=== PATIENT | female | born 1970 | race Caucasian/White ===

== ENCOUNTER 2018-01-14 10:38 | Outpatient (CLI) | payer MEDICAID, SELFPAY ==
[2018-01-14 11:15] LABS: Abs Immature Grans 0.25 k/cumm (0.0-0.09); HGB 12.7 g/dL (12.0-15.5); Mean Corp. HGB Concentration 32.6 g/dL (32.0-36.0); Mean Corpuscular Hemoglobin 28.9 pg (27.0-33.0); Mean Corpuscular Volume 88.6 fL (80-95); Mean Platelet Volume 10.3 fL (8.0-11.0); RBC Distribution Width 17.9 % (11.7-14.6); White Blood Cell Count 11.75 k/cumm (4.4-10.8)
[2018-01-14 11:50] LABS: Absolute Neutrophil Count 5.99 k/cumm (1.2-6.7); Platelet Count 308 x1000/uL (130-400)
[2018-01-14 11:51] LABS: Absolute Lymphocyte Count 4.82 k/cumm (1.2-3.4); Absolute Monocyte Count 0.71 k/cumm (0.11-0.7); Atypical Lymphocytes % 2
[2018-01-14 11:52] LABS: Anisocytosis 2+; Diff Comment Manual Differential
[2018-01-14 11:53] LABS: Polychromasia Present
[2018-01-14 11:57] LABS: ALT 12 U/L (12-78); AST 12 U/L (15-37); Albumin 3.4 g/dL (3.4-5.0); Alkaline Phosphatase 104 U/L (46-116); Anion Gap 8.6 mmol/L (3-11); BUN 13 mg/dL (7-18); Bilirubin, Total 0.2 mg/dL (0.2-1.0); CO2 29.4 mmol/L (21.0-32.0); Calcium 9.4 mg/dL (8.5-10.1); Chloride 103 mmol/L (98-107); Glucose 90 mg/dL (70-100); Sodium 141 mmol/L (136-145); Total Protein 7.1 g/dL (6.4-8.2)
== END 2018-01-14 10:39 ==
PROVIDERS: PCP Family Medicine; Visit Provider Nurse Practitioner Psychiatric/Mental Health
DX: E11.9 Type 2 diabetes mellitus without complications (principal); R20.9 Unspecified disturbances of skin sensation; Z79.899 Other long term (current) drug therapy; Z00.00 Encounter for general adult medical examination without abnormal findings
CPT/HCPCS: 36415; 80053; 85025

== ENCOUNTER 2018-02-24 11:04 | Outpatient (CLI) | payer MEDICAID, SELFPAY ==
[2018-02-24 11:35] LABS: Abs Immature Grans 0.31 k/cumm (0.0-0.09); HCT 41.9 % (36.0-46.0); HGB 13.6 g/dL (12.0-15.5); Mean Corp. HGB Concentration 32.5 g/dL (32.0-36.0); Mean Corpuscular Hemoglobin 29.2 pg (27.0-33.0); Mean Corpuscular Volume 90.1 fL (80-95); Mean Platelet Volume 10.6 fL (8.0-11.0); Platelet Count 319 x1000/uL (130-400); RBC 4.65 m/cumm (4.00-5.20); RBC Distribution Width 17.8 % (11.7-14.6); White Blood Cell Count 14.14 k/cumm (4.4-10.8)
[2018-02-24 11:51] LABS: Absolute Lymphocyte Count 3.39 k/cumm (1.2-3.4); Absolute Neutrophil Count 9.19 k/cumm (1.2-6.7)
[2018-02-24 11:52] LABS: Absolute Monocyte Count 1.27 k/cumm (0.11-0.7); Atypical Lymphocytes % 0; Diff Comment Manual Differential; RBC Morphology Normal
== END 2018-02-24 11:24 ==
PROVIDERS: PCP Family Medicine; Visit Provider Nurse Practitioner Psychiatric/Mental Health
DX: F20.9 Schizophrenia, unspecified (principal); Z79.899 Other long term (current) drug therapy
CPT/HCPCS: 36415; 85025

== ENCOUNTER 2018-03-17 13:48 | Outpatient (REF) | payer MEDICAID, SELFPAY | END 2018-03-17 14:08 | LOC: NCHCN 13:48 | PROVIDERS: PCP Family Medicine; Visit Provider Family Medicine | DX: R35.0 Frequency of micturition (principal) | CPT/HCPCS: 87086 ==

== ENCOUNTER 2018-04-16 15:33 | Outpatient (CLI) | payer MEDICAID, SELFPAY ==
[2018-04-16 16:37] LABS: Abs Immature Grans 0.22 k/cumm (0.0-0.09); HGB 12.8 g/dL (12.0-15.5); Mean Corp. HGB Concentration 32.8 g/dL (32.0-36.0); Mean Corpuscular Hemoglobin 30.3 pg (27.0-33.0); Mean Corpuscular Volume 92.2 fL (80-95); Mean Platelet Volume 9.9 fL (8.0-11.0); Platelet Count 343 x1000/uL (130-400); RBC 4.23 m/cumm (4.00-5.20); RBC Distribution Width 16.1 % (11.7-14.6); White Blood Cell Count 10.75 k/cumm (4.4-10.8)
[2018-04-16 18:09] LABS: Absolute Lymphocyte Count 5.27 k/cumm (1.2-3.4); Absolute Monocyte Count 0.65 k/cumm (0.11-0.7); Absolute Neutrophil Count 4.52 k/cumm (1.2-6.7); Atypical Lymphocytes % 3; Diff Comment Manual Differential; RBC Morphology Normal
== END 2018-04-16 15:53 ==
PROVIDERS: PCP Family Medicine; Visit Provider Nurse Practitioner Psychiatric/Mental Health
DX: F20.9 Schizophrenia, unspecified (principal); Z79.899 Other long term (current) drug therapy
CPT/HCPCS: 36415; 85025

== ENCOUNTER 2018-05-19 11:18 | Outpatient (CLI) | payer MEDICAID, SELFPAY ==
[2018-05-19 12:08] LABS: Abs Immature Grans 0.59 k/cumm (0.0-0.09); Absolute Basophil Count 0.07 k/cumm (0.0-0.2); Absolute Eosinophil Count 0.05 k/cumm (0.0-0.7); Absolute Monocyte Count 1.26 k/cumm (0.11-0.7); Absolute Neutrophil Count 10.97 k/cumm (1.2-6.7); Basophils % 0.4; Eosinophils % 0.3; HCT 38.8 % (36.0-46.0); HGB 12.8 g/dL (12.0-15.5); Immature Grans % 3.4; Lymphocytes % 25.2; Mean Corpuscular Hemoglobin 30.1 pg (27.0-33.0); Mean Corpuscular Volume 91.3 fL (80-95); Mean Platelet Volume 10.1 fL (8.0-11.0); Monocytes % 7.3; Neutrophils % 63.4; Platelet Count 483 x1000/uL (130-400); RBC 4.25 m/cumm (4.00-5.20); RBC Distribution Width 14.8 % (11.7-14.6); White Blood Cell Count 17.31 k/cumm (4.4-10.8)
[2018-05-19 12:09] LABS: Absolute Lymphocyte Count 4.36 k/cumm (1.2-3.4)
== END 2018-05-19 11:38 ==
PROVIDERS: PCP Family Medicine; Visit Provider Nurse Practitioner Psychiatric/Mental Health
DX: F20.9 Schizophrenia, unspecified (principal); Z79.899 Other long term (current) drug therapy
CPT/HCPCS: 36415; 85025

== ENCOUNTER 2018-06-19 10:30 | Outpatient (CLI) | payer MEDICAID, SELFPAY ==
[2018-06-19 12:08] LABS: Abs Immature Grans 0.45 k/cumm (0.0-0.09); HCT 42.3 % (36.0-46.0); HGB 13.7 g/dL (12.0-15.5); Mean Corp. HGB Concentration 32.4 g/dL (32.0-36.0); Mean Corpuscular Hemoglobin 29.7 pg (27.0-33.0); Mean Corpuscular Volume 91.6 fL (80-95); Mean Platelet Volume 10.7 fL (8.0-11.0); Platelet Count 390 x1000/uL (130-400); RBC 4.62 m/cumm (4.00-5.20); RBC Distribution Width 15.6 % (11.7-14.6)
[2018-06-19 12:34] LABS: Absolute Neutrophil Count 5.97 k/cumm (1.2-6.7)
[2018-06-19 12:35] LABS: Absolute Lymphocyte Count 5.59 k/cumm (1.2-3.4); Absolute Monocyte Count 1.02 k/cumm (0.11-0.7); Atypical Lymphocytes % 1; Diff Comment Manual Differential; RBC Morphology Normal
== END 2018-06-19 10:50 ==
PROVIDERS: PCP Family Medicine; Visit Provider Nurse Practitioner Psychiatric/Mental Health
DX: F20.9 Schizophrenia, unspecified (principal); Z79.899 Other long term (current) drug therapy
CPT/HCPCS: 36415; 85025

== ENCOUNTER 2018-07-13 12:58 | Outpatient (CLI) | payer MEDICAID, SELFPAY ==
[2018-07-13 14:15] LABS: Abs Immature Grans 1.21 k/cumm (0.0-0.09); HCT 40.9 % (36.0-46.0); HGB 13.4 g/dL (12.0-15.5); Mean Corp. HGB Concentration 32.8 g/dL (32.0-36.0); Mean Corpuscular Hemoglobin 29.6 pg (27.0-33.0); Mean Corpuscular Volume 90.5 fL (80-95); Mean Platelet Volume 10.5 fL (8.0-11.0); Platelet Count 354 x1000/uL (130-400); RBC 4.52 m/cumm (4.00-5.20); RBC Distribution Width 15.8 % (11.7-14.6); White Blood Cell Count 18.93 k/cumm (4.4-10.8)
[2018-07-13 14:51] LABS: Absolute Neutrophil Count 12.87 k/cumm (1.2-6.7)
[2018-07-13 14:52] LABS: Absolute Lymphocyte Count 4.35 k/cumm (1.2-3.4)
[2018-07-13 14:53] LABS: Absolute Monocyte Count 0.57 k/cumm (0.11-0.7)
[2018-07-13 14:56] LABS: Anisocytosis 1+
[2018-07-13 14:57] LABS: Diff Comment Manual Differential
== END 2018-07-13 13:18 ==
PROVIDERS: PCP Family Medicine; Visit Provider Nurse Practitioner Psychiatric/Mental Health
DX: F20.9 Schizophrenia, unspecified (principal); Z79.899 Other long term (current) drug therapy
CPT/HCPCS: 36415; 85025

== ENCOUNTER 2018-07-20 12:07 | Outpatient (CLI) | payer MEDICAID, SELFPAY ==
[2018-07-20 12:51] LABS: HCT 40.1 % (36.0-46.0); HGB 13.3 g/dL (12.0-15.5); Mean Corp. HGB Concentration 33.2 g/dL (32.0-36.0); Mean Corpuscular Hemoglobin 30.2 pg (27.0-33.0); Mean Corpuscular Volume 91.1 fL (80-95); Mean Platelet Volume 10.4 fL (8.0-11.0); Platelet Count 303 x1000/uL (130-400); RBC Distribution Width 16.3 % (11.7-14.6); White Blood Cell Count 13.64 k/cumm (4.4-10.8)
[2018-07-20 13:41] LABS: ESR 6 MM/HR (0-20)
[2018-07-20 13:47] LABS: C-Reactive Protein 0.28 mg/dL (0.0-0.3)
[2018-07-20 13:49] LABS: Absolute Eosinophil Count 0.14 k/cumm (0.0-0.7); Absolute Lymphocyte Count 5.59 k/cumm (1.2-3.4); Absolute Monocyte Count 0.82 k/cumm (0.11-0.7); Absolute Neutrophil Count 6.68 k/cumm (1.2-6.7); Atypical Lymphocytes % 3; Diff Comment Manual Differential; RBC Morphology Normal
== END 2018-07-20 12:27 ==
LOC: PRC 12:10 → LBO 07-21 16:48
PROVIDERS: Specialist/Technologist Athletic Trainer; PCP Family Medicine; Visit Provider Nurse Practitioner Psychiatric/Mental Health
DX: R21 Rash and other nonspecific skin eruption (principal); F20.9 Schizophrenia, unspecified; Z79.899 Other long term (current) drug therapy
CPT/HCPCS: 36415; 85652; 85025; 86140

== ENCOUNTER 2018-08-14 15:06 | Outpatient (CLI) | payer MEDICAID, SELFPAY ==
[2018-08-14 15:27] LABS: Abs Immature Grans 0.53 k/cumm (0.0-0.09); HCT 40.2 % (36.0-46.0); HGB 13.2 g/dL (12.0-15.5); Mean Corp. HGB Concentration 32.8 g/dL (32.0-36.0); Mean Corpuscular Hemoglobin 29.7 pg (27.0-33.0); Mean Corpuscular Volume 90.5 fL (80-95); Mean Platelet Volume 10.3 fL (8.0-11.0); Platelet Count 338 x1000/uL (130-400); RBC 4.44 m/cumm (4.00-5.20); RBC Distribution Width 16.3 % (11.7-14.6); White Blood Cell Count 12.61 k/cumm (4.4-10.8)
[2018-08-14 16:15] LABS: Absolute Eosinophil Count 0.25 k/cumm (0.0-0.7); Absolute Lymphocyte Count 5.17 k/cumm (1.2-3.4); Absolute Neutrophil Count 6.43 k/cumm (1.2-6.7); Atypical Lymphocytes % 1
[2018-08-14 16:16] LABS: Diff Comment Manual Differential; RBC Morphology Normal
== END 2018-08-14 15:26 ==
PROVIDERS: PCP Family Medicine; Visit Provider Nurse Practitioner Psychiatric/Mental Health
DX: F20.9 Schizophrenia, unspecified (principal); Z79.899 Other long term (current) drug therapy
CPT/HCPCS: 36415; 85025

== ENCOUNTER 2018-09-14 09:57 | Outpatient (CLI) | payer MEDICAID, SELFPAY ==
[2018-09-14 10:34] LABS: Abs Immature Grans 0.28 k/cumm (0.0-0.09); HCT 41.1 % (36.0-46.0); HGB 13.5 g/dL (12.0-15.5); Mean Corp. HGB Concentration 32.8 g/dL (32.0-36.0); Mean Corpuscular Hemoglobin 29.5 pg (27.0-33.0); Mean Corpuscular Volume 89.7 fL (80-95); Mean Platelet Volume 10.6 fL (8.0-11.0); Platelet Count 296 x1000/uL (130-400); RBC 4.58 m/cumm (4.00-5.20); RBC Distribution Width 15.7 % (11.7-14.6); White Blood Cell Count 10.93 k/cumm (4.4-10.8)
[2018-09-14 10:45] LABS: VALPROIC ACID 90.5 ug/mL (50-100)
[2018-09-14 10:47] LABS: Hemoglobin A1C 8.6 % (4.5-6.2)
[2018-09-14 11:11] LABS: Absolute Eosinophil Count 0.11 k/cumm (0.0-0.7); Absolute Lymphocyte Count 3.39 k/cumm (1.2-3.4); Absolute Monocyte Count 0.66 k/cumm (0.11-0.7); Absolute Neutrophil Count 6.45 k/cumm (1.2-6.7); Diff Comment Manual Differential; RBC Morphology Normal
[2018-09-14 11:26] LABS: ALT 13 U/L (12-78); AST 9 U/L (15-37); Albumin 3.8 g/dL (3.4-5.0); Alkaline Phosphatase 130 U/L (46-116); Anion Gap 11.3 mmol/L (3-11); BUN 20 mg/dL (7-18); Bilirubin, Total 0.2 mg/dL (0.2-1.0); CO2 29.7 mmol/L (21.0-32.0); CREATININE 0.86 mg/dL (0.55-1.02); Calcium 10.1 mg/dL (8.5-10.1); Chloride 98 mmol/L (98-107); Cholesterol 191 mg/dL (50-200); Glucose 287 mg/dL (70-100); HDL Cholesterol 55 mg/dL (40-60); LDL CHOLESTEROL 99 mg/dL (<100); Potassium 3.9 mmol/L (3.5-5.1); Sodium 139 mmol/L (136-145); TSH (W/Ref FT4) 3.89 uIU/mL (0.358-3.74); Total Protein 7.8 g/dL (6.4-8.2); Triglyceride 145 mg/dL (30-150)
[2018-09-14 12:54] LABS: FREE T4 1.06 ng/dL (0.76-1.46)
[2018-09-17 08:39] LABS: Clozapine 1400 ng/mL (>350); Clozapine+Norclozapine Total 1765 ng/mL (>450); Norclozapine 365 ng/mL
== END 2018-09-14 10:17 ==
PROVIDERS: PCP Family Medicine; Visit Provider Nurse Practitioner Psychiatric/Mental Health
DX: F25.0 Schizoaffective disorder, bipolar type (principal); Z51.81 Encounter for therapeutic drug level monitoring; Z79.899 Other long term (current) drug therapy
CPT/HCPCS: 36415; 80053; 80061; 83721; 80159; 80164; 83036; 84439; 84443; 85025

== ENCOUNTER 2018-09-26 13:13 | Emergency (ER) | payer MEDICAID, SELFPAY ==
[2018-09-26 13:15] VITALS: BP 111/48; PULSE 108; RESP 18; TEMP 36.8; O2SAT 100
--- NOTE | 2018-09-26 13:27 | ED.GENADUL_ITS ---
Discharge Plan Disposition Patient Disposition: HOME Condition: Stable Discharge Details Chief Complaint: Orthopedic Clinical Impression: Ankle sprain Primary Care Provider: Sol Ashley V ED Provider: Vinh Perez Home Meds and New Rx's Prescriptions: No Action sennosides [Senokot] 1 TAB tablet 1 tab PO BID RF: 0 clozapine [Clozaril] 100 MG tablet 100 mg PO QAM RF: 0 clozapine [Clozaril] 100 MG tablet 700 mg PO .QHS RF: 0 lithium carbonate [Lithobid] 300 MG tablet extended release 900 mg PO HS RF: 0 levothyroxine 25 MCG tablet 112 mcg PO DAILY@0730 RF: 0 divalproex [Depakote ER] 500 MG tablet extended release 24 hr 1,500 mg PO HS RF: 0 polyethylene glycol 3350 17 GM powder in packet 17 gm PO DAILY RF: 0 aspirin [Aspir-81] 81 MG tablet,delayed release (DR/EC) 81 mg PO QAM RF: 0 ibuprofen [Ibuprofen IB] 200 MG tablet 400 mg PO Q8H PRNRF: 0 oxybutynin chloride 5 MG tablet 5 mg PO HS RF: 0 acetaminophen [Acetaminophen Extra Strength] 500 MG tablet 500 mg PO PRN PRNRF: 0 divalproex [Depakote ER] 500 MG tablet extended release 24 hr 1,000 mg PO QAM RF: 0 metformin 850 MG tablet 1,000 mg PO BID RF: 0 levofloxacin 750 MG tablet 750 mg PO DAILY Qty: 5 RF: 0 mirabegron [Myrbetriq] 25 MG tablet extended release 24 hr 25 mg PO DAILY RF: 0 Discharge Instructions Additional Instructions: 1. Drink plenty of fluids. 2. Continue all medications as prescribed. 3. Acetaminophen 1000mg every 4 hours (up to 5 time a day) and/or ibuprofen 600mg every 6 hours as needed for fever or pain. 4. Activity as tolerated. Ice sore areas frequently. Return to the Emergency Department (ED) if your condition worsens, does not improve as expected, or for ANY other concerns. Specifically, return if you have new or uncontrolled pain, worsening fever, difficulty breathing, vomiting, or are unable to drink fluids. Activity as tolerated. Ice sore areas frequently. Medical Decision Making Presents for evaluation of persistent right ankle pain associated with an inversion injury yesterday. Patient has been walking since the event and had no difficulty ambulating here while in the emergency department. Exam significant for anterior lateral malleoli tenderness and soft tissue swelling in the distribution of the ATFL. Otherwise nonfocal exam. Bedside ultrasound suggestive of a distal avulsion fracture amenable to conservative management. Discharged home with plan for weightbearing as tolerated, OTC analgesia, ice, and follow-up as needed. Pt evaluated immediately prior to discharge with improved symptoms, normal vital signs, and tolerating PO. The patient feels appropriate for discharge home. Discussed clinical/diagnostic findings. Discharged with a clear plan for outpatient follow up. Given usual and customary return instructions prior to discharge. Medical Records Medical records reviewed: Yes I reviewed the patient's medical records. Imaging Data Radiologic Study: Imaging: Ultrasound (Bedside MSK) My impression: Limited MSK Bedside Ultrasound. Findings include No tibial fracture medially. Possible distal evulsion fracture at the origin of the ATFL. Otherwise otherwise no clinically significant bony injury.. Images obtained, reviewed, and interpreted independently by myself. Images saved on ultrasound system for review. HPI 48-year-old with a past medical history which includes bipolar disease, GERD, diabetes, hypothyroidism, and tobacco use presents for evaluation of right ankle pain.. Ms. Levine inverted her ankle yesterday while walking outside having a cigarette. She had associated pain and swelling and presents for evaluation today. She denies other significant injury. She has no loss of motion or loss of sensation distally. She is able to bear weight with mild discomfort. She denies a history of previous ankle fracture. General Date/Time Provider Initiated Documentation: 09/26/18 13:16 . Related Data Home Medications Medication Instructions Recorded Confirmed clozapine [Clozaril] 100 mg PO QAM 10/18/13 10/08/16 clozapine [Clozaril] 700 mg PO .QHS 10/18/13 10/08/16 divalproex [Depakote ER] 1,500 mg PO HS 10/18/13 10/08/16 levothyroxine 112 mcg PO DAILY@0730 10/18/13 10/08/16 lithium carbonate [Lithobid] 900 mg PO HS 10/18/13 10/08/16 sennosides [Senokot] 1 tab PO BID 10/18/13 10/08/16 aspirin [Aspir-81] 81 mg PO QAM 08/05/14 10/08/16 ibuprofen [Ibuprofen IB] 400 mg PO Q8H PRN 08/05/14 10/08/16 oxybutynin chloride 5 mg PO HS 08/05/14 10/04/16 polyethylene glycol 3350 17 gm PO DAILY 08/05/14 10/08/16 acetaminophen [Acetaminophen Extra 500 mg PO PRN PRN 10/04/16 10/08/16 Strength] divalproex [Depakote ER] 1,000 mg PO QAM 10/04/16 10/04/16 levofloxacin 750 mg PO DAILY #5 tablet 10/04/16 10/08/16 metformin 1,000 mg PO BID 10/04/16 10/08/16 mirabegron [Myrbetriq] 25 mg PO DAILY 10/08/16 10/08/16 Previous Rx's Medication Instructions Recorded levofloxacin 750 mg PO DAILY #5 tablet 10/04/16 Allergies Allergy/AdvReac Type Severity Reaction Status Date / Time Penicillins Allergy Severe Unverified 09/26/18 13:18 peanut Allergy Unknown Unverified 09/26/18 13:18 trifluoperazine HCl Allergy Unknown Unverified 09/26/18 13:18 [From Stelazine] lorazepam [From Ativan] AdvReac Severe Psychosis Unverified 09/26/18 13:18 General Stated Complaint: Orthopedic QUINTEN: 4 Review of Systems Review of Systems All systems reviewed & are unremarkable except as noted in HPI and below PFSH Social History Smoking/Tobacco Use Status: Current every day Drug use: Never Do you feel safe in your relationship?: Yes Exam Narrative Exam Narrative: Nursing note and vital signs have been reviewed and noted. GENERAL: alert, active, no acute distress, well -hydrated, well-nourished HEENT: atraumatic/normocephalic, PERRLA, EOMI, conjunctiva clear, external ears/canals normal, nasal mucosa normal NECK: supple, full range of motion CARDIOVASCULAR: nl pulses, no edema PULMONARY: nl effort, no audible wheezing or stridor ABDOMEN: non-distended EXTREMITY: normal muscle tone, right ankle with no proximal fibular tenderness, no medial malleolar tenderness, no Achilles tendon tenderness, no fifth metatarsal tenderness and no posterior lateral malleoli tenderness. Anterior lateral malleoli tenderness with associated soft tissue swelling and ecchymosis the distribution of the ATFL. NUERO: normal mentation, moving all extremities, normal stance and gait, PSYCH: alert and oriented SKIN: no new rashes or lesions Course Vital Signs Temperature 98.2 F 09/26/18 13:15 Pulse 108 H 09/26/18 13:15 Respiratory Rate 18 09/26/18 13:15 Blood Pressure 111/48 L 09/26/18 13:15 Pulse Oximetry 100 09/26/18 13:15 Temperature 98.2 F 09/26/18 13:15 Temperature Source Skin 09/26/18 13:15 Pulse 108 H 09/26/18 13:15 Respiratory Rate 18 09/26/18 13:15 Respiratory Effort Non-Labored 09/26/18 13:19 Blood Pressure 111/48 L 09/26/18 13:15 Blood Pressure Position Sitting 09/26/18 13:15 Pulse Oximetry 100 09/26/18 13:15 Oxygen Delivery Method Room Air 09/26/18 13:15 Oxygen Flow Rate 0 09/26/18 13:15 Pain Level 10 09/26/18 13:15
== END 2018-09-26 15:25 | disposition home or self-care (01) ==
PROVIDERS: Emergency Provider Emergency Medicine; PCP Family Medicine
DX: S93.491A Sprain of other ligament of right ankle, initial encounter (principal); X50.9XXA Other and unspecified overexertion or strenuous movements or postures, initial encounter; E11.9 Type 2 diabetes mellitus without complications; Z79.84 Long term (current) use of oral hypoglycemic drugs
CPT/HCPCS: 99283; 99282

== ENCOUNTER 2018-10-14 14:05 | Outpatient (CLI) | payer MEDICAID, SELFPAY ==
[2018-10-14 14:43] LABS: Abs Immature Grans 0.27 k/cumm (0.0-0.09); HCT 40.7 % (36.0-46.0); HGB 13.2 g/dL (12.0-15.5); Mean Corp. HGB Concentration 32.4 g/dL (32.0-36.0); Mean Corpuscular Hemoglobin 29.5 pg (27.0-33.0); Mean Corpuscular Volume 90.8 fL (80-95); Mean Platelet Volume 10.7 fL (8.0-11.0); Platelet Count 324 x1000/uL (130-400); RBC 4.48 m/cumm (4.00-5.20); RBC Distribution Width 15.3 % (11.7-14.6); White Blood Cell Count 11.78 k/cumm (4.4-10.8)
[2018-10-14 15:02] LABS: Absolute Neutrophil Count 6.48 k/cumm (1.2-6.7)
[2018-10-14 15:03] LABS: Absolute Eosinophil Count 0.12 k/cumm (0.0-0.7); Absolute Lymphocyte Count 4.12 k/cumm (1.2-3.4); Absolute Monocyte Count 0.71 k/cumm (0.11-0.7); Anisocytosis 1+; Atypical Lymphocytes % 3; Diff Comment Manual Differential
== END 2018-10-14 14:25 ==
PROVIDERS: PCP Family Medicine; Visit Provider Nurse Practitioner Psychiatric/Mental Health
DX: F20.9 Schizophrenia, unspecified (principal); Z79.899 Other long term (current) drug therapy
CPT/HCPCS: 36415; 85025

== ENCOUNTER 2018-11-30 15:30 | Outpatient (CLI) | payer MEDICAID, SELFPAY ==
[2018-11-30 15:55] LABS: Abs Immature Grans 0.57 k/cumm (0.0-0.09); HCT 38.5 % (36.0-46.0); HGB 12.6 g/dL (12.0-15.5); Mean Corp. HGB Concentration 32.7 g/dL (32.0-36.0); Mean Corpuscular Hemoglobin 29.9 pg (27.0-33.0); Mean Corpuscular Volume 91.2 fL (80-95); Mean Platelet Volume 10.3 fL (8.0-11.0); Platelet Count 359 x1000/uL (130-400); RBC 4.22 m/cumm (4.00-5.20); RBC Distribution Width 15.3 % (11.7-14.6); White Blood Cell Count 13.28 k/cumm (4.4-10.8)
[2018-11-30 17:28] LABS: Absolute Lymphocyte Count 5.31 k/cumm (1.2-3.4); Absolute Neutrophil Count 7.44 k/cumm (1.2-6.7); Atypical Lymphocytes % 5
[2018-11-30 17:29] LABS: Diff Comment Manual Differential; RBC Morphology Normal
== END 2018-11-30 15:50 ==
PROVIDERS: PCP Family Medicine; Visit Provider Nurse Practitioner Family
DX: F20.9 Schizophrenia, unspecified (principal); Z79.899 Other long term (current) drug therapy
CPT/HCPCS: 36415; 85025

== ENCOUNTER 2019-01-07 09:51 | Outpatient (CLI) | payer MEDICAID, SELFPAY ==
[2019-01-07 10:42] LABS: HCT 41.7 % (36.0-46.0); HGB 13.8 g/dL (12.0-15.5); Mean Corp. HGB Concentration 33.1 g/dL (32.0-36.0); Mean Corpuscular Hemoglobin 29.9 pg (27.0-33.0); Mean Corpuscular Volume 90.5 fL (80-95); Mean Platelet Volume 10.9 fL (8.0-11.0); Platelet Count 303 x1000/uL (130-400); RBC 4.61 m/cumm (4.00-5.20); RBC Distribution Width 16.1 % (11.7-14.6); White Blood Cell Count 11.67 k/cumm (4.4-10.8)
[2019-01-07 11:15] LABS: Absolute Neutrophil Count 6.65 k/cumm (1.2-6.7)
[2019-01-07 11:16] LABS: Absolute Eosinophil Count 0.12 k/cumm (0.0-0.7); Absolute Lymphocyte Count 3.97 k/cumm (1.2-3.4); Atypical Lymphocytes % 2; Diff Comment Manual Differential; RBC Morphology Normal
== END 2019-01-07 10:11 ==
PROVIDERS: PCP Family Medicine; Visit Provider Nurse Practitioner Family
DX: F20.9 Schizophrenia, unspecified (principal); Z79.899 Other long term (current) drug therapy
CPT/HCPCS: 36415; 85025

== ENCOUNTER 2019-01-25 15:37 | Outpatient (CLI) | payer MEDICAID, SELFPAY ==
[2019-01-25 16:10] LABS: Abs Immature Grans 0.58 k/cumm (0.0-0.09); HCT 39.5 % (36.0-46.0); HGB 13.2 g/dL (12.0-15.5); Mean Corp. HGB Concentration 33.4 g/dL (32.0-36.0); Mean Corpuscular Hemoglobin 30.2 pg (27.0-33.0); Mean Corpuscular Volume 90.4 fL (80-95); Mean Platelet Volume 10.6 fL (8.0-11.0); Platelet Count 358 x1000/uL (130-400); RBC 4.37 m/cumm (4.00-5.20); RBC Distribution Width 15.8 % (11.7-14.6); White Blood Cell Count 14.47 k/cumm (4.4-10.8)
[2019-01-25 16:18] LABS: VALPROIC ACID 106.2 ug/mL (50-100)
[2019-01-25 17:17] LABS: ALT 17 U/L (12-78); AST 10 U/L (15-37); Albumin 3.4 g/dL (3.4-5.0); Alkaline Phosphatase 107 U/L (46-116); Anion Gap 10.5 mmol/L (3-11); BUN 25 mg/dL (7-18); Bilirubin, Total 0.1 mg/dL (0.2-1.0); CO2 27.5 mmol/L (21.0-32.0); Calcium 9.3 mg/dL (8.5-10.1); Calculated LDL 126 mg/dL; Chloride 102 mmol/L (98-107); Cholesterol 205 mg/dL (50-200); Glucose 165 mg/dL (70-100); HDL Cholesterol 43 mg/dL (40-60); Potassium 4.3 mmol/L (3.5-5.1); Sodium 140 mmol/L (136-145); Triglyceride 180 mg/dL (30-150)
[2019-01-25 19:35] LABS: Absolute Neutrophil Count 9.41 k/cumm (1.2-6.7)
[2019-01-25 19:36] LABS: Absolute Eosinophil Count 0.29 k/cumm (0.0-0.7); Absolute Lymphocyte Count 3.47 k/cumm (1.2-3.4); Absolute Monocyte Count 0.58 k/cumm (0.11-0.7); Atypical Lymphocytes % 4; Diff Comment Manual Differential; RBC Morphology Normal
[2019-01-27 04:35] LABS: Clozapine 920 ng/mL (>350); Clozapine+Norclozapine Total 1315 ng/mL (>450); Norclozapine 395 ng/mL
== END 2019-01-25 15:57 ==
PROVIDERS: PCP Family Medicine; Visit Provider Nurse Practitioner Family
DX: F25.0 Schizoaffective disorder, bipolar type (principal); Z79.899 Other long term (current) drug therapy; Z51.81 Encounter for therapeutic drug level monitoring
CPT/HCPCS: 36415; 80053; 80061; 83721; 80159; 80164; 85025

== ENCOUNTER 2019-03-04 13:53 | Outpatient (CLI) | payer MEDICAID, SELFPAY ==
[2019-03-04 15:16] LABS: Absolute Monocyte Count 1.05 k/cumm (0.11-0.7); Mean Corp. HGB Concentration 32.5 g/dL (32.0-36.0); Mean Corpuscular Hemoglobin 29.5 pg (27.0-33.0); Mean Corpuscular Volume 90.7 fL (80-95); Mean Platelet Volume 10.2 fL (8.0-11.0); Platelet Count 366 x1000/uL (130-400); RBC 4.41 m/cumm (4.00-5.20); RBC Distribution Width 15.7 % (11.7-14.6); White Blood Cell Count 13.15 k/cumm (4.4-10.8)
[2019-03-04 15:17] LABS: Absolute Neutrophil Count 6.97 k/cumm (1.2-6.7)
[2019-03-04 15:18] LABS: Absolute Eosinophil Count 0.26 k/cumm (0.0-0.7); Absolute Lymphocyte Count 4.08 k/cumm (1.2-3.4); Diff Comment Manual Differential
[2019-03-04 15:19] LABS: Anisocytosis 1+; Polychromasia Present
== END 2019-03-04 14:13 ==
PROVIDERS: PCP Family Medicine; Visit Provider Nurse Practitioner Family
DX: F20.9 Schizophrenia, unspecified (principal); Z79.899 Other long term (current) drug therapy
CPT/HCPCS: 36415; 85025

== ENCOUNTER 2019-04-08 12:06 | Outpatient (CLI) | payer MEDICAID, SELFPAY ==
[2019-04-08 13:04] LABS: VALPROIC ACID 110.7 ug/mL (50-100)
[2019-04-08 13:42] LABS: ALT 15 U/L (14-59); AST 10 U/L (15-37); Albumin 3.5 g/dL (3.4-5.0); Alkaline Phosphatase 98 U/L (46-116); Anion Gap 12.5 mmol/L (3-11); BUN 17 mg/dL (7-18); Bilirubin, Total 0.2 mg/dL (0.2-1.0); CO2 26.5 mmol/L (21.0-32.0); CREATININE 0.82 mg/dL (0.55-1.02); Calcium 8.5 mg/dL (8.5-10.1); Chloride 100 mmol/L (98-107); Glucose 185 mg/dL (70-100); Potassium 4.5 mmol/L (3.5-5.1); Sodium 139 mmol/L (136-145); TSH (W/Ref FT4) 3.83 uIU/mL (0.36-3.74); Total Protein 7.2 g/dL (6.4-8.2)
[2019-04-08 14:12] LABS: FREE T4 1.18 ng/dL (0.76-1.46)
[2019-04-10 11:28] LABS: Clozapine 1210 ng/mL (>350); Clozapine+Norclozapine Total 1598 ng/mL (>450); Norclozapine 388 ng/mL
== END 2019-04-08 12:26 ==
PROVIDERS: PCP Family Medicine; Visit Provider Nurse Practitioner Family
DX: F25.0 Schizoaffective disorder, bipolar type (principal); Z51.81 Encounter for therapeutic drug level monitoring; Z79.899 Other long term (current) drug therapy; R41.0 Disorientation, unspecified; K11.7 Disturbances of salivary secretion
CPT/HCPCS: 36415; 80053; 80159; 80164; 81003; 84439; 84443

== ENCOUNTER 2019-04-14 13:50 | Outpatient (CLI) | payer MEDICAID, SELFPAY ==
[2019-04-14 14:17] LABS: Abs Immature Grans 0.92 k/cumm (0.0-0.09); HCT 39.2 % (36.0-46.0); Mean Corp. HGB Concentration 33.2 g/dL (32.0-36.0); Mean Corpuscular Hemoglobin 30.2 pg (27.0-33.0); Mean Corpuscular Volume 91.2 fL (80-95); Mean Platelet Volume 10.3 fL (8.0-11.0); Platelet Count 380 x1000/uL (130-400); White Blood Cell Count 15.21 k/cumm (4.4-10.8)
[2019-04-14 14:45] LABS: Absolute Lymphocyte Count 5.48 k/cumm (1.2-3.4); Absolute Monocyte Count 1.37 k/cumm (0.11-0.7); Atypical Lymphocytes % 2
[2019-04-14 14:46] LABS: Absolute Eosinophil Count 0.15 k/cumm (0.0-0.7); Anisocytosis 1+; Diff Comment Manual Differential; Polychromasia Present
== END 2019-04-14 14:10 ==
PROVIDERS: PCP Family Medicine; Visit Provider Family Medicine
DX: F20.9 Schizophrenia, unspecified (principal); Z79.899 Other long term (current) drug therapy
CPT/HCPCS: 36415; 85025

== ENCOUNTER 2019-05-25 09:43 | Outpatient (CLI) | payer MEDICAID, SELFPAY ==
[2019-05-25 10:29] LABS: Abs Immature Grans 0.73 k/cumm (0.0-0.09); HCT 39.6 % (36.0-46.0); Mean Corp. HGB Concentration 32.8 g/dL (32.0-36.0); Mean Corpuscular Hemoglobin 29.7 pg (27.0-33.0); Mean Corpuscular Volume 90.4 fL (80-95); Mean Platelet Volume 10.7 fL (8.0-11.0); Platelet Count 412 x1000/uL (130-400); RBC 4.38 m/cumm (4.00-5.20); RBC Distribution Width 15.4 % (11.7-14.6); White Blood Cell Count 11.61 k/cumm (4.4-10.8)
[2019-05-25 10:55] LABS: Absolute Eosinophil Count 0.12 k/cumm (0.0-0.7); Absolute Lymphocyte Count 4.06 k/cumm (1.2-3.4); Absolute Monocyte Count 1.04 k/cumm (0.11-0.7); Absolute Neutrophil Count 5.81 k/cumm (1.2-6.7); Anisocytosis 1+; Diff Comment Manual Differential; Polychromasia Present
== END 2019-05-25 10:03 ==
PROVIDERS: PCP Family Medicine; Visit Provider Nurse Practitioner Family
DX: F20.9 Schizophrenia, unspecified (principal); Z79.899 Other long term (current) drug therapy
CPT/HCPCS: 36415; 85025

== ENCOUNTER 2019-06-01 08:07 | Outpatient (CLI) | payer MEDICAID, SELFPAY ==
[2019-06-01 09:01] LABS: Abs Immature Grans 0.28 k/cumm (0.0-0.09); Absolute Basophil Count 0.03 k/cumm (0.0-0.2); Absolute Lymphocyte Count 3.59 k/cumm (1.2-3.4); Basophils % 0.2; Eosinophils % 0.5; HCT 39.8 % (36.0-46.0); HGB 12.9 g/dL (12.0-15.5); Immature Grans % 2.2; Lymphocytes % 28.1; Mean Corp. HGB Concentration 32.4 g/dL (32.0-36.0); Mean Corpuscular Hemoglobin 29.5 pg (27.0-33.0); Mean Corpuscular Volume 90.9 fL (80-95); Mean Platelet Volume 10.3 fL (8.0-11.0); Monocytes % 8.5; Neutrophils % 60.5; Platelet Count 329 x1000/uL (130-400); RBC 4.38 m/cumm (4.00-5.20); RBC Distribution Width 15.8 % (11.7-14.6); White Blood Cell Count 12.77 k/cumm (4.4-10.8)
[2019-06-01 09:03] LABS: Absolute Eosinophil Count 0.06 k/cumm (0.0-0.7); Absolute Monocyte Count 1.09 k/cumm (0.11-0.7); Absolute Neutrophil Count 7.73 k/cumm (1.2-6.7)
[2019-06-01 09:13] LABS: VALPROIC ACID 138.2 ug/mL (50-100)
== END 2019-06-01 08:27 ==
LOC: NCHCO 08:24 → LBO 08:29
PROVIDERS: PCP Family Medicine; Visit Provider Nurse Practitioner Family
DX: F20.9 Schizophrenia, unspecified (principal); Z79.899 Other long term (current) drug therapy; F25.0 Schizoaffective disorder, bipolar type; Z51.81 Encounter for therapeutic drug level monitoring
CPT/HCPCS: 36415; 80164; 85025

== ENCOUNTER 2019-07-08 09:28 | Outpatient (CLI) | payer MEDICAID, SELFPAY ==
[2019-07-08 10:10] LABS: Abs Immature Grans 0.79 k/cumm (0.0-0.09); HCT 41.2 % (36.0-46.0); HGB 13.4 g/dL (12.0-15.5); Mean Corp. HGB Concentration 32.5 g/dL (32.0-36.0); Mean Corpuscular Hemoglobin 29.2 pg (27.0-33.0); Mean Corpuscular Volume 89.8 fL (80-95); Mean Platelet Volume 10.5 fL (8.0-11.0); Platelet Count 465 x1000/uL (130-400); RBC 4.59 m/cumm (4.00-5.20); RBC Distribution Width 15.7 % (11.7-14.6)
[2019-07-08 10:42] LABS: Diff Comment Manual Differential
[2019-07-08 10:43] LABS: Absolute Lymphocyte Count 4.47 k/cumm (1.2-3.4); Absolute Monocyte Count 0.89 k/cumm (0.11-0.7); Absolute Neutrophil Count 9.24 k/cumm (1.2-6.7); Atypical Lymphocytes % 2; Hypochromasia 1+
== END 2019-07-08 09:48 ==
PROVIDERS: PCP Family Medicine; Visit Provider Nurse Practitioner Family
DX: F20.9 Schizophrenia, unspecified (principal); Z79.899 Other long term (current) drug therapy
CPT/HCPCS: 36415; 85025

== ENCOUNTER 2019-08-02 01:42 | Outpatient (CLI) | payer MEDICAID, SELFPAY ==
--- NOTE | 2019-08-02 | DI.MAMMO_ITS ---
EXAM: MG MAMMO SCREENING CLINICAL HISTORY: SCREENING Z12.39. TECHNIQUE: Bilateral full field digital CC and MLO mammographic images were obtained with 3D tomosyn thesis and utilizing computer aided detection (CAD). COMPARISON: Available for comparison. FINDINGS: Masses/Architectural Distortion: None seen. Microcalcifications: No suspicious pleomorphic-type are seen. Skin Thickening/Nipple Retraction: None. IMPRESSION: 1. No significant interval change with no specific features of malignancy noted. 2. Unless there is more urgent need, screening mammography is recommended, as per [employer] guidelines. ACR BI-RAD Category- 1 Negative Breast Density - Category C - Heterogeneously dense The mammogram demonstrates the patient's breast tissue is dense. Dense breast tissue is very common a nd is not abnormal but dense breast tissue can make it harder to find cancer on a mammogram. Also, de nse breast tissue may increase their breast cancer risk. This information about the result of the [facility] mogram report was provided to the patient to raise their awareness. Use this report when you speak wi th the patient about their risks for breast cancer, which includes their family history. At that time , you may recommend for more screening tests (Ultrasound or MRI) as they might be useful based on the ir risk. A negative radiographic report should not delay biopsy if a dominant or clinically suspicious mass is present. Up to ten percent of cancers are not identified on mammography. A negative report may reinforce clinical impression. Adenosis and dense breasts may obscure an underlying neoplasm. False positive reports average 6 to 10%. Patient will receive a letter notifying them of these results.
== END 2019-08-02 02:02 ==
PROVIDERS: PCP Family Medicine; Visit Provider Family Medicine
DX: Z12.31 Encounter for screening mammogram for malignant neoplasm of breast (principal)
CPT/HCPCS: 77063; 77067

== ENCOUNTER 2019-08-02 11:29 | Outpatient (REF) | payer MEDICAID, SELFPAY ==
[2019-08-02 12:57] LABS: Bilirubin Negative (Negative); Blood Negative (Negative); Clarity Clear (Clear); Glucose 500 mg/dL (Negative); Ketones Trace mg/dL (Negative); Leukocyte Esterase Negative (Negative); Nitrite Negative (Negative); Urobilinogen 0.2 EU/dL (Up TO 0.2)
== END 2019-08-02 11:49 ==
LOC: LBN 11:29
PROVIDERS: PCP Family Medicine; Visit Provider Nurse Practitioner Family
DX: R41.0 Disorientation, unspecified
CPT/HCPCS: 81003

== ENCOUNTER 2019-08-09 10:19 | Outpatient (CLI) | payer MEDICAID, SELFPAY ==
[2019-08-09 10:51] LABS: Abs Immature Grans 1.02 k/cumm (0.0-0.09); HCT 41.8 % (36.0-46.0); HGB 13.7 g/dL (12.0-15.5); Mean Corp. HGB Concentration 32.8 g/dL (32.0-36.0); Mean Corpuscular Hemoglobin 29.6 pg (27.0-33.0); Mean Corpuscular Volume 90.3 fL (80-95); Mean Platelet Volume 10.4 fL (8.0-11.0); Platelet Count 377 x1000/uL (130-400); RBC 4.63 m/cumm (4.00-5.20); RBC Distribution Width 16.2 % (11.7-14.6); White Blood Cell Count 12.31 k/cumm (4.4-10.8)
[2019-08-09 11:10] LABS: VALPROIC ACID 108.9 ug/mL (50-100)
[2019-08-09 11:35] LABS: Absolute Eosinophil Count 0.37 k/cumm (0.0-0.7); Absolute Lymphocyte Count 4.55 k/cumm (1.2-3.4); Absolute Monocyte Count 0.62 k/cumm (0.11-0.7); Absolute Neutrophil Count 5.66 k/cumm (1.2-6.7)
[2019-08-09 11:36] LABS: Diff Comment Manual Differential
[2019-08-09 11:57] LABS: ALT 15 U/L (14-59); AST 11 U/L (15-37); Albumin 3.6 g/dL (3.4-5.0); Alkaline Phosphatase 106 U/L (46-116); Anion Gap 9.7 mmol/L (3-11); BUN 18 mg/dL (7-18); Bilirubin, Total 0.2 mg/dL (0.2-1.0); CO2 30.3 mmol/L (21.0-32.0); CREATININE 0.69 mg/dL (0.55-1.02); Calcium 9.8 mg/dL (8.5-10.1); Calculated LDL 102 mg/dL (<100); Chloride 101 mmol/L (98-107); Cholesterol 185 mg/dL (<200); Glucose 175 mg/dL (74-106); HDL Cholesterol 58 mg/dL (40-60); Potassium 4.4 mmol/L (3.5-5.1); Sodium 141 mmol/L (136-145); Total Protein 7.1 g/dL (6.4-8.2); Triglyceride 129 mg/dL (<150)
[2019-08-09 12:48] LABS: TSH (W/Ref FT4) 4.64 uIU/mL (0.36-3.74)
[2019-08-09 13:05] LABS: FREE T4 1.42 ng/dL (0.76-1.46)
[2019-08-09 15:31] LABS: Anisocytosis 1+
== END 2019-08-09 10:39 ==
PROVIDERS: PCP Family Medicine; Visit Provider Nurse Practitioner Family
DX: Z79.899 Other long term (current) drug therapy (principal); Z51.81 Encounter for therapeutic drug level monitoring; F20.9 Schizophrenia, unspecified
CPT/HCPCS: 36415; 80053; 80061; 80164; 84439; 84443; 85025

== ENCOUNTER 2019-09-09 10:07 | Outpatient (CLI) | payer MEDICAID, SELFPAY ==
[2019-09-09 11:24] LABS: HCT 38.4 % (36.0-46.0); HGB 12.8 g/dL (12.0-15.5); Mean Corp. HGB Concentration 33.3 g/dL (32.0-36.0); Mean Corpuscular Hemoglobin 29.7 pg (27.0-33.0); Mean Corpuscular Volume 89.1 fL (80-95); Mean Platelet Volume 10.6 fL (8.0-11.0); Platelet Count 337 x1000/uL (130-400); RBC 4.31 m/cumm (4.00-5.20); RBC Distribution Width 16.7 % (11.7-14.6); White Blood Cell Count 13.09 k/cumm (4.4-10.8)
[2019-09-09 12:03] LABS: Absolute Eosinophil Count 0.26 k/cumm (0.0-0.7); Absolute Lymphocyte Count 3.93 k/cumm (1.2-3.4); Absolute Monocyte Count 1.05 k/cumm (0.11-0.7); Absolute Neutrophil Count 7.33 k/cumm (1.2-6.7); Atypical Lymphocytes % 2
[2019-09-09 12:04] LABS: Diff Comment Manual Differential; RBC Morphology Normal
== END 2019-09-09 10:27 ==
PROVIDERS: PCP Family Medicine; Visit Provider Nurse Practitioner Family
DX: F20.9 Schizophrenia, unspecified (principal); Z79.899 Other long term (current) drug therapy
CPT/HCPCS: 36415; 85025

== ENCOUNTER 2019-11-29 02:12 | Outpatient (CLI) | payer MEDICAID, SELFPAY ==
[2019-11-29 15:41] LABS: HCT 39.6 % (36.0-46.0); HGB 13.1 g/dL (12.0-15.5); Mean Corp. HGB Concentration 33.1 g/dL (32.0-36.0); Mean Corpuscular Hemoglobin 30.3 pg (27.0-33.0); Mean Corpuscular Volume 91.7 fL (80-95); Mean Platelet Volume 10.7 fL (8.0-11.0); Platelet Count 378 x1000/uL (130-400); RBC 4.32 m/cumm (4.00-5.20); White Blood Cell Count 11.87 k/cumm (4.4-10.8)
[2019-11-29 16:20] LABS: Absolute Lymphocyte Count 4.75 k/cumm (1.2-3.4); Absolute Monocyte Count 0.71 k/cumm (0.11-0.7); Absolute Neutrophil Count 5.82 k/cumm (1.2-6.7)
[2019-11-29 16:22] LABS: Diff Comment Manual Differential; Promyelocytes % 1 %
[2019-11-29 16:23] LABS: Anisocytosis 1+
== END 2019-11-29 02:32 ==
PROVIDERS: PCP Family Medicine; Visit Provider Nurse Practitioner Family
DX: F20.9 Schizophrenia, unspecified (principal); Z79.899 Other long term (current) drug therapy
CPT/HCPCS: 36415; 85025

== ENCOUNTER 2019-12-28 04:08 | Outpatient (CLI) | payer MEDICAID, SELFPAY ==
[2019-12-28 13:43] LABS: HCT 36.8 % (36.0-46.0); HGB 11.9 g/dL (12.0-15.5); Mean Corp. HGB Concentration 32.3 g/dL (32.0-36.0); Mean Corpuscular Hemoglobin 29.8 pg (27.0-33.0); Mean Corpuscular Volume 92.2 fL (80-95); Mean Platelet Volume 10.4 fL (8.0-11.0); Platelet Count 382 x1000/uL (130-400); RBC 3.99 m/cumm (4.00-5.20); RBC Distribution Width 15.8 % (11.7-14.6); White Blood Cell Count 11.43 k/cumm (4.4-10.8)
[2019-12-28 14:21] LABS: Absolute Monocyte Count 0.69 k/cumm (0.11-0.7); Absolute Neutrophil Count 5.94 k/cumm (1.2-6.7)
[2019-12-28 14:22] LABS: Diff Comment Manual Differential; RBC Morphology Normal
== END 2019-12-28 04:28 ==
PROVIDERS: PCP Family Medicine; Visit Provider Nurse Practitioner Family
DX: F20.9 Schizophrenia, unspecified (principal); Z79.899 Other long term (current) drug therapy
CPT/HCPCS: 36415; 85025

== ENCOUNTER 2020-01-18 01:38 | Outpatient (CLI) | payer MEDICAID, SELFPAY ==
[2020-01-18 12:04] LABS: Abs Immature Grans 0.77 10^3/uL (0.0-0.06); HCT 37.9 % (36.0-46.0); HGB 12.3 g/dL (11.2-15.7); MCH 29.9 pg (27.0-33.0); MCHC 32.5 % (32.0-36.0); MPV 10.6 fL (8.0-11.0); Nucleated RBC 0 %; Platelet Count 285 10^3/uL (130-400); RBC 4.12 10^6/uL (3.93-5.22); RDW 15.9 % (11.7-14.6); RDW-SD 54.3 fL; WBC 15.04 10^3/uL (4.4-10.8)
[2020-01-18 12:22] LABS: Absolute Eosinophil Count 0.15 10^3/uL (0.0-0.7); Absolute Lymphocyte Count 3.16 10^3/uL (1.2-3.4); Absolute Neutrophil Count 10.08 10^3/uL (1.2-6.7); Bands % 4
[2020-01-18 12:23] LABS: Diff Comment Manual Differential; Myelocytes % 3; RBC Morphology Normal
== END 2020-01-18 01:58 ==
PROVIDERS: PCP Family Medicine; Visit Provider Nurse Practitioner Family
DX: F20.9 Schizophrenia, unspecified (principal); Z79.899 Other long term (current) drug therapy
CPT/HCPCS: 36415; 85025

== ENCOUNTER 2020-01-25 15:08 | Inpatient (IN) | payer MEDICAID, SELFPAY ==
[2020-01-25] VITALS (73 sets, daily range): BP systolic 81–121; BP diastolic 44–71; PULSE 83–115; RESP 13–33; TEMP 36.3–37.1; O2SAT 92–100
--- NOTE | 2020-01-25 15:00 | RT.EKG_ITS ---
APPROVED REPORT Exam: Resting ECG Patient Location: E HR:102 bpm ECG Measurements Heart Rate 102 AXIS MI 125 P 67 QRSd 78 QRS -12 QT 356 T 85 QTc 463 Conclusion Sinus. Less than 1mm ST depression in I, II, V3-6. No acute ST elevation.
--- NOTE | 2020-01-25 15:15 | DI.RAD_ITS ---
EXAM: XR CHEST 2V PA LATERAL CLINICAL HISTORY: weakness, r/o acute disease TECHNIQUE: 2D digital imaging was performed. COMPARISON: No exams were available for comparison FINDINGS: MEDIASTINUM: Normal. HEART: Normal. PULMONARY VASCULATURE: Normal. LUNGS: Clear. PLEURAL SPACE: No pleural effusion or pneumothorax. BONE:Within normal limits for the patient's age. OTHER FINDINGS:Normal. IMPRESSION: No acute pulmonary findings. DATA REPOSITORY: RADIATION DOSE DELIVERED:
--- NOTE | 2020-01-25 15:15 | DI.CT_ITS ---
EXAM: CT HEAD CERVICAL SPINE WO CLINICAL HISTORY: fall backward, weakness, r/o acute cva/mass. TECHNIQUE: Imaging Protocol: Axial computed tomography images with coronal and sagittal reformatted images were created and reviewed COMPARISON: CT HEAD WITHOUT CONTRAST from 10/12/2016 FINDINGS: CT Head: Ventricles and Extra axial spaces: Normal in size and morphology for the patient's age. Hemorrhage: None. Cerebral parenchyma: There is again seen an area of encephalomalacia involving the left posterior par ietal lobe. It shows no mass effect on the adjacent sulci or ventricle. No acute territorial infarc t is identified. Midline shift: None. Brainstem/Cerebellum: Normal. Calvarium: Normal. Visualized Paranasal sinuses/Mastoids: Clear. Soft Tissues: Unremarkable. CT Cervical Spine: Bones: No acute fracture or subluxation. There is straightening of the normal cervical lordosis this may be due to patient positioning or muscle spasm. Mild degenerative changes are seen in the spine. Soft Tissues: Unremarkable. Lung Apices: Clear. IMPRESSION: 1. There is again seen an area of encephalomalacia involving the left posterior parietal lobe. This may represent an old area of infarct. If further imaging is warranted an MRI may be considered. 2. No acute fracture or subluxation in the cervical spine. RADIATION DOSE DELIVERED: 1,346.58mGy.cm Total DLP DATA REPOSITORY: All CT scans at this facility are submitted to the National Radiology Data Registry (NRDR) Dose Index Registry (DIR) with the [employer] (A[employer]). RADIATION OPTIMIZATION: All CT scans at this facility use at least one of these dose optimization te chniques: automated exposure control; mA and/or kV adjustment per patient size (includes targeted exa ms where dose is matched to clinical indication); or iterative reconstruction.
--- NOTE | 2020-01-25 15:31 | ED.GENADUL_ITS ---
Discharge Plan Disposition Patient Disposition: [facility] Condition: Stable Discharge Details Chief Complaint: Dizzy/Sync Clinical Impression: Weakness, Abnormal CT of the head, Hypotension, Dehydration Admit Date/Time: 01/25/20 23:43 Admit Provider: Phill Talavera Attending Provider: Phill Talavera Primary Care Provider: Sol Ashley V ED Provider: Landy Rendon Discharge Data Discharge Date/Time-TO BE ENTERED AT DEPARTURE: 01/25/20 23:45 Medical Decision Making 1530 --49-year-old female with a history of schizoaffective disorder, bipolar disorder, diabetes, GERD, hypothyroidism who presents from a care home for increased weakness, decreased appetite, lethargy and lightheadedness with an episode of near syncope. EKG on arrival notes a rate of 102, sinus with less than [address] depression in V3-6, 1 and [address] elevation. BP hypotensive at 81/58. She has diffuse positive review of systems. She cannot specify a specific complaint. Consider dehydration, acute infectious source, CVA, ACS. History and presentation not consistent with meningitis. Will place an IV, bolus IV fluids, screening labs, urinalysis, chest x-ray, CT head. Labs reviewed. White blood cell count 13. Lactate 3.3. Magnesium 1.7. Troponin negative. Urinalysis negative. Depakote 112.5. Chest x-ray negative. 1730 --CT head notes a focal edema left parietal lobe which could be focal infarct or metastatic disease. Case discussed with [facility] to consult neurology. 1899 --discussed with [facility] neurology who reviewed images and stated it could possibly be an infarct. Can consider CTA brain and neck or wait for the MRI brain in the a.m. No indication for emergent transfer at this time. We will also obtain a stat CT chest and abdomen to rule out any other acute infectious cause. Patient was also noted to have a right buttock pressure ulcer which she states is from sitting on the toilet too long. There is very minimal pink granulation tissue and erythema but do not feel that this is a significant source of cellulitis. BP improved, 93/54. Pt able to eat and drink and is doing crossword puzzle in room. 1929 --discussed with hospitalist who accepts patient for admission. Informed that patient sent for stat CTA brain and neck in addition to CT chest abdomen and pelvis and he will f/u on results. Will repeat lactate. Would like to hold on antibiotics at this time. Medical Records Medical records reviewed: Yes I reviewed the patient's medical records. Imaging Data Radiologic Study: Radiologist's impression: XR CHEST 2V PA LATERAL CLINICAL HISTORY: cyanotic nail beds, cough, r/o acute disease TECHNIQUE: 2D digital imaging was performed. COMPARISON: No exams were available for comparison FINDINGS: MEDIASTINUM: Normal. HEART: Normal. PULMONARY VASCULATURE: Normal. LUNGS: No focal consolidating infiltrates. The lungs are hyperinflated consistent with COPD. PLEURAL SPACE: No pleural effusion or pneumothorax. BONE:Multiple old thoracic and upper lumbar compression fracture deformities. Degenerative changes in the spine. OTHER FINDINGS:Normal. IMPRESSION: No acute pulmonary findings. CT Head Without Contrast Exam date and time: 01/25/2020 3:31 PM Age: 49 years old Clinical indication: Weakness, extremity; Bilateral TECHNIQUE: Imaging protocol: Computed tomography of the head without contrast. COMPARISON: CT HEAD WITHOUT CONTRAST 10/12/2016 2:04 PM FINDINGS: Brain: Focal edema in the left parietal lobe of unclear etiology. This could be related to a focal infarct or underlying metastatic focus. Consider contrast-enhanced MRI for further evaluation. Ventricles: Normal. No ventriculomegaly. Bones/joints: Unremarkable. No acute fracture. Sinuses: Visualized sinuses are unremarkable. No fluid levels. Mastoid air cells: Visualized mastoid air cells are well aerated. Soft tissues: See Brain finding. IMPRESSION: Focal edema in the left parietal lobe of unclear etiology. This could be related to a focal infarct or underlying metastatic focus. Consider contrast-enhanced MRI for further evaluation. CT Cervical Spine Without Contrast Exam date and time: 01/25/2020 3:31 PM Age: 49 years old Clinical indication: Weakness, extremity; Bilateral TECHNIQUE: Imaging protocol: Computed tomography images of the cervical spine without contrast. COMPARISON: CT HEAD WITHOUT CONTRAST 10/12/2016 2:04 PM FINDINGS: Vertebrae: No acute fracture. Normal alignment. Discs/Spinal canal/Neural foramina: No significant disc protrusion. No severe spinal canal stenosis. No significant neural foraminal narrowing. Soft tissues: Straightening of the spine which could be related to positional artifact or muscle spasms. Lungs: Lung apices are normal. IMPRESSION: Straightening of the spine which could be related to positional artifact or muscle spasms. Lab Data Lab results reviewed: Yes I reviewed the patient's lab results. Labs: 01/25/20 18:50 Blood Blood Culture - Pending 01/25/20 17:47 Blood Blood Culture - Pending Laboratory Tests Range/Units 01/25/20 01/25/20 01/25/20 15:28 15:28 15:28 WBC (4.4-10.8) 10^3/uL RBC (3.93-5.22) 10^6/uL Hgb (11.2-15.7) g/dL Hct (36.0-46.0) % MCV (80-95) fL MCH (27.0-33.0) pg MCHC (32.0-36.0) % RDW (11.7-14.6) % Plt Count (130-400) 10^3/uL MPV (8.0-11.0) fL Immature Gran % Neutrophils % Band Neutrophils % Lymphocytes % Monocytes % Eosinophils % Basophils % Metamyelocytes % Myelocytes % Absolute Neutrophils (1.2-6.7) 10^3/uL Absolute Lymphocytes (1.2-3.4) 10^3/uL Absolute Monocytes (0.1-0.8) 10^3/uL Absolute Eosinophils (0.0-0.7) 10^3/uL Absolute Basophils (0.0-0.2) 10^3/uL RBC Morphology PT (9.3-11.0) sec 10.2 INR (0.9-1.1) 1.0 APTT (21.0-31.4) sec 26.1 Sodium (136-145) mmol/L 134 L Potassium (3.5-5.1) mmol/L 3.8 Chloride (98-107) mmol/L 97 L Carbon Dioxide (21.0-32.0) mmol/L 28.5 Anion Gap (3-11) mmol/L 8.5 BUN (7-18) mg/dL 24 H Creatinine (0.55-1.02) mg/dL 1.32 H Estimated GFR/1.73 m2 (mL/min/1.73m2) 42.60 Glucose (74-106) mg/dL 117 H Lactate (0.6-1.4) mmol/L 3.3 H* Calcium (8.5-10.1) mg/dL 9.1 Magnesium (1.8-2.4) mg/dL 1.7 L Total Bilirubin (0.2-1.0) mg/dL 0.2 AST (15-37) U/L 15 ALT (14-59) U/L 13 L Alkaline Phosphatase (46-116) U/L 75 Troponin I (<0.06) ng/mL < 0.05 Total Protein (6.4-8.2) g/dL 7.1 Albumin (3.4-5.0) g/dL 3.1 L Urine Color (Yellow) Urine Clarity (Clear) Urine pH (5-8) Ur Specific [place] (1.005-1.025) Urine Protein (Negative) mg/dL Urine Ketones (Negative) mg/dL Urine Blood (Negative) Urine Nitrite (Negative) Urine Bilirubin (Negative) Urine Urobilinogen (Up TO 0.2) EU/dL Ur Leukocyte Esterase (Negative) Urine Glucose (Negative) mg/dL Total Valproic Acid (50-100) ug/mL Range/Units 01/25/20 01/25/20 01/25/20 15:28 15:28 16:45 WBC (4.4-10.8) 10^3/uL 13.93 H RBC (3.93-5.22) 10^6/uL 3.96 Hgb (11.2-15.7) g/dL 11.7 Hct (36.0-46.0) % 36.4 MCV (80-95) fL 91.9 MCH (27.0-33.0) pg 29.5 MCHC (32.0-36.0) % 32.1 RDW (11.7-14.6) % 15.9 H Plt Count (130-400) 10^3/uL 354 MPV (8.0-11.0) fL 10.3 Immature Gran % See Differential Neutrophils % 52.0 Band Neutrophils % 1 Lymphocytes % 33.0 Monocytes % 8.0 Eosinophils % 1.0 Basophils % 0.0 Metamyelocytes % 1 Myelocytes % 4 Absolute Neutrophils (1.2-6.7) 10^3/uL 7.38 H Absolute Lymphocytes (1.2-3.4) 10^3/uL 4.60 H Absolute Monocytes (0.1-0.8) 10^3/uL 1.11 H Absolute Eosinophils (0.0-0.7) 10^3/uL 0.14 Absolute Basophils (0.0-0.2) 10^3/uL 0.00 RBC Morphology Normal PT (9.3-11.0) sec INR (0.9-1.1) APTT (21.0-31.4) sec Sodium (136-145) mmol/L Potassium (3.5-5.1) mmol/L Chloride (98-107) mmol/L Carbon Dioxide (21.0-32.0) mmol/L Anion Gap (3-11) mmol/L BUN (7-18) mg/dL Creatinine (0.55-1.02) mg/dL Estimated GFR/1.73 m2 (mL/min/1.73m2) Glucose (74-106) mg/dL Lactate (0.6-1.4) mmol/L Calcium (8.5-10.1) mg/dL Magnesium (1.8-2.4) mg/dL Total Bilirubin (0.2-1.0) mg/dL AST (15-37) U/L ALT (14-59) U/L Alkaline Phosphatase (46-116) U/L Troponin I (<0.06) ng/mL Total Protein (6.4-8.2) g/dL Albumin (3.4-5.0) g/dL Urine Color (Yellow) Yellow Urine Clarity (Clear) Clear Urine pH (5-8) 7.0 Ur Specific [place] (1.005-1.025) 1.010 Urine Protein (Negative) mg/dL Negative Urine Ketones (Negative) mg/dL Negative Urine Blood (Negative) Negative Urine Nitrite (Negative) Negative Urine Bilirubin (Negative) Negative Urine Urobilinogen (Up TO 0.2) EU/dL 0.2 Ur Leukocyte Esterase (Negative) Negative Urine Glucose (Negative) mg/dL Negative Total Valproic Acid (50-100) ug/mL 112.5 H ECG Data Attestation: I personally reviewed and interpreted this ECG (s) as follows: Interpretation: Rate of 102. Similar ST depression in 1, 2, V3 through V6. No acute ST elevation. [place] 125. QRS 78. QTc 463. HPI General Mode of arrival: ambulatory . Date/Time Provider Initiated Documentation: 01/25/20 15:09 . Limitations to Documentation: no limitations . Information obtained by: patient . HPI Narrative: Patient is a 49-year-old female with a history of bipolar disorder, diabetes, schizoaffective disorder who presents for increased weakness, decreased appetite and lightheadedness with an episode of near syncope at the care home today. Patient has diffuse positive review of systems. It was reported that patient has frequent falls noted per the staff that are fake but today it appeared that she fell backwards and this was real. There was no report of trauma. Related Data Home Medications Medication Instructions Recorded Confirmed clozapine [Clozaril] 300 mg PO HS 10/18/13 01/25/20 clozapine [Clozaril] 500 mg PO .QA 10/18/13 01/25/20 divalproex [Depakote ER] 2,000 mg PO 10/18/13 01/25/20 levothyroxine 112 mcg PO DAILY@0730 10/18/13 01/25/20 aspirin [Aspir-81] 81 mg PO QA 08/05/14 01/25/20 ibuprofen [Ibuprofen IB] 400 mg PO Q8H PRN 08/05/14 01/25/20 polyethylene glycol 3350 17 gm PO DAILY 08/05/14 01/25/20 acetaminophen [Acetaminophen Extra 1,000 mg PO TID 10/04/16 01/25/20 Strength] divalproex [Depakote ER] 1,000 mg PO QAM 10/04/16 01/25/20 metformin 1,000 mg PO BID 10/04/16 01/25/20 mirabegron [Myrbetriq] 25 mg PO DAILY 10/08/16 09/26/18 clindamycin phos-skin clnsr 19 1 % TOPICAL PRN PRN 09/26/18 01/25/20 clotrimazole [Lotrimin AF] 1 applic TOPICAL BID PRN 09/26/18 01/25/20 folic acid 1 mg PO DAILY 09/26/18 01/25/20 glipizide 20 mg PO DAILY 09/26/18 01/25/20 guaifenesin [Mucinex] 600 mg PO Q12H PRN 09/26/18 01/25/20 hydrochlorothiazide 25 mg PO DAILY 09/26/18 01/25/20 lisinopril 5 mg PO DAILY 09/26/18 01/25/20 olanzapine [Zyprexa] 20 mg PO HS 09/26/18 01/25/20 omeprazole 20 mg PO DAILY 09/26/18 01/25/20 liraglutide [Victoza 2-Samir] 1.2 mg SUBCUT DAILY 01/25/20 01/25/20 Allergies Allergy/AdvReac Type Severity Reaction Status Date / Time Penicillins Allergy Severe Unverified 01/25/20 15:56 peanut Allergy Unknown Unverified 01/25/20 15:56 trifluoperazine HCl Allergy Unknown Unverified 01/25/20 15:56 [From Stelazine] lorazepam [From Ativan] AdvReac Severe Psychosis Unverified 01/25/20 15:56 General Stated Complaint: Dizzy/Sync QUINTEN: 3 Review of Systems All systems reviewed & are unremarkable except as noted in HPI and below Constitutional Constitutional: Reports as per HPI, Denies chills and Denies fever(s) Eyes Eyes: Denies blurry vision ENT Ears, Nose, Mouth, and Throat: Denies dizziness, Denies sore throat and Denies throat swelling Cardiovascular Cardiovascular: Denies chest pain and Denies dyspnea Respiratory Respiratory: Denies cough and Denies dyspnea Gastrointestinal Gastrointestinal: Denies abdominal pain, Denies diarrhea and Denies vomiting Genitourinary Genitourinary: Denies hematuria and Denies dysuria Musculoskeletal Musculoskeletal: Denies back pain and Denies numbness Integumentary/Breasts Skin/Breast: Denies lesions and Denies rash Neurologic Neurologic: Denies dizziness, Denies localized weakness and Denies numbness Allergic/Immunologic Allergic/Immunologic: Denies throat swelling [facility] Medical History (Updated 01/25/20 @ 23:42 by Phill Talavera) Bipolar disorder (Acute) Diabetes mellitus (Inactive) a. on oral medications b. Hgb A1C 7.5 c. uncontrolled GERD (gastroesophageal reflux disease) (Inactive) Hypothyroidism (Inactive) Schizoaffective disorder (Acute) Social History Smoking/Tobacco Use Status: Current every day Drug use: Never Do you feel safe in your relationship?: Yes Additional Social history: lives at [facility]. Exam Const General: cooperative and healthy appearing Orientation: alert and awake HENMT Head: normal to inspection Ears: hearing grossly normal bilaterally and external ears normal General nose exam: external nose normal Face and sinus: normal facial exam Mouth: oral mucosae normal Teeth and gingiva: dentition normal Throat: posterior oropharynx normal Eyes General: appearance normal, both eyes and all related structures Eyelids: eyelids normal Pupils: PERRL EOM: EOM intact bilaterally Neck Neck: normal visual inspection Lymphatic: no lymphadenopathy noted Chest Chest: normal inspection of the chest Resp Effort & Inspection: normal respiratory effort and able to speak in complete sentences Auscultation: clear to auscultation bilaterally Cardio Rate: regular rate Rhythm: regular rhythm GI Inspection: normal to inspection Palpation: soft, not firm, no guarding, no hepatosplenomegaly, no masses and nontender Auscultation: normal bowel sounds Skin Full body images: 1. Scattered groupings of irregularly shaped ulcerations, some linear which appear likely consistent with a pressure ulcer. There is a thin area of surrounding pink granulation tissue and erythema around edges. There is some minimal surrounding tenderness but no fluctuance, induration or drainage. Neuro General: patient alert, patient awake and CN's II-XI intact bilaterally Cognition: normal cognition Speech: speech normal Gait: normal gait Motor: muscle tone normal throughout and strength 5/5 throughout Sensory Exam: no sensory deficits noted Extrem General: normal to inspection, full ROM and capillary refill normal Psych Appearance: grossly normal Mental Status: mental status grossly normal Speech and Movement: speech and movement normal Affect: normal affect Thought Process: normal Course Vital Signs Vital signs: Vital Signs Temperature 98.1 F 01/25/20 15:14 Pulse 107 H 01/25/20 15:14 Respiratory Rate 16 01/25/20 15:14 Blood Pressure 81/58 L 01/25/20 15:14 Pulse Oximetry 94 L 01/25/20 15:14 Temperature 98.1 F 01/25/20 15:14 Temperature Source Skin 01/25/20 15:14 Pulse 107 H 01/25/20 15:14 Respiratory Rate 16 01/25/20 15:14 Blood Pressure 81/58 L 01/25/20 15:14 Blood Pressure Position Sitting 01/25/20 15:14 Pulse Oximetry 94 L 01/25/20 15:14 Oxygen Delivery Method Room Air 01/25/20 15:14 Oxygen Flow Rate 0 01/25/20 15:14
[2020-01-25] MEDS: Normal Saline 1,000 ML 1000 ML IV ×2 (15:37→17:29)
[2020-01-25 15:44] LABS: Lactate 3.3 mmol/L (0.6-1.4)
[2020-01-25 15:47] LABS: Abs Immature Grans 0.86 10^3/uL (0.0-0.06); HCT 36.4 % (36.0-46.0); HGB 11.7 g/dL (11.2-15.7); MCH 29.5 pg (27.0-33.0); MCHC 32.1 % (32.0-36.0); MCV 91.9 fL (80-95); MPV 10.3 fL (8.0-11.0); Nucleated RBC 0 %; Platelet Count 354 10^3/uL (130-400); RBC 3.96 10^6/uL (3.93-5.22); RDW 15.9 % (11.7-14.6); RDW-SD 53.8 fL; WBC 13.93 10^3/uL (4.4-10.8)
[2020-01-25 15:55] LABS: PTT Activated 26.1 sec (21.0-31.4); Prothrombin Time 10.2 sec (9.3-11.0)
[2020-01-25 16:04] LABS: ALT 13 U/L (14-59); AST 15 U/L (15-37); Albumin 3.1 g/dL (3.4-5.0); Alkaline Phosphatase 75 U/L (46-116); Anion Gap 8.5 mmol/L (3-11); BUN 24 mg/dL (7-18); Bilirubin, Total 0.2 mg/dL (0.2-1.0); CO2 28.5 mmol/L (21.0-32.0); CREATININE 1.32 mg/dL (0.55-1.02); Calcium 9.1 mg/dL (8.5-10.1); Chloride 97 mmol/L (98-107); Glucose 117 mg/dL (74-106); Magnesium 1.7 mg/dL (1.8-2.4); Potassium 3.8 mmol/L (3.5-5.1); Sodium 134 mmol/L (136-145); Total Protein 7.1 g/dL (6.4-8.2)
[2020-01-25 16:09] LABS: Troponin I < 0.05 ng/mL (<0.06)
[2020-01-25 16:15] LABS: VALPROIC ACID 112.5 ug/mL (50-100)
[2020-01-25 16:24] LABS: Absolute Eosinophil Count 0.14 10^3/uL (0.0-0.7); Absolute Monocyte Count 1.11 10^3/uL (0.1-0.8); Absolute Neutrophil Count 7.38 10^3/uL (1.2-6.7); Bands % 1; Metamyelocytes % 1; Myelocytes % 4
[2020-01-25 16:25] LABS: Diff Comment Manual Differential; RBC Morphology Normal
--- NOTE | 2020-01-25 16:43 | DI.VRAD_ITS ---
PROCEDURE INFORMATION: Exam: CT Head Without Contrast Exam date and time: 01/25/2020 3:31 PM Age: 49 years old Clinical indication: Weakness, extremity; Bilateral TECHNIQUE: Imaging protocol: Computed tomography of the head without contrast. COMPARISON: CT HEAD WITHOUT CONTRAST 10/12/2016 2:04 PM FINDINGS: Brain: Focal edema in the left parietal lobe of unclear etiology. This could be related to a focal infarct or underlying metastatic focus. Consider contrast-enhanced MRI for further evaluation. Ventricles: Normal. No ventriculomegaly. Bones/joints: Unremarkable. No acute fracture. Sinuses: Visualized sinuses are unremarkable. No fluid levels. Mastoid air cells: Visualized mastoid air cells are well aerated. Soft tissues: See Brain finding. IMPRESSION: Focal edema in the left parietal lobe of unclear etiology. This could be related to a focal infarct or underlying metastatic focus. Consider contrast-enhanced MRI for further evaluation. PROCEDURE INFORMATION: Exam: CT Cervical Spine Without Contrast Exam date and time: 01/25/2020 3:31 PM Age: 49 years old Clinical indication: Weakness, extremity; Bilateral TECHNIQUE: Imaging protocol: Computed tomography images of the cervical spine without contrast. COMPARISON: CT HEAD WITHOUT CONTRAST 10/12/2016 2:04 PM FINDINGS: Vertebrae: No acute fracture. Normal alignment. Discs/Spinal canal/Neural foramina: No significant disc protrusion. No severe spinal canal stenosis. No significant neural foraminal narrowing. Soft tissues: Straightening of the spine which could be related to positional artifact or muscle spasms. Lungs: Lung apices are normal. IMPRESSION: Straightening of the spine which could be related to positional artifact or muscle spasms. Dictated and Authenticated by: Katerin Calix MD. Ordering:RONY Bill MD
--- NOTE | 2020-01-25 17:05 | DI.VRAD_ITS ---
PROCEDURE INFORMATION: Exam: XR Chest, 2 Views Exam date and time: 01/25/2020 3:56 PM Age: 49 years old Clinical indication: Other: Weakness, R/O acute disease TECHNIQUE: Imaging protocol: XR of the chest Views: 2 views. COMPARISON: No relevant prior studies available. FINDINGS: Lungs: Unremarkable. No consolidation. Pleural space: Unremarkable. No pleural effusion. No pneumothorax. Heart/Mediastinum: Unremarkable. No cardiomegaly. Bones/joints: Unremarkable. IMPRESSION: No acute findings. Dictated and Authenticated by: Katerin Calix MD. Ordering:RONY Bill MD
[2020-01-25 17:07] LABS: Bilirubin Negative (Negative); Blood Negative (Negative); Clarity Clear (Clear); Glucose Negative (Negative); Ketones Negative (Negative); Leukocyte Esterase Negative (Negative); Nitrite Negative (Negative); Urobilinogen 0.2 EU/dL (Up TO 0.2)
--- NOTE | 2020-01-25 19:00 | DI.CT_ITS ---
EXAM: CT CHEST/ABD/PEL W CLINICAL HISTORY: hypotension, weakness, r/o acute disease TECHNIQUE: Imaging Protocol: Axial computed tomography images with coronal and sagittal reformatted images were created and reviewed CONTRAST MATERIAL: Intravenous: Omnipaque 350 Contrast volume:65 mL Oral: No COMPARISON: CT CHEST WITH CONTRAST from 10/10/[address] BRAIN NECK CTA from 01/25/2020 FINDINGS: CHEST: Tracheobronchial tree: Patent where visualized. Mediastinum and Bailey: Stable mediastinal lymph nodes. Pulmonary parenchyma: Dependent atelectasis. No focal consolidating infiltrates. No architectural d istortion. Pleura: No effusion or pneumothorax. Heart: The heart is not dilated. Minimal coronary artery calcifications. No pericardial effusion. Aorta: Thoracic aorta non-dilated. Mild atherosclerosis. Lymph nodes: Stable mediastinal lymph nodes. Bones:Degenerative changes. Soft tissues: Unremarkable. ABDOMEN: Liver: Normal density. No measurable mass. Portal, Superior Mesenteric, and Splenic Veins: Unremarkable. Gallbladder and Biliary Tract: Contracted but grossly unremarkable. No biliary ductal dilatation. Pancreas: Normal density, no abnormal calcifications or inflammatory process. Spleen: Normal. Adrenals: Bilateral adrenal nodules are seen likely reflecting adenomas. Kidneys: Normal size, contour and axis. No radiodense stones or obstructive uropathy. Left renal cyst with layering calcifications. Abdominal Aorta: Abdominal portion non-dilated. Atherosclerosis. Bowel: No obstruction or bowel wall thickening. Appendix is unremarkable. Peritoneal Cavity: No ascites, collection or mesenteric inflammatory response. Lymph Nodes: Within normal limits. Bones: Degenerative changes. Soft Tissues: Unremarkable. PELVIS: Bladder: Numerous bladder diverticuli. Reproductive Organs: Unremarkable as visualized. Lymph Nodes: Within normal limits. Bones: Degenerative changes. IMPRESSION: 1. No acute abdominal or pelvic process. 2. Bilateral adrenal adenomas, left renal cyst with layering calcifications, numerous urinary bladder diverticuli. 3. Atherosclerosis. 4. Mild bilateral basilar atelectasis. RADIATION DOSE DELIVERED: 1,141.66mGy.cm Total DLP DATA REPOSITORY: All CT scans at this facility are submitted to the National Radiology Data Registry (NRDR) Dose Index Registry (DIR) with the [employer] (A[employer]). RADIATION OPTIMIZATION: All CT scans at this facility use at least one of these dose optimization te chniques: automated exposure control; mA and/or kV adjustment per patient size (includes targeted exa ms where dose is matched to clinical indication); or iterative reconstruction.
--- NOTE | 2020-01-25 19:00 | NUR.NOTE ---
lying in bed in NAD. Pt reports pain all over body. Alert and conversive, rambling speech.
--- NOTE | 2020-01-25 19:15 | DI.CT_ITS ---
EXAM: CT BRAIN NECK CTA CLINICAL HISTORY: question L parietal lobe infarct vs mets. TECHNIQUE: Imaging Protocol: Axial CT angiography was performed with multi-slice acquisition and mu lti-planar and/or 3D reconstructions. CONTRAST MATERIAL: Intravenous: Omnipaque 350 Contrast volume:85 mL COMPARISON: CT HEAD WITHOUT CONTRAST from 10/08/2016 CT HEAD WITHOUT CONTRAST from 10/12/2016 FINDINGS: CTA Brain W: Internal Carotid Arteries: Petrous: Normal. Cavernous: Normal. Cerebral: Normal. Middle Cerebral Arteries: Right: No aneurysm, occlusion or significant stenosis. Left: No aneurysm, occlusion or significant stenosis. Anterior Cerebral Arteries: Right: No aneurysm, occlusion or significant stenosis. Left: No aneurysm, occlusion or significant stenosis. Posterior cerebral Arteries: Right: No aneurysm, occlusion or significant stenosis. Left: No aneurysm, occlusion or significant stenosis. Vertebral Arteries: Right: No aneurysm, occlusion or significant stenosis. Left: No aneurysm, occlusion or significant stenosis. Basilar Artery: No aneurysm, occlusion or significant stenosis. CTA Neck W: Common Carotid: Right: No aneurysm, occlusion or significant stenosis. Mild atherosclerosis in the carotid bulb. Left: No aneurysm, occlusion or significant stenosis. External Carotid: Right: No aneurysm, occlusion or significant stenosis. Left: No aneurysm, occlusion or significant stenosis. Internal Carotid: Right: No aneurysm, occlusion or significant stenosis. Left: No aneurysm, occlusion or significant stenosis. Vertebral Artery: Right: No aneurysm, occlusion or significant stenosis. Left: No aneurysm, occlusion or significant stenosis. Lung Apices: Normal. Bones: Degenerative changes. Soft Tissues: Normal. IMPRESSION: 1. No aneurysm or significant stenosis of the [id number]. 2. No dissection or significant stenosis in the neck. RADIATION DOSE DELIVERED: 380.33mGy.cm Total DLP 380.33mGy.cm Total DLP DATA REPOSITORY: All CT scans at this facility are submitted to the National Radiology Data Registry (NRDR) Dose Index Registry (DIR) with the [employer] (ACR). RADIATION OPTIMIZATION: All CT scans at this facility use at least one of these dose optimization te chniques: automated exposure control; mA and/or kV adjustment per patient size (includes targeted exa ms where dose is matched to clinical indication); or iterative reconstruction.
[2020-01-25] MEDS: Omnipaque 350 MG/ML 100 ML BTL IJ (19:34)
[2020-01-25] MEDS: Omnipaque 350 MG/ML 50 ML BTL IJ (19:34)
[2020-01-25] MEDS: Normal Saline - Diluent 50 ML VIAL IV ×2 (19:35→19:36)
--- NOTE | 2020-01-25 20:12 | DI.VRAD_ITS ---
PROCEDURE INFORMATION: Exam: CT Chest With Contrast Exam date and time: 01/25/2020 7:47 PM Age: 49 years old Clinical indication: Patient HX: Hypotension, weakness, R/O acute disease TECHNIQUE: Imaging protocol: Computed tomography of the chest with intravenous contrast. Radiation optimization: All CT scans at this facility use at least one of these dose optimization techniques: automated exposure control; mA and/or kV adjustment per patient size (includes targeted exams where dose is matched to clinical indication); or iterative reconstruction. Contrast material: OMNIPAQUE 350; Contrast volume: 65 ml; Contrast route: INTRAVENOUS (IV); COMPARISON: No relevant prior studies available. FINDINGS: Lungs: Subsegmental atelectatic changes in the lower lobes. Pleural space: Unremarkable. No pneumothorax. No pleural effusion. Heart: Unremarkable. No cardiomegaly. No pericardial effusion. Aorta: Unremarkable. No aortic aneurysm. Lymph nodes: Unremarkable. No enlarged lymph nodes. Bones/joints: Unremarkable. No acute fracture. Soft tissues: Unremarkable. IMPRESSION: Subsegmental atelectatic changes in the lower lobes. PROCEDURE INFORMATION: Exam: CT Abdomen And Pelvis With Contrast Exam date and time: 01/25/2020 7:47 PM Age: 49 years old Clinical indication: Patient HX: Hypotension, weakness, R/O acute disease TECHNIQUE: Imaging protocol: Computed tomography of the abdomen and pelvis with intravenous contrast. Radiation optimization: All CT scans at this facility use at least one of these dose optimization techniques: automated exposure control; mA and/or kV adjustment per patient size (includes targeted exams where dose is matched to clinical indication); or iterative reconstruction. Contrast material: OMNIPAQUE 350; Contrast volume: 65 ml; Contrast route: INTRAVENOUS (IV); COMPARISON: No relevant prior studies available. FINDINGS: Liver: Normal. No mass. Gallbladder and bile ducts: Normal. No calcified stones. No ductal dilation. Pancreas: Normal. No ductal dilation. Spleen: Normal. No splenomegaly. Adrenals: Bilateral adrenal adenomas. Kidneys and ureters: 1.4 cm left renal cyst with layering calcifications. Stomach and bowel: Unremarkable. No obstruction. No mucosal thickening. Appendix: No evidence of appendicitis. Intraperitoneal space: Unremarkable. No free air. No significant fluid collection. Vasculature: Mild atherosclerosis. Lymph nodes: Unremarkable. No enlarged lymph nodes. Bladder: Numerous bladder diverticuli. Reproductive: Unremarkable as visualized. Bones/joints: Unremarkable. No acute fracture. Soft tissues: Unremarkable. IMPRESSION: 1. Bilateral adrenal adenomas. 2. 1.4 cm left renal cyst with layering calcifications. 3. Numerous bladder diverticuli. 4. Mild atherosclerosis. Dictated and Authenticated by: Katerin Calix MD. Ordering:RONY Bill MD
--- NOTE | 2020-01-25 20:48 | DI.VRAD_ITS ---
PROCEDURE INFORMATION: Exam: CT Angiography Head With Contrast Exam date and time: 01/25/2020 7:35 PM Age: 49 years old Clinical indication: Hypertension, question L parietal lobe infarct vs mets TECHNIQUE: Imaging protocol: Computed tomography angiography of the head with intravenous contrast. 3D rendering: MIP and/or 3D reconstructed images were created by the technologist. Radiation optimization: All CT scans at this facility use at least one of these dose optimization techniques: automated exposure control; mA and/or kV adjustment per patient size (includes targeted exams where dose is matched to clinical indication); or iterative reconstruction. Contrast material: OMNIPAQUE 350; Contrast volume: 85 ml; Contrast route: INTRAVENOUS (IV); COMPARISON: CT HEAD CERVICAL SPINE WO 01/25/2020 4:16 PM FINDINGS: ANTERIOR CIRCULATION: Right internal carotid artery: Unremarkable. Intracranial segment is patent with no significant stenosis. No aneurysm. Right middle cerebral artery: Unremarkable. No occlusion or significant stenosis. No aneurysm. Right anterior cerebral artery: Unremarkable. No occlusion or significant stenosis. No aneurysm. Left internal carotid artery: Unremarkable. Intracranial segment is patent with no significant stenosis. No aneurysm. Left middle cerebral artery: Unremarkable. No occlusion or significant stenosis. No aneurysm. Left anterior cerebral artery: Unremarkable. No occlusion or significant stenosis. No aneurysm. POSTERIOR CIRCULATION: Right vertebral artery: Unremarkable. No occlusion or significant stenosis. No aneurysm. Left vertebral artery: Unremarkable. No occlusion or significant stenosis. No aneurysm. Basilar artery: Unremarkable. No occlusion or significant stenosis. No aneurysm. Right posterior cerebral artery: Unremarkable. No occlusion or significant stenosis. No aneurysm. Left posterior cerebral artery: Unremarkable. No occlusion or significant stenosis. No aneurysm. IMPRESSION: No significant stenosis or aneurysm. PROCEDURE INFORMATION: Exam: CT Angiography Neck With Contrast Exam date and time: 01/25/2020 7:35 PM Age: 49 years old Clinical indication: Hypertension, question L parietal lobe infarct vs mets TECHNIQUE: Imaging protocol: Computed tomography angiography of the neck with intravenous contrast. 3D rendering: MIP and/or 3D reconstructed images were created by the technologist. Radiation optimization: All CT scans at this facility use at least one of these dose optimization techniques: automated exposure control; mA and/or kV adjustment per patient size (includes targeted exams where dose is matched to clinical indication); or iterative reconstruction. Contrast material: OMNIPAQUE 350; Contrast volume: 85 ml; Contrast route: INTRAVENOUS (IV); COMPARISON: CT HEAD CERVICAL SPINE WO 01/25/2020 4:16 PM FINDINGS: Right common carotid artery: No stenosis. No dissection or occlusion. Right internal carotid artery: No stenosis of the extracranial segment. No dissection or occlusion. Right external carotid artery: No occlusion or stenosis of the origin. Right vertebral artery: No stenosis. No dissection or occlusion. Left common carotid artery: No stenosis. No dissection or occlusion. Left internal carotid artery: No stenosis of the extracranial segment. No dissection or occlusion. Left external carotid artery: No occlusion or stenosis of the origin. Left vertebral artery: No stenosis. No dissection or occlusion. Bones/joints: No acute fracture. Soft tissues: Normal. No significant soft tissue swelling. IMPRESSION: No significant stenosis. No evidence of acute dissection. REFERENCES: NASCET CRITERIA. The degree of internal carotid artery stenosis is based on NASCET criteria. Normal is no stenosis. Mild is less than 50% stenosis. Moderate is 50-69% stenosis. Severe is 70% to 99% stenosis. Total occlusion is no detectable patent lumen. Dictated and Authenticated by: Dedrick Alan MD. Ordering:RONY Bill MD
[2020-01-25] MEDS: Normal Saline 1,000 ML 125 ML IV (20:55)
--- NOTE | 2020-01-25 22:16 | HPE_ITS ---
Date of service: 01/25/20 Time of Service: 22:16 Assessment and Plan Assessment and plan (1) Abnormal CT of the head: Status: Acute Assessment and plan: Noncontrast CT scan of the head reportedly demons trates focalized edema of the left parietal lobe. Differential diagnosis includes CVA versus mass. Patient has had no fever and has no nuchal rigidity nevertheless she had an elevated blood lactate and an elevated white cell count on admission. Historically it appears that she has had a chronically elevated leukocyte count between 13,000 and 15,000 and this may be a side effect of her Clozaril. We will get an MRI scan of the brain in the morning. Will consult with neurology in the morning to help sort out her CT findings. At present the patient very well may be at her baseline cognitively from her bipolar disorder. Her Depakote level was above the upper limits of therapeutic and therefore of held her Depakote for tonight. I will recheck her Depakote level in the morning. Blood cultures and COVID-19 testing are pending at this time. We will get an EEG in the morning (2) Hypotension: Status: Acute Assessment and plan: Hypotension is probably a combination of dehydration along with her medications. Patient is chronically on hydrochlorothiazide along with lisinopril which could be contributing to her hypotension. She very well may have an infectious cause for hypotension however she is responded quite well to the IV fluid boluses and her blood pressure at this time is stabilized. I will continue to hydrate her overnight and recheck her labs in the morning inclu ding a CBC and blood lactate and BMP. I will ask lab to add on a procalcitonin level to her ER labs. Qualifiers: Hypotension type: unspecified hypotension type Qualified Code(s): I95.9 - Hypotension, unspecified (3) Dehydration: Status: Acute Assessment and plan: IV fluid hydration as listed above. (4) Near syncope: Status: Acute Assessment and plan: I did not get a definitive syncopal event from the history that I received from the emergency room but it sounds like she has had frequent falls along with lightheadedness which would suggest a presyncopal event. I think this is a combination of her medications along with being dehydrated. (5) Bipolar disorder: Status: Acute Assessment and plan: We will continue her Clozaril and repeat her Depakote level in the morning. Once her Depakote levels down to the therapeutic levels we can restart her dose and reduce dosing. Qualifiers: Active/Remission status: currently active Current bipolar episode type: manic Current episode severity: severe Psychotic features: with psychotic features Qualified Code(s): F31.2 - Bipolar disorder, current episode manic severe with psychotic features History of Present Illness History of Present Illness Chief Complaint: Near syncope Narrative: 49-year- old female with a history of schizoaffective disorder, bipolar disorder, diabetes mellitus type 2, GERD, hypothyroidism who presented to the emergency department from her long term with complaints of increased weakness poor appetite lethargy and lightheadedness with an episode of near syncope. Patient has a history of frequent falls at the long term and has had sustained bruises on her legs. She underwent an evaluation in the emergency room included multiple labs EKG as well as CT scan of the head neck. Noncontrast CT scan of the head showed an area of focalized edema in the left parietal lobe of unclear etiology. Radiologist indicated this could be related to a focal infarct or an underlying metastatic focus for which a contrast-enhanced MRI was recommended. CTA of the chest and abdomen was performed and showed subsegmental atelectatic changes in both lower lobes and CTA of the abdomen and pelvis demonstrated bilateral adrenal adenomas and 1.4 cm left renal cyst with layering calcifications and bladder diverticuli. CT angiography of the head and neck showed no focal stenosis and no aneurysm. Laboratory studies were remarkable for leukocytosis of 13,000 and a CMP that showed evidence of prerenal azotemia with a BUN of 24 creatinine 1.32 along with an elevated blood lactate of 3.3 that came down to 2.0 after 2 L of IV fluids. Magnesium was slightly low at 1.7. LFTs and troponin were normal. Upon presentation to the emergency room, the patient was hypotensive and tachycardic with blood pressures in the 80-90 range systolic and diastolic pressures in the 50s to 60s. And heart rates in the low 100s to 110s. Blood cultures were obtained but no antibiotics have been started at this point. Urinalysis was obtained and was unremarkable. COVID-19 PCR is pending at this point. Toxicology screen showed an elevated valproic acid level of 112. Patient is admitted for IV fluid hydration to treat her dehydration and prerenal azotemia. Serial CBCs and BMP and lactate levels will be monitored. An MRI of the brain will be performed in the morning to evaluate the focal left parietal lobe edema. Review of Systems Unobtainable due to mental condition [facility] Medical History (Updated 01/25/20 @ 23:42 by Phill Talavera) Bipolar disorder (Acute) Diabetes mellitus (Inactive) a. on oral medications b. Hgb A1C 7.5 c. uncontrolled GERD (gastroesophageal reflux disease) (Inactive) Hypothyroidism (Inactive) Schizoaffective disorder (Acute) Social History Smoking/Tobacco Use Status: Current every day Drug use: Never Do you feel safe in your relationship?: Yes Additional Social history: lives at [facility]. Meds Home Medications and Allergies Home Medications Medication Instructions Recorded Confirmed Type clozapine [Clozaril] 300 mg PO HS 10/18/13 01/25/20 History clozapine [Clozaril] 500 mg PO .QAM 10/18/13 01/25/20 History divalproex [Depakote ER] 2,000 mg PO 10/18/13 01/25/20 History levothyroxine 112 mcg PO DAILY@0730 10/18/13 01/25/20 History aspirin [Aspir-81] 81 mg PO QAM 08/05/14 01/25/20 History ibuprofen [Ibuprofen IB] 400 mg PO Q8H PRN 08/05/14 01/25/20 History polyethylene glycol 3350 17 gm PO DAILY 08/05/14 01/25/20 History acetaminophen [Acetaminophen Extra 1,000 mg PO TID 10/04/16 01/25/20 History Strength] divalproex [Depakote ER] 1,000 mg PO QAM 10/04/16 01/25/20 History metformin 1,000 mg PO BID 10/04/16 01/25/20 History mirabegron [Myrbetriq] 25 mg PO DAILY 10/08/16 09/26/18 History clindamycin phos-skin clnsr 19 1 % TOPICAL PRN PRN 09/26/18 01/25/20 History clotrimazole [Lotrimin AF] 1 applic TOPICAL BID PRN 09/26/18 01/25/20 History folic acid 1 mg PO DAILY 09/26/18 01/25/20 History glipizide 20 mg PO DAILY 09/26/18 01/25/20 History guaifenesin [Mucinex] 600 mg PO Q12H PRN 09/26/18 01/25/20 History hydrochlorothiazide 25 mg PO DAILY 09/26/18 01/25/20 History lisinopril 5 mg PO DAILY 09/26/18 01/25/20 History olanzapine [Zyprexa] 20 mg PO HS 09/26/18 01/25/20 History omeprazole 20 mg PO DAILY 09/26/18 01/25/20 History liraglutide [Victoza 2-Samir] 1.2 mg SUBCUT DAILY 01/25/20 01/25/20 History Allergies Allergy/AdvReac Type Severity Reaction Status Date / Time Penicillins Allergy Severe Unverified 01/25/20 15:56 peanut Allergy Unknown Unverified 01/25/20 15:56 trifluoperazine HCl Allergy Unknown Unverified 01/25/20 15:56 [From Stelazine] lorazepam [From Ativan] AdvReac Severe Psychosis Unverified 01/25/20 15:56 Exam Narrative Exam Narrative: Middle-age female who is sitting up in bed very talkative but not making any sense. She had me confused with some elderly doctor that she wants new and talk to me about how she and her parents had made a canoe for me before they moved appear to [place]. She offered me her davion roxann. If first she was very pleasant and cooperative and talking to me but not able to really answer any of my questions. Her answers were very tangential and not related to my questions. In the middle of my exam she became very angry and was cursing at to women that she named but who were not in the room. Her verbal abuse was not directed at me but seemed to be directed at a couple of women who were not in the room. HEENT is unremarkable. Specifically no oral pharyngeal exudate nor any erythema of her oropharynx. TMs are intact without erythema without bulging or bullae. Nares is moist. Oral mucosal membranes were somewhat dry. Lungs are clear to auscultation. She did have a dry cough. However no wheezes or rales or rhonchi were heard. Heart is regular rate and rhythm without murmur rub or gallop. Abdomen soft and nontender Lower extremities she has an abrasion over the right corrigan that is very superficial. She has a couple of bruises over her left corrigan. Tibia straight nondisplaced nontender to palpation. No calf tenderness. Neck is supple nontender without meningismus. Spine is nontender to palpation. Results Labs Result diagrams: 01/26/20 06:56 01/26/20 06:56 Labs: Laboratory Results - last 24 hr 01/25/20 01/25/20 01/25/20 15:28 15:28 15:28 WBC RBC Hgb Hct MCV MCH MCHC RDW Plt Count MPV Immature Gran % Neutrophils % Band Neutrophils % Lymphocytes % Monocytes % Eosinophils % Basophils % Metamyelocytes % Myelocytes % Absolute Neutrophils Absolute Lymphocytes Absolute Monocytes Absolute Eosinophils Absolute Basophils RBC Morphology PT 10.2 INR 1.0 APTT 26.1 Sodium 134 L Potassium 3.8 Chloride 97 L Carbon Dioxide 28.5 Anion Gap 8.5 BUN 24 H Creatinine 1.32 H Estimated GFR/1.73 m2 42.60 Glucose 117 H Lactate 3.3 H* Calcium 9.1 Magnesium 1.7 L Total Bilirubin 0.2 AST 15 ALT 13 L Alkaline Phosphatase 75 Troponin I < 0.05 Total Protein 7.1 Albumin 3.1 L Urine Color Urine Clarity Urine pH Ur Specific [place] Urine Protein Urine Ketones Urine Blood Urine Nitrite Urine Bilirubin Urine Urobilinogen Ur Leukocyte Esterase Urine Glucose Total Valproic Acid 01/25/20 01/25/20 01/25/20 15:28 15:28 16:45 WBC 13.93 H RBC 3.96 Hgb 11.7 Hct 36.4 MCV 91.9 MCH 29.5 MCHC 32.1 RDW 15.9 H Plt Count 354 MPV 10.3 Immature Gran % See Differential Neutrophils % 52.0 Band Neutrophils % 1 Lymphocytes % 33.0 Monocytes % 8.0 Eosinophils % 1.0 Basophils % 0.0 Metamyelocytes % 1 Myelocytes % 4 Absolute Neutrophils 7.38 H Absolute Lymphocytes 4.60 H Absolute Monocytes 1.11 H Absolute Eosinophils 0.14 Absolute Basophils 0.00 RBC Morphology Normal PT INR APTT Sodium Potassium Chloride Carbon Dioxide Anion Gap BUN Creatinine Estimated GFR/1.73 m2 Glucose Lactate Calcium Magnesium Total Bilirubin AST ALT Alkaline Phosphatase Troponin I Total Protein Albumin Urine Color Yellow Urine Clarity Clear Urine pH 7.0 Ur Specific [place] 1.010 Urine Protein Negative Urine Ketones Negative Urine Blood Negative Urine Nitrite Negative Urine Bilirubin Negative Urine Urobilinogen 0.2 Ur Leukocyte Esterase Negative Urine Glucose Negative Total Valproic Acid 112.5 H 01/25/20 20:20 WBC RBC Hgb Hct MCV MCH MCHC RDW Plt Count MPV Immature Gran % Neutrophils % Band Neutrophils % Lymphocytes % Monocytes % Eosinophils % Basophils % Metamyelocytes % Myelocytes % Absolute Neutrophils Absolute Lymphocytes Absolute Monocytes Absolute Eosinophils Absolute Basophils RBC Morphology PT INR APTT Sodium Potassium Chloride Carbon Dioxide Anion Gap BUN Creatinine Estimated GFR/1.73 m2 Glucose Lactate 2.0 H Calcium Magnesium Total Bilirubin AST ALT Alkaline Phosphatase Troponin I Total Protein Albumin Urine Color Urine Clarity Urine pH Ur Specific [place] Urine Protein Urine Ketones Urine Blood Urine Nitrite Urine Bilirubin Urine Urobilinogen Ur Leukocyte Esterase Urine Glucose Total Valproic Acid Last Vital Signs Temp 36.5 C 01/25/20 21:05 Pulse 110 H 01/25/20 21:05 Resp 18 01/25/20 21:05 BP 113/67 01/25/20 21:05 Pulse Ox 99 01/25/20 21:05 COVID-19 Screening Have you,or household,traveled outside [place] in last 14 days?: No Had IN PERSON contact w/suspected or confirmed C-19 person: No
[2020-01-25] MEDS: Enoxaparin 40 MG/0.4 ML SYR SC (22:25)
[2020-01-25] MEDS: OLANZapine 10 MG TAB 20 MG PO (22:25)
[2020-01-25] MEDS: MAGNESIUM SULFATE 2 GM/50 ML BAG IVPB (23:19)
[2020-01-26] VITALS (35 sets, daily range): BP systolic 90–131; BP diastolic 59–82; PULSE 95–122; RESP 14–37; TEMP 37–37.3; O2SAT 92–98
[2020-01-26 00:40] LABS: Procalcitonin < 0.1 ng/mL
[2020-01-26] MEDS: Normal Saline 1,000 ML 125 ML IV ×2 (06:05→18:03)
--- NOTE | 2020-01-26 07:00 | DI.MRI_ITS ---
EXAM: MR BRAIN WO/W CLINICAL HISTORY: Left parietal lobe edema TECHNIQUE: Multiplanar multisequence MRI of the brain was performed. CONTRAST MATERIAL: IV Contrast: 14 ML of Dotarem contrast administered. COMPARISON: CT CT BRAIN NECK CTA from 01/25/[address] HEAD CERVICAL SPINE WO from 01/25/2020 FINDINGS: VENTRICLES AND EXTRA AXIAL SPACES: There is global cerebral atrophy. HEMORRHAGE: None. CEREBRAL PARENCHYMA: No focus of restricted diffusion to suggest acute infarct. No space-occupying le roby identified. There is an area of encephalomalacia involving the left parietal lobe. MIDLINE SHIFT: None. BRAINSTEM/CEREBELLUM: Normal. CALVARIUM: Normal. ENHANCEMENT: No suspicious enhancement identified. VISUALIZED PARANASAL SINUSES/MASTOIDS: Clear. [place]: Normal flow void. [place]: Unremarkable. OTHER FINDINGS: IMPRESSION: 1. Encephalomalacia in the left parietal lobe. 2. No evidence of an acute infarct or intracranial mass. 3. Cerebral atrophy. DATA REPOSITORY:
[2020-01-26 07:09] LABS: Abs Immature Grans 0.69 10^3/uL (0.0-0.06); HCT 32.1 % (36.0-46.0); HGB 10.7 g/dL (11.2-15.7); MCH 30.1 pg (27.0-33.0); MCHC 33.3 % (32.0-36.0); MCV 90.4 fL (80-95); MPV 10.3 fL (8.0-11.0); Nucleated RBC 0 %; Platelet Count 315 10^3/uL (130-400); RBC 3.55 10^6/uL (3.93-5.22); RDW 15.9 % (11.7-14.6); RDW-SD 53.5 fL; WBC 12.45 10^3/uL (4.4-10.8)
[2020-01-26 07:18] LABS: Lactate 0.7 mmol/L (0.6-1.4)
[2020-01-26 07:25] LABS: VALPROIC ACID 41.3 ug/mL (50-100)
[2020-01-26 07:34] LABS: Anion Gap 6.3 mmol/L (3-11); BUN 12 mg/dL (7-18); CO2 28.7 mmol/L (21.0-32.0); CREATININE 0.66 mg/dL (0.55-1.02); Calcium 8.9 mg/dL (8.5-10.1); Chloride 106 mmol/L (98-107); Glucose 52 mg/dL (74-106); Magnesium 2.1 mg/dL (1.8-2.4); Potassium 3.3 mmol/L (3.5-5.1); Sodium 141 mmol/L (136-145); TSH (W/Ref FT4) 1.21 uIU/mL (0.36-3.74)
[2020-01-26 07:51] LABS: Absolute Neutrophil Count 6.47 10^3/uL (1.2-6.7)
[2020-01-26 07:52] LABS: Absolute Lymphocyte Count 4.11 10^3/uL (1.2-3.4); Absolute Monocyte Count 1.25 10^3/uL (0.1-0.8); Atypical Lymphocytes % 1; Diff Comment Manual Differential; Metamyelocytes % 3; Myelocytes % 2
[2020-01-26 07:53] LABS: RBC Morphology Normal
[2020-01-26 07:54] LABS: Troponin I < 0.05 ng/mL (<0.06)
--- NOTE | 2020-01-26 08:23 | PGE_ITS ---
Date of Service Date of service: 01/26/20 Time of Service: 16:55 Assessment and Plan Assessment and plan (1) Encephalomalacia on imaging study: Status: Chronic Assessment and plan: This is not a new finding. It does not seem to be epileptogenic by EEG today. She will need outpatient neurology follow up, but no further workup is necessary at this time. (2) Hypotension: Status: Resolved Assessment and plan: Due to dehydration. This has resolved. Qualifiers: Hypotension type: unspecified hypotension type Qualified Code(s): I95.9 - Hypotension, unspecified (3) Dehydration: Status: Acute Assessment and plan: Continue IV fluids overnight. (4) Near syncope: Status: Acute Assessment and plan: The patient does not describe syncopal/near-syncopal symptoms to me, but evidently was less responsive for a time at the home yesterday. I see that there was an episode of hypoglycemia caught on her morning labs - it is possible that the patient was hypoglycemic at that time. Continue IVF. Check orthostatics. (5) Bipolar disorder: Status: Acute Assessment and plan: Resume depakote. Continue clozaril. Consult mental health per patient's request. Qualifiers: Active/Remission status: currently active Current bipolar episode type: manic Current episode severity: severe Psychotic features: with psychotic features Qualified Code(s): F31.2 - Bipolar disorder, current episode manic severe with psychotic features (6) Constipation: Status: Acute Assessment and plan: Start aggressive bowel regimen. This sounds like it is a current issue and may be related to why the patient also has urinary incontinence (?retention). (7) Urinary incontinence: Status: Acute Assessment and plan: UA negative. There is certainly a good change that this is behavioral, but considering constipation, urinary retention should be ruled out. Monitor bladder scans overnight. (8) Ambulatory dysfunction: Status: Acute Assessment and plan: Chronic. Will need home health PT on discharge. (9) DVT prophylaxis: Status: Acute Assessment and plan: lovenox (10) Discharge planning issues: Status: Acute Assessment and plan: DNR (contradicts the patient's advanced directives on paper). Will discuss with care management re filling out new paperwork. Subjective Subjective Interval history since last seen: Complains of a small headache. Denies dizziness, chest pain,shortness of breath, nausea. Reports always being constipa franco and having only one bowel movement every 2 weeks. She had a large one this morning. Reports urinating on herself in bed - states she is urinating right now. States that she cannot go back to [place] because they'll kill me there! They'll just put me out on the street. STates she really needs this hospital stay. States that she thinks her brain is not right. Requests a mental health consult. Was confused, A&Ox1 overnight, nut this am and today she is A&Ox3. Tangential in speech, nonsensical sometimes, answers appropriately. She was seen swearing when talking about a male while working with PT (would benefit from home health PT on d/c). Confused about who nursing were. Said that I look like Nat Roberto, her favorite doctor. Points to a picture of Anna Cook in a magazine and tells me that that's her mom. No maria fernanda hallucinations. Able to move all extremities. Able to get up to commode with a walker. HR in low 100s, SBPs low 100s. Not requiring O2. Incontinent of urine. Bruise on R back/flank. Old. Exam Narrative Exam Narrative: General: pleasant, cooperative middle-aged female who appears to be paranoid HEENT: EOMI, dry MM Heart: RRR, no m/r/g Lungs: CTAB Abdomen: soft, full, minimally diffusely tender Extremities: no e/c/c BLE's Objective Objective Clinical Data: Abnormal lab results 01/25/20 01/25/20 01/25/20 Range/Units 15:28 15:28 15:28 WBC 13.93 H (4.4-10.8) 10^3/uL RBC (3.93-5.22) 10^6/uL Hgb (11.2-15.7) g/dL Hct (36.0-46.0) % RDW 15.9 H (11.7-14.6) % Absolute Neutrophils 7.38 H (1.2-6.7) 10^3/uL Absolute Lymphocytes 4.60 H (1.2-3.4) 10^3/uL Absolute Monocytes 1.11 H (0.1-0.8) 10^3/uL Sodium 134 L (136-145) mmol/L Potassium (3.5-5.1) mmol/L Chloride 97 L (98-107) mmol/L BUN 24 H (7-18) mg/dL Creatinine 1.32 H (0.55-1.02) mg/dL Glucose 117 H (74-106) mg/dL Lactate 3.3 H* (0.6-1.4) mmol/L Magnesium 1.7 L (1.8-2.4) mg/dL ALT 13 L (14-59) U/L Albumin 3.1 L (3.4-5.0) g/dL Total Valproic Acid (50-100) ug/mL 01/25/20 01/25/20 01/26/20 Range/Units 15:28 20:20 06:56 WBC (4.4-10.8) 10^3/uL RBC (3.93-5.22) 10^6/uL Hgb (11.2-15.7) g/dL Hct (36.0-46.0) % RDW (11.7-14.6) % Absolute Neutrophils (1.2-6.7) 10^3/uL Absolute Lymphocytes (1.2-3.4) 10^3/uL Absolute Monocytes (0.1-0.8) 10^3/uL Sodium (136-145) mmol/L Potassium 3.3 L (3.5-5.1) mmol/L Chloride (98-107) mmol/L BUN (7-18) mg/dL Creatinine (0.55-1.02) mg/dL Glucose 52 L D (74-106) mg/dL Lactate 2.0 H (0.6-1.4) mmol/L Magnesium (1.8-2.4) mg/dL ALT (14-59) U/L Albumin (3.4-5.0) g/dL Total Valproic Acid 112.5 H (50-100) ug/mL 01/26/20 01/26/20 Range/Units 06:56 06:56 WBC 12.45 H (4.4-10.8) 10^3/uL RBC 3.55 L (3.93-5.22) 10^6/uL Hgb 10.7 L (11.2-15.7) g/dL Hct 32.1 L (36.0-46.0) % RDW 15.9 H (11.7-14.6) % Absolute Neutrophils (1.2-6.7) 10^3/uL Absolute Lymphocytes 4.11 H (1.2-3.4) 10^3/uL Absolute Monocytes 1.25 H (0.1-0.8) 10^3/uL Sodium (136-145) mmol/L Potassium (3.5-5.1) mmol/L Chloride (98-107) mmol/L BUN (7-18) mg/dL Creatinine (0.55-1.02) mg/dL Glucose (74-106) mg/dL Lactate (0.6-1.4) mmol/L Magnesium (1.8-2.4) mg/dL ALT (14-59) U/L Albumin (3.4-5.0) g/dL Total Valproic Acid 41.3 L (50-100) ug/mL Vital Signs Temperature 37.2 C 01/26/20 04:30 Temperature Source Temporal Artery Scan 01/26/20 04:30 Pulse 97 H 01/26/20 06:01 Pulse Rhythm Regular 01/25/20 23:35 Pulse 98 H 01/26/20 06:01 Respiratory Rate 16 01/26/20 02:01 Respiratory Effort Non-Labored 01/25/20 23:35 Respiratory Depth Normal 01/25/20 23:35 Respiratory Pattern Normal 01/25/20 23:35 Blood Pressure 100/59 L 01/26/20 06:01 Blood Pressure Mean 68 01/26/20 06:01 Blood Pressure Position Supine 01/25/20 21:20 Pulse Oximetry 92 L 01/26/20 06:01 Oxygen Delivery Method Room Air 01/25/20 21:20 Oxygen Flow Rate 0 01/25/20 21:20 Pain Level 0 01/25/20 21:20 Intake & Output 01/25/20 01/25/20 01/26/20 11:59 23:59 11:59 Intake Total 3900.0 / 3900.0 400 / 400 Balance 3900.0 / 3900.0 400 / 400 Weight 71.9 kg 72 kg Intake: IV 3000.0 / 3000.0 Oral 900 / 900 400 / 400 Other: Urine Color Yellow Urine Appearance Clear Cloudy Urine Odor Strong Comment incontinent of urine noted. Patient also able to state when needing to urinate at other times. Stool Occult Blood Negative Stool Size Copious Stool Characteristics Soft Formed Voiding Methods Bedpan Diaper Diaper Incontinent Incontinent Laboratory Results WBC 12.45 10^3/uL (4.4-10.8) H 01/26/20 06:56 RBC 3.55 10^6/uL (3.93-5.22) L 01/26/20 06:56 Hgb 10.7 g/dL (11.2-15.7) L 01/26/20 06:56 Hct 32.1 % (36.0-46.0) L 01/26/20 06:56 MCV 90.4 fL (80-95) 01/26/20 06:56 MCH 30.1 pg (27.0-33.0) 01/26/20 06:56 MCHC 33.3 % (32.0-36.0) 01/26/20 06:56 RDW 15.9 % (11.7-14.6) H 01/26/20 06:56 Plt Count 315 10^3/uL (130-400) 01/26/20 06:56 MPV 10.3 fL (8.0-11.0) 01/26/20 06:56 Immature Gran % See Differential 01/26/20 06:56 Neutrophils % 52.0 01/26/20 06:56 Band Neutrophils % 1 01/25/20 15:28 Lymphocytes % 32.0 01/26/20 06:56 Atypical Lymphs % 1 01/26/20 06:56 Monocytes % 10.0 01/26/20 06:56 Eosinophils % 0.0 01/26/20 06:56 Basophils % 0.0 01/26/20 06:56 Metamyelocytes % 3 01/26/20 06:56 Myelocytes % 2 01/26/20 06:56 Absolute Neutrophils 6.47 10^3/uL (1.2-6.7) 01/26/20 06:56 Absolute Lymphocytes 4.11 10^3/uL (1.2-3.4) H 01/26/20 06:56 Absolute Monocytes 1.25 10^3/uL (0.1-0.8) H 01/26/20 06:56 Absolute Eosinophils 0.00 10^3/uL (0.0-0.7) 01/26/20 06:56 Absolute Basophils 0.00 10^3/uL (0.0-0.2) 01/26/20 06:56 RBC Morphology Normal 01/26/20 06:56 PT 10.2 sec (9.3-11.0) 01/25/20 15:28 INR 1.0 (0.9-1.1) 01/25/20 15:28 APTT 26.1 sec (21.0-31.4) 01/25/20 15:28 Sodium 141 mmol/L (136-145) 01/26/20 06:56 Potassium 3.3 mmol/L (3.5-5.1) L 01/26/20 06:56 Chloride 106 mmol/L (98-107) 01/26/20 06:56 Carbon Dioxide 28.7 mmol/L (21.0-32.0) 01/26/20 06:56 Anion Gap 6.3 mmol/L (3-11) 01/26/20 06:56 BUN 12 mg/dL (7-18) D 01/26/20 06:56 Creatinine 0.66 mg/dL (0.55-1.02) 01/26/20 06:56 Estimated GFR/1.73 m2 >= 60.00 (mL/min/1.73m2) 01/26/20 06:56 Glucose 52 mg/dL (74-106) L D 01/26/20 06:56 Lactate 0.7 mmol/L (0.6-1.4) 01/26/20 06:56 Calcium 8.9 mg/dL (8.5-10.1) 01/26/20 06:56 Magnesium 2.1 mg/dL (1.8-2.4) 01/26/20 06:56 Total Bilirubin 0.2 mg/dL (0.2-1.0) 01/25/20 15:28 AST 15 U/L (15-37) 01/25/20 15:28 ALT 13 U/L (14-59) L 01/25/20 15:28 Alkaline Phosphatase 75 U/L (46-116) 01/25/20 15:28 Troponin I < 0.05 ng/mL (<0.06) 01/26/20 06:56 Total Protein 7.1 g/dL (6.4-8.2) 01/25/20 15:28 Albumin 3.1 g/dL (3.4-5.0) L 01/25/20 15:28 Procalcitonin < 0.1 ng/mL 01/25/20 20:20 TSH 1.21 uIU/mL (0.36-3.74) 01/26/20 06:56 Urine Color Yellow (Yellow) 01/25/20 16:45 Urine Clarity Clear (Clear) 01/25/20 16:45 Urine pH 7.0 (5-8) 01/25/20 16:45 Ur Specific [place] 1.010 (1.005-1.025) 01/25/20 16:45 Urine Protein Negative mg/dL (Negative) 01/25/20 16:45 Urine Ketones Negative mg/dL (Negative) 01/25/20 16:45 Urine Blood Negative (Negative) 01/25/20 16:45 Urine Nitrite Negative (Negative) 01/25/20 16:45 Urine Bilirubin Negative (Negative) 01/25/20 16:45 Urine Urobilinogen 0.2 EU/dL (Up TO 0.2) 01/25/20 16:45 Ur Leukocyte Esterase Negative (Negative) 01/25/20 16:45 Urine Glucose Negative mg/dL (Negative) 01/25/20 16:45 Total Valproic Acid 41.3 ug/mL (50-100) L 01/26/20 06:56 Blood HSV I (PCR) Cancelled 01/25/20 15:28 Blood HSV II (PCR) Cancelled 01/25/20 15:28 MRI brain: 1. Encephalomalacia in the left parietal lobe (old). 2. No evidence of an acute infarct or intracranial mass. 3. Cerebral atrophy.
--- NOTE | 2020-01-26 08:30 | NUR.NOTE ---
Nursing Note: Diazepam ordered for patient prior to MRI. Patient allergic to lorazepam, patient unsure if allergic to diazepam. Pt states, I can hold still. Consulted MD, diazepam held.
[2020-01-26] MEDS: Omeprazole 20 MG CAPCR PO (08:47)
[2020-01-26] MEDS: Levothyroxine 112 MCG TAB PO (08:48)
[2020-01-26] MEDS: Folic Acid 1 MG TAB PO (08:48)
--- NOTE | 2020-01-26 08:49 | PDOC.CMIN ---
- If Service Date Differs Date of service: 01/26/20 Time of Service: 08:49 Care Management Initial Assess REASON FOR HOSPITALIZATION:: Syncope PAST MEDICAL HISTORY/PAST SURGICAL HISTORY:: Bipolar disorder, Diabetes mellitus. GERD. Hypothyroidism. Schizoaffective disorder PREVIOUS FUNCTIONAL STATUS/SOCIAL/FAMILY SUPPORTS:: Kandace Bhatia) lives at [facility] she receives services through [facility] and is a behavioral client. She is able complete her own ADL's with constant cueing. She does have episodes that are difficult to manage including falling to the floor and not being able to control her reactions on occasion per [facility]. CURRENT FUNCTIONAL STATUS:: Kandace is unable to engage with CM at this time she is being brought to [facility]. CM did contact Mercedes at [facility] and reviewed events prior to admission and concerns. Mercedes reports that Lucia was unable to complete normal task for her such as writting down recepie's. When asked what was wrong she told the home provider she did not know and seemed lost. Mercedes reports that when Lucia is becoming ill or has a tooth infection she presents with sudden onset of symptoms. ADVANCE DIRECTIVES:: None on file Has patient been provided with info about the portal/API?: No Did the patient sign up for the portal?: No CODE STATUS:: DNR INSURANCE COVERAGE / FINANCIAL ISSUES:: Medicaid CURRENT HOME/COMMUNITY SERVICES/EQUIPMENT:: Lives at assisted living [facility] PRIMARY CARE PHYSICIAN:: POTENTIAL DISCHARGE NEEDS:: Pending disposition PATIENT/FAMILY EDUCATION NEEDS:: Discharge plan, limitations and follow up plan of care. ANTICIPATED BARRIERS TO DISCHARGE:: None identified at this time TRANSPORTATION:: Pending disposition PLAN:: Lucia is having an MRI, pending results she will be transfered or return to her home at [facility]. CM reivewed the plan with Mercedes at [facility], she is reaching out to Lucia's vocational case manager at [facility] and will keep in touch with Lucia's parents to update. CM will continue to monitor for any additional needs or supports r/t discharge planning.
[2020-01-26] MEDS: Potassium Chloride 20 MEQ TABCR 40 MEQ PO (08:50)
[2020-01-26] MEDS: Gadoterate meglumine 20 ML VIAL 13 ML IVP (12:35)
--- NOTE | 2020-01-26 12:40 | PHACLINREV_ITS ---
Pharmacy Admission Review - Admission Clinical Review (Last Updated 01/25/20 @ 23:32 by Phill Talavera) Bipolar disorder (Acute) Near syncope (Acute) Weakness (Acute) Abnormal CT of the head (Acute) Hypotension (Acute) Dehydration (Acute) Penicillins Allergy (Severe, Unverified 01/25/20 15:56) peanut Allergy (Unknown, Unverified 01/25/20 15:56) trifluoperazine HCl [From Stelazine] Allergy (Unknown, Unverified 01/25/20 15:56) lorazepam [From Ativan] Adverse Reaction (Severe, Unverified 01/25/20 15:56) Psychosis Height 4 ft 11 in Weight 72 kg - Renal Dosing Renal Dosing: BUN 12 mg/dL (7-18) D 01/26/20 06:56 Creatinine 0.66 mg/dL (0.55-1.02) 01/26/20 06:56 Medications needing adjustments: Reviewed - Anticoagulation Anticoagulation: Hgb 10.7 g/dL (11.2-15.7) L 01/26/20 06:56 Hct 32.1 % (36.0-46.0) L 01/26/20 06:56 Plt Count 315 10^3/uL (130-400) 01/26/20 06:56 INR 1.0 (0.9-1.1) 01/25/20 15:28 Creatinine 0.66 mg/dL (0.55-1.02) 01/26/20 06:56 DVT Prohphylaxis: N/A Therapeutic Anticoagulation: N/A - Opiate Usage Evaluate Pain Scale/Pains Meds: N/A - Relevant Labs Sodium 141 mmol/L (136-145) 01/26/20 06:56 Potassium 3.3 mmol/L (3.5-5.1) L 01/26/20 06:56 Chloride 106 mmol/L (98-107) 01/26/20 06:56 Magnesium 2.1 mg/dL (1.8-2.4) 01/26/20 06:56 Electrolytes, C-Reactive P, ESR: Reviewed (40 meq PO given) - DM Control DM Control: Glucose 52 mg/dL (74-106) L D 01/26/20 06:56 Finger Stick Blood Glucose 159 Finger Stick Blood Glucose 91 Insulin Dosing: Reviewed (aspart per SS, carb count) - Heart Failure/PA Heart Failure/PA: Troponin I < 0.05 ng/mL (<0.06) 01/26/20 06:56 EF%, DAVID's, B-Blockers, Diuretics: Reviewed - BP Control BP Control: Blood Pressure 100/59 Blood Pressure 103/61 Blood Pressure 110/67 Blood Pressure 107/63 Blood Pressure 90/66 Blood Pressure 107/59 If elevated: Reviewed - Qtc Review If Elevated: Reviewed (QTc 463) - IV to PO Switch IV Medications: Reviewed - Home Meds Home Med List reviewed: Intervened (Cleaned up home med list (corrected dosage forms); confirmed eligibility to receive clozapine with [employer]; dc'd myrbetriq and added tolterodine per recent med list) - Current meds Current Medication Order Review: Intervened (updated some orders to reflect our manager medicare marketing policy) - Comments Comments/Follow Ups: Depakote level this morning was 41.3 (down from 112.5) -- watch for restart at a lower dose
[2020-01-26 14:23] LABS: COVID-19 RT-PCR UVMMC Result Negative (Negative)
--- NOTE | 2020-01-26 14:51 | PDOC.EEG ---
Neurology EEG EEG: [facility] Department of Neurology INPATIENT EEG REPORT Date of Recordin01/26/20 Interpreting Physician: Dr. Catherine Pierre Reason for study: Ms. Levine is a 49 year-old woman with schizoaffective and Bipolar disorder who [facility] with reported generalized weakness, poor appetite, lethargy, lightheadedness, and an episode of near syncope, concerning for seizure. Of note, she is on Depakote for mood with an admission level of 112.5. Initial eval revealed hypotension with labs supporting dehydration (Cr 1.32 with baseline 0.7, Na 134). Current Medications: Home Medications Medication Instructions Recorded Confirmed Type clozapine [Clozaril] 300 mg PO HS 10/18/13 01/25/20 History clozapine [Clozaril] 500 mg PO .QAM 10/18/13 01/25/20 History divalproex [Depakote ER] 2,000 mg PO HS 10/18/13 01/25/20 History levothyroxine 112 mcg PO DAILY@0730 10/18/13 01/25/20 History aspirin [Aspir-81] 81 mg PO QAM 08/05/14 01/25/20 History ibuprofen [Ibuprofen IB] 400 mg PO Q8H PRN 08/05/14 01/25/20 History polyethylene glycol 3350 17 gm PO DAILY 08/05/14 01/25/20 History acetaminophen [Acetaminophen Extra 1,000 mg PO TID 10/04/16 01/25/20 History Strength] divalproex [Depakote ER] 1,000 mg PO QAM 10/04/16 01/25/20 History clindamycin phos-skin clnsr 19 1 % TOPICAL PRN PRN 09/26/18 01/25/20 History clotrimazole [Lotrimin AF] 1 applic TOPICAL BID PRN 09/26/18 01/25/20 History folic acid 1 mg PO DAILY 09/26/18 01/25/20 History guaifenesin [Mucinex] 600 mg PO Q12H PRN 09/26/18 01/25/20 History hydrochlorothiazide 25 mg PO DAILY 09/26/18 01/25/20 History lisinopril 5 mg PO DAILY 09/26/18 01/25/20 History olanzapine [Zyprexa] 20 mg PO HS 09/26/18 01/25/20 History omeprazole 20 mg PO DAILY 09/26/18 01/25/20 History liraglutide [Victoza 2-Samir] 1.2 mg SUBCUT DAILY 01/25/20 01/25/20 History glipizide 20 mg PO QAM 01/26/20 01/26/20 History metformin 1,000 mg PO BID 01/26/20 01/26/20 History tolterodine 2 mg PO QPM 01/26/20 01/26/20 History Current Medications Acetaminophen (Tylenol) 325 - 650 mg PO Q4H PRN PRN Al Hydrox/Mg Hydrox/Simethicone (Mylanta Liquid) 30 ml PO Q2H PRN PRN Clozapine (Clozaril) 300 mg PO HS [facility] Clozapine (Clozaril) 500 mg PO QAM [facility] Last Admin: 01/26/20 08:53 Dose: 500 mg Documented by: Dextrose (Insta-Glucose) 0 gm PO DIRECTED PRN Dextrose/Water () 0 gm IVP DIRECTED PRN Dimethicone/Zinc Oxide (Frieda Protect Cream) 0 gm TP PRN PRN Folic Acid (Folate) 1 mg PO DAILY [facility] Last Admin: 01/26/20 08:48 Dose: 1 mg Documented by: Sodium Chloride (Saline 1000ml Bag) 1,000 mls @ 125 mls/hr IV INFUSION [facility] Insulin Aspart (Novolog Flexpen) 0 units SC 0800,1200,1700 [facility] Last Admin: 01/26/20 14:03 Dose: Not Given Documented by: Insulin Aspart (Novolog Flexpen) 0 units SC 0800,1200,1700 [facility]; Protocol Last Admin: 01/26/20 14:06 Dose: Not Given Documented by: Levothyroxine Sodium (Levothroid) 112 mcg PO DAILY@0600 [facility] Magnesium Hydroxide (Milk Of Magnesia) 30 ml PO DAILY PRN PRN Nicotine (Nicotrol 30 Cartridges/Pack) 1 cartridge IH Q2H PRN PRN Olanzapine (Zyprexa) 20 mg PO [facility] Last Admin: 01/25/20 22:25 Dose: 20 mg Documented by: Omeprazole (Prilosec) 20 mg PO DAILY@0730 [facility] Polyethylene Glycol (Miralax) 17 gm PO DAILY PRN PRN PRN Reason: Constipation Polyethylene Glycol (Miralax) 17 gm PO DAILY [facility] Last Admin: 01/26/20 14:08 Dose: Not Given Documented by: METHODS: A 21 channel digitized electroencephalogram was performed in the [facility] Med/Surg Floor or ICU. The 10/20 international system of electrode placement was used and bipolar and referential electrode montages were recorded. In addition to EEG the patient was monitored for EKG and lateral/vertical eye movements. Activation procedures of photic stimulation and hyperventilation were performed if applicable. Video was used during activation procedures and during events where applicable. The duration of the recording was 30 minutes. DESCRIPTION OF EEG: The patient was noted to be awake only during the recording. During maximal wakefulness a 7-Hz posterior background rhythm was present which was well-modulated, symmetrical, reactive to eye opening, and of moderate voltage. With eye opening the background activity changed to a low voltage mixture of alpha, beta, and occasional theta range frequencies. Faster frequencies were present in the bilateral anterior head regions. There was a normal anterior-posterior voltage gradient. No drowsiness or stage II sleep was recorded. There was occasional waves of generalized, polymorphic, delta slowing throughout the recording. Activating Procedures: Photic stimulation was performed which produced no posterior driving response. Hyperventilation was not performed. EKG: EKG revealed normal sinus rhythm. INTERPRETATION: This EEG is abnormal due to occasional generalized, polymorphic, delta slowing and slowing of the PDR. PRIOR EEG: none CLINICAL CORRELATION: The slowing is suggestive of a mild diffuse cerebral encephalopathy of broad differential including toxic-metabolic etiology. No focal regions of cerebral dysfunction or epileptiform activity was present. Clinical correlation is advised. Catherine Pierre MD
--- NOTE | 2020-01-26 15:23 | PT.INIE ---
Date of service: 01/26/20 Time of Service: 15:23 PT Notes Visit Reasons: Syncope Physical Therapy Inpatient Initial Evaluation Date: 01/26/2020 Referring Doctor: Gricel Frey MD PT Orders: PT CONSULT: Fall safety assessment Precautions: Fall. Standard. Activity as tolerated. Patient Profile/Admitting Diagnosis: Kandace is a 49-year-old female who presented to the ED on 01/25/2020 with diagnosis of encephalomalacia, abnormal CT of head showing chronic localized edema of the left parietal lobe, hypotension, near syncope, and dehydration. PMHX: Medical History (Updated 01/25/20 @ 23:42 by Phill Talavera) Bipolar disorder (Acute) Diabetes mellitus (Inactive) a. on oral medications b. Hgb A1C 7.5 c. uncontrolled GERD (gastroesophageal reflux disease) (Inactive) Hypothyroidism (Inactive) Schizoaffective disorder (Acute) Social History/Home Situation: LTC resident at [facility]. Equipment Owned/DME: None Subjective: Agreeable to a PT consult. Did not want to walk out of her room this afternoon. Stated that she was not ready to go home yet. Objective: General Observation: Telemetry monitoring in place. Bilateral TEDS on. Nurse Luz present throughout session. Mental Status: Alert. Grossly disorganized behavior and thought. Random episodes of mild agitation and use of expletives heard throughout session about a male figure she hates so much. Required moderate redirection throughout for mobility assessment. Pain: Unquantified report of pain in B legs Vital Signs: HR of 123 after standing up and walking 8 feet or so. ROM: Grossly within functional limits for upper extremities. Hip flexion and supine allows about 30 degrees bilaterally. Knee flexion up to 90 degrees bilaterally. Ankles grossly WFL. Strength: Upper extremities grossly 3/5. Lower extremities grossly 3-5. Bed Mobility/Transfers: Supine to sit hand-held assist Sit to supine hand-held assist Sit to stand hand-held assist Stand to sit hand-held assist Bed to chair hand-held assist Chair to bed hand-held assist Gait: Kandace tolerated short distance ambulation of about 8 feet from bedside to bedside commode and another 8 feet to go back with a tendency to walk hurriedly on her toes when highly anxious about falling. She was adamant about not walking farther this afternoon stating that her legs hurt. She did say that she will be willing to do it tomorrow morning instead. Balance: Static Sitting: Normal Dynamic Sitting: Normal Static Standing: Fair Dynamic Standing: Fair Special Tests: Mobility Limitations Standardized Measure [facility] AM-PAC 6 clicks Basic Mobility Inpatient Short Form: Raw Score: 18 CMS Score: 47% deficit Informed Consent/Education: Patient instructed in purpose of PT consult and plan of care. Assessment: Kandace demonstrates impaired gait pattern largely impacted by fear of falling and anxiety over losing balance, generalized weakness of bilateral lower extremities, and difficulty with walking. Unsure as to whether this is her baseline level of mobility at [facility]. She will benefit from home health physical therapy in a familiar environment with familiar people whom she trusts to work on progressing her balance skills and mobility level. Patient presents with clinical signs and symptoms consistent with current/admitting diagnoses that have resulted to mobility limitations, gait instability, generalized weakness, and impairment of motor control as demonstrated by the following impairment level findings: 1. Decreased strength to B LE major muscle groups 2. Impaired standing balance 3. Impaired activity tolerance 4. Limitation of joint range of motion in B hips and knees Impairments are contributing to the following functional limitations: 1. Dependent bed mobility skills 2. Increased dependence with transfers 3. Inability to safely ambulate without assistive device and physical assistance 4. Increase completion time for mobility ADL performance 5. Increased fall risk 6. Inability to negotiate steps alone safely Patient is assessed as a 44133 high complexity based on the following: History: 49-year-old female with impairment level findings, functional limitations, and past medical history as indicated above Examination: Demonstrable impairment in strength, balance, and mobility level with underlying impairments and functional limitations as documented above Presentation:Evolving Decision Makin high complexity Goals: Goals X 1 week 1. Supine-Sit independent 2. Sit-Supine independent 3. Sit-Stand supervision 4. Stand-Sit supervision 5. Bed-Chair supervision 6. Chair-Bed supervision 7. Supervision gait on level surface with use of least restrictive device for at least 300 feet without report of pain nor dyspnea 8. Good static and dynamic standing balance/tolerance Plan of Care/Treatment Plan: We will plan on seeing patient for another attempt at ambulation prior to discharge tomorrow. Plan of care has been reviewed with the DIRECTOR OF INFORMATICS providing the service under Physical Therapy direction. Initiate Physical Therapy intervention for strengthening, bed mobility, transfers, gait, stairs, balance training, use of assistive device. DISCHARGE RECOMMENDATIONS: Patient will benefit from home health PT services in order to progress mobility level using least restrictive assistive ambulatory device, assess home safety, identify additional equipment needs, and establish a functional maintenance program that will increase ability of patient to remain at home. TREATMENT CODE/TIME: 84952 x 27 minutes beginning at 15:23 PM. Thank you for the opportunity to participate in the care of this patient. Kayleen Mar PT, DPT, CLT [facility] [place], [place]
[2020-01-26] MEDS: Insulin Aspart 300 UNITS/3 ML PEN SC ×2 (17:27→17:28)
--- NOTE | 2020-01-26 17:38 | NUR.NOTE ---
Gloria Barajas from care management spoke with Mercedes at the housing facility where the patient stays ([place]). Mercedes reports that the patient's mother has not see the patient or been involved in her care for 10 years except for updates. The mother however gave false allergies as the mother is allergic to everything and puts that on the patient per Mercedes. The patient was listed as having a peanut allergy and ativan allergy per the mother but Mercedes states that the patient eats peanut butter every day and she also has no allergy to ativan. Peanut and ativan allergy were removed. Gloria did not confirm the Penicillin or trifluperazine allergy with Mercedes. Nursing Note:
[2020-01-26] MEDS: Docusate Sodium 100 MG CAP PO (20:35)
[2020-01-26] MEDS: Enoxaparin 40 MG/0.4 ML SYR SC (20:35)
[2020-01-26] MEDS: Senna TAB 1 TAB PO (20:35)
[2020-01-26] MEDS: Acetaminophen 500 MG TAB 1000 MG PO (20:35)
[2020-01-26] MEDS: OLANZapine 10 MG TAB 20 MG PO (22:23)
[2020-01-26] MEDS: Divalproex Sodium 500 MG TAB.ER.24H 2000 MG PO (22:24)
[2020-01-27] VITALS (21 sets, daily range): BP systolic 98–122; BP diastolic 50–75; PULSE 78–101; RESP 14–28; TEMP 36.5–36.7; O2SAT 93–100
[2020-01-27] MEDS: Levothyroxine 112 MCG TAB PO (06:30)
--- NOTE | 2020-01-27 08:40 | PDOC.CMDIS ---
- If Service Date Differs Date of service: 01/27/20 Time of Service: 08:40 LACE Index Scoring Tool - Questions: Length of Stay (in days): 2 Acuity (Admit via E.D.?): Yes Care Management Discharge Reason for Hospitalization: Syncope Discharge Plan: Kandace will be discharged home to [facility] today, PT is recomending home PT services, CM will send a referral and review with [facility] (Mercedes) - MH Services (Omit if N/A) Current MH Services: [facility] Referred to Internal [facility] (ED embedded) case reviewer?: No
[2020-01-27] MEDS: Divalproex Sodium 500 MG TAB.ER.24H 1000 MG PO (09:10)
[2020-01-27] MEDS: Docusate Sodium 100 MG CAP PO ×2 (09:10→19:30)
[2020-01-27] MEDS: Senna TAB 1 TAB PO ×2 (09:10→19:29)
[2020-01-27] MEDS: Acetaminophen 500 MG TAB 1000 MG PO ×3 (09:11→19:29)
[2020-01-27] MEDS: Omeprazole 20 MG CAPCR PO (09:11)
[2020-01-27] MEDS: Folic Acid 1 MG TAB PO (09:11)
[2020-01-27] MEDS: Polyethylene Glycol 3350 17 GM PACKET PO (09:12)
[2020-01-27] MEDS: Insulin Aspart 300 UNITS/3 ML PEN SC ×3 (10:07→17:24)
--- NOTE | 2020-01-27 10:40 | DM INPTCON_ITS ---
Date of service: 01/27/20 Time of Service: 10:40 Diabetes Inpatient Consult DESCRIPTION/ASSESSMENT: 49 [facility]. PMH: NIDDM. Home meds: metformin. No recent AIC. Met with Kandace today, and attempted to provide education on diabetes and diet. Kandace is not appropriate for education, very confused today and diabetes is managed by staff [facility]. INTERVENTION: attempted to provide diabetes education- not completed due to Kandace's ability to engage continue current meal plan and diabetes regime. PLAN: Check A1C every 3 months to monitor BS control will follow as needed Time Spent in Nutritional Counseling and Treatment: 10 min spent face to face
--- NOTE | 2020-01-27 10:51 | DSE_ITS ---
Date of service: 01/27/20 Time of Service: 10:52 DS: Diagnosis Discharge Diagnosis (1) Near syncope: Status: Resolved Asessment and Plan: No cardiac cause for near-syncope identified. (2) Encephalomalacia on imaging study: Status: Chronic (3) Hypotension: Status: Resolved (4) Hypoglycemia: Status: Resolved (5) Dehydration: Status: Resolved (6) Bipolar disorder: Status: Chronic Asessment and Plan: at baseline (7) Constipation: Status: Chronic (8) Urinary incontinence: Status: Chronic (9) Ambulatory dysfunction: Status: Chronic Asessment and Plan: Being discharged back to [facility] with an order for home health PT and a walker. (10) Diabetes mellitus: Status: Chronic (11) COVID-19 ruled out by laboratory testing: Status: Ruled-out Discharge Plan Disposition Patient Disposition: HOME W/HOME HEALTH SERVICE Condition: Stable Discharge Details Chief Complaint: Dizzy/Sync Clinical Impression: Weakness, Abnormal CT of the head, Hypotension, Dehydration Reason For Visit: SYNCOPE Admit Date/Time: 01/25/20 23:43 Admit Provider: Phill Talavera Attending Provider: Phill Talavera Primary Care Provider: Sol Ashley V ED Provider: Landy Rendon Hospital Course Hospital Course: Ms Levine is a 49 year old female with PMHx of Home Meds and New Rx's Prescriptions: No Action clozapine [Clozaril] 100 MG tablet 300 mg PO HS RF: 0 clozapine [Clozaril] 100 MG tablet 500 mg PO .QAM RF: 0 levothyroxine 25 MCG tablet 112 mcg PO DAILY@0730 RF: 0 divalproex [Depakote ER] 500 MG tablet extended release 24 hr 2,000 mg PO HS RF: 0 polyethylene glycol 3350 17 GM powder in packet 17 gm PO DAILY RF: 0 aspirin [Aspir-81] 81 MG tablet,delayed release (DR/EC) 81 mg PO QAM RF: 0 ibuprofen [Ibuprofen IB] 200 MG tablet 400 mg PO Q8H PRNRF: 0 acetaminophen [Acetaminophen Extra Strength] 500 MG tablet 1,000 mg PO TID RF: 0 divalproex [Depakote ER] 500 MG tablet extended release 24 hr 1,000 mg PO QAM RF: 0 omeprazole 20 mg Capsule,Delayed Release(Dr/Ec) 20 mg PO DAILY RF: 0 folic acid 1 mg Tablet 1 mg PO DAILY RF: 0 lisinopril 5 mg Tablet 5 mg PO DAILY RF: 0 hydrochlorothiazide 25 mg Tablet 25 mg PO DAILY RF: 0 clotrimazole [Lotrimin AF (clotrimazole)] 1 % Cream 1 applic TOPICAL BID PRNRF: 0 olanzapine [Zyprexa] 20 mg Tablet 20 mg PO HS RF: 0 clindamycin phos-skin clnsr 19 1 % Kit 1 % TOPICAL PRN PRNRF: 0 guaifenesin [Mucinex] 600 mg Tablet Extended Release 12hr 600 mg PO Q12H PRNRF: 0 Victoza 2-Samir 0.6 mg/0.1 mL (18 mg/3 mL) pen injector 1.2 mg SUBCUT DAILY RF: 0 metformin 1,000 mg tablet 1,000 mg PO BID RF: 0 glipizide 10 mg tablet extended release 24hr 20 mg PO QAM RF: 0 tolterodine 2 mg tablet 2 mg PO QPM RF: 0 DS: Data Vitals/I&O Vitals and I&O: Vital Signs Temperature 36.5 C 01/27/20 08:38 Temperature Source Temporal Artery Scan 01/27/20 08:38 Pulse 91 H 01/27/20 06:00 Pulse Rhythm Regular 01/27/20 08:38 Pulse 93 H 01/27/20 06:00 Respiratory Rate 23 01/27/20 06:00 Respiratory Effort Non-Labored 01/27/20 08:38 Respiratory Depth Normal 01/27/20 08:38 Respiratory Pattern Normal 01/27/20 08:38 Blood Pressure 114/66 01/27/20 06:00 Blood Pressure Mean 78 01/27/20 06:00 Blood Pressure Position Supine 01/25/20 21:20 Pulse Oximetry 96 01/27/20 08:38 Oxygen Delivery Method Room Air 01/27/20 08:38 Oxygen Flow Rate 0 01/27/20 08:38 Pain Level 0 01/27/20 09:11 Intake & Output 01/26/20 01/26/20 01/27/20 11:59 23:59 11:59 Intake Total 750 / 2102.083 1352.083 / 2102.083 1000 / 1000 Output Total 800 / 1300 500 / 1300 500 / 500 Balance -50 / 802.083 852.083 / 802.083 500 / 500 Weight 72 kg Intake: IV 752.083 / 752.083 Oral 750 / 1350 600 / 1350 1000 / 1000 Output: Urine 800 / 1300 500 / 1300 500 / 500 Other: Urine Odor Strong Normal Strong Comment amount approximated Pt has voided large amounts in bed several times today. She has been refusing to get up to the commode because it is easier to just pee in my brief I have had multiple discussions with her about the im portance of moving and getting OOB and doing self-activities and she agrees but it does not change her behavior. Difficult to assess if there is underlying incontinence. The patient verbalizes when she is urinating and can hold it until on the commode when standing. Incontinent amount approximated. Pt choosing to void in brief in bed. Stool Occult Blood Negative Stool Size Copious Large Stool Characteristics Soft Soft Formed Formed Brown Emesis Description Undigested Food Voiding Methods Diaper Incontinent Incontinent Data Completed and Pending Labs on day of discharge: Labs from last 24 hours 01/25/20 20:07 COVID-19 PCR Negative Sadia COVID-19 PCR Not Applicable Ref Test Perform Site [facility] lab Preliminary micro results at discharge 01/25/20 18:50 Blood Culture - Preliminary Blood NO GROWTH 24 HOURS 01/25/20 17:47 Blood Culture - Preliminary Blood NO GROWTH 24 HOURS [facility] Medical History Bipolar disorder (Chronic) Diabetes mellitus (Chronic) a. on oral medications b. Hgb A1C 7.5 c. uncontrolled GERD (gastroesophageal reflux disease) (Inactive) Hypothyroidism (Inactive) Schizoaffective disorder (Acute) Social History Smoking/Tobacco Use Status: Current every day Drug use: Never Do you feel safe in your relationship?: Yes Additional Social history: lives at [facility].
--- NOTE | 2020-01-27 11:00 | PT.INDS ---
Date of service: 01/27/20 Time of Service: 10:40 PT Notes Visit Reasons: Syncope Inpatient Physical Therapy Discharge Summary Dates: 01/27/2020 Dates of Service: 01/26/2020 and 01/27/2020 Referring Doctor: Gricel Frey MD PT Orders: PT CONSULT: Fall safety assessment Precautions: Fall. Standard. Activity as tolerated. Patient Profile/Admitting Diagnosis: Kandace is a 49-year-old female who presented to the ED on 01/25/2020 with diagnosis of encephalomalacia, abnormal CT of head showing chronic localized edema of the left parietal lobe, hypotension, near syncope, and dehydration. PMHX: Medical History (Updated 01/25/20 @ 23:42 by Phill Talavera) Bipolar disorder (Acute) Diabetes mellitus (Inactive) a. on oral medications b. Hgb A1C 7.5 c. uncontrolled GERD (gastroesophageal reflux disease) (Inactive) Hypothyroidism (Inactive) Schizoaffective disorder (Acute) Social History/Home Situation: LTC resident at [facility]. Equipment Owned/DME: None Subjective: Dr. Frey came in and attempted to wake patient up and advised her about the need to walk with PT today. Patient adamantly refused today's attempt at doing ambulation assessment despite explanation on the rationale of why said activity is necessary before she leaves today. Objective: General Observation: Telemetry monitoring in place. Bilateral TEDS on. Patient sleeping when PT arrived. Mental Status: Alert. Grossly disorganized behavior and thought. Random episodes of mild agitation and use of expletives heard throughout session about a male figure she hates so much. Required moderate redirection throughout for mobility assessment. Pain: None reported ROM: Grossly within functional limits for upper extremities. Hip flexion and supine allows about 30 degrees bilaterally. Knee flexion up to 90 degrees bilaterally. Ankles grossly WFL. Strength: Upper extremities grossly 3/5. Lower extremities grossly 3-5. Bed Mobility/Transfers: Refused. Gait: Refused. Balance: Static Sitting: Normal Dynamic Sitting: Normal Static Standing: Fair Dynamic Standing: Fair Assessment: Kandace adamantly refused today's PT session emphasizing that she has a right to refuse any treatment. She continues to demonstrate impaired gait pattern largely impacted by fear of falling and anxiety over losing balance, generalized weakness of bilateral lower extremities, and difficulty with walking. Unsure as to whether this is her baseline level of mobility at [facility]. She will benefit from home health physical therapy in a familiar environment with familiar people whom she trusts to work on progressing her balance skills and mobility level. Patient continues to present with clinical signs and symptoms consistent with current/admitting diagnoses that have resulted to mobility limitations, gait instability, generalized weakness, and impairment of motor control as demonstrated by the following impairment level findings: 1. Decreased strength to B LE major muscle groups 2. Impaired standing balance 3. Impaired activity tolerance 4. Limitation of joint range of motion in B hips and knees Impairments are continuing to contribute to the following functional limitations: 1. Dependent bed mobility skills 2. Increased dependence with transfers 3. Inability to safely ambulate without assistive device and physical assistance 4. Increase completion time for mobility ADL performance 5. Increased fall risk 6. Inability to negotiate steps alone safely Goals: Goals X 1 week 1. Supine-Sit independent NOT MET 2. Sit-Supine independent NOT MET 3. Sit-Stand supervision NOT MET 4. Stand-Sit supervision NOT MET 5. Bed-Chair supervision NOT MET 6. Chair-Bed supervision NOT MET 7. Supervision gait on level surface with use of least restrictive device for at least 300 feet without report of pain nor dyspnea NOT MET 8. Good static and dynamic standing balance/tolerance NOT MET DISCHARGE RECOMMENDATIONS: Kandace may benefit from the use of a front-wheeled walker to reduce fall risk at home. Patient will benefit from home health PT services in order to progress mobility level using least restrictive assistive ambulatory device, assess home safety, identify additional equipment needs, and establish a functional maintenance program that will increase ability of patient to remain at home. TREATMENT CODE/TIME: NC. Patient refused this morning's session. Thank you for the opportunity to participate in the care of this patient. Kayleen Mar PT, DPT, CLT [facility] [place], [place]
--- NOTE | 2020-01-27 11:59 | PDOC.CMPRO ---
- If Service Date Differs Date of service: 01/27/20 Time of Service: 11:59 Care Management Progress Note S/O: CM into meet with patient she is drowsy at this time and not engaged. CM contacted her caregiver and spoke with Lou at [facility] updated on canceled discharge. Due to change in mental status she will be seen by neurology and plan to be determined. The caregiver reports that Lucia has been sleeping more lately and most of the time, she appears to not have any energy and falls down frequent. Caregiver reports she drops her head onto the table during meals and falls asleep this is not her baseline per report. A: Lucia is a 49 year old female admitted with syncope P: Lucia will be discharged to [facility] when she is medically ready. She will have a neuro consult and possible medication adjustment. [facility] may e able to transport at time of discharge if not then RCT coordination. CM will need to contact [facility] at time of discharge.
--- NOTE | 2020-01-27 13:18 | PGE_ITS ---
Date of Service Date of service: 01/27/20 Time of Service: 13:18 Assessment and Plan Assessment and plan (1) Altered mental status: Status: Acute Assessment and plan: Apparently, something also seen at the [facility]. It is not clear if this is a side effect of her medications (i.e. encephalopathy) vs psychiatric. Valproic acid level is 77.0. Repeat EEG ordered - if not slower than yesterday's, then psychiatric process is a possibility. Dosing issues with clozaril are also a possibility as the patient stopped smoking - obtain clozapine level. We are reaching out to the patient's outpatient psychiatric provider. (2) Near syncope: Status: Resolved Assessment and plan: I now start to question if this episode of somnolence is what was perceived as near-syncope. THe patient was not hypoglycemic at the home at the time of the event, and she is not orthostatic. The patient does not describe syncopal/near-syncopal symptoms. Telemetry unremarkable. (3) Encephalomalacia on imaging study: Status: Chronic Assessment and plan: This is not a new finding. It does not seem to be epileptogenic by EEG. She will need outpatient neurology follow up, but no further workup is necessary at this time. (4) Hypotension: Status: Resolved Assessment and plan: Due to dehydration. This has resolved. Qualifiers: Hypotension type: unspecified hypotension type Qualified Code(s): I95.9 - Hypotension, unspecified (5) Hypoglycemia: Status: Resolved (6) Dehydration: Status: Resolved Assessment and plan: Continue IV fluids (7) Bipolar disorder: Status: Chronic Assessment and plan: Continue depakote. Measuring clozaril level with plans to adjust the dose as the patient stopped smoking (with the consent of patient's psychiatric provider, whose call back we are awaiting). Qualifiers: Active/Remission status: currently active Current bipolar episode type: manic Current episode severity: severe Psychotic features: with psychotic features Qualified Code(s): F31.2 - Bipolar disorder, current episode manic severe with psychotic features (8) Constipation: Status: Chronic Assessment and plan: Had another BM yesterday. Continue aggressive bowel regimen. This sounds like it is a current issue and may be related to why the patient also has urinary incontinence, though she is not retaining urine here. (9) Urinary incontinence: Status: Chronic Assessment and plan: UA negative. Urinary retention ruled out. Likely behavioral. (10) Ambulatory dysfunction: Status: Chronic Assessment and plan: Chronic. Will need home health PT on discharge - PT also recommends a walker. (11) Diabetes mellitus: Status: Chronic Assessment and plan: Continue current corrective scale and carb coverage. Hold glipizide inhouse. (12) COVID-19 ruled out by laboratory testing: Status: Ruled-out (13) DVT prophylaxis: Status: Acute Assessment and plan: lovenox (14) Discharge planning issues: Status: Acute Assessment and plan: DNR, per conversation with Dr Talavera on admission, but not in her advanced directives paperwork. I do not think that I can confirm her code status given her current mental status. Subjective Subjective Interval history since last seen: Ms Levine is a lot more somnolent/lethargic today than she was yesterday. She is falling asleep mid-sentence. Evidently, for lunch she did wake up. According to [facility], this was happening there too, with the patient sometimes falling asleep in her plate. The patient is on clozaril and stopped smoking 2 months ago. When I attempted to interview her, she denies dizziness, chest pain, shortness of breath, but I could not get a clear answer on abdominal pain or nausea. She did not participate with PT today due to her mental status. Exam Narrative Exam Narrative: General: lethargic middle-aged female, drooling, wakes up to verbal stimuli, but promptly falls back asleep HEENT: EOMI, MMM, no tenderness to palpation/percussion of teeth, no loose teeth Heart: RRR, no m/r/g Lungs: CTAB Abdomen: soft, full, nontender Extremities: trace edema BLEs Objective Objective Clinical Data: Vital Signs Temperature 36.5 C 01/27/20 08:38 Temperature Source Temporal Artery Scan 01/27/20 08:38 Pulse 97 H 01/27/20 12:00 Pulse Rhythm Regular 01/27/20 12:11 Pulse 96 H 01/27/20 12:01 Respiratory Rate 21 01/27/20 12:01 Respiratory Effort Non-Labored 01/27/20 12:11 Respiratory Depth Normal 01/27/20 12:11 Respiratory Pattern Normal 01/27/20 12:11 Blood Pressure 114/72 01/27/20 12:00 Blood Pressure Mean 81 01/27/20 12:00 Blood Pressure Position Supine 01/25/20 21:20 Pulse Oximetry 96 01/27/20 12:01 Oxygen Delivery Method Room Air 01/27/20 08:38 Oxygen Flow Rate 0 01/27/20 08:38 Pain Level 0 01/27/20 09:11 Comment 01/27/20 12:08 Intake & Output 01/26/20 01/27/20 01/27/20 23:59 11:59 23:59 Intake Total 1352.083 / 2102.083 1000 / 1000 Output Total 500 / 1300 500 / 500 Balance 852.083 / 802.083 500 / 500 Intake: IV 752.083 / 752.083 Oral 600 / 1350 1000 / 1000 Output: Urine 500 / 1300 500 / 500 Other: Urine Odor Normal Strong Comment Pt has voided large amounts in bed several times today. She has been refusing to get up to the commode because it is easier to just pee in my brief I have had multiple discussions with her about the importance of moving and getting OOB and doing self-activities and she agrees but it does not change her behavior. Difficult to assess if there is underlying incontinence. The patient verbalizes when she is urinating and can hold it until on the commode when standing. Incontinent amount approximated. Pt choosing to void in brief in bed. Stool Size Large Stool Characteristics Soft Formed Brown Voiding Methods Incontinent Incontinent Laboratory Results WBC 12.45 10^3/uL (4.4-10.8) H 01/26/20 06:56 RBC 3.55 10^6/uL (3.93-5.22) L 01/26/20 06:56 Hgb 10.7 g/dL (11.2-15.7) L 01/26/20 06:56 Hct 32.1 % (36.0-46.0) L 01/26/20 06:56 MCV 90.4 fL (80-95) 01/26/20 06:56 MCH 30.1 pg (27.0-33.0) 01/26/20 06:56 MCHC 33.3 % (32.0-36.0) 01/26/20 06:56 RDW 15.9 % (11.7-14.6) H 01/26/20 06:56 Plt Count 315 10^3/uL (130-400) 01/26/20 06:56 MPV 10.3 fL (8.0-11.0) 01/26/20 06:56 Immature Gran % See Differential 01/26/20 06:56 Neutrophils % 52.0 01/26/20 06:56 Band Neutrophils % 1 01/25/20 15:28 Lymphocytes % 32.0 01/26/20 06:56 Atypical Lymphs % 1 01/26/20 06:56 Monocytes % 10.0 01/26/20 06:56 Eosinophils % 0.0 01/26/20 06:56 Basophils % 0.0 01/26/20 06:56 Metamyelocytes % 3 01/26/20 06:56 Myelocytes % 2 01/26/20 06:56 Absolute Neutrophils 6.47 10^3/uL (1.2-6.7) 01/26/20 06:56 Absolute Lymphocytes 4.11 10^3/uL (1.2-3.4) H 01/26/20 06:56 Absolute Monocytes 1.25 10^3/uL (0.1-0.8) H 01/26/20 06:56 Absolute Eosinophils 0.00 10^3/uL (0.0-0.7) 01/26/20 06:56 Absolute Basophils 0.00 10^3/uL (0.0-0.2) 01/26/20 06:56 RBC Morphology Normal 01/26/20 06:56 PT 10.2 sec (9.3-11.0) 01/25/20 15:28 INR 1.0 (0.9-1.1) 01/25/20 15:28 APTT 26.1 sec (21.0-31.4) 01/25/20 15:28 Sodium 141 mmol/L (136-145) 01/26/20 06:56 Potassium 3.3 mmol/L (3.5-5.1) L 01/26/20 06:56 Chloride 106 mmol/L (98-107) 01/26/20 06:56 Carbon Dioxide 28.7 mmol/L (21.0-32.0) 01/26/20 06:56 Anion Gap 6.3 mmol/L (3-11) 01/26/20 06:56 BUN 12 mg/dL (7-18) D 01/26/20 06:56 Creatinine 0.66 mg/dL (0.55-1.02) 01/26/20 06:56 Estimated GFR/1.73 m2 >= 60.00 (mL/min/1.73m2) 01/26/20 06:56 Glucose 52 mg/dL (74-106) L D 01/26/20 06:56 Lactate 0.7 mmol/L (0.6-1.4) 01/26/20 06:56 Calcium 8.9 mg/dL (8.5-10.1) 01/26/20 06:56 Magnesium 2.1 mg/dL (1.8-2.4) 01/26/20 06:56 Total Bilirubin 0.2 mg/dL (0.2-1.0) 01/25/20 15:28 AST 15 U/L (15-37) 01/25/20 15:28 ALT 13 U/L (14-59) L 01/25/20 15:28 Alkaline Phosphatase 75 U/L (46-116) 01/25/20 15:28 Troponin I < 0.05 ng/mL (<0.06) 01/26/20 06:56 Total Protein 7.1 g/dL (6.4-8.2) 01/25/20 15:28 Albumin 3.1 g/dL (3.4-5.0) L 01/25/20 15:28 Procalcitonin < 0.1 ng/mL 01/25/20 20:20 TSH 1.21 uIU/mL (0.36-3.74) 01/26/20 06:56 Urine Color Yellow (Yellow) 01/25/20 16:45 Urine Clarity Clear (Clear) 01/25/20 16:45 Urine pH 7.0 (5-8) 01/25/20 16:45 Ur Specific [place] 1.010 (1.005-1.025) 01/25/20 16:45 Urine Protein Negative mg/dL (Negative) 01/25/20 16:45 Urine Ketones Negative mg/dL (Negative) 01/25/20 16:45 Urine Blood Negative (Negative) 01/25/20 16:45 Urine Nitrite Negative (Negative) 01/25/20 16:45 Urine Bilirubin Negative (Negative) 01/25/20 16:45 Urine Urobilinogen 0.2 EU/dL (Up TO 0.2) 01/25/20 16:45 Ur Leukocyte Esterase Negative (Negative) 01/25/20 16:45 Urine Glucose Negative mg/dL (Negative) 01/25/20 16:45 Total Valproic Acid 77.0 ug/mL (50-100) 01/27/20 11:45 COVID-19 PCR Negative (Negative) 01/25/20 20:07 Nasopharyn COVID-19 PCR Not Applicable 01/25/20 20:07 Blood HSV I (PCR) Cancelled 01/25/20 15:28 Blood HSV II (PCR) Cancelled 01/25/20 15:28 Ref Test Perform Site [place] [facility] 01/25/20 20:07
[2020-01-27 14:22] LABS: Bilirubin Negative (Negative); Blood Negative (Negative); Clarity Clear (Clear); Glucose 250 mg/dL (Negative); Ketones Trace mg/dL (Negative); Leukocyte Esterase Negative (Negative); Nitrite Negative (Negative); Specific Gravity 1.025 (1.005-1.025); Urobilinogen 0.2 EU/dL (Up TO 0.2)
--- NOTE | 2020-01-27 17:06 | NCONE_ITS ---
Date of service: 01/27/20 Time of Service: 17:06 Assessment and Plan Assessment and plan (1) Altered mental status: Status: Acute (2) Encephalomalacia on imaging study: Status: Chronic Assessment and plan: Ms. 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 She appears to have had a stroke at some point in the remote past. I will see if we can get more information on this from her caregivers. Otherwise, she was less responsive for most of today, though better this evening. I agree with getting in touch with current psychiatric provider as it is unclear what her baseline is. If she continues to have fluctuating alertness, can consider repeat EEG to see if it is different than baseline performed yesterday. She should follow-up in the neurology clinic in 4-6 weeks. Please call with any questions or concerns. History of Present Illness History of Present Illness Chief Complaint: AMS Narrative: Handedness: right. HPI: Ms. Levine is a 49 year-old woman with a past medical history of schizoa ffective disorder, bipolar disorder, diabetes, GERD, and hypothyroidism who presented to the ED from her longterm ([facility]) for increased weakness, decreased appetite, lethargy and lightheadedness of unknown duration with a questionable episode of near syncope. Initial work-up was significant for hypotension 81/58, elevated Cr 1.32 (baseline 0.8), sodium 134, WBC 13, lactate 3.3, Depakote 112.5. The patient denied any of the presenting symptoms. Her labs and BP all corrected with IV fluids (Depakote was held as concern for toxicity though this level seems to be consistent with prior levels). Initial testing also included a CTH which was concerning for left parietal edema vs mass. However, review of prior CTH imaging shows similar findings in 2017. An MRI of the brain was performed and showed no acute findings with noted left parietal cortex encephalomalacia. I reviewed all of these images personally. She reports no history of prior stroke or head injury, though it's unclear how reliable her history is. Yesterday, she underwent an EEG which was consistent with mild e ncephalopathy. There were no epileptic features. Today, the patient was not as active as she was yesterday. Unclear if this was lethargy or behavioral. She seems to be at reported baseline for me at my evaluation. Consults Requesting physician: Gricel Frey Review of Systems All systems reviewed & are unremarkable except as noted in HPI and below PFSH Medical History Bipolar disorder (Chronic) Diabetes mellitus (Chronic) a. on oral medications b. Hgb A1C 7.5 c. uncontrolled GERD (gastroesophageal reflux disease) (Inactive) Hypothyroidism (Inactive) Schizoaffective disorder (Acute) Social History Smoking/Tobacco Use Status: Current every day Drug use: Never Do you feel safe in your relationship?: Yes Additional Social history: lives at [facility]. Visit Medication and Allergies Active Medications Generic Name Dose Route Start Last Admin Trade Name Freq PRN Reason Stop Dose Admin Acetaminophen 325 - 650 mg 01/25/20 19:33 Tylenol PO Q4H PRN PRN Acetaminophen 1,000 mg 01/26/20 20:00 01/27/20 15:15 Tylenol PO 1,000 mg TID DWAYNE Administration Al Hydrox/Mg Hydrox/Simethicone 30 ml 01/25/20 19:33 Mylanta Liquid PO Q2H PRN PRN Bisacodyl 5 mg 01/26/20 16:58 Dulcolax PO DAILY PRN PRN Clozapine 300 mg 01/26/20 22:00 01/26/20 22:23 Clozaril PO 300 mg HS DWAYNE Administration Clozapine 500 mg 01/26/20 08:30 01/27/20 09:12 Clozaril PO 500 mg QAM DWAYNE Administration Dextrose 0 gm 01/25/20 22:23 Insta-Glucose PO DIRECTED PRN Dextrose/Water 0 gm 01/25/20 22:23 IVP DIRECTED PRN Dimethicone/Zinc Oxide 0 gm 01/25/20 19:33 Frieda Protect Cream TP PRN PRN Divalproex Sodium 2,000 mg 01/26/20 22:00 01/26/20 22:24 Depakote Er PO 2,000 mg HS DWAYNE Administration Divalproex Sodium 1,000 mg 01/27/20 08:30 01/27/20 09:10 Depakote Er PO 1,000 mg QAM DWAYNE Administration Docusate Sodium 100 mg 01/26/20 20:00 01/27/20 09:10 Colace PO 100 mg BID [facility] Administration Enoxaparin Sodium 40 mg 01/26/20 20:00 01/26/20 20:40 Lovenox SC Not Given QPM [facility] Folic Acid 1 mg 01/26/20 08:30 01/27/20 09:11 Folate PO 1 mg DAILY [facility] Administration Sodium Chloride 1,000 mls @ 125 mls/hr 01/26/20 09:45 01/26/20 21:40 Saline 1000ml Bag IV Infused INFUSION [facility] Infusion Insulin Aspart 0 units 01/26/20 08:00 01/27/20 15:01 Novolog Flexpen SC Not Given 0800,1200,1700 [facility] Insulin Aspart 0 units 01/26/20 08:00 01/27/20 16:43 Novolog Flexpen SC Not Given 0800,1200,1700 [facility] Protocol Levothyroxine Sodium 112 mcg 01/27/20 06:00 01/27/20 06:30 Levothroid PO 112 mcg DAILY@0600 [facility] Administration Magnesium Hydroxide 30 ml 01/25/20 19:33 Milk Of Magnesia PO DAILY PRN PRN Nicotine 1 cartridge 01/25/20 23:18 Nicotrol 30 Cartridges/Pack IH Q2H PRN PRN Olanzapine 20 mg 01/25/20 22:00 01/26/20 22:23 Zyprexa PO 20 mg HS [facility] Administration Omeprazole 20 mg 01/27/20 07:30 01/27/20 09:11 Prilosec PO 20 mg DAILY@0730 [facility] Administration Polyethylene Glycol 17 gm 01/25/20 19:33 Miralax PO DAILY PRN PRN Constipation Polyethylene Glycol 17 gm 01/26/20 08:30 01/27/20 09:12 Miralax PO 17 gm DAILY [facility] Administration Sennosides 1 tab 01/26/20 20:00 01/27/20 09:10 Senokot PO 1 tab BID [facility] Administration Tolterodine Tartrate 2 mg 01/26/20 20:00 01/26/20 20:40 Detrol PO Not Given QPM [facility] Allergies Penicillins Allergy (Severe, Unverified 01/25/20 15:56) trifluoperazine HCl [From Stelazine] Allergy (Unknown, Unverified 01/25/20 15:56) Exam Narrative Exam Narrative: Physical Exam: Gen: Patient of apparent stated age, NAD Head and face: no facial or cranial abnormalities Neck: Supple, no meningismus, no occipital tenderness CV: + S1, S2, RRR, no murmur Resp: CTA B/L Abd: soft, nontender, nondistended Ext: No edema. No clubbing or cyanosis. No bony deformity. Neuro Exam: Language: fluency, naming, and repetition intact; follows command consistently; Mental Status: AAOxself only, current events and fund of knowledge impaired; stated she was 26 but knew her birthday; Speech: no dysarthria Cranial nerves: Funduscopy: not performed CN II: visual morelos intact CN III, IV, : extraocular movements intact, no nystagmus, pupils symmetric and reactive to light CN V: face sensation intact to LT and PP CN VII: no facial asymmetry noted CN VIII: hearing intact bilaterally CN IX, X: palate rises symmetrically CN XI: trapezius/SCM 5/5 bilaterally CN XII: protrudes tongue symmetrically Sensory: intact to LT and PP in all extremities Motor: bulk and tone intact. Fine motor movements intact bilaterally. No pronator drift. Moves all extremities equally. Does not cooperate with exam. Give way weakness throughout. Reflexes: hyporeflexic throughout; toes down going bilaterally; Coordination: FTN and HTS intact bilaterally Gait: deferred Results Last Vital Signs Temp 36.5 C 01/27/20 08:38 Pulse 93 H 01/27/20 16:02 Resp 17 01/27/20 16:02 BP 122/57 L 01/27/20 16:02 Pulse Ox 100 01/27/20 16:02 Labs Result diagrams: 01/26/20 06:56 01/26/20 06:56 Labs: Laboratory Results - last 24 hr 01/27/20 01/27/20 11:45 13:55 Urine Color Yellow Urine Clarity Clear Urine pH 7.0 Ur Specific [place] 1.025 Urine Protein Negative Urine Ketones Trace H Urine Blood Negative Urine Nitrite Negative Urine Bilirubin Negative Urine Urobilinogen 0.2 Ur Leukocyte Esterase Negative Urine Glucose 250 H Total Valproic Acid 77.0
[2020-01-27] MEDS: Enoxaparin 40 MG/0.4 ML SYR SC (19:29)
[2020-01-27] MEDS: OLANZapine 10 MG TAB 20 MG PO (20:07)
[2020-01-27] MEDS: Divalproex Sodium 500 MG TAB.ER.24H 2000 MG PO (20:07)
[2020-01-28 06:34] VITALS: BP 118/78; PULSE 97
[2020-01-28] MEDS: Levothyroxine 112 MCG TAB PO (06:43)
[2020-01-28 06:54] LABS: Abs Immature Grans 1.23 10^3/uL (0.0-0.06); HGB 11.2 g/dL (11.2-15.7); MCH 29.9 pg (27.0-33.0); MCV 93.3 fL (80-95); MPV 10.4 fL (8.0-11.0); Nucleated RBC 0 %; Platelet Count 344 10^3/uL (130-400); RBC 3.75 10^6/uL (3.93-5.22); RDW 16.1 % (11.7-14.6); RDW-SD 55.3 fL; WBC 14.53 10^3/uL (4.4-10.8)
[2020-01-28 07:07] LABS: Anion Gap 4.1 mmol/L (3-11); BUN 18 mg/dL (7-18); CO2 28.9 mmol/L (21.0-32.0); CREATININE 0.81 mg/dL (0.55-1.02); Calcium 9.1 mg/dL (8.5-10.1); Chloride 106 mmol/L (98-107); Glucose 137 mg/dL (74-106); Magnesium 1.7 mg/dL (1.8-2.4); Potassium 4.4 mmol/L (3.5-5.1); Sodium 139 mmol/L (136-145)
[2020-01-28 07:27] LABS: Absolute Eosinophil Count 0.15 10^3/uL (0.0-0.7); Absolute Lymphocyte Count 5.81 10^3/uL (1.2-3.4); Absolute Monocyte Count 0.87 10^3/uL (0.1-0.8); Absolute Neutrophil Count 6.54 10^3/uL (1.2-6.7); Bands % 7; Metamyelocytes % 1
[2020-01-28 07:28] LABS: Anisocytosis 1+; Diff Comment Manual Differential; Myelocytes % 7; Polychromasia Present
[2020-01-28 07:49] VITALS: BP 112/70; PULSE 91; O2SAT 95
[2020-01-28] MEDS: Acetaminophen 500 MG TAB 1000 MG PO (07:58)
[2020-01-28] MEDS: Divalproex Sodium 500 MG TAB.ER.24H 1000 MG PO (07:58)
[2020-01-28] MEDS: Senna TAB 1 TAB PO (07:59)
[2020-01-28] MEDS: Docusate Sodium 100 MG CAP PO (07:59)
[2020-01-28] MEDS: Omeprazole 20 MG CAPCR PO (07:59)
[2020-01-28] MEDS: Folic Acid 1 MG TAB PO (07:59)
[2020-01-28] MEDS: Polyethylene Glycol 3350 17 GM PACKET PO (07:59)
[2020-01-28 08:00] VITALS: BP 111/72; PULSE 92
[2020-01-28] MEDS: Insulin Aspart 300 UNITS/3 ML PEN SC ×4 (08:44→12:25)
--- NOTE | 2020-01-28 09:17 | NUR.NOTE ---
0915: Refused to get OOB to sit up in a chair. Pt reporting she is too fearfull of falling, also stating it's too early I just got here. Discussed with pt how it is very important to get up OOB to help strengthing her and get her back to her baseline. Offerred to have 3 nurses present to support her while she transferred OOB, pt continued to refuse, bacame agitated, yelling get the fuck out of here. Reassured pt that we would never force her to do get OOB against her will, but I would continue to encourage this. Bed sensor alarms on, pt's call reed in her reach. Exited the room and pt rang within 2 minutes of the previous visit asking for art supplies to work on. Gave patient more crayons colors in addition to what she had already with her and gave pt more paper copies from an [employer] coloring book, pt responding pleasantly to this saying thanks jesús, and expressing happiness and content with the supplies given to her.
--- NOTE | 2020-01-28 09:37 | NUR.NOTE ---
0937: Brenda from mental health called for an update on Kandace. Update given. Informed Brenda that Kandace is asking to call Mercedes. Brenda reports that she will call Mercedes (environmental compliance engineer of [employer]) and ask her to call Kandace here today. Brenda transferred to this patient via telephone. Patient having a cheerfull animated conversation with patient on the telephone.
--- NOTE | 2020-01-28 09:57 | W.PM.PROGNOT ---
Date of Service Date of service: 01/28/20 Time of Service: 09:57 Assessment and Plan Assessment and plan (1) Altered mental status: Status: Acute Assessment and plan: Blood cultures were no growth after 48 hours. No evidence for systemic infection. Patient is alert and acting appropriately most of the time and seems to be oriented at least to person and place. Work-up for CVA showed encephalomalacia of the left parietal lobe but no acute cerebral infarct and no cerebral mass. EEG was abnormal due to occasional generalized polymorphic delta slowing and slowing of the PDR. This is suggestive of a diffuse cerebral encephalopathy but no focal regions of the cerebral dysfunction or epileptiform activity were seen. And suspected that either this is either psychogenic in origin or possibly overmedication. For now we will resume her Clozaril at a reduced dose. (2) Near syncope: Status: Resolved Assessment and plan: No cardiac arrhythmias on telemetry. Telemetry has since been discontinued. I think her near syncope was secondary to dehydration and hypovolemia associated with some hypotension. This also may have been complicated from her medications (3) Encephalomalacia on imaging study: Status: Chronic Assessment and plan: Dr. Pierre feels the patient had a stroke at some point in time but there is no evidence of acute CVA. Patient will remain on aspirin 81 mg daily however she should also be on a statin given her evidence of prior stroke and history of diabetes mellitus. I will start her on lovastatin upon discharge. (4) Hypotension: Status: Resolved Assessment and plan: Due to dehydration. This has resolved. Qualifiers: Hypotension type: unspecified hypotension type Qualified Code(s): I95.9 - Hypotension, unspecified (5) Hypoglycemia: Status: Resolved Assessment and plan: Resolved with adjustment of her insulin (6) Dehydration: Status: Resolved Assessment and plan: Resolved (7) Bipolar disorder: Status: Chronic Assessment and plan: Continue depakote. Resume Clozaril at a reduced dose of 300 mg twice a day pending results of her Clozaril level. Qualifiers: Active/Remission status: currently active Current bipolar episode type: manic Current episode severity: severe Psychotic features: with psychotic features Qualified Code(s): F31.2 - Bipolar disorder, current episode manic severe with psychotic features (8) Constipation: Status: Chronic Assessment and plan: Continues to have bowel movements on the current bowel regimen which includes MiraLAX 17 g daily along with docusate 100 mg twice a day and Senokot twice a day. (9) Urinary incontinence: Status: Chronic Assessment and plan: UA negative. Urinary retention ruled out. Likely behavioral. (10) Ambulatory dysfunction: Status: Chronic Assessment and plan: Chronic. Will need home health PT on discharge - PT also recommends a walker. (11) Diabetes mellitus: Status: Chronic Assessment and plan: Continue current corrective scale and carb coverage. Hold glipizide inhouse. (12) COVID-19 ruled out by laboratory testing: Status: Ruled-out (13) DVT prophylaxis: Status: Acute Assessment and plan: lovenox (14) Discharge planning issues: Status: Acute Assessment and plan: Discharge back to [place] today. Subjective Subjective Interval history since last seen: Patient is more alert and talkative this morning. She has no acute complaints. Her nurse reports that her that the patient demonstrates emotional lability. Alternating between periods of cooperativeness and friendliness with periods of cursing. I think this is the patient's baseline behavior. Care management is reaching out to her psychiatric nurse practitioner to call us to discuss the patient's baseline level. Patient's Clozaril was put on hold as of last night pending a drug level. Patient is only complaints is fear of falling and does not want to get out of bed. Physical therapy has discharged her due to refusal to participate with therapy. Work-up of her abnormal CT of her head included an MRI scan that shows encephalomalacia involving the left parietal lobe. Dr. Pierre feels that this is consistent with a prior CVA. Dr. Pierre is not sure as to the patient's alternating levels of mental alertness. It suspected that this is probably psychiatric in nature. The patient does not seem to want to leave the hospital or get out of bed because of her fear of falling. Nursing staff offered to get her up with the assistance of 2 people but the patient declined. Care management went into talk with her and did manage to get the patient to agree to get out of bed. As far as the patient's orthostatic hypotension this is resolved after treatment with IV fluids for dehydration. There is still some question as to whether or not some of her fluctuating lethargy may be secondary to medication effects and were waiting to hear from her psychiatric nurse practitioner regarding adjustment of her Clozaril dose. Patient is back on her usual dose of Zyprexa and Depakote. At this time the patient does not meet criteria for acute inpatient hospitalization and can follow-up with Dr. Pierre as an outpatient in 4 to 6 weeks. Patient can follow-up with her nurse practitioner for her psychiatric care as an outpatient. Apparently the Clozaril drug levels will not be back till next week therefore I am going to resume her Clozaril at a reduced dose. She was taken clozapine 500 mg in the morning and 300 mg at night. I reduce her to 300 mg twice a day. Exam Narrative Exam Narrative: Alert and talkative and friendly. She is oriented to person and location and that she knows she is in the hospital. Lungs are clear to auscultation Heart is regular rate and rhythm. Abdomen soft and nontender nondistended. Neuro exam: Patient has no dysarthric speech no focal tremors or focalized weakness. Objective Objective Clinical Data: Abnormal lab results 01/27/20 01/28/20 01/28/20 Range/Units 13:55 06:15 06:41 WBC 14.53 H (4.4-10.8) 10^3/uL RBC 3.75 L (3.93-5.22) 10^6/uL Hct 35.0 L (36.0-46.0) % RDW 16.1 H (11.7-14.6) % Absolute Lymphocytes 5.81 H (1.2-3.4) 10^3/uL Absolute Monocytes 0.87 H (0.1-0.8) 10^3/uL Glucose 137 H D (74-106) mg/dL Magnesium 1.7 L (1.8-2.4) mg/dL Urine Ketones Trace H (Negative) mg/dL Urine Glucose 250 H (Negative) mg/dL Vital Signs Temperature 36.7 C 01/27/20 19:45 Temperature Source Temporal Artery Scan 01/27/20 19:45 Pulse 92 H 01/28/20 08:00 Pulse Rhythm Regular 01/28/20 08:15 Pulse 92 H 01/27/20 22:00 Respiratory Rate 19 01/27/20 22:00 Respiratory Effort Non-Labored 01/28/20 08:15 Respiratory Depth Normal 01/28/20 08:15 Respiratory Pattern Normal 01/28/20 08:15 Blood Pressure 111/72 01/28/20 08:00 Blood Pressure Mean 81 01/28/20 08:00 Blood Pressure Position Supine 01/25/20 21:20 Pulse Oximetry 95 01/28/20 07:49 Oxygen Delivery Method Room Air 01/27/20 19:45 Oxygen Flow Rate 0 01/27/20 19:45 Pain Level 0 01/27/20 20:07 Comment 01/27/20 19:45 Intake & Output 01/27/20 01/27/20 01/28/20 11:59 23:59 11:59 Intake Total 1454 / 1944 490 / 1944 220 / 220 Output Total 500 / 900 400 / 900 Balance 954 / 1044 90 / 1044 220 / 220 Intake: Oral 1454 / 1944 490 / 1944 220 / 220 Output: Urine 500 / 900 400 / 900 Other: Urine Color Yellow Urine Odor Strong Strong Strong Comment Incontinent amount approximated. Pt choosing to void in brief in bed. Incontinent of large amount urine. Pt requested to have brief changed. Pt up to commode so bed linens could be changed, but not further urination while on commode. incontinent large void. Stool Size Moderate Stool Characteristics Soft Formed Voiding Methods Incontinent Incontinent Diaper Laboratory Results WBC 14.53 10^3/uL (4.4-10.8) H 01/28/20 06:41 RBC 3.75 10^6/uL (3.93-5.22) L 01/28/20 06:41 Hgb 11.2 g/dL (11.2-15.7) 01/28/20 06:41 Hct 35.0 % (36.0-46.0) L 01/28/20 06:41 MCV 93.3 fL (80-95) 01/28/20 06:41 MCH 29.9 pg (27.0-33.0) 01/28/20 06:41 MCHC 32.0 % (32.0-36.0) 01/28/20 06:41 RDW 16.1 % (11.7-14.6) H 01/28/20 06:41 Plt Count 344 10^3/uL (130-400) 01/28/20 06:41 MPV 10.4 fL (8.0-11.0) 01/28/20 06:41 Immature Gran % See Differential 01/28/20 06:41 Neutrophils % 38.0 01/28/20 06:41 Band Neutrophils % 7 01/28/20 06:41 Lymphocytes % 40.0 01/28/20 06:41 Atypical Lymphs % 1 01/26/20 06:56 Monocytes % 6.0 01/28/20 06:41 Eosinophils % 1.0 01/28/20 06:41 Basophils % 0.0 01/28/20 06:41 Metamyelocytes % 1 01/28/20 06:41 Myelocytes % 7 01/28/20 06:41 Absolute Neutrophils 6.54 10^3/uL (1.2-6.7) 01/28/20 06:41 Absolute Lymphocytes 5.81 10^3/uL (1.2-3.4) H 01/28/20 06:41 Absolute Monocytes 0.87 10^3/uL (0.1-0.8) H 01/28/20 06:41 Absolute Eosinophils 0.15 10^3/uL (0.0-0.7) 01/28/20 06:41 Absolute Basophils 0.00 10^3/uL (0.0-0.2) 01/28/20 06:41 RBC Morphology See below 01/28/20 06:41 Polychromasia Present 01/28/20 06:41 Anisocytosis 1+ 01/28/20 06:41 PT 10.2 sec (9.3-11.0) 01/25/20 15:28 INR 1.0 (0.9-1.1) 01/25/20 15:28 APTT 26.1 sec (21.0-31.4) 01/25/20 15:28 Sodium 139 mmol/L (136-145) 01/28/20 06:15 Potassium 4.4 mmol/L (3.5-5.1) D 01/28/20 06:15 Chloride 106 mmol/L (98-107) 01/28/20 06:15 Carbon Dioxide 28.9 mmol/L (21.0-32.0) 01/28/20 06:15 Anion Gap 4.1 mmol/L (3-11) 01/28/20 06:15 BUN 18 mg/dL (7-18) D 01/28/20 06:15 Creatinine 0.81 mg/dL (0.55-1.02) 01/28/20 06:15 Estimated GFR/1.73 m2 >= 60.00 (mL/min/1.73m2) 01/28/20 06:15 Glucose 137 mg/dL (74-106) H D 01/28/20 06:15 Lactate 0.7 mmol/L (0.6-1.4) 01/26/20 06:56 Calcium 9.1 mg/dL (8.5-10.1) 01/28/20 06:15 Magnesium 1.7 mg/dL (1.8-2.4) L 01/28/20 06:15 Total Bilirubin 0.2 mg/dL (0.2-1.0) 01/25/20 15:28 AST 15 U/L (15-37) 01/25/20 15:28 ALT 13 U/L (14-59) L 01/25/20 15:28 Alkaline Phosphatase 75 U/L (46-116) 01/25/20 15:28 Troponin I < 0.05 ng/mL (<0.06) 01/26/20 06:56 Total Protein 7.1 g/dL (6.4-8.2) 01/25/20 15:28 Albumin 3.1 g/dL (3.4-5.0) L 01/25/20 15:28 Procalcitonin < 0.1 ng/mL 01/25/20 20:20 TSH 1.21 uIU/mL (0.36-3.74) 01/26/20 06:56 Urine Color Yellow (Yellow) 01/27/20 13:55 Urine Clarity Clear (Clear) 01/27/20 13:55 Urine pH 7.0 (5-8) 01/27/20 13:55 Ur Specific [place] 1.025 (1.005-1.025) 01/27/20 13:55 Urine Protein Negative mg/dL (Negative) 01/27/20 13:55 Urine Ketones Trace mg/dL (Negative) H 01/27/20 13:55 Urine Blood Negative (Negative) 01/27/20 13:55 Urine Nitrite Negative (Negative) 01/27/20 13:55 Urine Bilirubin Negative (Negative) 01/27/20 13:55 Urine Urobilinogen 0.2 EU/dL (Up TO 0.2) 01/27/20 13:55 Ur Leukocyte Esterase Negative (Negative) 01/27/20 13:55 Urine Glucose 250 mg/dL (Negative) H 01/27/20 13:55 Total Valproic Acid 77.0 ug/mL (50-100) 01/27/20 11:45 COVID-19 PCR Negative (Negative) 01/25/20 20:07 Nasopharyn COVID-19 PCR Not Applicable 01/25/20 20:07 Blood HSV I (PCR) Cancelled 01/25/20 15:28 Blood HSV II (PCR) Cancelled 01/25/20 15:28 Ref Test Perform Site [facility] 01/25/20 20:07
--- NOTE | 2020-01-28 11:17 | NUR.NOTE ---
1115: Mercedes Manrique from [facility] called in to speak with Kandace. Phone call transferred. Dara, smiling and having a pleasant sounding conversation with Mercedes at this time.
--- NOTE | 2020-01-28 11:41 | CMDISCH_ITS ---
- If Service Date Differs Date of service: 01/28/20 Time of Service: 11:42 LACE Index Scoring Tool - Questions: Length of Stay (in days): 3 Acuity (Admit via E.D.?): Yes E.D. Visits: 1 - Answers: Total Score: 7 Risk of Readmission: Low Risk Care Management Discharge Reason for Hospitalization: Syncope Discharge Plan: Kandace will be discharged to [facility] [place] today she will have home health PT through [facility]. CM provided referral to [facility] and updated the plan with [facility]. CM has attempted several times to contact her medication provider through [facility] to discuss the changes in her Clozaril dose. Plan will be for provider to decrease the dose and then have close follow up as outpatient and medciation adjustment. CM will attempt contact with [facility] again to scheduled the follow up with [employer] COORDINATOR and close monitoring. Lucia will be transported home via private car and her homecare provider at time of discharge. Home provider will contact Neurology and schedule an outpatient follow up for 4-6 weeks. Patient/Family Education Needs: Discharge education, limitations and follow up plan of care. We discussed her symptoms of not being able to write well she states this has been declining for her and she is frustrated. CM reviewed the plan for follow up with neurology to continue outpatient follow up for the changes in her abilities. Lucia states she wants to be here at the hospital for a few more says. CM encouraged Lucia to move around the room which she was able to ambulate to the chair with minimal assistance. BOB has provided education to the patient and home care provider and coordianted services through [facility], and [facility]. Services Needed at Discharge: Home Health Care Services, Physical Therapy - MH Services (Omit if N/A) Current MH Services: [facility]
[2020-01-28 12:51] VITALS: BP 118/85; PULSE 98; O2SAT 98
[2020-01-28 13:08] VITALS: TEMP 36.7
--- NOTE | 2020-01-28 14:19 | PDOC.HHF2F_ITS ---
Home Health Certification Home Health Certification: 1. Encounter Date and Reason I certify that TAZ WILDE was seen by Phill Talavera on 01/28/20 and that I had a [id number] encounter with this patient that meets the physician face to face encounter requirements. 2. Clinical Findings Supporting Skilled Need and Homebound Status I certify that home health services are medically necessary, include either intermittent halfway and/or physical/speech therapy, and that this viviana ent is homebound in that absences from the home require considerable and taxing effort and are infrequent or of short duration, or are attributable to the need to receive medical care. [X] (a) Attached documentation from encounter provides clinical findings supporting skilled need and homebound status (including what assistance patient requires to leave the home). The encounter with the patient was in whole, or in part, for the following medical condition, which is the primary reason for home health care: [facility] Home: assisted to follow-up with the patient regarding medication compliance as well as any follow-up labs that have been ordered including a BMP for next week. Visiting nurse is to coordinate with the patient's psychiatric nurse practitioner,Sheila Paredes regarding any changes in the patient's psychiatric medications. Physical Therapy:Physical therapy will be consulted to work with the patient r egarding improving her transfers in and out of bed as well as improve her gait and balance and strength. Occupational Therapy is to be consulted to help improve the patient's independent performance of her ADLs. Speech Therapy: Homebound: Patient is homebound secondary to her acute medical and psychiatric conditions including the recent admission for hypotension and dehydration and azotemia and acute ambulatory dysfunction as well as her underlying bipolar disorder. 3. Certification and Authentication I certify that I composed the above information based on my clinical judgement relating to this patient's medical condition and, if applicable, clinical findings communicated to me by the NPP or inpatient physician who performed the Home Health Referral. All further orders will be obtained through ____Dr. Sol Ashley and Sheila Paredes, [facility] (Community Based Physician - PCP)
--- NOTE | 2020-01-28 14:24 | W.PM.DS.N ---
DS: Diagnosis Discharge Diagnosis (1) Dehydration: Status: Resolved Asessment and Plan: Patient presented emergency department hypotensive and tachycardic with prerenal azotemia including a BUN of 24 creatinine 1.32 and elevated blood lactate 3.3. All of this resolved after IV fluid hydration. Blood cultures were obtained on admission have shown no growth up to this date of discharge. Hypotension tachycardia resolved with IV fluid hydration. (2) Hypotension: Status: Resolved (3) Altered mental status: Status: Resolved Asessment and Plan: Her altered mental status was felt to be secondary to a combination of dehydration as well as her medications. Even after resuscitation with IV fluids she had some periods of somnolence for which it was unclear as to whether this was psychogenic in origin or medication related but it seemed to improve with the reduction in her clozaril. (4) Encephalomalacia on imaging study: Status: Chronic Asessment and Plan: CT scanning of the brain on admission demonstrated a left parietal lobe hypodensity area for which the initial differential diagnosis includes stroke versus mass. MRI clarify this and showed this is an area of encephalomalacia consistent with a prior stroke. (5) Near syncope: Status: Resolved (6) Hypoglycemia: Status: Resolved Asessment and Plan: Patient was not hypoglycemic on admission but became hypoglycemic the next morning which resolved with IV glucose and a reduction in her insulin dose. Patient will be resumed on her home medications of metformin and Victoza and glipizide. Close monitoring of her glucose is required with fingerstick blood sugars before meals and at bedtime. If there is further drops in her glucose it is recommended that her diabetic medications be consolidated and simplified. (7) Bipolar disorder: Status: Chronic Asessment and Plan: Patient has been resumed on her Depakote at her previous dose of 1000 mg in the morning and 2000 mg at night. Her clozaril dose will be resumed at a reduced dose of 300 mg twice a day with further adjustment made by her psychiatric nurse practitioner pending the results of her clozaril level. (8) Constipation: Status: Chronic Asessment and Plan: Her constipation issues were improved with an adjustment in her bowel regimen including regular use of Senokot and docusate in addition to her usual dose of MiraLAX. (9) Urinary incontinence: Status: Chronic Asessment and Plan: Patient did not experience any urinary incontinence while hospitalized. Dr. Frey speculated that her urinary incontinence may have been related to her constipation which has now improved. (10) Ambulatory dysfunction: Status: Chronic Asessment and Plan: Physical therapy was consulted to work with the patient but the patient refused to participate. It is recommended that an attempt at physical therapy be made at the residential to try to improve her strength and balance and reduce her falls. Her orthostatic blood pressure should be monitored as well to make sure this is not medication induced orthostatic hypotension. (11) Diabetes mellitus: Status: Chronic Asessment and Plan: Patient will be resumed on all of her home diabetic medications however it is recommended that an endocrine consultation be obtained to discuss consolidation of her diabetic medications in order to prevent complications of hypoglycemia. (12) COVID-19 ruled out by laboratory testing: Status: Ruled-out Asessment and Plan: Patient had a COVID-19 PCR test done on January 25, 2020 which was negative. (13) DVT prophylaxis: Status: Resolved Asessment and Plan: Patient was placed on DVT prophylaxis while hospitalized including enoxaparin (14) Discharge planning issues: Status: Resolved Asessment and Plan: Patient is being discharged back to her residential at [place] with follow up with Andreea Paredes, the patient's psychiatric nurse practitioner. The patient will need follow up with neurology, Dr. Pierre in 4 to 6 weeks regarding the patient's prior CVA and encephalomalacia. She also needs follow up with her PCP, Dr. Ashley regarding the patient's hypertension and diabetes mellitus. Discharge Plan Disposition Patient Disposition: HOME W/HOME HEALTH SERVICE Condition: Improving Discharge Details Chief Complaint: Dizzy/Sync Clinical Impression: Weakness, Abnormal CT of the head, Hypotension, Dehydration Reason For Visit: SYNCOPE Admit Date/Time: 01/25/20 23:43 Admit Provider: Phill Talavera Attending Provider: Phill Talavera Primary Care Provider: Sol Ashley V ED Provider: Landy Rendon Hospital Course Hospital Course: Ms Levine is a 49 year old female with PMHx of Schizoaffective disorder, bipolar disorder, diabetes mellitus type 2, GERD, hypothyroidism who presented emergency department from her residential with complaints of increased weakness and poor appetite lethargy and lightheadedness with an episode of near syncope. She underwent evaluation emergency department included multiple labs EKG and CT scan of her head. Noncontrast CT scan of her head showed an area of focalized edema in the left parietal lobe of unclear etiology. Laboratory work-up demonstrated a leukocytosis of 13,000 she appears to be chronic and her CMP showed prerenal azotemia with a BUN of 24 creatinine 1.32 along with elevated blood lactate of 3.3 and a low magnesium of 1.7 with normal LFTs and normal troponin level. Upon presentation she was found to be hypotensive and tachycardic and was resuscitated with IV fluids. Blood cultures were obtained and have since come back no growth after 48 hours. Her white count continues to remain mildly elevated. Tachycardia has resolved blood pressure is normalized. Her valproic level was elevated on admission at 112. Initially her Depakote was withheld but then it was restarted by Dr. Frey at her same home dose of 2000 mg at night and thousand milligrams in the morning. Her clozaril was withheld pending a drug level. Drug levels for closet pain and nor clozapine were obtained on January 27, 2020 and are pending at this time. Her initially high levels of valproic acid level were 112 on admission but came down to 41 the next morning and is now at 77. Her hypotension and prerenal azotemia resolved with IV fluid hydration. CT scan of her head which initially showed left posterior parietal lobe encephalomalacia was confirmed with an MRI scan of the brain. She also had a CTA of her head and neck on admission that showed no acute focal stenosis and no area of aneurysm. Patient's mental status improved to the point that she was much more alert and responsive and cooperative after the clozaril had been withheld and she has been rehydrated. Dr. Frey try to reach out to the patient's psychiatric nurse practitioner but had not received a response at the time the patient was transferred to my care. Messages have been left with her nurse practitioner to call us back to discuss management of her clozaril dose. At this time again to resume her clozaril at a reduced dose of 300 mg twice a day from her current dose of 500 mg in the morning and 300 mg at night. She will continue with her Zyprexa 20 mg nightly. Rest of her medications will remain the same. She was seen by Dr. Catherine Pierre from neurology and had an EEG done. EEG showed slowing suggestive of a mild diffuse cerebral encephalopathy of an undifferentiated toxic-metabolic etiology but no focal regions of cerebral dysfunction or epileptiform activity was seen. Dr. Pierre's impression was that she had had a stroke at some point in the remote past and recommended discussing her care with her current psychiatric provider to clarify the patient's baseline function and indicated if there is continued fluctuating alertness a repeat EEG could be performed. She did recommend follow-up in neurology clinic in 4 to 6 weeks. At this point the patient seems to be back to her baseline and is ready for discharge with the above medications modifications in her medications. Home Meds and New Rx's Prescriptions: New sennosides [Senokot] 8.6 mg Tablet 1 tab PO HS Qty: 30 RF: 0 docusate sodium [Colace] 100 mg Capsule 100 mg PO BID Qty: 60 RF: 0 Continued levothyroxine 25 MCG tablet 112 mcg PO DAILY@0730 RF: 0 divalproex [Depakote ER] 500 MG tablet extended release 24 hr 2,000 mg PO HS RF: 0 polyethylene glycol 3350 17 GM powder in packet 17 gm PO DAILY RF: 0 divalproex [Depakote ER] 500 MG tablet extended release 24 hr 1,000 mg PO QAM RF: 0 omeprazole 20 mg Capsule,Delayed Release(Dr/Ec) 20 mg PO DAILY RF: 0 folic acid 1 mg Tablet 1 mg PO DAILY RF: 0 olanzapine [Zyprexa] 20 mg Tablet 20 mg PO HS RF: 0 tolterodine 2 mg tablet 2 mg PO QPM RF: 0 Changed clozapine [Clozaril] 100 MG tablet 300 mg PO BID Qty: 0 RF: 0 Discontinued clozapine [Clozaril] 100 MG tablet 500 mg PO .QAM RF: 0 No Action aspirin [Aspir-81] 81 MG tablet,delayed release (DR/EC) 81 mg PO QAM RF: 0 ibuprofen [Ibuprofen IB] 200 MG tablet 400 mg PO Q8H PRNRF: 0 acetaminophen [Acetaminophen Extra Strength] 500 MG tablet 1,000 mg PO TID RF: 0 lisinopril 5 mg Tablet 5 mg PO DAILY RF: 0 hydrochlorothiazide 25 mg Tablet 25 mg PO DAILY RF: 0 clotrimazole [Lotrimin AF (clotrimazole)] 1 % Cream 1 applic TOPICAL BID PRNRF: 0 clindamycin phos-skin clnsr 19 1 % Kit 1 % TOPICAL PRN PRNRF: 0 guaifenesin [Mucinex] 600 mg Tablet Extended Release 12hr 600 mg PO Q12H PRNRF: 0 Victoza 2-Samir 0.6 mg/0.1 mL (18 mg/3 mL) pen injector 1.2 mg SUBCUT DAILY RF: 0 metformin 1,000 mg tablet 1,000 mg PO BID RF: 0 glipizide 10 mg tablet extended release 24hr 20 mg PO QAM RF: 0 Discharge Instructions Instructions: Dehydration (DC) Additional Instructions: Patient will need physical therapy referral for outpatient treatment to improve her gait stability and strength and balance. She also should have an occupational therapist to evaluate her ADL performance and try to work with the patient on improving her independent functioning. Visiting nurse will also be requested to follow-up on her medication compliance and any adjustment that is needed in her psychiatric medications. Visiting nurse will coordinate with the patient's psychiatric nurse practitioner, Sheila Paredes. Referrals: Sol Ashley MD [Primary Care Provider] - Catherine Pierre MD [ [facility] STAFF PHYSICIAN] - Activity:: Activity as Tolerated Equipment/Supplies:: Walker Diet:: Carb Counting Discharge Orders Discharge Orders: Discharge Order (Routine); Ordered 01/28/20 Ordered By: Phill Talavera Other Ambulatory Orders: Basic Metabolic Panel (Routine) Timeframe: 1 Week Facility: [facility] - Location: DIAGNOSTIC IMAGING Ordered By: Phill Talavera DS: Summary Status at Discharge Functional status at discharge: uses cane/walker Overall status at discharge: patient is progressing back to baseline Mental Status: other Speech and Movement: speech and movement normal Mood: other Affect: labile affect Time Spent with Patient providing and/or coordinating discharge services: Greater than 30 minutes Specific discharge activities: writing out medication changes, discussing her care with nursing and care management Exam Narrative Exam Narrative: Alert and talkative and friendly. She is oriented to person and location and that she knows she is in the hospital. Lungs are clear to auscultation Heart is regular rate and rhythm. Abdomen soft and nontender nondistended. Neuro exam: Patient has no dysarthric speech no focal tremors or focalized weakness. Psych Mental Status: other Speech and Movement: speech and movement normal Mood: other Affect: labile affect DS: Data Vitals/I&O Vitals and I&O: Vital Signs Temperature 36.7 C 01/28/20 13:08 Temperature Source Temporal Artery Scan 01/28/20 13:08 Pulse 98 H 01/28/20 12:51 Pulse Rhythm Regular 01/28/20 08:15 Pulse 92 H 01/27/20 22:00 Respiratory Rate 19 01/27/20 22:00 Respiratory Effort Non-Labored 01/28/20 08:15 Respiratory Depth Normal 01/28/20 08:15 Respiratory Pattern Normal 01/28/20 08:15 Blood Pressure 118/85 01/28/20 12:51 Blood Pressure Mean 92 01/28/20 12:51 Blood Pressure Position Supine 01/25/20 21:20 Pulse Oximetry 98 01/28/20 12:51 Oxygen Delivery Method Room Air 01/27/20 19:45 Oxygen Flow Rate 0 01/27/20 19:45 Pain Level 0 01/27/20 20:07 Comment 01/27/20 19:45 Intake & Output 01/27/20 01/28/20 01/28/20 23:59 11:59 23:59 Intake Total 490 / 1944 220 / 620 400 / 620 Output Total 400 / 900 50 / 50 Balance 90 / 1044 220 / 570 350 / 570 Intake: Oral 490 / 1944 220 / 620 400 / 620 Output: Urine 400 / 900 50 / 50 Other: Urine Color Yellow Yellow [place] Urine Odor Strong Strong Strong Comment Incontinent of large amount urine. Pt requested to have brief changed. Pt up to commode so bed linens could be changed, but not further urination while on commode. incontinent large void. Stool Size Moderate Stool Characteristics Soft Formed Voiding Methods Incontinent Diaper Bedside Commode Data Completed and Pending Labs on day of discharge: Labs from last 24 hours 01/28/20 01/28/20 01/27/20 06:41 06:15 13:55 WBC 14.53 H RBC 3.75 L Hgb 11.2 Hct 35.0 L MCV 93.3 MCH 29.9 MCHC 32.0 RDW 16.1 H Plt Count 344 MPV 10.4 Immature Gran % See Differential Neutrophils % 38.0 Band Neutrophils % 7 Lymphocytes % 40.0 Monocytes % 6.0 Eosinophils % 1.0 Basophils % 0.0 Metamyelocytes % 1 Myelocytes % 7 Absolute Neutrophils 6.54 Absolute Lymphocytes 5.81 H Absolute Monocytes 0.87 H Absolute Eosinophils 0.15 Absolute Basophils 0.00 RBC Morphology See below Polychromasia Present Anisocytosis 1+ Sodium 139 Potassium 4.4 D Chloride 106 Carbon Dioxide 28.9 Anion Gap 4.1 BUN 18 D Creatinine 0.81 Estimated GFR/1.73 m2 >= 60.00 Glucose 137 H D Calcium 9.1 Magnesium 1.7 L Urine Color Yellow Urine Clarity Clear Urine pH 7.0 Ur Specific [place] 1.025 Urine Protein Negative Urine Ketones Trace H Urine Blood Negative Urine Nitrite Negative Urine Bilirubin Negative Urine Urobilinogen 0.2 Ur Leukocyte Esterase Negative Urine Glucose 250 H Preliminary micro results at discharge 01/25/20 18:50 Blood Culture - Preliminary Blood NO GROWTH 48 HOURS 01/25/20 17:47 Blood Culture - Preliminary Blood NO GROWTH 48 HOURS [facility] Medical History Bipolar disorder (Chronic) Diabetes mellitus (Chronic) a. on oral medications b. Hgb A1C 7.5 c. uncontrolled GERD (gastroesophageal reflux disease) (Inactive) Hypothyroidism (Inactive) Schizoaffective disorder (Acute) Social History Smoking/Tobacco Use Status: Current every day Drug use: Never Do you feel safe in your relationship?: Yes Additional Social history: lives at [facility].
[2020-02-04 08:49] LABS: Clozapine 2280 ng/mL (350-600); Clozapine+Norclozapine Total 2987 ng/mL (>450); Norclozapine 707 ng/mL
== END 2020-01-28 15:05 | disposition home health service (06) | DRG 641 ==
LOC: ER 20:02 → ICU 21:15
PROVIDERS: Internal Medicine; Admitting Provider Internal Medicine; Emergency Provider Physician Assistant; PCP Family Medicine; Visit Provider Internal Medicine
DX: E86.0 Dehydration (principal); F31.2 Bipolar disorder, current episode manic severe with psychotic features; R55 Syncope and collapse; I95.9 Hypotension, unspecified; R53.1 Weakness; K21.9 Gastro-esophageal reflux disease without esophagitis; Z79.84 Long term (current) use of oral hypoglycemic drugs; R32 Unspecified urinary incontinence; K59.00 Constipation, unspecified; R26.2 Difficulty in walking, not elsewhere classified; G93.89 Other specified disorders of brain; Z11.59 Encounter for screening for other viral diseases; Z66 Do not resuscitate; E11.649 Type 2 diabetes mellitus with hypoglycemia without coma; R41.82 Altered mental status, unspecified; T42.4X5A Adverse effect of benzodiazepines, initial encounter
CPT/HCPCS: 36415; 70496; 70498; 70553; 74177; 80048; 80053; 81025; 84145; 87040; 87529; 93005; 96360; 96361; 97163; 99223; 99232; 99233; 99239; 99285; J1650; U0003; 70450; 71046; 71260; 72125; 80159; 80164; 81003; 83605; 83735; 84443; 84484; 85025; 85610; 85730; 93010; 95816; J3490; Q9967

== ENCOUNTER 2020-02-16 05:08 | Outpatient (CLI) | payer MEDICAID, SELFPAY ==
[2020-02-16 12:04] LABS: Abs Immature Grans 0.55 10^3/uL (0.0-0.06); HGB 11.8 g/dL (11.2-15.7); MCH 30.4 pg (27.0-33.0); MCHC 32.8 % (32.0-36.0); MCV 92.8 fL (80-95); MPV 10.3 fL (8.0-11.0); Nucleated RBC 0 %; Platelet Count 341 10^3/uL (130-400); RBC 3.88 10^6/uL (3.93-5.22); RDW 15.9 % (11.7-14.6); RDW-SD 54.7 fL; WBC 10.82 10^3/uL (4.4-10.8)
[2020-02-16 12:54] LABS: Absolute Eosinophil Count 0.11 10^3/uL (0.0-0.7); Absolute Lymphocyte Count 3.46 10^3/uL (1.2-3.4); Absolute Monocyte Count 0.65 10^3/uL (0.1-0.8); Absolute Neutrophil Count 6.06 10^3/uL (1.2-6.7); Atypical Lymphocytes % 1; Bands % 3
[2020-02-16 12:55] LABS: Diff Comment Manual Differential; Metamyelocytes % 2; Myelocytes % 3; RBC Morphology Normal
[2020-02-17 23:06] LABS: Clozapine 1390 ng/mL (350-600); Clozapine+Norclozapine Total 1778 ng/mL (>450); Norclozapine 388 ng/mL
[2020-03-17 14:44] LABS: VALPROIC ACID 176.4 ug/mL (50-100)
== END 2020-02-16 05:28 ==
PROVIDERS: PCP Family Medicine; Visit Provider Nurse Practitioner Family
DX: F20.9 Schizophrenia, unspecified (principal); Z79.899 Other long term (current) drug therapy; Z51.81 Encounter for therapeutic drug level monitoring
CPT/HCPCS: 36415; 80159; 80164; 85025

== ENCOUNTER 2020-02-17 04:04 | Outpatient (CLI) | payer MEDICAID, SELFPAY ==
[2020-02-17 09:08] LABS: HGB 12.2 g/dL (11.2-15.7); MCH 30.2 pg (27.0-33.0); MCHC 32.1 % (32.0-36.0); MCV 94.1 fL (80-95); MPV 11.5 fL (8.0-11.0); Nucleated RBC 0 %; Platelet Count 275 10^3/uL (130-400); RBC 4.04 10^6/uL (3.93-5.22); RDW 15.7 % (11.7-14.6); RDW-SD 54.4 fL; WBC 10.48 10^3/uL (4.4-10.8)
[2020-02-17 09:45] LABS: Absolute Neutrophil Count 5.66 10^3/uL (1.2-6.7); Bands % 4
[2020-02-17 09:46] LABS: Absolute Lymphocyte Count 3.25 10^3/uL (1.2-3.4); Absolute Monocyte Count 0.94 10^3/uL (0.1-0.8); Atypical Lymphocytes % 1; Diff Comment Manual Differential; Myelocytes % 5; RBC Morphology Normal
[2020-02-17 09:51] LABS: Lithium < 0.20 mmol/L (0.60-1.20)
[2020-02-17 09:54] LABS: ALT 12 U/L (14-59); AST 11 U/L (15-37); Albumin 3.5 g/dL (3.4-5.0); Alkaline Phosphatase 84 U/L (46-116); BUN 17 mg/dL (7-18); Bilirubin, Total 0.3 mg/dL (0.2-1.0); CREATININE 0.81 mg/dL (0.55-1.02); Calcium 9.7 mg/dL (8.5-10.1); Chloride 102 mmol/L (98-107); Glucose 73 mg/dL (74-106); Potassium 4.2 mmol/L (3.5-5.1); Sodium 140 mmol/L (136-145); Total Protein 7.2 g/dL (6.4-8.2)
[2020-02-17 10:04] LABS: TSH 0.82 uIU/mL (0.36-3.74)
== END 2020-02-17 04:24 ==
PROVIDERS: PCP Family Medicine; Visit Provider Nurse Practitioner Family
DX: F20.0 Paranoid schizophrenia (principal); Z79.899 Other long term (current) drug therapy; F31.4 Bipolar disorder, current episode depressed, severe, without psychotic features; Z51.81 Encounter for therapeutic drug level monitoring
CPT/HCPCS: 36415; 80048; 80053; 80164; 80178; 84443; 85025

== ENCOUNTER 2020-03-16 04:55 | Outpatient (CLI) | payer MEDICAID, SELFPAY ==
[2020-03-16 13:09] LABS: Abs Immature Grans 0.49 10^3/uL (0.0-0.06); Absolute Basophil Count 0.06 10^3/uL (0.0-0.2); Absolute Eosinophil Count 0.06 10^3/uL (0.0-0.7); Absolute Lymphocyte Count 3.36 10^3/uL (1.2-3.4); Absolute Monocyte Count 0.87 10^3/uL (0.1-0.8); Basophils % 0.5; Eosinophils % 0.5; HCT 34.9 % (36.0-46.0); HGB 11.1 g/dL (11.2-15.7); Immature Grans % 4.2; MCH 30.4 pg (27.0-33.0); MCHC 31.8 % (32.0-36.0); MCV 95.6 fL (80-95); MPV 10.4 fL (8.0-11.0); Monocytes % 7.5; Neutrophils % 58.3; Nucleated RBC 0 %; Platelet Count 361 10^3/uL (130-400); RBC 3.65 10^6/uL (3.93-5.22); RDW 15.2 % (11.7-14.6); WBC 11.58 10^3/uL (4.4-10.8)
[2020-03-16 13:11] LABS: Absolute Neutrophil Count 6.75 10^3/uL (1.2-6.7)
== END 2020-03-16 05:15 ==
PROVIDERS: PCP Family Medicine; Visit Provider Nurse Practitioner Family
DX: F20.9 Schizophrenia, unspecified (principal); Z79.899 Other long term (current) drug therapy
CPT/HCPCS: 36415; 85025

== ENCOUNTER 2020-04-18 03:27 | Outpatient (CLI) | payer MEDICAID, SELFPAY ==
[2020-04-18 11:06] LABS: Absolute Basophil Count 0.05 10^3/uL (0.0-0.2); Absolute Eosinophil Count 0.05 10^3/uL (0.0-0.7); Absolute Lymphocyte Count 3.29 10^3/uL (1.2-3.4); Absolute Monocyte Count 0.77 10^3/uL (0.1-0.8); Absolute Neutrophil Count 6.23 10^3/uL (1.2-6.7); Basophils % 0.5; Eosinophils % 0.5; HCT 38.2 % (36.0-46.0); HGB 12.3 g/dL (11.2-15.7); Immature Grans % 2.8; Lymphocytes % 30.8; MCH 30.1 pg (27.0-33.0); MCHC 32.2 % (32.0-36.0); MCV 93.6 fL (80-95); MPV 10.4 fL (8.0-11.0); Monocytes % 7.2; Neutrophils % 58.2; Nucleated RBC 0 %; Platelet Count 324 10^3/uL (130-400); RBC 4.08 10^6/uL (3.93-5.22); RDW 14.7 % (11.7-14.6); WBC 10.69 10^3/uL (4.4-10.8)
== END 2020-04-18 03:47 ==
PROVIDERS: PCP Family Medicine; Visit Provider Nurse Practitioner Family
DX: F20.9 Schizophrenia, unspecified (principal); Z79.899 Other long term (current) drug therapy
CPT/HCPCS: 36415; 85025

== ENCOUNTER 2020-04-19 10:09 | Inpatient (IN) | payer MEDICAID, SELFPAY ==
[2020-04-19 10:14] VITALS: BP 111/77; PULSE 115; RESP 16; TEMP 36.2; O2SAT 99
--- NOTE | 2020-04-19 10:14 | W.ED.GENAD ---
Discharge Plan Disposition Patient Disposition: [facility] INPATIENT Condition: Stable Discharge Details Clinical Impression: Bipolar I disorder with marlene, Behavior disturbance Primary Care Provider: Sol Ashley V ED Provider: Landy Rendon Home Meds and New Rx's Prescriptions: No Action levothyroxine 25 MCG tablet 112 mcg PO DAILY@0730 RF: 0 aspirin [Aspir-81] 81 MG tablet,delayed release (DR/EC) 81 mg PO QAM RF: 0 ibuprofen [Ibuprofen IB] 200 MG tablet 400 mg PO Q8H PRNRF: 0 clozapine [Clozaril] 100 MG tablet 400 mg PO BID RF: 0 polyethylene glycol 3350 17 gram/dose powder 17 g PO DAILY RF: 0 acetaminophen [Acetaminophen Extra Strength] 500 MG tablet 1,000 mg PO TID RF: 0 divalproex [Depakote ER] 500 MG tablet extended release 24 hr 1,000 - 2,000 mg PO BID RF: 0 omeprazole 20 mg Capsule,Delayed Release(Dr/Ec) 20 mg PO DAILY RF: 0 folic acid 1 mg Tablet 1 mg PO DAILY RF: 0 lisinopril 5 mg Tablet 5 mg PO DAILY RF: 0 hydrochlorothiazide 25 mg Tablet 25 mg PO DAILY RF: 0 clotrimazole [Lotrimin AF (clotrimazole)] 1 % Cream 1 applic TOPICAL BID PRNRF: 0 olanzapine [Zyprexa] 20 mg Tablet 20 mg PO HS RF: 0 clindamycin phos-skin clnsr 19 1 % Kit 1 % TOPICAL PRN PRNRF: 0 guaifenesin [Mucinex] 600 mg Tablet Extended Release 12hr 600 mg PO Q12H PRNRF: 0 metformin 1,000 mg tablet 1,000 mg PO BID RF: 0 glipizide 10 mg tablet extended release 24hr 20 mg PO QAM RF: 0 tolterodine 2 mg tablet 2 mg PO QPM RF: 0 Medical Decision Making 1030 -- 50-year-old female with a history of schizophrenia, autism, PTSD, diabetes, GERD and hypothyroidism who presents from [facility] for increasing manic behavior and continued difficulty with managing her behavior. She was sent here per Sheila Lazcano for medical clearance for plan for inpatient psychiatric hospitalization. She is not suicidal or homicidal. Heart rate tachycardic, but she appears nontoxic and anxious. She has developmental delay and autism that baseline and is unable to state her understanding of why she is here which appears to be her baseline per her social work case manager at bedside. CT head negative. Screening labs obtained. Glucose 251 with normal electrolytes. Normal white blood cell count. Discussed with mental health who evaluated patient through ZOOM at bedside. Mental health feels that patient is appropriate for inpatient psychiatric hospitalization. Also d/w care management who is familiar with patient and will look into all available options for patient. 1200 --nursing hydro station supervisor discussed with Prem who is requesting we keep patient here pending Covid testing and transfer there. Discussed with hospitalist who accepts patient for admission. Urine sample not yet obtained. Medical Records Medical records reviewed: Yes I reviewed the patient's medical records. Imaging Data Radiologic Study: Radiologist's impression: CT HEAD WO CLINICAL HISTORY: psychosis, increase in marlene, r/o acute process. TECHNIQUE: Imaging Protocol: Axial computed tomography images with coronal and sagittal reformatted images were created and reviewed COMPARISON: CT CT BRAIN NECK CTA from 01/25/2020 FINDINGS: Ventricles and Extra axial spaces: Normal in size and morphology for the patient's age. Hemorrhage: None. Cerebral parenchyma: There is no change in the area of encephalomalacia involving the left parietal lobe. No acute territorial infarct is seen. Midline shift: None. Brainstem/Cerebellum: Normal. Calvarium: Normal. Visualized Paranasal sinuses/Mastoids: Clear. Soft Tissues: Unremarkable. IMPRESSION: No acute intracranial process. HPI General Mode of arrival: ambulatory. Date/Time Provider Initiated Documentation: 04/19/20 10:10. Limitations to Documentation: altered mental status. Information obtained by: patient. HPI Narrative: Patient is a 50-year-old female with a history of schizophrenia, autism, PTSD, diabetes, GERD, hypothyroidism who presents from [facility] for increasingly manic behavior and difficulty to manage. Sheila Lazcano called to notify that she was sending patient here for medical clearance for inpatient psychiatric hospitalization for her increasingly manic behavior. It was reported that she has been urinating and defecating on the floor and outside, running outside naked, eating other people's foods, and has a history of breaking into homes and stealing other people's things. Sheila states that [facility] staff is overwhelmed with her behavior at this time and feels that she will not be able to be managed there for the time being and needs inpatient hospitalization to manage her medications. They tried increasing her olanzapine recently to help with his behavior but this did not help. She denies any acute symptoms at this time. Related Data Home Medications Medication Instructions Recorded Confirmed levothyroxine 112 mcg PO DAILY@0730 10/18/13 04/19/20 aspirin [Aspir-81] 81 mg PO QAM 08/05/14 04/19/20 ibuprofen [Ibuprofen IB] 400 mg PO Q8H PRN 08/05/14 04/19/20 acetaminophen [Acetaminophen Extra 1,000 mg PO TID 10/04/16 04/19/20 Strength] divalproex [Depakote ER] 1,000 - 2,000 mg PO BID 10/04/16 04/19/20 clindamycin phos-skin clnsr 19 1 % TOPICAL PRN PRN 09/26/18 04/19/20 clotrimazole [Lotrimin AF] 1 applic TOPICAL BID PRN 09/26/18 04/19/20 folic acid 1 mg PO DAILY 09/26/18 04/19/20 guaifenesin [Mucinex] 600 mg PO Q12H PRN 09/26/18 04/19/20 hydrochlorothiazide 25 mg PO DAILY 09/26/18 04/19/20 lisinopril 5 mg PO DAILY 09/26/18 04/19/20 olanzapine [Zyprexa] 20 mg PO HS 09/26/18 04/19/20 omeprazole 20 mg PO DAILY 09/26/18 04/19/20 glipizide 20 mg PO QAM 01/26/20 04/19/20 metformin 1,000 mg PO BID 01/26/20 04/19/20 tolterodine 2 mg PO QPM 01/26/20 04/19/20 clozapine [Clozaril] 400 mg PO BID 04/19/20 04/19/20 polyethylene glycol 3350 17 g PO DAILY 04/19/20 04/19/20 Allergies Allergy/AdvReac Type Severity Reaction Status Date / Time Penicillins Allergy Severe Unverified 04/19/20 10:19 trifluoperazine HCl Allergy Unknown Unverified 04/19/20 10:19 [From Stelazine] General QUINTEN: 3 Review of Systems All systems reviewed & are unremarkable except as noted in HPI and below Constitutional Constitutional: Reports as per HPI, Denies chills and Denies fever(s) Eyes Eyes: Denies blurry vision ENT Ears, Nose, Mouth, and Throat: Denies dizziness, Denies sore throat and Denies throat swelling Cardiovascular Cardiovascular: Denies chest pain and Denies dyspnea Respiratory Respiratory: Denies cough and Denies dyspnea Gastrointestinal Gastrointestinal: Denies abdominal pain, Denies diarrhea and Denies vomiting Genitourinary Genitourinary: Denies hematuria and Denies dysuria Musculoskeletal Musculoskeletal: Denies back pain and Denies numbness Integumentary/Breasts Skin/Breast: Denies lesions and Denies rash Neurologic Neurologic: Denies dizziness, Denies localized weakness and Denies numbness Allergic/Immunologic Allergic/Immunologic: Denies throat swelling [facility] Medical History (Updated 04/19/20 @ 12:25 by Kirsten Riggs NP) Autism spectrum disorder with accompanying intellectual disability without language impairment, requiring substantial support Diabetes mellitus a. on oral medications b. Hgb A1C 7.5 c. 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 Since ?2009+ Exam Const General: healthy appearing and anxious Orientation: alert and awake [facility] Head: normal to inspection Ears: hearing grossly normal bilaterally and external ears normal General nose exam: external nose normal Face and sinus: normal facial exam Mouth: oral mucosae normal Teeth and gingiva: dentition normal Throat: posterior oropharynx normal Eyes General: appearance normal, both eyes and all related structures Eyelids: eyelids normal Pupils: PERRL EOM: EOM intact bilaterally Neck Neck: normal visual inspection Lymphatic: no lymphadenopathy noted Chest Chest: normal inspection of the chest Resp Effort & Inspection: normal respiratory effort and able to speak in complete sentences Auscultation: clear to auscultation bilaterally Cardio Rate: regular rate Rhythm: regular rhythm GI Inspection: normal to inspection Palpation: soft, not firm, no guarding, no hepatosplenomegaly, no masses and nontender Auscultation: normal bowel sounds Back/Spine/Pelvis Back: no CVA tenderness Skin General skin exam: no rashes or lesions noted Neuro General: patient alert, patient awake and moves all extremities Speech: speech normal Gait: normal gait Motor: muscle tone normal throughout Sensory Exam: no sensory deficits noted Extrem General: normal to inspection, full ROM and capillary refill normal Psych Appearance: grossly normal Speech and Movement: speech and movement normal Affect: animated and anxious affect Thought Process: illogical Thought Content: delusions and hallucinations visual
--- NOTE | 2020-04-19 10:30 | DI.CT_ITS ---
EXAM: CT HEAD WO CLINICAL HISTORY: psychosis, increase in marlene, r/o acute process. TECHNIQUE: Imaging Protocol: Axial computed tomography images with coronal and sagittal reformatted images were created and reviewed COMPARISON: CT CT BRAIN NECK CTA from 01/25/2020 FINDINGS: Ventricles and Extra axial spaces: Normal in size and morphology for the patient's age. Hemorrhage: None. Cerebral parenchyma: There is no change in the area of encephalomalacia involving the left parietal l obe. No acute territorial infarct is seen. Midline shift: None. Brainstem/Cerebellum: Normal. Calvarium: Normal. Visualized Paranasal sinuses/Mastoids: Clear. Soft Tissues: Unremarkable. IMPRESSION: No acute intracranial process. Findings were discussed with the emergency department on the date of the examination. RADIATION DOSE DELIVERED: 605.27mGy.cm Total DLP DATA REPOSITORY: All CT scans at this facility are submitted to the National Radiology Data Registry (NRDR) Dose Index Registry (DIR) with the [employer] (ACR). RADIATION OPTIMIZATION: All CT scans at this facility use at least one of these dose optimization te chniques: automated exposure control; mA and/or kV adjustment per patient size (includes targeted exa ms where dose is matched to clinical indication); or iterative reconstruction.
--- NOTE | 2020-04-19 11:07 | PDOC.MHCN ---
Date of service: 04/19/20 Time of Service: 11:08 Mental Health Crisis Note Presenting Issue How did you arrive at the ED and why did you come: Patient was brought to the ED for medical clearance to get the patient into psychiatric treatment. Precipitating Factors The patient was uncooperative, with this clinician. She agreed to voluntary placement saying her brain needs help. She would not answer questions about safety or AH, VH. Evidence of Paranoia and distrust were prominant. Disposition BEHAVIOR: The patient was minimally cooperative, she allowed some contact then stated she did not want to talk to this clinician and became angry at continued contact. EYE CONTACT: Eye contact was fixed and glaring. MOOD: The patients mood was agitated. AFFECT: Patient was angry and easily agitated. APPETITE: Unknown, residential staff reported increased levels of eating, at night and during the day. SLEEP(trouble falling/staying asleep: Patient has difficulty sleeping. Plan Patient needs inpatient psychiatric treatment and the plan would be to get placed at a psychiatric hospital.
[2020-04-19 11:36] LABS: Abs Immature Grans 0.23 10^3/uL (0.0-0.06); Absolute Basophil Count 0.05 10^3/uL (0.0-0.2); Absolute Eosinophil Count 0.04 10^3/uL (0.0-0.7); Absolute Lymphocyte Count 2.57 10^3/uL (1.2-3.4); Absolute Monocyte Count 0.69 10^3/uL (0.1-0.8); Absolute Neutrophil Count 5.56 10^3/uL (1.2-6.7); Basophils % 0.5; Eosinophils % 0.4; HCT 40.3 % (36.0-46.0); HGB 12.7 g/dL (11.2-15.7); Immature Grans % 2.5; Lymphocytes % 28.1; MCH 29.5 pg (27.0-33.0); MCHC 31.5 % (32.0-36.0); MCV 93.7 fL (80-95); MPV 10.4 fL (8.0-11.0); Monocytes % 7.5; Nucleated RBC 0 %; Platelet Count 323 10^3/uL (130-400); RDW 14.6 % (11.7-14.6); RDW-SD 50.4 fL; WBC 9.14 10^3/uL (4.4-10.8)
[2020-04-19 12:01] LABS: ALT 9 U/L (14-59); AST 12 U/L (15-37); Albumin 3.3 g/dL (3.4-5.0); Alkaline Phosphatase 101 U/L (46-116); BUN 22 mg/dL (7-18); Bilirubin, Total 0.2 mg/dL (0.2-1.0); CO2 31.6 mmol/L (21.0-32.0); CREATININE 0.88 mg/dL (0.55-1.02); Calcium 9.6 mg/dL (8.5-10.1); ETHANOL BLOOD 4.4 mg/dL (<3); Glucose 251 mg/dL (74-106); Total Protein 7.4 g/dL (6.4-8.2)
--- NOTE | 2020-04-19 12:18 | CMSP_ITS ---
- If Service Date Differs Date of service: 04/19/20 Time of Service: 12:18 Care Management Safety Plan Kandace is a 50 year old patient admitted with Schizoaffective disorder, Bipolar, change in behavior. She is a NET TRAINER client and patient of Andreea Paredes and lives at [facility]. 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 She is now voluntary at this time she reports to [facility] NET TRAINER that she needs help for her brain. CM has reviewed the safety plan with NET TRAINER case filler and [facility] Nura Hodges, RN machinist supervisor outside and admitting MANAGER MEDICARE. CM has also reviewed the plan with CCRN and Primary RN. Referrals have been faxed to [facility] and [facility]. [facility] has declined at this time. CM met with Kandace she is smiling and interactive with CM. Kandace does lift up her shirt and shows CM her abdomen she states Look I am nine and half months. CM encouraged Kandace to pull her shirt down and requested a test ordered by provider. CM also reviewed Kandace's labs with the provider. COVID is pending and will need to be finalized before transfer. VOLUNTARY FOR INPATIENT PSYCHIATRIC STABILIZATION. Patient is appropriate in all interactions since arriving at [facility]; Pt has demonstrated appropriate coping and communication skills, has articulated his or her needs and concerns and is fully engaged during staff interactions. Safety plan has been established with patient, and care team, to adhere to patient goals, identify restrictions based on behavioral status, address nutrition, and determine allowed personal belongings, tools for hygiene and personal care. Determine level of activity including ambulation, level of supervision, visitors, and determine privileges based on behaviors and level of engagement by pt. SAFETY PLAN: 1. Will remain on suicide precautions. In Paper Clothes 2. Will remain in room under direct supervision of one-on-one staff at all times provided by [employer]; MALIA, VOLLEYBALL PLAYER batch roller operator. Kandace does have a history of running away from her residence and may be an elopement risk. 3. May have paper cups, plates, finger foods as well as a cardboard spoon with which to eat meals. 4. Follow [facility] Management of the Admitted Behavioral Health Patient policy. 5. Comfort wipes vs shower with appropriate supervision 6. No personal belongings 7. Visitors-No visitors at this time 8. Activities: coloring, crayons, playing cards, magazines, books, television with the remote. 9. Bathroom privileges 10. Phone: No phone at this time. 11. Due to VOLUNTARY status, if patient wishes to leave [facility], the [facility] recycling worker must be contacted to re-evaluate patient prior to patient exiting the building. Patient is currently voluntarily at [facility] and seeking inpatient admission when a bed becomes available. [facility] Frontline Sign Shop Supervisor will continue seeking placement. Please contact the Water Fabricator Operator Cafeteria Attendant ([phone]) and [facility] C risis Worker ([phone]) for any needed changes in the Safety Plan. Safety plan has been provided to interdepartmental care team.
[2020-04-19 12:22] LABS: Anion Gap 7.4 mmol/L (3-11); Chloride 101 mmol/L (98-107); Potassium 3.8 mmol/L (3.5-5.1); Sodium 140 mmol/L (136-145)
--- NOTE | 2020-04-19 12:23 | W.PM.HP.N ---
Date of service: 04/19/20 Time of Service: 12:23 Assessment and Plan Assessment and plan (1) Change in behavior: Status: Acute Assessment and plan: no medical condition to explain symptoms and is medically cleared. will admit to med/surg unit pending inpatient psychiatric bed placement for medication adjustment. mental health following behavioral safety plan continue home medications covid test results pending. is not a PUI (2) Schizoaffective disorder: Status: Acute Assessment and plan: decompensated, continue home medications for now. awaiting psychiatric admission (3) Diabetes mellitus: Status: Chronic Assessment and plan: add A1C to labs, carb controlled diet continue home medication. blood sugar checks with sliding scale as needed. (4) Hypothyroidism: Status: Acute Assessment and plan: TSH added, was 0.82 in feb 2020 continue synthroid (5) Discharge planning issues: Status: Acute Assessment and plan: case management following discharge to inpatient psyche bed when available and covid testing resulted discussed with Dr Frey who is in agreement History of Present Illness History of Present Illness Chief Complaint: behavioral disturbances Narrative: patient with history of schizoaffective disorder who presents to the ED for evaluation of behavioral disturbances. medically cleared and pending inpatient psychiatric management. covid testing obtained and will be admitted to med/surg until a bed available. Review of Systems Unobtainable due to mental condition [facility] Medical History (Updated 04/19/20 @ 12:25 by Kirsten Riggs NP) Autism spectrum disorder with accompanying intellectual disability without language impairment, requiring substantial support Diabetes mellitus a. on oral medications b. Hgb A1C 7.5 c. 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 Since ?2009+ Meds Home Medications and Allergies Home Medications Medication Instructions Recorded Confirmed Type levothyroxine 112 mcg PO DAILY@0730 10/18/13 04/19/20 History aspirin [Aspir-81] 81 mg PO QAM 08/05/14 04/19/20 History ibuprofen [Ibuprofen IB] 400 mg PO Q8H PRN 08/05/14 04/19/20 History acetaminophen [Acetaminophen Extra 1,000 mg PO TID 10/04/16 04/19/20 History Strength] divalproex [Depakote ER] 1,000 - 2,000 mg PO BID 10/04/16 04/19/20 History clindamycin phos-skin clnsr 19 1 % TOPICAL PRN PRN 09/26/18 04/19/20 History clotrimazole [Lotrimin AF] 1 applic TOPICAL BID PRN 09/26/18 04/19/20 History folic acid 1 mg PO DAILY 09/26/18 04/19/20 History guaifenesin [Mucinex] 600 mg PO Q12H PRN 09/26/18 04/19/20 History hydrochlorothiazide 25 mg PO DAILY 09/26/18 04/19/20 History lisinopril 5 mg PO DAILY 09/26/18 04/19/20 History olanzapine [Zyprexa] 20 mg PO HS 09/26/18 04/19/20 History omeprazole 20 mg PO DAILY 09/26/18 04/19/20 History glipizide 20 mg PO QAM 01/26/20 04/19/20 History metformin 1,000 mg PO BID 01/26/20 04/19/20 History tolterodine 2 mg PO QPM 01/26/20 04/19/20 History clozapine [Clozaril] 400 mg PO BID 04/19/20 04/19/20 History polyethylene glycol 3350 17 g PO DAILY 04/19/20 04/19/20 History Allergies Allergy/AdvReac Type Severity Reaction Status Date / Time Penicillins Allergy Severe Unverified 04/19/20 10:19 trifluoperazine HCl Allergy Unknown Unverified 04/19/20 10:19 [From Stelazine] Exam Const General: comfortable and in distress mild (anxious) Nutritional Appearance: overweight Orientation: alert, awake and oriented to person Limitations: behavioral limitations HENMT Head: normal to inspection, normocephalic and atraumatic Mouth: oral mucosae normal Resp Effort & Inspection: normal respiratory effort Cardio Rate: regular rate Rhythm: regular rhythm Other: pink warm dry and well perfused GI Inspection: normal to inspection Palpation: soft, not firm and not rigid Auscultation: normal bowel sounds Neuro General: patient alert, patient awake, moves all extremities and no focal motor deficits Psych Mental Status: other Speech and Movement: agitated and restless Mood: labile mood and irritable mood Affect: anxious affect Attitude: other Thought Process: confabulating and tangential Insight: poor Judgment: poor Results Labs Result diagrams: 04/19/20 11:27 04/19/20 11:27 Labs: Laboratory Results - last 24 hr 04/19/20 04/19/20 11:27 11:27 WBC 9.14 RBC 4.30 Hgb 12.7 Hct 40.3 MCV 93.7 MCH 29.5 MCHC 31.5 L RDW 14.6 Plt Count 323 MPV 10.4 Immature Gran % 2.5 Neutrophils % 61.0 Lymphocytes % 28.1 Monocytes % 7.5 Eosinophils % 0.4 Basophils % 0.5 Nucleated RBC % 0 Absolute Neutrophils 5.56 Absolute Lymphocytes 2.57 Absolute Monocytes 0.69 Absolute Eosinophils 0.04 Absolute Basophils 0.05 Sodium 140 Potassium 3.8 Chloride 101 Carbon Dioxide 31.6 Anion Gap 7.4 BUN 22 H Creatinine 0.88 Estimated GFR/1.73 m2 >= 60.00 Glucose 251 H Calcium 9.6 Total Bilirubin 0.2 AST 12 L ALT 9 L Alkaline Phosphatase 101 Total Protein 7.4 Albumin 3.3 L Ethyl Alcohol 4.4 Last Vital Signs Temp 36.2 C L 04/19/20 10:14 Pulse 115 H 04/19/20 10:14 Resp 16 04/19/20 10:14 BP 111/77 04/19/20 10:14 Pulse Ox 99 04/19/20 10:14 COVID-19 Screening Have you,or household,traveled outside [place] in last 14 days?: No Had IN PERSON contact w/suspected or confirmed C-19 person: No
[2020-04-19 13:15] LABS: TSH 7.02 uIU/mL (0.36-3.74)
[2020-04-19 13:18] LABS: Hemoglobin A1C 6.8 % (<5.7)
[2020-04-19 13:30] VITALS: BP 111/77; PULSE 115; RESP 16; TEMP 36.2; O2SAT 99
[2020-04-19] MEDS: Acetaminophen 500 MG TAB 1000 MG PO ×2 (14:19→19:56)
[2020-04-19 16:15] LABS: Bilirubin Negative (Negative); Blood Negative (Negative); Clarity Clear (Clear); Glucose 100 mg/dL (Negative); Ketones Trace mg/dL (Negative); Leukocyte Esterase Negative (Negative); Nitrite Negative (Negative); Urobilinogen 0.2 EU/dL (Up TO 0.2)
[2020-04-19 16:42] LABS: *AMPHETAMINES SCREEN URINE Negative (Negative); *BARBITURATES SCREEN URINE Negative (Negative); *BENZODIAZEPINES SCREEN URINE Negative (Negative); Cannabinoids THC Negative (Negative); Cocaine Screen,Urine Negative (Negative); METHADONE URINE SCREEN Negative (Negative); OPIATES URINE SCREEN Negative (Negative)
[2020-04-19 16:46] LABS: Tricyclic Antidepressants Negative (Negative)
[2020-04-19 19:32] LABS: HCG Qual (Serum) Negative
[2020-04-19] MEDS: metFORMIN 500 MG TAB 1000 MG PO (19:53)
[2020-04-19] MEDS: Divalproex Sodium 500 MG TAB.ER.24H 2000 MG PO (19:55)
[2020-04-19] MEDS: OLANZapine 10 MG TAB 20 MG PO (22:01)
[2020-04-20] MEDS: Lisinopril 5 MG TAB PO (07:54)
[2020-04-20] MEDS: Aspirin E.C. 81 MG TABEC PO (07:54)
[2020-04-20] MEDS: Folic Acid 1 MG TAB PO (07:54)
[2020-04-20] MEDS: Omeprazole 20 MG CAPCR PO (07:54)
[2020-04-20] MEDS: hydroCHLOROthiazide 25 MG TAB PO (07:54)
[2020-04-20] MEDS: Divalproex Sodium 500 MG TAB.ER.24H 1000 MG PO (07:55)
[2020-04-20] MEDS: Levothyroxine 112 MCG TAB PO (07:55)
[2020-04-20] MEDS: Acetaminophen 500 MG TAB 1000 MG PO ×3 (07:55→19:46)
[2020-04-20] MEDS: metFORMIN 500 MG TAB 1000 MG PO ×2 (07:55→19:47)
[2020-04-20] MEDS: Polyethylene Glycol 3350 17 GM PACKET PO (08:31)
[2020-04-20 09:59] VITALS: BP 122/78; PULSE 107; RESP 16; TEMP 37.1; O2SAT 99
--- NOTE | 2020-04-20 10:57 | CMSP_ITS ---
- If Service Date Differs Date of service: 04/20/20 Time of Service: 10:57 Care Management Safety Plan Kandace remains acute today, no placement at this time. CM faxed additional referrals to [facility], [facility], and [facility]. [facility] is still reviewing, [facility] declined at this time. Kandace has interacted with staff no other concerns at this time. VOLUNTARY FOR INPATIENT PSYCHIATRIC STABILIZATION. Patient is appropriate in all interactions since arriving at [facility]; Pt has demonstrated appropriate coping and communication skills, has articulated his or her needs and concerns and is fully engaged during staff interactions. Safety plan has been established with patient, and care team, to adhere to patient goals, identify restrictions based on behavioral status, address nutrition, and determine allowed personal belongings, tools for hygiene and personal care. Determine level of activity including ambulation, level of supervision, visitors, and determine privileges based on behaviors and level of engagement by pt. Huddle: RN waterproofing supervisor, RNCC, Primary nurse and mental health over the phone. SAFETY PLAN: 1. Will remain on suicide precautions. In Paper Clothes 2. Will remain in room under direct supervision of one-on-one staff at all times provided by [employer]; MALIA, CEMENT FINISHING SUPERVISOR knurling machine operator. Kandace does have a history of running away from her residence and may be an elopement risk. 3. May have paper cups, plates, finger foods as well as a metal spoon with which to eat meals accounted for after her meal. 4. Follow [facility] Management of the Admitted Behavioral Health Patient policy. 5. Comfort wipes vs shower with appropriate supervision 6. Kandace may have her own coloring materials, she may also have a bedside table and chair in the room for meals. 7. Visitors-No visitors at this time 8. Activities: coloring, crayons, playing cards, magazines, books, television with the remote. 9. Bathroom privileges 10. Phone: Kandace may have contact with her ed case manager at [facility] Gosia Reid 11. Due to VOLUNTARY status, if patient wishes to leave [facility], the [facility] dye house worker must be contacted to re-evaluate patient prior to patient exiting the building. Patient is currently voluntarily at [facility] and seeking inpatient admission when a bed becomes available. [facility] Frontline Family Service Caseworker will continue seeking placement. Please contact the Stiff Neck Loader Explosives Mixer Operator ([phone]) and [facility] Family Service Caseworker ([phone]) for any needed changes in the Safety Plan. Safety plan has been provided to interdepartmental care team.
--- NOTE | 2020-04-20 13:41 | W.PM.PROGNOT ---
Date of Service Date of service: 04/20/20 Time of Service: 13:42 Assessment and Plan Assessment and plan (1) Change in behavior: Status: Acute Assessment and plan: no medical condition to explain symptoms and is medically cleared. will admit to med/surg unit pending inpatient psychiatric bed placement for medication adjustment. mental health following behavioral safety plan continue home medications covid test results pending. is not a PUI (2) Schizoaffective disorder: Status: Acute Assessment and plan: decompensated, continue home medications for now. awaiting psychiatric admission (3) Diabetes mellitus: Status: Chronic Assessment and plan: add A1C to labs, carb controlled diet continue home medication. blood sugar checks with sliding scale as needed. (4) Hypothyroidism: Status: Acute Assessment and plan: TSH added, was 0.82 in feb 2020 continue synthroid (5) Discharge planning issues: Status: Acute Assessment and plan: case management following discharge to inpatient psyche bed when available and covid testing resulted discussed with Dr Frey who is in agreement Subjective Subjective Patient reports: no new complaints, tolerating liquids well, tolerating a regular diet, voiding w/o difficulty and afebrile Exam Const General: comfortable and in distress mild (anxious) Nutritional Appearance: overweight Orientation: alert, awake and oriented to person Limitations: behavioral limitations HENMT Head: normal to inspection, normocephalic and atraumatic Mouth: oral mucosae normal Resp Effort & Inspection: normal respiratory effort Cardio Rate: regular rate Rhythm: regular rhythm GI Inspection: normal to inspection Palpation: soft, not firm and not rigid Auscultation: normal bowel sounds Neuro General: patient alert, patient awake, moves all extremities and no focal motor deficits Psych Mental Status: other Speech and Movement: agitated and restless Mood: labile mood, irritable mood and other Affect: anxious affect Attitude: other Thought Process: confabulating and tangential Insight: poor Judgment: poor Objective Last Vital Signs Temp 37.1 C 04/20/20 09:59 Pulse 107 H 04/20/20 09:59 Resp 16 04/20/20 09:59 BP 122/78 04/20/20 09:59 Pulse Ox 99 04/20/20 09:59 Laboratory Results - last 24 hr 04/19/20 04/19/20 04/19/20 15:57 16:02 16:02 Serum HCG, Qual Negative Urine Color Yellow Urine Clarity Clear Urine pH 7.0 Ur Specific Dresser 1.020 Urine Protein Negative Urine Ketones Trace H Urine Blood Negative Urine Nitrite Negative Urine Bilirubin Negative Urine Urobilinogen 0.2 Ur Leukocyte Esterase Negative Urine Glucose 100 Urine Opiates Screen Negative Urine Methadone Screen Negative Ur Barbiturates Screen Negative Ur Tricyclics Screen Negative Ur Amphetamines Screen Negative U Benzodiazepines Scrn Negative Urine Cocaine Screen Negative Ur THC Screen Negative
[2020-04-20 14:49] LABS: SARS-CoV-2 RNA Not Detected (NotDetected); SARS-CoV-2 RNA Source Nasal/Nares
[2020-04-20] MEDS: Divalproex Sodium 500 MG TAB.ER.24H 2000 MG PO (19:46)
[2020-04-20] MEDS: OLANZapine 10 MG TAB 20 MG PO (21:46)
[2020-04-20] MEDS: Senna TAB 2 TAB PO (21:46)
[2020-04-21] MEDS: Levothyroxine 112 MCG TAB PO (05:30)
[2020-04-21] MEDS: Divalproex Sodium 500 MG TAB.ER.24H 1000 MG PO (07:45)
[2020-04-21] MEDS: metFORMIN 500 MG TAB 1000 MG PO (07:47)
[2020-04-21] MEDS: Aspirin E.C. 81 MG TABEC PO (07:48)
[2020-04-21] MEDS: Folic Acid 1 MG TAB PO (07:48)
[2020-04-21] MEDS: Acetaminophen 500 MG TAB 1000 MG PO (07:48)
[2020-04-21] MEDS: hydroCHLOROthiazide 25 MG TAB PO (07:49)
[2020-04-21] MEDS: Omeprazole 20 MG CAPCR PO (07:49)
[2020-04-21] MEDS: Lisinopril 5 MG TAB PO (07:49)
[2020-04-21] MEDS: Polyethylene Glycol 3350 17 GM PACKET PO (07:50)
--- NOTE | 2020-04-21 08:56 | PDOC.CMSAFE ---
- If Service Date Differs Date of service: 04/21/20 Time of Service: 17:19 Care Management Safety Plan CM faxed additional referrals to [facility] at is still reviewing. Kandace is interacting well with staff no other concerns at this time. CM spoke with Nura [facility] YASH ROJAS who reported if placement could not be secured, Kandace would return home to [place] by this afternoon. VOLUNTARY FOR INPATIENT PSYCHIATRIC STABILIZATION. Patient is appropriate in all interactions since arriving at [facility]; Pt has demonstrated appropriate coping and communication skills, has articulated his or her needs and concerns and is fully engaged during staff interactions. Safety plan has been established with patient, and care team, to adhere to patient goals, identify restrictions based on behavioral status, address nutrition, and determine allowed personal belongings, tools for hygiene and personal care. Determine level of activity including ambulation, level of supervision, visitors, and determine privileges based on behaviors and level of engagement by pt. No changes to safety plan; patient discharging. SAFETY PLAN: 1. Will remain on suicide precautions. In Paper Clothes 2. Will remain in room under direct supervision of one-on-one staff at all times provided by [employer]; MALIA, LAPPING MACHINE OPERATOR records specialist. Kandace does have a history of running away from her residence and may be an elopement risk. 3. May have paper cups, plates, finger foods as well as a metal spoon with which to eat meals accounted for after her meal. 4. Follow [facility] Management of the Admitted Behavioral Health Patient policy. 5. Comfort wipes vs shower with appropriate supervision 6. Kandace may have her own coloring materials, she may also have a bedside table and chair in the room for meals. 7. Visitors-No visitors at this time 8. Activities: coloring, crayons, playing cards, magazines, books, television with the remote. 9. Bathroom privileges 10. Phone: Kandace may have contact with her pillowcase turner at [facility] Gosia Reid 11. Due to VOLUNTARY status, if patient wishes to leave [facility], the [facility] house worker must be contacted to re-evaluate patient prior to patient exiting the building. Patient is currently voluntarily at [facility] and seeking inpatient admission when a bed becomes available. [facility] Frontline Applied Computer Science Professor will continue seeking placement. Please contact the Styrene Dehydration Reactor Operator Mission Manager ([phone]) and [facility] Applied Computer Science Professor ([phone]) for any needed changes in the Safety Plan. Safety plan has been provided to interdepartmental care team.
--- NOTE | 2020-04-21 10:10 | PDOC.MHCN ---
Date of service: 04/21/20 Time of Service: 10:10 Mental Health Crisis Note Presenting Issue How did you arrive at the ED and why did you come: Patient was brought to the ED by [facility] staff because of an increase of behaviors. Precipitating Factors Patient refused to speak with this clinician, staff report medication compliance, sleeping and eating well. Staff report also that the client is not causing any disruptions Disposition BEHAVIOR: Cooperating with staff. EYE CONTACT: Avoident. MOOD: Unable to be determined. AFFECT: Patient was just waking up and sleepy. APPETITE: Goosd. SLEEP(trouble falling/staying asleep: No sleep problems. Plan The plan is to still obtain psychiatric placement, continue to refer he to hospitals.
--- NOTE | 2020-04-21 10:21 | W.NUTRFU ---
Date of service: 04/21/20 Time of Service: 10:21 Nutritional Follow up NOTE: 50 year old female admitted with psychiatrist concerns with elevated BMI and NIDDM. Following diabetic diet with adequate intake to meet nutrient and fluid needs. Elevated blood sugars treated with sliding scale insulin. A1C of 6.8% indicates adequately controlled diabetes with home regime. Not at nutritional risk at this time. Will continue to follow. Time Spent in Nutritional Counseling and Treatment: 0
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
--- NOTE | 2020-04-21 12:26 | DSE_ITS ---
Date of service: 04/21/20 Time of Service: 12:26 DS: Diagnosis Discharge Diagnosis (1) Change in behavior: Start date: 04/21/20 Start time: 12:26 Status: Acute Asessment and Plan: medically cleared Voluntary for psych placement, however she has not had any change in behavior since admission therefore she is being discharged back to [facility] covid test was negative Outpatient medication adjustment as needed (2) Schizoaffective disorder: Start date: 04/21/20 Start time: 12:29 Status: Acute Asessment and Plan: Continue home medications, no behavioral differences while in the hospital. as above (3) Diabetes mellitus: Start date: 04/21/20 Start time: 12:30 Status: Chronic Asessment and Plan: A1C 6.8 continue carb counting meals and medications (4) Hypothyroidism: Start date: 04/21/20 Start time: 12:31 Status: Acute Asessment and Plan: Continue levothyroxine above case discussed with Dr. Frey who is in agreement Discharge Plan Disposition Patient Disposition: [facility] Condition: Stable Discharge Details Reason For Visit: DECOMPSENSATED SCHIZOAFFECTIVE DISORDER Admit Date/Time: 04/19/20 12:03 Admit Provider: Gricel Frey Attending Provider: Gricel Frey Primary Care Provider: Sol Ashley V Hospital Course Hospital Course: Middle aged female with pmh schizo disorder, developmental delay was admitted from [facility] ED after presenting for behavioral disturbances. She was medically cleared in the ED. Since admission she has not had any behavioral issues. A1C 6.8. She is being discharged back to [facility] with follow as an outpatient and medications adjustments needed as an outpatient. Home Meds and New Rx's Prescriptions: Continued levothyroxine 25 MCG tablet 112 mcg PO DAILY@0730 RF: 0 aspirin [Aspir-81] 81 MG tablet,delayed release (DR/EC) 81 mg PO QAM RF: 0 ibuprofen [Ibuprofen IB] 200 MG tablet 400 mg PO Q8H PRNRF: 0 clozapine [Clozaril] 100 MG tablet 400 mg PO BID RF: 0 polyethylene glycol 3350 17 gram/dose powder 17 g PO DAILY RF: 0 acetaminophen [Acetaminophen Extra Strength] 500 MG tablet 1,000 mg PO TID RF: 0 divalproex [Depakote ER] 500 MG tablet extended release 24 hr 1,000 - 2,000 mg PO BID RF: 0 omeprazole 20 mg Capsule,Delayed Release(Dr/Ec) 20 mg PO DAILY RF: 0 folic acid 1 mg Tablet 1 mg PO DAILY RF: 0 lisinopril 5 mg Tablet 5 mg PO DAILY RF: 0 hydrochlorothiazide 25 mg Tablet 25 mg PO DAILY RF: 0 clotrimazole [Lotrimin AF (clotrimazole)] 1 % Cream 1 applic TOPICAL BID PRNRF: 0 olanzapine [Zyprexa] 20 mg Tablet 20 mg PO HS RF: 0 clindamycin phos-skin clnsr 19 1 % Kit 1 % TOPICAL PRN PRNRF: 0 guaifenesin [Mucinex] 600 mg Tablet Extended Release 12hr 600 mg PO Q12H PRNRF: 0 metformin 1,000 mg tablet 1,000 mg PO BID RF: 0 glipizide 10 mg tablet extended release 24hr 20 mg PO QAM RF: 0 tolterodine 2 mg tablet 2 mg PO QPM RF: 0 Discharge Instructions Instructions: Schizoaffective Disorder (DC) Additional Instructions: Follow up as needed for medication adjustments as an outpatient. Continue carb counting meals Activity:: Activity as Tolerated Equipment/Supplies:: No Equipment Needed Diet:: Carb Counting Discharge Orders Discharge Orders: Discharge Order (Routine); Ordered 04/21/20 Ordered By: Orly Nagy DS: Summary Status at Discharge Functional status at discharge: independent ambulation Overall status at discharge: patient is back to baseline Mental Status: other Speech and Movement: agitated and restless Mood: labile mood, irritable mood and other Affect: anxious affect Exam Const General: comfortable and in distress mild (anxious) Nutritional Appearance: overweight Orientation: alert, awake and oriented to person Limitations: behavioral limitations HENMT Head: normal to inspection, normocephalic and atraumatic Mouth: oral mucosae normal Resp Effort & Inspection: normal respiratory effort Cardio Rate: regular rate Rhythm: regular rhythm GI Inspection: normal to inspection Palpation: soft, not firm and not rigid Auscultation: normal bowel sounds Neuro General: patient alert, patient awake, moves all extremities and no focal motor deficits Psych Mental Status: other Speech and Movement: agitated and restless Mood: labile mood, irritable mood and other Affect: anxious affect Attitude: other Thought Process: confabulating and tangential Insight: poor Judgment: poor DS: Data Vitals/I&O Vitals and I&O: Vital Signs Temperature 37.1 C 04/20/20 09:59 Temperature Source Tympanic 04/20/20 09:59 Pulse 107 H 04/20/20 09:59 Pulse Rhythm Regular 04/20/20 04:15 Respiratory Rate 16 04/20/20 09:59 Respiratory Effort Non-Labored 04/21/20 08:00 Respiratory Depth Normal 04/21/20 08:00 Respiratory Pattern Normal 04/21/20 08:00 Blood Pressure 122/78 04/20/20 09:59 Pulse Oximetry 99 04/20/20 09:59 Oxygen Delivery Method Room Air 04/20/20 09:59 Oxygen Flow Rate 0 04/20/20 09:59 Pain Level 3 04/20/20 15:45 Intake & Output 04/20/20 04/21/20 04/21/20 23:59 11:59 23:59 Intake Total 280 / 480 500 / 500 Output Total 400 / 400 Balance 280 / 480 100 / 100 Intake: Oral 280 / 480 500 / 500 Output: Urine 400 / 400 Other: Urine Color Yellow Yellow Urine Appearance Clear Clear Urine Odor Strong Normal Comment incontinent void Amount approximated. Pt voided in commode and brief. Changed brief Stool Occult Blood Negative Stool Size Large Smear Stool Characteristics Formed Brown Voiding Methods Toilet Toilet Diaper Diaper Incontinent Data Completed and Pending Completed studies during hospitalization [Text1]: EXAM: CT HEAD WO CLINICAL HISTORY: psychosis, increase in marlene, r/o acute process. TECHNIQUE: Imaging Protocol: Axial computed tomography images with coronal and sagittal reformatted images were created and reviewed COMPARISON: CT CT BRAIN NECK CTA from 01/25/2020 FINDINGS: Ventricles and Extra axial spaces: Normal in size and morphology for the patient's age. Hemorrhage: None. Cerebral parenchyma: There is no change in the area of encephalomalacia involving the left parietal lobe. No acute territorial infarct is seen. Midline shift: None. Brainstem/Cerebellum: Normal. Calvarium: Normal. Visualized Paranasal sinuses/Mastoids: Clear. Soft Tissues: Unremarkable. IMPRESSION: No acute intracranial process. Labs on day of discharge: Labs from last 24 hours 04/19/20 10:38 SARS-CoV-2 Source Nasal/nares SARS-CoV-2 (PCR) Not detected PENDING SALE TO [facility] Medical History Autism spectrum disorder with accompanying intellectual disability without language impairment, requiring substantial support Diabetes mellitus a. on oral medications b. Hgb A1C 7.5 c. 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 Since ?
--- NOTE | 2020-04-21 17:20 | PDOC.CMDIS ---
LACE Index Scoring Tool - Questions: Length of Stay (in days): 2 Acuity (Admit via E.D.?): Yes Comorbidities: Diabetes w/o Complication E.D. Visits: 2 - Answers: Total Score: 8 Risk of Readmission: Low Risk Care Management Discharge Reason for Hospitalization: Decompensated Schizoaffective Disorder Discharge Plan: Kandace will return to her home at [place] and follow up with her community based supports, including [facility] at [facility]. She will transport via private vehicle with her [employer]. - MH Services (Omit if N/A) Current MH Services: [facility]
== END 2020-04-21 13:52 | disposition designated cancer center or children's hospital (05) | DRG 885 ==
LOC: ER 13:11 → MS 13:34
PROVIDERS: Nurse Practitioner Acute Care; Admitting Provider Internal Medicine; Emergency Provider Physician Assistant; PCP Family Medicine; Visit Provider Internal Medicine
DX: F25.9 Schizoaffective disorder, unspecified (principal); E11.9 Type 2 diabetes mellitus without complications; E03.9 Hypothyroidism, unspecified
CPT/HCPCS: 36415; 80053; 80307; 99223; 99233; 99239; 99285; U0003; 70450; 80320; 81003; 83036; 84443; 84703; 85025; J3490

== ENCOUNTER 2020-05-08 05:50 | Outpatient (REF) | payer MEDICAID, SELFPAY | END 2020-05-08 06:10 | LOC: NCHCN 05:50 | PROVIDERS: PCP Family Medicine; Visit Provider Nurse Practitioner Family | DX: R32 Unspecified urinary incontinence (principal) | CPT/HCPCS: 87086 ==

== ENCOUNTER 2020-05-17 15:13 | Outpatient (REF) | payer MEDICAID, SELFPAY | END 2020-05-17 15:33 | LOC: NCHCN 15:13 | PROVIDERS: PCP Family Medicine; Visit Provider Physician Assistant Medical | DX: R32 Unspecified urinary incontinence (principal); R41.82 Altered mental status, unspecified | CPT/HCPCS: 87086 ==

== ENCOUNTER 2020-05-25 05:11 | Outpatient (CLI) | payer MEDICAID, SELFPAY ==
[2020-05-25 12:04] LABS: Abs Immature Grans 0.28 10^3/uL (0.0-0.06); Absolute Basophil Count 0.04 10^3/uL (0.0-0.2); Absolute Eosinophil Count 0.04 10^3/uL (0.0-0.7); Absolute Monocyte Count 1.09 10^3/uL (0.1-0.8); Basophils % 0.3; Eosinophils % 0.3; HCT 40.6 % (36.0-46.0); HGB 13.3 g/dL (11.2-15.7); Immature Grans % 2.3; MCH 29.8 pg (27.0-33.0); MCHC 32.8 % (32.0-36.0); MCV 90.8 fL (80-95); MPV 10.2 fL (8.0-11.0); Monocytes % 8.9; Neutrophils % 61.2; Nucleated RBC 0 %; Platelet Count 377 10^3/uL (130-400); RBC 4.47 10^6/uL (3.93-5.22); RDW 14.9 % (11.7-14.6); RDW-SD 49.5 fL; WBC 12.24 10^3/uL (4.4-10.8)
[2020-05-25 12:05] LABS: Absolute Neutrophil Count 7.49 10^3/uL (1.2-6.7)
[2020-05-25 12:59] LABS: Anion Gap 4.6 mmol/L (3-11); BUN 22 mg/dL (7-18); CO2 31.4 mmol/L (21.0-32.0); CREATININE 0.83 mg/dL (0.55-1.02); Calcium 9.9 mg/dL (8.5-10.1); Chloride 104 mmol/L (98-107); Glucose 151 mg/dL (74-106); Potassium 4.4 mmol/L (3.5-5.1); Sodium 140 mmol/L (136-145)
== END 2020-05-25 05:31 ==
PROVIDERS: Internal Medicine; PCP Family Medicine; Visit Provider Nurse Practitioner Family
DX: F20.9 Schizophrenia, unspecified (principal); Z79.899 Other long term (current) drug therapy; E86.0 Dehydration
CPT/HCPCS: 36415; 80048; 85025

== ENCOUNTER 2020-06-22 02:40 | Outpatient (CLI) | payer MEDICAID, SELFPAY ==
[2020-06-22 13:25] LABS: Abs Immature Grans 0.41 10^3/uL (0.0-0.06); Absolute Eosinophil Count 0.05 10^3/uL (0.0-0.7); Absolute Monocyte Count 0.86 10^3/uL (0.1-0.8); Basophils % 0.2; Eosinophils % 0.4; HCT 37.2 % (36.0-46.0); Immature Grans % 3.3; Lymphocytes % 32.4; MCH 29.3 pg (27.0-33.0); MCHC 32.3 % (32.0-36.0); MCV 90.7 fL (80-95); MPV 10.3 fL (8.0-11.0); Neutrophils % 56.7; Nucleated RBC 0 %; Platelet Count 344 10^3/uL (130-400); RDW 15.8 % (11.7-14.6); RDW-SD 52.6 fL; WBC 12.27 10^3/uL (4.4-10.8)
[2020-06-22 13:26] LABS: Absolute Basophil Count 0.02 10^3/uL (0.0-0.2); Absolute Lymphocyte Count 3.98 10^3/uL (1.2-3.4); Absolute Neutrophil Count 6.96 10^3/uL (1.2-6.7)
[2020-06-22 13:40] LABS: Ammonia < 10 umol/L (11-32); Hemoglobin A1C 7.6 % (<5.7)
[2020-06-22 14:44] LABS: Vitamin D 25 Total 11.3 ng/ml (30-100)
[2020-06-22 14:50] LABS: ALT 12 U/L (14-59); AST 8 U/L (15-37); Albumin 3.3 g/dL (3.4-5.0); Alkaline Phosphatase 93 U/L (46-116); Anion Gap 6.6 mmol/L (3-11); BUN 22 mg/dL (7-18); Bilirubin, Total 0.2 mg/dL (0.2-1.0); CO2 30.4 mmol/L (21.0-32.0); CREATININE 0.89 mg/dL (0.55-1.02); Calcium 9.4 mg/dL (8.5-10.1); Calculated LDL 91 mg/dL (<100); Chloride 103 mmol/L (98-107); Cholesterol 179 mg/dL (<200); Glucose 131 mg/dL (74-106); HDL Cholesterol 55 mg/dL (40-60); Potassium 4.1 mmol/L (3.5-5.1); Sodium 140 mmol/L (136-145); TSH 3.55 uIU/mL (0.36-3.74); Total Protein 6.8 g/dL (6.4-8.2); Triglyceride 168 mg/dL (<150); Vitamin B12 319 pg/mL (193-986)
[2020-06-22 15:20] LABS: C-Reactive Protein 0.18 mg/dL (0.0-0.3); FREE T4 1.19 ng/dL (0.76-1.46)
[2020-06-22 20:57] LABS: T3,Free 2.5 pg/mL (2.8-5.3)
== END 2020-06-22 03:00 ==
PROVIDERS: PCP Family Medicine; Visit Provider Psychiatry & Neurology Psychiatry
DX: F20.9 Schizophrenia, unspecified (principal); Z79.899 Other long term (current) drug therapy; E11.9 Type 2 diabetes mellitus without complications; E03.9 Hypothyroidism, unspecified
CPT/HCPCS: 36415; 80053; 80061; 82306; 82140; 82607; 83036; 83735; 84439; 84443; 84481; 85025; 86140

== ENCOUNTER 2020-07-18 03:13 | Outpatient (CLI) | payer MEDICAID, SELFPAY ==
[2020-07-18 09:21] LABS: HCT 40.3 % (36.0-46.0); HGB 13.1 g/dL (11.2-15.7); MCH 29.4 pg (27.0-33.0); MCHC 32.5 % (32.0-36.0); MCV 90.6 fL (80-95); Nucleated RBC 0 %; Platelet Count 364 10^3/uL (130-400); RBC 4.45 10^6/uL (3.93-5.22); RDW-SD 53.1 fL; WBC 13.52 10^3/uL (4.4-10.8)
[2020-07-18 09:49] LABS: Absolute Lymphocyte Count 4.73 10^3/uL (1.2-3.4); Absolute Monocyte Count 1.22 10^3/uL (0.1-0.8); Atypical Lymphocytes % 0; Bands % 4
[2020-07-18 09:50] LABS: Absolute Eosinophil Count 0.14 10^3/uL (0.0-0.7); Diff Comment Manual Differential; Metamyelocytes % 2; Myelocytes % 2; RBC Morphology Normal
== END 2020-07-18 03:14 | disposition home or self-care (01) ==
LOC: LBO 03:13
PROVIDERS: PCP Family Medicine; Visit Provider Psychiatry & Neurology Psychiatry
DX: F20.9 Schizophrenia, unspecified (principal); Z79.899 Other long term (current) drug therapy
CPT/HCPCS: 36415; 85025

== ENCOUNTER 2020-08-01 03:22 | Outpatient (CLI) | payer MEDICAID, SELFPAY ==
[2020-08-01 14:42] LABS: Abs Immature Grans 0.47 10^3/uL (0.0-0.06); Absolute Basophil Count 0.08 10^3/uL (0.0-0.2); Absolute Eosinophil Count 0.11 10^3/uL (0.0-0.7); Absolute Lymphocyte Count 3.66 10^3/uL (1.2-3.4); Absolute Monocyte Count 0.67 10^3/uL (0.1-0.8); Absolute Neutrophil Count 5.56 10^3/uL (1.2-6.7); Basophils % 0.8; HCT 38.4 % (36.0-46.0); HGB 12.4 g/dL (11.2-15.7); Immature Grans % 4.5; Lymphocytes % 34.7; MCH 29.2 pg (27.0-33.0); MCHC 32.3 % (32.0-36.0); MCV 90.6 fL (80-95); MPV 9.9 fL (8.0-11.0); Monocytes % 6.4; Neutrophils % 52.6; Nucleated RBC 0 %; Platelet Count 324 10^3/uL (130-400); RBC 4.24 10^6/uL (3.93-5.22); RDW 16.6 % (11.7-14.6); RDW-SD 55.7 fL; WBC 10.55 10^3/uL (4.4-10.8)
[2020-08-01 14:50] LABS: Hemoglobin A1C 8.3 % (<5.7)
[2020-08-01 14:52] LABS: Ammonia 15 umol/L (11-32)
[2020-08-01 14:56] LABS: VALPROIC ACID 114.1 ug/mL (50-100)
[2020-08-01 16:13] LABS: ALT 16 U/L (14-59); AST 15 U/L (15-37); Albumin 3.4 g/dL (3.4-5.0); Alkaline Phosphatase 99 U/L (46-116); Anion Gap 4.4 mmol/L (3-11); BUN 20 mg/dL (7-18); Bilirubin, Total 0.2 mg/dL (0.2-1.0); CO2 31.6 mmol/L (21.0-32.0); CREATININE 0.8 mg/dL (0.55-1.02); Calcium 9.7 mg/dL (8.5-10.1); Calculated LDL 90 mg/dL (<100); Chloride 99 mmol/L (98-107); Cholesterol 173 mg/dL (<200); Glucose 118 mg/dL (74-106); HDL Cholesterol 58 mg/dL (40-60); Magnesium 1.9 mg/dL (1.8-2.4); Potassium 4.1 mmol/L (3.5-5.1); Sodium 135 mmol/L (136-145); TSH 12.98 uIU/mL (0.36-3.74); Total Protein 7.2 g/dL (6.4-8.2); Triglyceride 125 mg/dL (<150); Vitamin B12 247 pg/mL (193-986)
[2020-08-01 16:52] LABS: C-Reactive Protein 0.36 mg/dL (0.0-0.3); FREE T4 1.23 ng/dL (0.76-1.46)
[2020-08-02 16:16] LABS: T3,Free 2.4 pg/mL (2.8-5.3)
[2020-08-03 04:57] LABS: Vitamin D 25 Total 26.2 ng/ml (30-100)
[2020-08-04 21:48] LABS: Clozapine 1060 ng/mL (350-600); Clozapine+Norclozapine Total 1470 ng/mL (>450); Norclozapine 410 ng/mL
== END 2020-08-01 03:23 | disposition home or self-care (01) ==
LOC: LBO 03:22
PROVIDERS: PCP Family Medicine; Visit Provider Psychiatry & Neurology Psychiatry
DX: F25.0 Schizoaffective disorder, bipolar type (principal); Z51.81 Encounter for therapeutic drug level monitoring; Z79.899 Other long term (current) drug therapy
CPT/HCPCS: 36415; 80053; 80061; 82306; 80159; 80164; 82140; 82607; 83036; 83735; 84439; 84443; 84481; 85025; 86140

== ENCOUNTER 2020-09-04 03:41 | Outpatient (CLI) | payer MEDICAID, SELFPAY ==
[2020-09-04 10:04] LABS: Abs Immature Grans 0.48 10^3/uL (0.0-0.06); HCT 41.5 % (36.0-46.0); HGB 13.2 g/dL (11.2-15.7); MCH 29.5 pg (27.0-33.0); MCHC 31.8 % (32.0-36.0); MCV 92.8 fL (80-95); MPV 10.4 fL (8.0-11.0); Nucleated RBC 0 %; Platelet Count 342 10^3/uL (130-400); RBC 4.47 10^6/uL (3.93-5.22); RDW 15.9 % (11.7-14.6); RDW-SD 53.8 fL; WBC 8.14 10^3/uL (4.4-10.8)
[2020-09-04 10:20] LABS: Absolute Eosinophil Count 0.16 10^3/uL (0.0-0.7); Absolute Lymphocyte Count 3.66 10^3/uL (1.2-3.4); Absolute Monocyte Count 0.41 10^3/uL (0.1-0.8); Absolute Neutrophil Count 3.34 10^3/uL (1.2-6.7); Bands % 3; Diff Comment Manual Differential; Metamyelocytes % 2; Myelocytes % 5
[2020-09-04 10:22] LABS: RBC Morphology Normal
[2020-09-04 10:32] LABS: Hemoglobin A1C 7.8 % (<5.7)
[2020-09-04 10:37] LABS: Ammonia < 10 umol/L (11-32)
[2020-09-04 11:07] LABS: Vitamin D 25 Total 34.1 ng/ml (30-100)
[2020-09-04 11:15] LABS: ALT 15 U/L (14-59); AST 12 U/L (15-37); Albumin 3.3 g/dL (3.4-5.0); Alkaline Phosphatase 110 U/L (46-116); Anion Gap 4.7 mmol/L (3-11); BUN 27 mg/dL (7-18); Bilirubin, Total 0.2 mg/dL (0.2-1.0); CO2 33.3 mmol/L (21.0-32.0); CREATININE 0.7 mg/dL (0.55-1.02); Calcium 9.9 mg/dL (8.5-10.1); Calculated LDL 105 mg/dL (<100); Chloride 104 mmol/L (98-107); Cholesterol 175 mg/dL (<200); Glucose 138 mg/dL (74-106); HDL Cholesterol 53 mg/dL (40-60); Magnesium 2.1 mg/dL (1.8-2.4); Potassium 4.4 mmol/L (3.5-5.1); Sodium 142 mmol/L (136-145); Total Protein 7.2 g/dL (6.4-8.2); Triglyceride 87 mg/dL (<150); Vitamin B12 316 pg/mL (193-986)
[2020-09-04 11:34] LABS: C-Reactive Protein 0.34 mg/dL (0.0-0.3); FREE T4 1.27 ng/dL (0.76-1.46)
[2020-09-04 16:53] LABS: T3,Free 2.8 pg/mL (2.8-5.3)
== END 2020-09-04 03:42 | disposition home or self-care (01) ==
LOC: LBO 03:41
PROVIDERS: PCP Family Medicine; Visit Provider Psychiatry & Neurology Psychiatry
DX: F25.0 Schizoaffective disorder, bipolar type (principal); Z79.899 Other long term (current) drug therapy
CPT/HCPCS: 36415; 80053; 80061; 82306; 82140; 82607; 83036; 83735; 84439; 84443; 84481; 85025; 86140

== ENCOUNTER 2020-10-02 03:30 | Outpatient (CLI) | payer MEDICAID, SELFPAY ==
[2020-10-02 09:40] LABS: Abs Immature Grans 0.57 10^3/uL (0.0-0.06); Absolute Basophil Count 0.06 10^3/uL (0.0-0.2); Absolute Eosinophil Count 0.04 10^3/uL (0.0-0.7); Absolute Lymphocyte Count 3.49 10^3/uL (1.2-3.4); Absolute Monocyte Count 0.77 10^3/uL (0.1-0.8); Absolute Neutrophil Count 5.79 10^3/uL (1.2-6.7); Basophils % 0.6; Eosinophils % 0.4; HCT 40.2 % (36.0-46.0); HGB 12.8 g/dL (11.2-15.7); Immature Grans % 5.3; Lymphocytes % 32.6; MCH 29.1 pg (27.0-33.0); MCHC 31.8 % (32.0-36.0); MCV 91.4 fL (80-95); MPV 10.4 fL (8.0-11.0); Monocytes % 7.2; Neutrophils % 53.9; Nucleated RBC 0 %; Platelet Count 421 10^3/uL (130-400); RDW 15.2 % (11.7-14.6); RDW-SD 50.9 fL; WBC 10.72 10^3/uL (4.4-10.8)
[2020-10-02 10:14] LABS: Diff Comment Agrees w/ Instrument; RBC Morphology Normal
== END 2020-10-02 03:31 | disposition home or self-care (01) ==
PROVIDERS: PCP Family Medicine; Visit Provider Psychiatry & Neurology Psychiatry
DX: F20.9 Schizophrenia, unspecified (principal); Z79.899 Other long term (current) drug therapy
CPT/HCPCS: 36415; 85025

== ENCOUNTER 2020-10-21 13:48 | Emergency (ER) | payer MEDICAID, SELFPAY ==
[2020-10-21] VITALS (21 sets, daily range): BP systolic 114–142; BP diastolic 61–74; PULSE 87–104; RESP 13–22; TEMP 36.7; O2SAT 88–99
--- NOTE | 2020-10-21 13:59 | W.ED.GENAD ---
Discharge Plan Disposition Patient Disposition: HOME Condition: Good Discharge Details Clinical Impression: Encounter for medical assessment, Acute alteration in mental status Primary Care Provider: Sol Ashley V ED Provider: Nelson Mcmullen Home Meds and New Rx's Prescriptions: Continued levothyroxine 25 MCG tablet 112 mcg PO DAILY@0730 RF: 0 aspirin [Aspir-81] 81 MG tablet,delayed release (DR/EC) 81 mg PO QAM RF: 0 ibuprofen [Ibuprofen IB] 200 MG tablet 400 mg PO Q8H PRNRF: 0 polyethylene glycol 3350 17 gram/dose powder 17 g PO DAILY RF: 0 clozapine [Clozaril] 100 mg tablet 400 mg PO .200 mg am, 400 mg HS RF: 0 benztropine 0.5 mg tablet 0.5 mg PO BID RF: 0 quetiapine [Seroquel] 100 mg tablet 100 mg PO HS RF: 0 cholecalciferol (vitamin D3) [Vitamin D3] 50 mcg (2,000 unit) Capsule 50 mcg PO DAILY RF: 0 Advanced Probiotic-10 13 mg (3 billion cell) capsule 1 cap PO BID RF: 0 acetaminophen [Acetaminophen Extra Strength] 500 mg tablet 1,000 mg PO ONCE PRNRF: 0 divalproex [Depakote ER] 500 mg tablet extended release 24 hr 1,000 - 2,000 mg PO BID RF: 0 omeprazole 20 mg Capsule,Delayed Release(Dr/Ec) 20 mg PO DAILY RF: 0 folic acid 1 mg Tablet 1 mg PO DAILY RF: 0 lisinopril 5 mg Tablet 5 mg PO DAILY RF: 0 hydrochlorothiazide 25 mg Tablet 25 mg PO DAILY RF: 0 clotrimazole [Lotrimin AF (clotrimazole)] 1 % Cream 1 applic TOPICAL BID PRNRF: 0 clindamycin phos-skin clnsr 19 1 % Kit 1 % TOPICAL PRN PRNRF: 0 guaifenesin [Mucinex] 600 mg Tablet Extended Release 12hr 600 mg PO Q12H PRNRF: 0 metformin 1,000 mg tablet 1,000 mg PO BID RF: 0 glipizide 10 mg tablet extended release 24hr 20 mg PO QAM RF: 0 tolterodine 2 mg tablet 2 mg PO HS RF: 0 Discharge Instructions Instructions: Altered Mental Status (ED) Additional Instructions: At this time there is no evidence of acute life-threatening etiology noted on exam or work-up. As we discussed together I suspect that there is a component of combination of her chronic brain diseases in conjunction with her age. As we discussed please make sure that she avoids any scenarios that would be concerning or of potential threat for her. Ensure she has close monitoring throughout the day and night, that there is no active running water that she can utilize while she is alone. If you notice any worsening of your symptoms, or any new symptoms such as vomiting, diarrhea, fever, chills, shortness of breath, chest pain, numbness, weakness, or fainting , please return immediately to the emergency department for reevaluation. Please follow up with your primary care provider as soon as possible for reassessment and reevaluation. As always, it was a pleasure participating in your medical care today. Referrals: Sol Ashley MD [Primary Care Provider] - Stephen Ozuna [ NON-[facility] STAFF PHYSICIAN] - Medical Decision Making 50-year-old female with a history of schizoaffective disorder, bipolar tendencies, autism, intellectual disability, PTSD, diabetes, GERD and hypothyroidism presents today via EMS from her care facility [facility] for confusion and fatigue. Facility states that this morning the patient was difficult to arouse in the morning and kept wanting to go back to sleep. And then later while taking breakfast she kept falling asleep. Does appear that over the past few days she is fallen asleep on the bathtub. Review of her recent neurology note indicates continued and worsening of her chronic intellectual challenges and mood disorders. Patient currently has no complaints whatsoever. No other modifying factors. Physical exam demonstrates no signs of trauma, no evidence of meningitis, no evidence of significant abnormality. Uncertain as to what the exact etiology of her symptoms are, but at this time she shows no signs of altered mental status, somnolence, or other significant abnormality. We will get a Depakote level, clozapine is a send out test and we will send for this. We will check thyroid function. Blood sugar level is otherwise unremarkable. We will get a CT scan of the head, evaluate for potential causes of mental status changing etiologies, monitor closely and reassess. 3:45 PM Patient's laboratory work-up is returned relatively unremarkable. Depakote level was at the patient's baseline. No evidence of significant infectious etiology, urinalysis negative, venous pH is normal, PCO2 is slightly elevated which appears chronic and not acute. No clinical evidence of hypercarbic encephalopathy clinically. Ammonia level normal, salicylate acetaminophen urine drug screen and alcohol levels all normal. Because of pain is a send out test. Will copy outpatient PCP and Dr. Paredes for close follow-up. On assessment here the patient demonstrates a complete resolution of her initial symptomatology that occurred at her facility. She is flirting vigorously with our x-ray staff, and shows no signs of new or changed altered mental status. No focal neurologic deficits. Symptoms are inconsistent with stroke. I did contact Mercedes Manrique, who is the caregiver for the patient and discussed the case with her. We did discuss recommendations for close monitoring throughout the day, shutting off of the water or other potential risk factors at her room when she is not being observed, and close follow-up with her PCP and Dr. Paredes. This time patient will be discharged. Mirian Manrique recommended transfer via RCT. I have extensively reviewed the treatment plan and discharge instructions with the patient and their family. I have addressed all patient concerns at this time. The patient and family was made aware of what symptoms to monitor for that would warrant a return to the emergency department. Discussed the plan with the patient and family, they demonstrate verbal understanding and agreement with our assessment and plan at this time. The documentation in this chart was dictated using [employer] dictation software. Please excuse any dictation errors. At this time there is no evidence of acute life-threatening etiology needing additional emergency management. FINDINGS: Brain: Ventricles, sulci are unchanged when compared with the patient's prior exam. There is tissue loss/encephalomalacia noted in the left parietal lobe likely related to remote ischemic change also seen in 2020. There is no new hemorrhage. There is no new intracranial mass or shift. There is no evidence of a new cortical or major vascular territory infarct. No new extra-axial collections are identified. Cerebral ventricles: Ventricular size is stable Bones/joints: There is no new bony abnormality Paranasal sinuses: There is no new sinus opacification or fluid level Mastoid air cells: There is no new mastoid or middle ear opacification Soft tissues: Subcutaneous soft tissues are unremarkable IMPRESSION: No new or acute findings when compared with the patient's prior exam. Thank you for allowing us to participate in the care of your patient. Dictated and Authenticated by: Gloria Fung MD 10/21/2020 3:16 PM Eastern Time ([place] & [place]) HPI General Date/Time Provider Initiated Documentation: 10/21/20 14:00. HPI Narrative: 50-year-old female with a history of schizoaffective disorder, bipolar tendencies, autism, intellectual disability, PTSD, diabetes, GERD and hypothyroidism presents today via EMS from her care facility [facility] for confusion and fatigue. Facility states that this morning the patient was difficult to arouse in the morning and kept wanting to go back to sleep. And then later while taking breakfast she kept falling asleep. Does appear that over the past few days she is fallen asleep on the bathtub. Review of her recent neurology note indicates continued and worsening of her chronic intellectual challenges and mood disorders. Patient currently has no complaints whatsoever. No other modifying factors. Related Data Home Medications Medication Instructions Recorded Confirmed levothyroxine 112 mcg PO DAILY@0730 10/18/13 10/21/20 aspirin [Aspir-81] 81 mg PO QAM 08/05/14 10/21/20 ibuprofen [Ibuprofen IB] 400 mg PO Q8H PRN 08/05/14 10/21/20 clindamycin phos-skin clnsr 19 1 % TOPICAL PRN PRN 09/26/18 10/21/20 clotrimazole [Lotrimin AF 1 applic TOPICAL BID PRN 09/26/18 10/21/20 (clotrimazole)] folic acid 1 mg PO DAILY 09/26/18 10/21/20 guaifenesin [Mucinex] 600 mg PO Q12H PRN 09/26/18 10/21/20 hydrochlorothiazide 25 mg PO DAILY 09/26/18 10/21/20 lisinopril 5 mg PO DAILY 09/26/18 10/21/20 omeprazole 20 mg PO DAILY 09/26/18 10/21/20 glipizide 20 mg PO QAM 01/26/20 10/21/20 metformin 1,000 mg PO BID 01/26/20 10/21/20 tolterodine 2 mg PO HS 01/26/20 10/21/20 polyethylene glycol 3350 17 g PO DAILY 04/19/20 10/21/20 acetaminophen 500 mg tablet 1,000 mg PO ONCE PRN tab 06/06/20 10/21/20 clozapine 100 mg tablet 400 mg PO .200 mg am, 400 mg HS 06/06/20 10/21/20 tab divalproex 500 mg tablet,extended 1,000 - 2,000 mg PO BID 06/06/20 10/21/20 release 24 hr Advanced Probiotic-10 1 cap PO BID 10/21/20 10/21/20 benztropine 0.5 mg PO BID 10/21/20 10/21/20 cholecalciferol (vitamin D3) 50 mcg PO DAILY 10/21/20 10/21/20 [Vitamin D3] quetiapine [Seroquel] 100 mg PO HS 10/21/20 10/21/20 Allergies Allergy/AdvReac Type Severity Reaction Status Date / Time Penicillins Allergy Severe Unverified 10/21/20 14:14 trifluoperazine HCl Allergy Unknown Unverified 10/21/20 14:14 [From Stelazine] General Stated Complaint: AMS/LOC QUINTEN: 2 Review of Systems All systems reviewed & are unremarkable except as noted in HPI and below [facility] Medical History Autism spectrum disorder with accompanying intellectual disability without language impairment, requiring substantial support Diabetes mellitus a. on oral medications b. Hgb A1C 7.5 c. 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 Since ?2009+ Exam Narrative Exam Narrative: 1.Const: Well-nourished, Well-developed, appearing stated age 2.Eyes: PERRL, no conjunctival injection, and symmetrical lids. 3.ENT: Atraumatic external nose and ears. Moist MM. Neck: Symmetric, trachea midline, No thyromegaly. Patient demonstrates good movement of cervical neck. There is no nuchal rigidity, no nuchal tenderness. Patient is able to flex the neck without any difficulty or significant pain. Negative Kernig's and Brudzinski sign. There is no evidence of raccoon eyes, santos sign, CSF rhinorrhea, mastoid tenderness, cranial crepitus, hemotympanum, exophthalmos, or hyphema. Patient demonstrates intact dentition with no signs of tooth avulsion or fracture, no signs of jaw deformity, no evidence of a LeFort's fracture, with an intact palate, nose and orbital region. There is no evidence of a nasal septal hematoma. No proptosis. Jaw closes symmetrically. Airway is clear. 4.CVS: +S1/S2, No murmurs or gallops. Peripheral pulses 2+ and equal in all extremities. Brisk capillary refill in all extremities. 5.RESP: Unlabored respiratory effort. Clear to auscultation bilaterally. No wheezes rales or rhonchi 6.GI: Soft, Nontender/Nondistended, No hepatosplenomegaly. No guarding or rebound. 7.MSK: Normocephalic/Atraumatic, Extremities w/o deformity or ttp No cyanosis or clubbing, Normal movement of all extremities 8.Skin: Warm, Dry. No rashes or lesions. 9.Neuro: forester silviculture II-XII grossly intact. Sensation grossly intact, no focal neurologic deficits. 10.Psych: (AAO) x3. She is aware of the date, location, and president. She otherwise appears somewhat pleasantly confused. Upon review of her records this does seem to be her baseline. At this time she demonstrates no signs of somnolence or profound fatigue. Course Vital Signs Vital signs: Vital Signs Temperature 36.7 C 10/21/20 13:48 Pulse 96 H 10/21/20 13:48 Respiratory Rate 13 10/21/20 13:48 Blood Pressure 135/73 10/21/20 13:48 Pulse Oximetry 98 10/21/20 13:48 Temperature 36.7 C 10/21/20 13:48 Temperature Source Skin 10/21/20 13:48 Pulse 96 H 10/21/20 13:48 Respiratory Rate 13 10/21/20 13:48 Blood Pressure 135/73 10/21/20 13:48 Pulse Oximetry 98 10/21/20 13:48 Oxygen Delivery Method Room Air 10/21/20 13:48 Oxygen Flow Rate 0 10/21/20 13:48 Pain Level 4 10/21/20 13:48 Comment 10/21/20 13:48
[2020-10-21 14:17] LABS: BE (Venous) 12 mmol/L (-2-3); HCO3 (Venous) 37 mmol/L (23-28); O2 Sat (Venous) 47 %; TCO2 (Venous) 34 mmol/L (24-29); pCO2 (Venous) 60 mmHg (41-51); pO2 (Venous) 27 mmHg
[2020-10-21] MEDS: Normal Saline 500 ML IV (14:17)
[2020-10-21 14:20] LABS: Carboxyhemoglobin 1.5 %
[2020-10-21 14:23] LABS: Absolute Basophil Count 0.05 10^3/uL (0.0-0.2); Absolute Eosinophil Count 0.03 10^3/uL (0.0-0.7); Absolute Lymphocyte Count 3.62 10^3/uL (1.2-3.4); Absolute Monocyte Count 0.84 10^3/uL (0.1-0.8); Absolute Neutrophil Count 6.45 10^3/uL (1.2-6.7); Basophils % 0.4; Eosinophils % 0.3; HCT 43.6 % (36.0-46.0); HGB 13.7 g/dL (11.2-15.7); Immature Grans % 2.7; Lymphocytes % 32.1; MCH 28.5 pg (27.0-33.0); MCHC 31.4 % (32.0-36.0); MCV 90.8 fL (80-95); MPV 10.4 fL (8.0-11.0); Monocytes % 7.4; Neutrophils % 57.1; Nucleated RBC 0 %; Platelet Count 277 10^3/uL (130-400); RDW 14.6 % (11.7-14.6); RDW-SD 48.9 fL; WBC 11.29 10^3/uL (4.4-10.8)
[2020-10-21 14:25] LABS: Bilirubin Negative (Negative); Blood Trace-intact (Negative); Clarity Clear (Clear); Glucose 100 mg/dL (Negative); Ketones Negative (Negative); Leukocyte Esterase Negative (Negative); Nitrite Negative (Negative); Urobilinogen 0.2 EU/dL (Up TO 0.2); pH 7.5 (5-8)
[2020-10-21 14:33] LABS: Bacteria Negative HPF (Negative); C & S Indicated? No; Casts Negative LPF (Negative); Crystals Negative HPF (Negative); Epithelial Cells Few HPF (Negative); Mucus Negative (Negative); WBC Negative HPF (0-5)
--- NOTE | 2020-10-21 14:38 | DI.CT_ITS ---
Exam(s) CT HEAD WO EXAM: CT HEAD WO CLINICAL HISTORY: confusion, ams. TECHNIQUE: Imaging Protocol: Axial computed tomography images with coronal and sagittal reformatted images were created and reviewed COMPARISON: CT CT HEAD WO from 04/19/2020 FINDINGS: None no skull fractures nor fluid the visualized paranasal sinuses and mastoid air cells. Some muco raisa thickening in the lateral wall the right maxillary sinus is noted on the lower most image of this study. No associated fluid level within this sinus. There is no evidence of intracranial hemorrhage, mass effect, or shift of midline structures. There are no extra-axial fluid collections. The ventricles are not enlarged or shifted and there is no blo od within the ventricular system nor within the basal cisterns. Abnormal area of white matter hypodensity in the left parietal lobe is again noted consistent with pr ior area of infarct. IMPRESSION: No acute intracranial findings on this noninfused CT scan of the brain. Abnormal area of hypodensity in the left parietal lobe consistent with non acute area of infarction. This was evident on the April 2020 study. RADIATION DOSE DELIVERED: 646.93mGy.cm Total DLP DATA REPOSITORY: All CT scans at this facility are submitted to the National Radiology Data Registry (NRDR) Dose Index Registry (DIR) with the [employer] (ACR). RADIATION OPTIMIZATION: All CT scans at this facility use at least one of these dose optimization te chniques: automated exposure control; mA and/or kV adjustment per patient size (includes targeted exa ms where dose is matched to clinical indication); or iterative reconstruction.
[2020-10-21 14:48] LABS: *AMPHETAMINES SCREEN URINE Negative (Negative); *BARBITURATES SCREEN URINE Negative (Negative); *BENZODIAZEPINES SCREEN URINE Negative (Negative); Cannabinoids THC Negative (Negative); Cocaine Screen,Urine Negative (Negative); METHADONE URINE SCREEN Negative (Negative); OPIATES URINE SCREEN Negative (Negative)
[2020-10-21 14:49] LABS: Tricyclic Antidepressants Negative (Negative)
[2020-10-21 14:51] LABS: Salicylate < 2.8 mg/dL (<2.8)
[2020-10-21 14:52] LABS: Acetaminophen < 2 ug/mL (10-30)
[2020-10-21 14:54] LABS: VALPROIC ACID 114.5 ug/mL (50-100)
[2020-10-21 14:59] LABS: ALT 14 U/L (14-59); AST 15 U/L (15-37); Albumin 3.4 g/dL (3.4-5.0); Alkaline Phosphatase 113 U/L (46-116); Anion Gap 6.8 mmol/L (3-11); BUN 20 mg/dL (7-18); Bilirubin, Total 0.2 mg/dL (0.2-1.0); CO2 34.2 mmol/L (21.0-32.0); CREATININE 0.7 mg/dL (0.55-1.02); Calcium 9.6 mg/dL (8.5-10.1); Chloride 102 mmol/L (98-107); Glucose 105 mg/dL (74-106); Potassium 4.1 mmol/L (3.5-5.1); Sodium 143 mmol/L (136-145); TSH (W/Ref FT4) 5.57 uIU/mL (0.36-3.74); Total Protein 7.2 g/dL (6.4-8.2)
[2020-10-21 15:09] LABS: ETHANOL BLOOD < 3.0 mg/dL (<3)
--- NOTE | 2020-10-21 15:16 | DI.VRAD_ITS ---
PROCEDURE INFORMATION: Exam: CT Head Without Contrast Exam date and time: 10/21/2020 2:36 PM Age: 50 years old Clinical indication: Other: Confusion, AMS TECHNIQUE: Imaging protocol: Computed tomography of the head without contrast. COMPARISON: CT HEAD WO 04/19/2020 10:50 AM FINDINGS: Brain: Ventricles, sulci are unchanged when compared with the patient's prior exam. There is tissue loss/encephalomalacia noted in the left parietal lobe likely related to remote ischemic change also seen in 2019. There is no new hemorrhage. There is no new intracranial mass or shift. There is no evidence of a new cortical or major vascular territory infarct. No new extra-axial collections are identified. Cerebral ventricles: Ventricular size is stable Bones/joints: There is no new bony abnormality Paranasal sinuses: There is no new sinus opacification or fluid level Mastoid air cells: There is no new mastoid or middle ear opacification Soft tissues: Subcutaneous soft tissues are unremarkable IMPRESSION: No new or acute findings when compared with the patient's prior exam. Dictated and Authenticated by: Gloria Fung MD. Ordering:DEONDRE Damon MD
[2020-10-21 15:20] LABS: FREE T4 0.99 ng/dL (0.76-1.46)
--- NOTE | 2020-10-21 15:56 | NUR.NOTE ---
pt provided with meal tray Nursing Note:
--- NOTE | 2020-10-21 17:15 | NUR.NOTE ---
Nursing Note REFERRED TO CM. ROLLE
[2020-10-24 01:39] LABS: Clozapine 757 ng/mL (350-600); Clozapine+Norclozapine Total 997 ng/mL (>450); Norclozapine 240 ng/mL
== END 2020-10-21 16:18 | disposition home or self-care (01) ==
LOC: ER 16:01
PROVIDERS: Emergency Provider Student in an Organized Health Care Education/Training Program; PCP Family Medicine
DX: R53.83 Other fatigue (principal); R41.82 Altered mental status, unspecified
CPT/HCPCS: 36415; 80053; 80307; 82375; 82805; 96360; 99284; 70450; 80159; 80164; 80320; 80329; 81003; 81015; 84439; 84443; 85025; 99285

== ENCOUNTER 2020-10-24 03:32 | Outpatient (CLI) | payer MEDICAID, SELFPAY ==
[2020-10-24 14:39] LABS: Abs Immature Grans 0.38 10^3/uL (0.0-0.06); Absolute Basophil Count 0.06 10^3/uL (0.0-0.2); Absolute Eosinophil Count 0.03 10^3/uL (0.0-0.7); Absolute Lymphocyte Count 3.11 10^3/uL (1.2-3.4); Absolute Monocyte Count 0.84 10^3/uL (0.1-0.8); Basophils % 0.6; Eosinophils % 0.3; HCT 40.5 % (36.0-46.0); Immature Grans % 3.6; Lymphocytes % 29.8; MCH 29.3 pg (27.0-33.0); MCHC 32.1 % (32.0-36.0); MCV 91.2 fL (80-95); MPV 10.3 fL (8.0-11.0); Monocytes % 8.1; Neutrophils % 57.6; Nucleated RBC 0 %; Platelet Count 341 10^3/uL (130-400); RBC 4.44 10^6/uL (3.93-5.22); RDW 14.6 % (11.7-14.6); RDW-SD 49.1 fL; WBC 10.42 10^3/uL (4.4-10.8)
== END 2020-10-24 03:33 | disposition home or self-care (01) ==
LOC: LBO 03:32
PROVIDERS: PCP Family Medicine; Visit Provider Psychiatry & Neurology Psychiatry
DX: F20.9 Schizophrenia, unspecified (principal); Z79.899 Other long term (current) drug therapy
CPT/HCPCS: 36415; 85025

== ENCOUNTER 2020-11-14 02:51 | Outpatient (CLI) | payer MEDICAID, SELFPAY ==
[2020-11-14 09:11] LABS: Abs Immature Grans 0.46 10^3/uL (0.0-0.06); Absolute Basophil Count 0.06 10^3/uL (0.0-0.2); Absolute Eosinophil Count 0.04 10^3/uL (0.0-0.7); Absolute Lymphocyte Count 2.89 10^3/uL (1.2-3.4); Absolute Neutrophil Count 5.12 10^3/uL (1.2-6.7); Basophils % 0.7; Eosinophils % 0.4; HCT 42.3 % (36.0-46.0); HGB 13.7 g/dL (11.2-15.7); Lymphocytes % 31.5; MCH 28.9 pg (27.0-33.0); MCHC 32.4 % (32.0-36.0); MCV 89.2 fL (80-95); MPV 10.6 fL (8.0-11.0); Monocytes % 6.5; Neutrophils % 55.9; Nucleated RBC 0 %; Platelet Count 315 10^3/uL (130-400); RBC 4.74 10^6/uL (3.93-5.22); RDW 15.1 % (11.7-14.6); RDW-SD 49.8 fL; WBC 9.17 10^3/uL (4.4-10.8)
== END 2020-11-14 02:52 | disposition home or self-care (01) ==
LOC: LBO 02:51
PROVIDERS: PCP Family Medicine; Visit Provider Psychiatry & Neurology Psychiatry
DX: F20.9 Schizophrenia, unspecified (principal); Z79.899 Other long term (current) drug therapy
CPT/HCPCS: 36415; 85025

== ENCOUNTER 2020-12-11 03:31 | Outpatient (CLI) | payer MEDICAID, SELFPAY ==
[2020-12-11 11:14] LABS: Abs Immature Grans 0.76 10^3/uL (0.0-0.06); HCT 39.2 % (36.0-46.0); HGB 12.7 g/dL (11.2-15.7); MCH 28.7 pg (27.0-33.0); MCHC 32.4 % (32.0-36.0); MCV 88.5 fL (80-95); MPV 10.5 fL (8.0-11.0); Nucleated RBC 0 %; Platelet Count 269 10^3/uL (130-400); RBC 4.43 10^6/uL (3.93-5.22); RDW 15.9 % (11.7-14.6); RDW-SD 51.8 fL; WBC 13.15 10^3/uL (4.4-10.8)
[2020-12-11 11:35] LABS: Absolute Basophil Count 0.13 10^3/uL (0.0-0.2); Absolute Eosinophil Count 0.39 10^3/uL (0.0-0.7); Absolute Lymphocyte Count 3.55 10^3/uL (1.2-3.4); Absolute Monocyte Count 0.53 10^3/uL (0.1-0.8); Absolute Neutrophil Count 7.63 10^3/uL (1.2-6.7); Bands % 8; Diff Comment Manual Differential; Metamyelocytes % 7; RBC Morphology Normal
== END 2020-12-11 03:32 | disposition home or self-care (01) ==
LOC: LBO 03:31
PROVIDERS: PCP Family Medicine; Visit Provider Psychiatry & Neurology Psychiatry
DX: F20.9 Schizophrenia, unspecified (principal); Z79.899 Other long term (current) drug therapy
CPT/HCPCS: 36415; 85025

== ENCOUNTER 2021-01-18 04:40 | Outpatient (CLI) | payer MEDICAID, SELFPAY ==
[2021-01-18 09:39] LABS: HCT 40.8 % (36.0-46.0); MCHC 31.9 % (32.0-36.0); MCV 90.9 fL (80-95); MPV 10.2 fL (8.0-11.0); Nucleated RBC 0 %; Platelet Count 330 10^3/uL (130-400); RBC 4.49 10^6/uL (3.93-5.22); RDW 16.1 % (11.7-14.6); RDW-SD 54.2 fL; WBC 13.29 10^3/uL (4.4-10.8)
[2021-01-18 10:08] LABS: Absolute Lymphocyte Count 3.32 10^3/uL (1.2-3.4); Absolute Monocyte Count 0.93 10^3/uL (0.1-0.8); Absolute Neutrophil Count 7.97 10^3/uL (1.2-6.7); Atypical Lymphocytes % 2; Diff Comment Manual Differential; Metamyelocytes % 4; Myelocytes % 4; Polychromasia Present
== END 2021-01-18 04:41 | disposition home or self-care (01) ==
LOC: LBO 04:41
PROVIDERS: PCP Family Medicine; Visit Provider Psychiatry & Neurology Psychiatry
DX: F20.9 Schizophrenia, unspecified (principal); Z79.899 Other long term (current) drug therapy
CPT/HCPCS: 36415; 85025

== ENCOUNTER 2021-02-15 03:28 | Outpatient (CLI) | payer MEDICAID, SELFPAY ==
[2021-02-15 10:57] LABS: Abs Immature Grans 0.84 10^3/uL (0.0-0.06); Absolute Basophil Count 0.11 10^3/uL (0.0-0.2); HCT 40.7 % (36.0-46.0); HGB 12.8 g/dL (11.2-15.7); MCH 28.8 pg (27.0-33.0); MCHC 31.4 % (32.0-36.0); MCV 91.5 fL (80-95); MPV 10.1 fL (8.0-11.0); Nucleated RBC 0 %; Platelet Count 312 10^3/uL (130-400); RBC 4.45 10^6/uL (3.93-5.22); RDW 15.9 % (11.7-14.6); RDW-SD 53.7 fL; WBC 11.22 10^3/uL (4.4-10.8)
[2021-02-15 11:20] LABS: Absolute Lymphocyte Count 2.58 10^3/uL (1.2-3.4); Absolute Neutrophil Count 6.84 10^3/uL (1.2-6.7); Bands % 3
[2021-02-15 11:21] LABS: Diff Comment Manual Differential; Metamyelocytes % 4; Myelocytes % 3
[2021-02-15 11:22] LABS: Polychromasia Present
[2021-02-15 12:18] LABS: ALT 16 U/L (14-59); AST 15 U/L (15-37); Albumin 3.5 g/dL (3.4-5.0); Alkaline Phosphatase 111 U/L (46-116); Anion Gap 6.5 mmol/L (3-11); BUN 20 mg/dL (7-18); Bilirubin, Total 0.2 mg/dL (0.2-1.0); CO2 32.5 mmol/L (21.0-32.0); CREATININE 1.1 mg/dL (0.55-1.02); Calcium 9.1 mg/dL (8.5-10.1); Chloride 101 mmol/L (98-107); Estimated GFR 52.36 (mL/min/1.73m2); Glucose 268 mg/dL (74-106); Potassium 4.1 mmol/L (3.5-5.1); Sodium 140 mmol/L (136-145); TSH (W/Ref FT4) 4.19 uIU/mL (0.36-3.74); Total Protein 7.5 g/dL (6.4-8.2)
[2021-02-15 14:25] LABS: FREE T4 0.92 ng/dL (0.76-1.46)
== END 2021-02-15 03:29 | disposition home or self-care (01) ==
LOC: LBO 03:28
PROVIDERS: PCP Family Medicine; Visit Provider Psychiatry & Neurology Psychiatry
DX: F20.9 Schizophrenia, unspecified (principal); Z79.899 Other long term (current) drug therapy
CPT/HCPCS: 36415; 80053; 83036; 84439; 84443; 85025

== ENCOUNTER 2021-03-19 03:48 | Outpatient (CLI) | payer MEDICAID, SELFPAY ==
[2021-03-19 09:55] LABS: HCT 40.8 % (36.0-46.0); HGB 12.8 g/dL (11.2-15.7); MCH 28.8 pg (27.0-33.0); MCHC 31.4 % (32.0-36.0); MCV 91.7 fL (80-95); MPV 10.5 fL (8.0-11.0); Nucleated RBC 0 %; Platelet Count 305 10^3/uL (130-400); RBC 4.45 10^6/uL (3.93-5.22); RDW 15.1 % (11.7-14.6); RDW-SD 50.4 fL; WBC 12.12 10^3/uL (4.4-10.8)
[2021-03-19 10:12] LABS: Absolute Eosinophil Count 0.12 10^3/uL (0.0-0.7); Absolute Lymphocyte Count 4.61 10^3/uL (1.2-3.4); Absolute Monocyte Count 0.61 10^3/uL (0.1-0.8); Absolute Neutrophil Count 6.42 10^3/uL (1.2-6.7); Atypical Lymphocytes % 1; Bands % 7; Metamyelocytes % 2; Myelocytes % 1
[2021-03-19 10:13] LABS: Diff Comment Manual Differential; RBC Morphology Normal
== END 2021-03-19 03:49 | disposition home or self-care (01) ==
LOC: LBO 03:48
PROVIDERS: PCP Family Medicine; Visit Provider Psychiatry & Neurology Psychiatry
DX: F20.9 Schizophrenia, unspecified (principal); Z79.899 Other long term (current) drug therapy
CPT/HCPCS: 36415; 85025

== ENCOUNTER 2021-04-17 02:16 | Outpatient (CLI) | payer MEDICAID, SELFPAY ==
[2021-04-17 10:34] LABS: HGB 12.1 g/dL (11.2-15.7); MCH 29.3 pg (27.0-33.0); MCHC 31.8 % (32.0-36.0); MPV 10.4 fL (8.0-11.0); Nucleated RBC 0 %; Platelet Count 284 10^3/uL (130-400); RBC 4.13 10^6/uL (3.93-5.22); RDW 14.5 % (11.7-14.6); RDW-SD 49.1 fL; WBC 13.66 10^3/uL (4.4-10.8)
[2021-04-17 10:56] LABS: Absolute Monocyte Count 1.37 10^3/uL (0.1-0.8)
[2021-04-17 11:03] LABS: Absolute Lymphocyte Count 2.32 10^3/uL (1.2-3.4); Absolute Neutrophil Count 9.43 10^3/uL (1.2-6.7); Atypical Lymphocytes % 3; Bands % 8
[2021-04-17 11:04] LABS: Diff Comment Manual Differential; Metamyelocytes % 4; RBC Morphology Normal
== END 2021-04-17 02:17 | disposition home or self-care (01) ==
LOC: LBO 02:16
PROVIDERS: PCP Family Medicine; Visit Provider Psychiatry & Neurology Psychiatry
DX: Z79.899 Other long term (current) drug therapy (principal); F20.9 Schizophrenia, unspecified
CPT/HCPCS: 36415; 85025

== ENCOUNTER 2021-04-18 14:02 | Inpatient (IN) | payer MEDICAID, SELFPAY ==
[2021-04-18] VITALS (28 sets, daily range): BP systolic 84–112; BP diastolic 52–71; PULSE 92–118; RESP 14–28; TEMP 36.6–36.8; O2SAT 92–100
--- NOTE | 2021-04-18 14:04 | W.ED.GENAD ---
Discharge Plan Disposition Patient Disposition: [facility] Condition: Stable Discharge Details Clinical Impression: Suicidal ideation Admit Date/Time: 04/18/21 18:11 Admit Provider: Robert Bajwa Attending Provider: Robert Bajwa Primary Care Provider: Sol Ashley V ED Provider: Kirsten Riggs Medical Decision Making <SOURAV Plascencia - Last Filed: 04/19/21 14:53> 51-year-old female presenting to the ER for evaluation, staff reports suicidal ideations, reporting to cut herself with a knife in the neck. Upon evaluation patient is disheveled, asking me if she can have a baked potato for breakfast, quickly changing topics and talking about the [facility], and then again quickly changing her thought process and screaming do not let her kill me. She is not really able to partake much in HPI or examination. I will request a CPSO, mental health evaluation, and an interim care plan. Will obtain routine medical screening laboratory values. Once medically cleared will request that the mental health evaluation. Patient has remained in room 5 and has been cooperative while awaiting laboratory values Medical Records Medical records reviewed: Yes I reviewed the patient's medical records. <Kirsten Riggs NP - Last Filed: 04/18/21 18:10> care of patient received. patient sent in for medical screening exam but mental health. will be voluntary hold for suicidal ideation, with inpatient placement planned. referrals have been sent. patient is medically cleared for psychiatric admission. case discussed with /DR Bawja who accepts for psyche hold. orders placed. Medical Records Medical records reviewed: Yes I reviewed the patient's medical records. Lab Data Lab results reviewed: Yes I reviewed the patient's lab results. Lab results narrative: Laboratory Tests Range/Units 04/18/21 04/18/21 04/18/21 15:15 15:32 15:32 WBC (4.4-10.8) 10^3/uL RBC (3.93-5.22) 10^6/uL Hgb (11.2-15.7) g/dL Hct (36.0-46.0) % MCV (80-95) fL MCH (27.0-33.0) pg MCHC (32.0-36.0) % RDW (11.7-14.6) % Plt Count (130-400) 10^3/uL MPV (8.0-11.0) fL Immature Gran % Neutrophils % Band Neutrophils % Lymphocytes % Monocytes % Eosinophils % Basophils % Metamyelocytes % Myelocytes % Nucleated RBC % % Absolute Neutrophils (1.2-6.7) 10^3/uL Absolute Lymphocytes (1.2-3.4) 10^3/uL Absolute Monocytes (0.1-0.8) 10^3/uL Absolute Eosinophils (0.0-0.7) 10^3/uL Absolute Basophils (0.0-0.2) 10^3/uL RBC Morphology Sodium (136-145) mmol/L 139 Potassium (3.5-5.1) mmol/L 3.9 Chloride (98-107) mmol/L 101 Carbon Dioxide (21.0-32.0) mmol/L 31.2 Anion Gap (3-11) mmol/L 6.8 BUN (7-18) mg/dL 24 H Creatinine (0.55-1.02) mg/dL 1.1 H Estimated GFR/1.73 m2 (mL/min/1.73m2) 52.16 Glucose (74-106) mg/dL 261 H Calcium (8.5-10.1) mg/dL 9.4 Total Bilirubin (0.2-1.0) mg/dL 0.2 AST (15-37) U/L 9 L ALT (14-59) U/L 14 Alkaline Phosphatase (46-116) U/L 87 Total Protein (6.4-8.2) g/dL 7.5 Albumin (3.4-5.0) g/dL 3.2 L TSH (0.36-3.74) uIU/mL 3.94 H Free T4 (0.76-1.46) ng/dL 1.00 Salicylates (<2.8) mg/dL < 2.8 Acetaminophen (10-30) ug/mL < 2 Valproic Acid ( - 150) ug/mL Ethyl Alcohol (<10) mg/dL < 3.0 COVID-19 Source Nasal/Nares SARS-CoV-2 (PCR) (Negative) Negative Range/Units 04/18/21 04/18/21 15:32 15:32 WBC (4.4-10.8) 10^3/uL 11.43 H RBC (3.93-5.22) 10^6/uL 4.12 Hgb (11.2-15.7) g/dL 12.1 Hct (36.0-46.0) % 38.4 MCV (80-95) fL 93.2 MCH (27.0-33.0) pg 29.4 MCHC (32.0-36.0) % 31.5 L RDW (11.7-14.6) % 14.8 H Plt Count (130-400) 10^3/uL 276 MPV (8.0-11.0) fL 10.1 Immature Gran % See Differential Neutrophils % 56.0 Band Neutrophils % 3 Lymphocytes % 22.0 Monocytes % 11.0 Eosinophils % 0.0 Basophils % 0.0 Metamyelocytes % 6 Myelocytes % 2 Nucleated RBC % % 0 Absolute Neutrophils (1.2-6.7) 10^3/uL 6.74 H Absolute Lymphocytes (1.2-3.4) 10^3/uL 2.51 Absolute Monocytes (0.1-0.8) 10^3/uL 1.26 H Absolute Eosinophils (0.0-0.7) 10^3/uL 0.00 Absolute Basophils (0.0-0.2) 10^3/uL 0.00 RBC Morphology Normal Sodium (136-145) mmol/L Potassium (3.5-5.1) mmol/L Chloride (98-107) mmol/L Carbon Dioxide (21.0-32.0) mmol/L Anion Gap (3-11) mmol/L BUN (7-18) mg/dL Creatinine (0.55-1.02) mg/dL Estimated GFR/1.73 m2 (mL/min/1.73m2) Glucose (74-106) mg/dL Calcium (8.5-10.1) mg/dL Total Bilirubin (0.2-1.0) mg/dL AST (15-37) U/L ALT (14-59) U/L Alkaline Phosphatase (46-116) U/L Total Protein (6.4-8.2) g/dL Albumin (3.4-5.0) g/dL TSH (0.36-3.74) uIU/mL Free T4 (0.76-1.46) ng/dL Salicylates (<2.8) mg/dL Acetaminophen (10-30) ug/mL Valproic Acid ( - 150) ug/mL 121.7 Ethyl Alcohol (<10) mg/dL COVID-19 Source SARS-CoV-2 (PCR) (Negative) HPI <SOURAV Plascencia - Last Filed: 04/19/21 14:53> General Mode of arrival: ambulatory. Date/Time Provider Initiated Documentation: 04/18/21 14:04. Limitations to Documentation: altered mental status. Information obtained by: patient. HPI Narrative: This is a 51-year-old presenting to the ER via private vehicle from the [facility] for apparent staff concerns of suicidal ideation, threatening to cut herself, specifically her throat with a knife. We received a call from Lucia from [facility] stating that she received a call from the house staff with these concerns, recommended coming to the ER for further evaluation peer patient is an extremely vague and poor historian and has a difficult time participating in her HPI and examination. Upon reviewing past medical record, it would appear as though she has autism with accompanying intellectual disability requiring substantial support, diabetes, encephalomalacia, GERD, hypothyroidism, schizoaffective disorder, bipolar disorder, depression. Patient denies recent illness or trauma. It is unknown whether the patient is compliant with her medications or not Related Data Home Medications Medication Instructions Recorded Confirmed levothyroxine 112 mcg PO DAILY@0730 10/18/13 04/18/21 aspirin [Aspir-81] 81 mg PO QAM 08/05/14 04/18/21 ibuprofen [Ibuprofen IB] 400 mg PO Q8H PRN 08/05/14 04/18/21 clindamycin phos-skin clnsr 19 1 % TOPICAL PRN PRN 09/26/18 04/18/21 clotrimazole [Lotrimin AF 1 applic TOPICAL BID PRN 09/26/18 04/18/21 (clotrimazole)] folic acid 1 mg PO DAILY 09/26/18 04/18/21 guaifenesin [Mucinex] 600 mg PO Q12H PRN 09/26/18 04/18/21 hydrochlorothiazide 25 mg PO DAILY 09/26/18 04/18/21 lisinopril 5 mg PO DAILY 09/26/18 04/18/21 omeprazole 20 mg PO DAILY 09/26/18 04/18/21 glipizide 20 mg PO QAM 01/26/20 04/18/21 metformin 1,000 mg PO BID 01/26/20 04/18/21 tolterodine 2 mg PO HS 01/26/20 04/18/21 polyethylene glycol 3350 17 g PO DAILY 04/19/20 04/18/21 clozapine 100 mg tablet 200 mg PO BID tab 06/06/20 04/18/21 divalproex 500 mg tablet,extended 1,000 - 2,000 mg PO BID 06/06/20 04/18/21 release 24 hr Advanced Probiotic-10 1 cap PO BID 10/21/20 04/18/21 cholecalciferol (vitamin D3) 50 mcg PO DAILY 10/21/20 04/18/21 [Vitamin D3] quetiapine [Seroquel] 100 mg PO HS 10/21/20 04/18/21 diphenhydramine HCl 25 mg PO QHS 04/18/21 04/18/21 quetiapine [Seroquel] 50 mg PO BID 04/18/21 04/18/21 Allergies Allergy/AdvReac Type Severity Reaction Status Date / Time Penicillins Allergy Severe Unverified 10/21/20 14:14 peanut Allergy Unknown Unverified 04/18/21 14:26 trifluoperazine HCl Allergy Unknown Unverified 10/21/20 14:14 [From Stelazine] General QUINTEN: 2 Review of Systems <SOURAV Plascencia - Last Filed: 04/19/21 14:53> Unobtainable due to mental status [facility] <SOURAV Plascencia - Last Filed: 04/19/21 14:53> Medical History Autism spectrum disorder with accompanying intellectual disability without language impairment, requiring substantial support Diabetes mellitus a. on oral medications b. Hgb A1C 7.5 c. 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 Since ?2009+ Exam <SOURAV Plascencia - Last Filed: 04/19/21 14:53> Const General: cooperative, healthy appearing, comfortable and no acute distress Orientation: alert, awake, oriented to person and oriented to place [facility] Head: normal to inspection, normocephalic and atraumatic Face and sinus: normal facial exam Mouth: moist mucous membranes Eyes General: appearance normal, both eyes and all related structures Alignment and Position: alignment normal Periorbital: periorbital findings normal Eyelids: eyelids normal Conjunctivae: conjunctivae normal Sclera: sclerae normal Cornea: corneas normal Pupils: PERRL EOM: EOM intact bilaterally Direct ophthalmoscopy: normal light reflex Neck Neck: normal visual inspection, full ROM, no meningeal signs, trachea midline, supple and nontender Resp Effort & Inspection: normal respiratory effort and able to speak in complete sentences Auscultation: clear to auscultation bilaterally Cardio Rate: tachycardic (102) Rhythm: regular rhythm GI Palpation: soft, not firm, no guarding, no pulsatile masses and nontender Back/Spine/Pelvis Back: No back tenderness Skin General skin exam: no rashes or lesions noted Neuro General: patient alert, patient awake, moves all extremities and no focal motor deficits Gait: shuffling Motor: muscle tone normal throughout Sensory Exam: no sensory deficits noted Extrem General: normal to inspection, full ROM, capillary refill normal, no pedal edema and no calf tenderness Psych Mental Status: mental status grossly normal Speech and Movement: pressured speech Mood: labile mood Affect: animated Attitude: cooperative Thought Process: flight of ideas and tangential Thought Content: other (Does not admit suicidal ideation to me) Insight: poor Judgment: poor Sign Out <SOURAV Plascencia - Last Filed: 04/19/21 14:53> Sign Out Data: Sign Out Comment: Long psychiatric history presenting from the [facility], staff reports SI with plan to cut her throat. Patient appears psychotic, rambling, unable to partake in a conversation. Obtaining medical screening laboratory values and once cleared and requesting mental health evaluation. Last updated by Phill Becker PA at 04/18/21 15:52
[2021-04-18 15:22] LABS: Source Nasal/Nares
[2021-04-18 15:46] LABS: Abs Immature Grans 0.82 10^3/uL (0.0-0.06); HCT 38.4 % (36.0-46.0); HGB 12.1 g/dL (11.2-15.7); MCH 29.4 pg (27.0-33.0); MCHC 31.5 % (32.0-36.0); MCV 93.2 fL (80-95); MPV 10.1 fL (8.0-11.0); Nucleated RBC 0 %; Platelet Count 276 10^3/uL (130-400); RBC 4.12 10^6/uL (3.93-5.22); RDW 14.8 % (11.7-14.6); RDW-SD 50.8 fL; WBC 11.43 10^3/uL (4.4-10.8)
[2021-04-18 15:58] LABS: VALPROIC ACID 121.7 ug/mL
[2021-04-18 16:06] LABS: ALT 14 U/L (14-59); AST 9 U/L (15-37); Albumin 3.2 g/dL (3.4-5.0); Alkaline Phosphatase 87 U/L (46-116); Anion Gap 6.8 mmol/L (3-11); BUN 24 mg/dL (7-18); Bilirubin, Total 0.2 mg/dL (0.2-1.0); CO2 31.2 mmol/L (21.0-32.0); CREATININE 1.1 mg/dL (0.55-1.02); Calcium 9.4 mg/dL (8.5-10.1); Chloride 101 mmol/L (98-107); Estimated GFR 52.16 (mL/min/1.73m2); Glucose 261 mg/dL (74-106); Potassium 3.9 mmol/L (3.5-5.1); Sodium 139 mmol/L (136-145); TSH (W/Ref FT4) 3.94 uIU/mL (0.36-3.74); Total Protein 7.5 g/dL (6.4-8.2)
[2021-04-18 16:16] LABS: COVID-19 PCR Negative (Negative)
[2021-04-18 16:21] LABS: ETHANOL BLOOD < 3.0 mg/dL (<10)
[2021-04-18 16:26] LABS: Salicylate < 2.8 mg/dL (<2.8)
[2021-04-18 16:29] LABS: Absolute Lymphocyte Count 2.51 10^3/uL (1.2-3.4); Absolute Monocyte Count 1.26 10^3/uL (0.1-0.8); Absolute Neutrophil Count 6.74 10^3/uL (1.2-6.7); Bands % 3; Diff Comment Diff Reviewed; Metamyelocytes % 6; Myelocytes % 2; RBC Morphology Normal
[2021-04-18 16:30] LABS: Acetaminophen < 2 ug/mL (10-30)
--- NOTE | 2021-04-18 16:42 | PDOC.MHCN_ITS ---
Date of service: 04/18/21 Time of Service: 16:42 Mental Health Crisis Note Presenting Issue How did you arrive at the ED and why did you come: Pt arrived via her usp provider on 04.18.2021 after she was assessed by [facility]' Lucia Lyons and this this clinician. Precipitating Factors Pt is endorsing SI stating she would cut my head off like Dinesh did. Dinesh is believed to be a previous boyfriend. She denied HI. She is responding to internal stimuli and endorsed that she is hearing voices. She identified these voices as luisana, Renato Mouse, Carla Mouse, James Duck and Houdini. Disposition BEHAVIOR: Pt was happy to see Lucia when she first came out of her room. As the assessment went on she was holding Lucia's hand and started to hissing and growl at her intensely and then was spitting toward her not to be confused for at her. She did this on two different occasions. Also on two different occasions she was yelling at a napkin on the table saying get the fuck out of my mind! then threw the napkin to the floor aggressively. She made statements like I'm afraid of my daddy and my momma. She is not fully oriented to time and her memory was not good for new information. She is described by her caregivers as one minute she is baking brownies and the next she is throwing herself down the stairs. She has been incontinent in her bed and on furniture daily and this is new behaviors. EYE CONTACT: Pt's eye contact was inconsistent and at time intense. MOOD: Her mood is all over the place depending on the auditory hallucinations. AFFECT: Pt's affect is congruent with her mood. APPETITE: Pt reported that she is eating well. SLEEP(trouble falling/staying asleep: Pt reported that her sleep is poor. Plan Pt is voluntarily seeking a hospital level of care and is willing to stay at [facility] pending acceptance to one. Referrals are being sent to hospitals and crisis beds and she will be re-assessed daily by her IMPLEMENTATION SPECIALIST team until one is secured. Signature Clinician's Name/Title: Yahaira Bishop MS, [facility] Emergency Services Clinician, [facility]
[2021-04-18] MEDS: Normal Saline 1,000 ML 1000 ML IV (16:48)
--- NOTE | 2021-04-18 18:26 | HPE_ITS ---
Date of service: 04/18/21 Time of Service: 18:26 Assessment and Plan Assessment and plan (1) Suicidal ideation: Status: Acute Assessment and plan: mental health consulted and following. referrals placed for inpatient psychiatric admission no beds will be available tonight (2) Schizoaffective disorder: Status: Acute (3) Diabetes mellitus: Status: Chronic Assessment and plan: A1C 10 on feb 15 2021 diabetic diet, sliding scale as needed. (4) Hypothyroidism: Status: Acute Assessment and plan: continue synthyroid tsh 3.94 (5) Hypertension: Status: Chronic Assessment and plan: blood pressure soft, given IV fluids, will hold bp me ds discussed with DR Bajwa History of Present Illness History of Present Illness Chief Complaint: depression with suicidal ideation Narrative: presents for medical screening to be cleared for voluntary psychiatric admission. she is medically screened and cleared. no inpatient psychiatric beds available. she will remain here on a hold. Review of Systems All systems reviewed & are unremarkable except as noted in HPI and below PFSH Medical History Autism spectrum disorder with accompanying intellectual disability without language impairment, requiring substantial support Diabetes mellitus a. on oral medications b. Hgb A1C 7.5 c. 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. Since ?2009+ Meds Allergies and Home Medications Allergies Allergy/AdvReac Type Severity Reaction Status Date / Time Penicillins Allergy Severe Unverified 10/21/20 14:14 peanut Allergy Unknown Unverified 04/18/21 14:26 trifluoperazine HCl Allergy Unknown Unverified 10/21/20 14:14 [From Stelazine] Home Medications Medication Instructions Recorded Confirmed Type levothyroxine 112 mcg PO DAILY@0730 10/18/13 04/18/21 History aspirin [Aspir-81] 81 mg PO QAM 08/05/14 04/18/21 History ibuprofen [Ibuprofen IB] 400 mg PO Q8H PRN 08/05/14 04/18/21 History clindamycin phos-skin clnsr 19 1 % TOPICAL PRN PRN 09/26/18 04/18/21 History clotrimazole [Lotrimin AF 1 applic TOPICAL BID PRN 09/26/18 04/18/21 History (clotrimazole)] folic acid 1 mg PO DAILY 09/26/18 04/18/21 History guaifenesin [Mucinex] 600 mg PO Q12H PRN 09/26/18 04/18/21 History hydrochlorothiazide 25 mg PO DAILY 09/26/18 04/18/21 History lisinopril 5 mg PO DAILY 09/26/18 04/18/21 History omeprazole 20 mg PO DAILY 09/26/18 04/18/21 History glipizide 20 mg PO QAM 01/26/20 04/18/21 History metformin 1,000 mg PO BID 01/26/20 04/18/21 History tolterodine 2 mg PO HS 01/26/20 04/18/21 History polyethylene glycol 3350 17 g PO DAILY 04/19/20 04/18/21 History clozapine 100 mg tablet 200 mg PO BID tab 06/06/20 04/18/21 History divalproex 500 mg tablet,extended 1,000 - 2,000 mg PO BID 06/06/20 04/18/21 History release 24 hr Advanced Probiotic-10 1 cap PO BID 10/21/20 04/18/21 History cholecalciferol (vitamin D3) 50 mcg PO DAILY 10/21/20 04/18/21 History [Vitamin D3] quetiapine [Seroquel] 100 mg PO HS 10/21/20 04/18/21 History diphenhydramine HCl 25 mg PO QHS 04/18/21 04/18/21 History quetiapine [Seroquel] 50 mg PO BID 04/18/21 04/18/21 History Exam Const General: cooperative, healthy appearing, comfortable and no acute distress Orientation: alert and awake [facility] Head: normal to inspection, normocephalic and atraumatic Face and sinus: normal facial exam Mouth: moist mucous membranes Eyes Eyelids: eyelids normal Conjunctivae: conjunctivae normal Sclera: sclerae normal Cornea: corneas normal Pupils: PERRL Neck Neck: normal visual inspection, full ROM, no meningeal signs, trachea midline, supple and nontender Resp Effort & Inspection: normal respiratory effort and able to speak in complete sentences Auscultation: clear to auscultation bilaterally Cardio Rate: regular rate Rhythm: regular rhythm GI Palpation: soft Back/Spine/Pelvis Back: No back tenderness Skin General skin exam: no rashes or lesions noted Neuro General: patient alert, patient awake, moves all extremities and no focal motor deficits Gait: shuffling Motor: muscle tone normal throughout Sensory Exam: no sensory deficits noted Extrem General: normal to inspection, full ROM and no pedal edema Psych Mental Status: mental status grossly normal Speech and Movement: pressured speech Mood: labile mood Affect: animated Attitude: cooperative Thought Process: flight of ideas and tangential Thought Content: other (Does not admit suicidal ideation to me) Insight: poor Judgment: poor Results Labs Result diagrams: 04/18/21 15:32 04/18/21 15:32 Labs: Laboratory Results - last 24 hr 04/18/21 04/18/21 04/18/21 15:15 15:32 15:32 WBC RBC Hgb Hct MCV MCH MCHC RDW Plt Count MPV Immature Gran % Neutrophils % Band Neutrophils % Lymphocytes % Monocytes % Eosinophils % Basophils % Metamyelocytes % Myelocytes % Nucleated RBC % Absolute Neutrophils Absolute Lymphocytes Absolute Monocytes Absolute Eosinophils Absolute Basophils RBC Morphology Sodium 139 Potassium 3.9 Chloride 101 Carbon Dioxide 31.2 Anion Gap 6.8 BUN 24 H Creatinine 1.1 H Estimated GFR/1.73 m2 52.16 Glucose 261 H Calcium 9.4 Total Bilirubin 0.2 AST 9 L ALT 14 Alkaline Phosphatase 87 Total Protein 7.5 Albumin 3.2 L TSH 3.94 H Free T4 1.00 Salicylates < 2.8 Acetaminophen < 2 Valproic Acid Ethyl Alcohol < 3.0 COVID-19 Source Nasal/Nares SARS-CoV-2 (PCR) Negative 04/18/21 04/18/21 15:32 15:32 WBC 11.43 H RBC 4.12 Hgb 12.1 Hct 38.4 MCV 93.2 MCH 29.4 MCHC 31.5 L RDW 14.8 H Plt Count 276 MPV 10.1 Immature Gran % See Differential Neutrophils % 56.0 Band Neutrophils % 3 Lymphocytes % 22.0 Monocytes % 11.0 Eosinophils % 0.0 Basophils % 0.0 Metamyelocytes % 6 Myelocytes % 2 Nucleated RBC % 0 Absolute Neutrophils 6.74 H Absolute Lymphocytes 2.51 Absolute Monocytes 1.26 H Absolute Eosinophils 0.00 Absolute Basophils 0.00 RBC Morphology Normal Sodium Potassium Chloride Carbon Dioxide Anion Gap BUN Creatinine Estimated GFR/1.73 m2 Glucose Calcium Total Bilirubin AST ALT Alkaline Phosphatase Total Protein Albumin TSH Free T4 Salicylates Acetaminophen Valproic Acid 121.7 Ethyl Alcohol COVID-19 Source SARS-CoV-2 (PCR) Last Vital Signs Temp 36.8 C 04/18/21 15:30 Pulse 96 H 04/18/21 16:46 Resp 16 04/18/21 16:50 BP 106/64 04/18/21 16:46 Pulse Ox 92 04/18/21 15:30
[2021-04-18] MEDS: QUEtiapine 25 MG TAB 50 MG PO (20:50)
[2021-04-18] MEDS: Lactobacillus Acidophilus CAP 1 CAP PO (20:50)
[2021-04-18] MEDS: Divalproex Sodium 500 MG TAB.ER.24H 2000 MG PO (20:51)
[2021-04-18] MEDS: Tolterodine 2 MG CAPCR PO (22:15)
[2021-04-18] MEDS: QUEtiapine 100 MG TAB PO (22:16)
[2021-04-18] MEDS: diphenhydrAMINE 25 MG CAP PO (22:16)
[2021-04-18] MEDS: Insulin Aspart 300 UNITS/3 ML PEN SC (22:16)
[2021-04-19] MEDS: Levothyroxine 25 MCG TAB 112 MCG PO (06:22)
[2021-04-19 07:50] VITALS: BP 102/69; PULSE 84; RESP 16; TEMP 37; O2SAT 92
[2021-04-19] MEDS: Insulin Aspart 300 UNITS/3 ML PEN SC ×4 (08:55→21:12)
[2021-04-19] MEDS: metFORMIN 500 MG TAB 1000 MG PO ×2 (08:56→16:17)
[2021-04-19] MEDS: Aspirin E.C. 81 MG TABEC PO (08:57)
[2021-04-19] MEDS: Cholecalciferol (Vitamin D3) 1,000 UNIT TAB 2000 UNITS PO (08:57)
[2021-04-19] MEDS: Divalproex Sodium 500 MG TAB.ER.24H 1000 MG PO (08:58)
[2021-04-19] MEDS: Folic Acid 1 MG TAB PO (08:59)
[2021-04-19] MEDS: hydroCHLOROthiazide 25 MG TAB PO (08:59)
[2021-04-19] MEDS: Lactobacillus Acidophilus CAP 1 CAP PO ×2 (08:59→19:57)
[2021-04-19] MEDS: QUEtiapine 25 MG TAB 50 MG PO ×2 (09:00→16:17)
[2021-04-19] MEDS: Polyethylene Glycol 3350 17 GM PACKET PO (09:00)
[2021-04-19] MEDS: Lisinopril 5 MG TAB PO (09:00)
[2021-04-19] MEDS: Omeprazole 20 MG CAPCR PO (09:00)
--- NOTE | 2021-04-19 09:19 | CMSP_ITS ---
- If Service Date Differs Date of service: 04/19/21 Time of Service: 09:19 Care Management Safety Plan Status: Voluntary - Reason for Wait Reason for Wait: Inpatient Admission VOLUNTARY FOR INPATIENT PSYCHIATRIC STABILIZATION. Patient is appropriate in all interactions since arriving at [facility]; Pt has demonstrated appropriate coping and communication skills, has articulated his or her needs and concerns and is fully engaged during staff interactions. A safety huddle is held at 11:00 am with Becky, Nursing Music Engineer, Nat, Coordinator, TERESE Guajardo, Yahaira [facility], Priyanka [facility], BOB Raphael, and nursing students in attendance. Safety plan has been established with patient, and care team, to adhere to patient goals, identify restrictions based on behavioral status, address nutrition, and determine allowed personal belongings, tools for hygiene and personal care. Determine level of activity including ambulation, level of supervision, visitors, and determine privileges based on behaviors and level of engagement by pt. SAFETY PLAN: 1. Will remain on suicide precautions. In Paper Clothes 2. Will remain in room under direct supervision of one-on-one staff at all times provided by CPSO, MALIA, RIGGER UP remote mortgage underwriter. 3. May have paper cups, plates, finger foods as well as a cardboard spoon with which to eat meals. 4. Follow [facility] Management of the Admitted Behavioral Health Patient policy. 5. May shower with supervision at RN discretion. 6. No personal belongings 7. Visitors-No visitors at this time 8. Activities: Soft cart items, coloring book, crayons, television, and other activities at RN discretion. 9. Bathroom privileges: May use bathroom available in room on Med/Surg without restriction. 10. Phone: May use hospital phone for incoming and outgoing telephone calls at RN discretion. 11. Due to VOLUNTARY status, if patient wishes to leave [facility], staff will contact [facility] Crisis Screener ([phone]) and On-Call Seafood Process Worker ([phone]) as soon as possible. In the event of elopement, notify [facility] Police ([phone]). Patient is currently voluntarily at [facility] and seeking inpatient admission when a bed becomes available. [facility] Frontline Transmission Worker will continue seeking placement. Please contact the Irrigation Pump Installer Seafood Process Worker ([phone]) and [facility] Transmission Worker ([phone]) for any needed changes in the Safety Plan. Safety plan has been provided to interdepartmental care team.
--- NOTE | 2021-04-19 09:22 | PDOC.CMPRO ---
- If Service Date Differs Date of service: 04/19/21 Time of Service: 09:22 Care Management Progress Note S/O: Kandace is sitting up in bed when CM comes to see her. She is pleasant and easily engages in conversation. She states CM reminds her of her friend Bethany. Kandace reports doing well and asks for a toothbrush so she can brush her teeth. She also inquires about showering, as she wishes to wash her hair. Nursing staff report that Kandace had a bowel movement last evening and spread feces on herself and in her hair, but when confronted about this behavior, Kandace denies it happening. Per [facility], Kandace has received services through the [facility] at [facility] for many years. Kandace who has been living at [facility] is in the process of being evicted from the facility. Once she is discharged from a psychiatric hospital, she will move into the [facility] Care Bed where she will remain until better accommodations can be arranged for her. Kandace is agreeable to this plan as she does not like living at [facility]. A: Kandace is a 51 year old female admitted to [facility] on 04/18/2021 for suicidal ideation. P: Referrals have been fax[facility] to [facility], [facility], [facility], [facility], and [facility]. Kandace will be reassessed daily by [facility] and will remain at [facility] voluntarily while [facility] continues to seek placement for her. CM will continue to follow. - MH Services (Omit if N/A) Current MH Services: [facility] - Status Status: Voluntary - Reason for Wait Reason for Wait: Inpatient Admission
[2021-04-19 11:02] LABS: HCG Qual (Urine) Negative
--- NOTE | 2021-04-19 11:38 | PDOC.MHCN_ITS ---
Date of service: 04/19/21 Time of Service: 11:38 Mental Health Crisis Note Presenting Issue How did you arrive at the ED and why did you come: Pt arrived on 04.18.2021 after being assessed by [facility] FUNNEL SETTER clinician Lucia Lyons and this clinician and was seeking voluntary admission. Precipitating Factors Pt endorsed continued persistent auditory hallucinations and delusions I'm and Im the black Madonna and SI I want to jump off the smoking porch and kill myself or stab myself. Disposition BEHAVIOR: Pt is reported to have smeared feces all over her body and her hair in the last 12 hours. She also came into the ED still hissing, grwoling and spitting. She was lying down when this clinician first arrived holding a crayo n. She is quieter today in her presentation than she was yesterday 04.18.2021. She reported she is not doing good because she can't call her parents. She exposes her belly to show that she is the black Madonna to show lines that prove it on her belly. EYE CONTACT: Eye contact is fair. MOOD: Mood is deregulated, delusional and easily distracted. AFFECT: Affect is congruent with mood. APPETITE: Pt reported her appetite is good. SLEEP(trouble falling/staying asleep: Pt reported her sleep was poor however, nursing report that she slept through the night. Plan Pt will remain at [facility] while placement is sought. She will be assessed daily by [facility] until such time. A huddle was had with her medical team at [facility]. Follow up will happen with her team at [facility] to get more specifics for medical team. All hospitals called and no beds availble today. Signature Clinician's Name/Title: Yahaira Bishop MS, [facility] Emergency Services Clinician, [facility]
[2021-04-19] MEDS: Divalproex Sodium 500 MG TAB.ER.24H 2000 MG PO (19:57)
[2021-04-19] MEDS: Tolterodine 2 MG CAPCR PO (21:13)
[2021-04-19] MEDS: diphenhydrAMINE 25 MG CAP PO (21:13)
[2021-04-19] MEDS: QUEtiapine 100 MG TAB PO (21:13)
[2021-04-20] MEDS: Levothyroxine 112 MCG TAB PO (05:24)
[2021-04-20 08:15] VITALS: BP 106/69; PULSE 89; RESP 18; TEMP 37; O2SAT 98
[2021-04-20] MEDS: Aspirin E.C. 81 MG TABEC PO (08:27)
[2021-04-20] MEDS: Cholecalciferol (Vitamin D3) 1,000 UNIT TAB 2000 UNITS PO (08:27)
[2021-04-20] MEDS: Insulin Aspart 300 UNITS/3 ML PEN SC ×3 (08:29→21:08)
[2021-04-20] MEDS: hydroCHLOROthiazide 25 MG TAB PO (08:29)
[2021-04-20] MEDS: Divalproex Sodium 500 MG TAB.ER.24H 1000 MG PO (08:29)
[2021-04-20] MEDS: Folic Acid 1 MG TAB PO (08:29)
[2021-04-20] MEDS: Omeprazole 20 MG CAPCR PO (08:30)
[2021-04-20] MEDS: Lisinopril 5 MG TAB PO (08:30)
[2021-04-20] MEDS: Lactobacillus Acidophilus CAP 1 CAP PO ×2 (08:30→21:10)
[2021-04-20] MEDS: Polyethylene Glycol 3350 17 GM PACKET PO (08:30)
[2021-04-20] MEDS: metFORMIN 500 MG TAB 1000 MG PO ×2 (08:30→16:46)
[2021-04-20] MEDS: QUEtiapine 25 MG TAB 50 MG PO ×2 (08:30→15:42)
--- NOTE | 2021-04-20 14:16 | PDOC.CMSAFE ---
- If Service Date Differs Date of service: 04/20/21 Time of Service: 14:16 Care Management Safety Plan Status: Voluntary - Reason for Wait Reason for Wait: Inpatient Admission VOLUNTARY FOR INPATIENT PSYCHIATRIC STABILIZATION. Patient is appropriate in all interactions since arriving at [facility]; Pt has demonstrated appropriate coping and communication skills, has articulated his or her needs and concerns and is fully engaged during staff interactions. A decentralized huddle is held with Autumn, Nursing New Accounts Representative, TERESE Guajardo, and BOB Raphael. No changes are being made to the plan at this time. Safety plan has been established with patient, and care team, to adhere to patient goals, identify restrictions based on behavioral status, address nutrition, and determine allowed personal belongings, tools for hygiene and personal care. Determine level of activity including ambulation, level of supervision, visitors, and determine privileges based on behaviors and level of engagement by pt. SAFETY PLAN: 1. Will remain on suicide precautions. In Paper Clothes 2. Will remain in room under direct supervision of one-on-one staff at all times provided by CPSO, MALIA, BUNCHER OPERATOR corporate secretary. 3. May have paper cups, plates, finger foods as well as a cardboard spoon with which to eat meals. 4. Follow [facility] Management of the Admitted Behavioral Health Patient policy. 5. May shower with supervision at RN discretion. 6. No personal belongings 7. Visitors-No visitors at this time 8. Activities: Soft cart items, coloring book, crayons, television, and other activities at RN discretion. 9. Bathroom privileges: May use bathroom available in room on Med/Surg without restriction. 10. Phone: May use hospital phone for incoming and outgoing telephone calls at RN discretion. 11. Due to VOLUNTARY status, if patient wishes to leave [facility], staff will contact [facility] Crisis Screener ([phone]) and On-Call First Cook ([phone]) as soon as possible. In the event of elopement, notify [facility] Police ([phone]). Patient is currently voluntarily at [facility] and seeking inpatient admission when a bed becomes available. [facility] Frontline Stockroom Inventory Clerk will continue seeking placement. Please contact the Agricultural Inspector First Cook ([phone]) and [facility] Stockroom Inventory Clerk ([phone]) for any needed changes in the Safety Plan. Safety plan has been provided to interdepartmental care team.
--- NOTE | 2021-04-20 14:18 | CMPROGNOTE_ITS ---
- If Service Date Differs Date of service: 04/20/21 Time of Service: 14:18 Care Management Progress Note S/O: Kandace is sleeping when CM comes to meet with her. Per staff, she remains delusional but is denying suicidal or homicidal ideation today. She reportedly thinks she is a black Madonna. Kandace has asked to call her mother repeatedly but per [facility], her parents are not good supports for Kandace and have in the past triggered her. CM will continue to follow. A: Kandace is a 51 year old female admitted to [facility] on 04/18/2021 for suicidal ideation. P: Referrals have been faxed to [facility], [facility], [facility], [facility], and the [place] [facility]. [facility]. All other [facility] hospitals are full. Kandace will be reassessed daily by [facility] and will remain at [facility] voluntarily while [facility] continues to seek placement for her. CM will continue to follow. - Status Status: Voluntary - Reason for Wait Reason for Wait: Inpatient Admission
--- NOTE | 2021-04-20 14:18 | PDOC.CMPRO ---
- If Service Date Differs Date of service: 04/20/21 Time of Service: 14:18 Care Management Progress Note S/O: Kandace is sleeping when CM comes to meet with her. Per staff, she remains delusional but is denying suicidal or homicidal ideation today. She reportedly thinks she is a black Madonna. Kandace has asked to call her mother repeatedly but per [facility], her parents are not good supports for Kandace and have in the past triggered her. CM will continue to follow. A: Kandace is a 51 year old female admitted to [facility] on 04/18/2021 for suicidal ideation. P: Referrals have been faxed to [facility], [facility], [facility], [facility], and the [place] for review. [facility] due to [facility]. All other [facility] are full. Kandace will be reassessed daily by [facility] and will remain at [facility] voluntarily while [facility] continues to seek placement for her. CM will continue to follow. - Status Status: Voluntary - Reason for Wait Reason for Wait: Inpatient Admission
--- NOTE | 2021-04-20 14:22 | W.PM.PROGNOT ---
Date of Service Date of service: 04/20/21 Time of Service: 14:22 Assessment and Plan Assessment and plan (1) Suicidal ideation: Status: Acute Assessment and plan: mental health consulted and following. referrals placed for inpatient psychiatric admission no beds will be available tonight (2) Schizoaffective disorder: Status: Acute (3) Diabetes mellitus: Status: Chronic Assessment and plan: A1C 10 on feb 15 2021 diabetic diet, sliding scale as needed. (4) Hypothyroidism: Status: Acute Assessment and plan: continue synthyroid tsh 3.94 (5) Hypertension: Status: Chronic Assessment and plan: blood pressure improved and remain well controlled. will reduce doses of both hctz and lisinopril continue home medication. discussed with DR Bajwa Subjective Subjective Patient reports: no new complaints, tolerating liquids well, tolerating a regular diet and afebrile; denies shortness of breath Exam Const General: cooperative, healthy appearing, comfortable and no acute distress Orientation: alert and awake HENMT Head: normal to inspection, normocephalic and atraumatic Face and sinus: normal facial exam Mouth: moist mucous membranes Eyes Eyelids: eyelids normal Conjunctivae: conjunctivae normal Sclera: sclerae normal Cornea: corneas normal Pupils: PERRL Neck Neck: normal visual inspection, full ROM, no meningeal signs, trachea midline, supple and nontender Resp Effort & Inspection: normal respiratory effort and able to speak in complete sentences Auscultation: clear to auscultation bilaterally Cardio Rate: regular rate Rhythm: regular rhythm GI Palpation: soft Back/Spine/Pelvis Back: No back tenderness Skin General skin exam: no rashes or lesions noted Neuro General: patient alert, patient awake, moves all extremities and no focal motor deficits Gait: shuffling Motor: muscle tone normal throughout Sensory Exam: no sensory deficits noted Extrem General: normal to inspection, full ROM and no pedal edema Psych Mental Status: mental status grossly normal Speech and Movement: pressured speech Mood: labile mood Affect: animated Attitude: cooperative Thought Process: flight of ideas and tangential Thought Content: other (Does not admit suicidal ideation to me) Insight: poor Judgment: poor Objective Last Vital Signs Temp 37.0 C 04/20/21 08:15 Pulse 89 04/20/21 08:15 Resp 18 04/20/21 08:15 BP 106/69 04/20/21 08:15 Pulse Ox 98 04/20/21 08:15
--- NOTE | 2021-04-20 15:01 | W.INDIABCONS ---
Date of service: 04/20/21 Time of Service: 15:01 Diabetes Inpatient Consult DESCRIPTION/ASSESSMENT: Ms. Levine is admitted with suicidal ideation. Her blood sugars have been running above target. Most recent A1C in February 2021 was 10 suggesting poor glycemic control. She is on metformin, glipizide, and novolog correction scale. Her PO intake is excellent. Her weight has been stable and her BMI is 35.5 kg/m2 c/w class 2 obesity. INTERVENTION: Ideally would recommend the diet order be changed to carbohydrate consistent. Also would recommend adding some basal insulin. These changes may not be realistic given her mental state. PLAN: Will continue to follow her progress and adjust her nutrition care plan accordingly. Time Spent in Nutritional Counseling and Treatment: 0
--- NOTE | 2021-04-20 15:44 | W.INMHPGNOTE ---
Date of service: 04/20/21 Time of Service: 15:45 Mental Health Crisis Note Presenting Issue How did you arrive at the ED and why did you come: Pt arrived on 04.18.2021 after being assessed by [facility] WELDING MANAGER clinician Lucia Lyons and this clinician and was seeking voluntary admission. Precipitating Factors Pt denied ideation. Pt denied intent. Pt denied plan. Pt does not have access at [facility]. Pt denied deterrents. Pt has a history of destructive behavior, stealing from others, eloping from the home and running through the [place] naked. Disposition BEHAVIOR: This clinician attempted to assess the Pt 3 times today beginning at 8am and was able to do so at 2pm when she was finally awake. Pt is lying in her bed watching TV. She welcomed this clinician and ESC Richy as we walked in her room. No behavioral issues were of concern from the Pt in the last 24 hours from [facility] team. She knows that she has been at [facility] for 2 days but does not know the date. She is still however, wanting to go into treatment voluntarily. She asked about this clinician going to the [employer] for some beads because she wants to make jewelry. She asked if this clinician could paint her nails and do her make-up. She asked for a shower. Pt then asked if she could call her mother and when asked when she last spoke to her mother and she said she had not seen her in a year and a half. Pt then asked if she could call her friend Bethany Jay. Not sure if this is a real person or not. Pt then stated the thing there (pointing to her buttocks) is going to rot out. Pt is still struggling with insight and judgment. Her thoughts present as delusional. EYE CONTACT: Pt made fair eye contact. MOOD: Pt reported she is feeling good because she is happy. AFFECT: Her affect is congruent. APPETITE: She makes fair eye contact. SLEEP(trouble falling/staying asleep: Pt has a good appetite and she slept a great deal last night. Plan Pt will remain at [facility] and be assessed by [facility] daily. She will remain there until she is either placed or her symptoms subside. Pt is still seeking voluntary treatment and meet criteria for inpatient treatment. Signature Clinician's Name/Title: Yahaira Bishop MS, [facility] Emergency Services Clinician
[2021-04-20 19:32] VITALS: BP 90/67; PULSE 95; RESP 16; TEMP 37.1; O2SAT 100
[2021-04-20] MEDS: QUEtiapine 100 MG TAB PO (21:09)
[2021-04-20] MEDS: Tolterodine 2 MG CAPCR PO (21:09)
[2021-04-20] MEDS: diphenhydrAMINE 25 MG CAP PO (21:09)
[2021-04-20] MEDS: Divalproex Sodium 500 MG TAB.ER.24H 2000 MG PO (21:10)
[2021-04-21 07:54] VITALS: BP 89/64; PULSE 94; RESP 16; TEMP 36.8; O2SAT 95
[2021-04-21] MEDS: Aspirin E.C. 81 MG TABEC PO (08:16)
[2021-04-21] MEDS: hydroCHLOROthiazide 12.5 MG TAB PO (08:17)
[2021-04-21] MEDS: Divalproex Sodium 500 MG TAB.ER.24H 1000 MG PO (08:17)
[2021-04-21] MEDS: Cholecalciferol (Vitamin D3) 1,000 UNIT TAB 2000 UNITS PO (08:17)
[2021-04-21] MEDS: Folic Acid 1 MG TAB PO (08:17)
[2021-04-21] MEDS: Omeprazole 20 MG CAPCR PO (08:18)
[2021-04-21] MEDS: Lactobacillus Acidophilus CAP 1 CAP PO ×2 (08:18→21:37)
[2021-04-21] MEDS: metFORMIN 500 MG TAB 1000 MG PO ×2 (08:18→16:12)
[2021-04-21] MEDS: Polyethylene Glycol 3350 17 GM PACKET PO (08:18)
[2021-04-21] MEDS: QUEtiapine 25 MG TAB 50 MG PO ×2 (08:19→16:12)
[2021-04-21 10:25] VITALS: BP 100/56
--- NOTE | 2021-04-21 16:48 | PDOC.MHCN ---
Date of service: 04/21/21 Time of Service: 16:48 Mental Health Crisis Note Presenting Issue How did you arrive at the ED and why did you come: Pt arrived on 04.18.2021 after being assessed by [facility] MARBLE INSTALLER SUPERVISOR clinician Lucia Lyons and this clinician and was seeking voluntary admission. Precipitating Factors Pt endorsed SI today and when asked how she would do it she held her finger to her neck, resembling a knife pulling it across her neck making a slicing noise. She endorsed auditory hallucinations and this clinician observed visual hallucinations as well as delusions. Pt was screaming NO NO NO NO!! and GET AWAY FROM ME! She was observed punching the air as if she was punching someone and stating just like my sister used to do to me. She then laid back on her bed and began rubbing her breasts. Disposition BEHAVIOR: Pt's mood is unpredictable. One minute she is smiling and soft spoken and the next she is yelling and responding to internal stimuli. What has been more consistent over the last couple of day's is how long through the day she has been sleepy and unable to be roused. She has not been aggressive toward self or others in any way. EYE CONTACT: Pt makes fair eye contact. MOOD: Pt's mood is labile when experiencing hallucinations or delusions. AFFECT: Affect appears disconnected when experiencing hallucinations or delusions otherwise she is happy and smiling. APPETITE: Pt is eating well. She however missed her mouth some today as she has what appeared to be salad down her neck and into her shirt. SLEEP(trouble falling/staying asleep: Pt is sleeping what appears to be too much. Plan Pt will remain at [facility] and be assessed by [facility] daily. She will remain there until she is either placed or her symptoms subside. Pt is still seeking voluntary treatment and meet criteria for inpatient treatment. Signature Clinician's Name/Title: Yahaira Bishop MS, [facility] Emergency Services Clinician, [facility]
--- NOTE | 2021-04-21 16:52 | W.PM.PROGNOT ---
Date of Service Date of service: 04/21/21 Time of Service: 16:52 Assessment and Plan Assessment and plan (1) Suicidal ideation: Start date: 04/21/21 Start time: 16:54 Status: Acute Assessment and plan: mental health consulted and following. referrals placed for inpatient psychiatric admission no beds at this time (2) Schizoaffective disorder: Start date: 04/21/21 Start time: 16:55 Status: Acute Assessment and plan: continue medications and Dr. Ozuna is following as well. (3) Diabetes mellitus: Start date: 04/21/21 Start time: 16:55 Status: Chronic Assessment and plan: A1C 10 on feb 15 2021 diabetic diet, sliding scale as needed. BGL in 200's will add lantus at HS (4) Hypothyroidism: Start date: 04/21/21 Start time: 16:56 Status: Acute Assessment and plan: continue synthyroid tsh 3.94 (5) Hypertension: Start date: 04/21/21 Start time: 16:56 Status: Chronic Assessment and plan: blood pressure improved and remain well controlled. will reduce doses of both hctz and lisinopril continue home medication. discussed with dr. Frey Subjective Subjective Patient reports: other Interval history since last seen: Continues to have c/o SI. She was yelling out earlier when speaking with . Sleepy this am. She is on clozapine 200 mg BID with seroquel which makes her very sleepy will cut clonzapine in half if she become out of control will increase dose back to original, however she has been sleeping half the day away Exam Const General: cooperative, healthy appearing, comfortable and no acute distress Orientation: alert and awake [facility] Head: normal to inspection, normocephalic and atraumatic Face and sinus: normal facial exam Mouth: moist mucous membranes Eyes Eyelids: eyelids normal Conjunctivae: conjunctivae normal Sclera: sclerae normal Cornea: corneas normal Pupils: PERRL Neck Neck: normal visual inspection, full ROM, no meningeal signs, trachea midline, supple and nontender Resp Effort & Inspection: normal respiratory effort and able to speak in complete sentences Auscultation: clear to auscultation bilaterally Cardio Rate: regular rate Rhythm: regular rhythm GI Palpation: soft Back/Spine/Pelvis Back: No back tenderness Skin General skin exam: no rashes or lesions noted Neuro General: patient alert, patient awake, moves all extremities and no focal motor deficits Gait: shuffling Motor: muscle tone normal throughout Sensory Exam: no sensory deficits noted Extrem General: normal to inspection, full ROM and no pedal edema Psych Mental Status: mental status grossly normal Speech and Movement: pressured speech Mood: labile mood Affect: animated Attitude: cooperative Thought Process: flight of ideas and tangential Thought Content: other (Does not admit suicidal ideation to me) Insight: poor Judgment: poor Objective Last Vital Signs Temp 36.8 C 04/21/21 07:54 Pulse 94 H 04/21/21 07:54 Resp 16 04/21/21 07:54 BP 100/56 L 04/21/21 10:25 Pulse Ox 95 04/21/21 07:54
[2021-04-21] MEDS: Insulin Aspart 300 UNITS/3 ML PEN SC ×2 (16:53→21:38)
--- NOTE | 2021-04-21 17:37 | PDOC.CMSAFE ---
- If Service Date Differs Date of service: 04/21/21 Time of Service: 17:46 Care Management Safety Plan Status: Voluntary - Reason for Wait Reason for Wait: Inpatient Admission VOLUNTARY FOR INPATIENT PSYCHIATRIC STABILIZATION. Brief discussion with YURI Erazo, [facility], Yahaira and this conventional mortgage underwriter to review patient's presentation; Kandace was noted to be sleeping more than expected. YURI Erazo reports provider to provider discussion between Kandace's medication prescriber at [facility] Dr. Ozuna and Hospitalist yesterday. YURI Erazo reports morning medications will be reduced, see her note for further information. Yahaira reports Kandace was alert during their interaction, and presented with acute trauma response and psychosis, refer to her note for further information. No changes are being made to safety plan at this time. Safety plan has been established with patient, and care team, to adhere to patient goals, identify restrictions based on behavioral status, address nutrition, and determine allowed personal belongings, tools for hygiene and personal care. Determine level of activity including ambulation, level of supervision, visitors, and determine privileges based on behaviors and level of engagement by pt. SAFETY PLAN: 1. Will remain on suicide precautions. In Paper Clothes 2. Will remain in room under direct supervision of one-on-one staff at all times provided by CPSO, EYE GLASS FRAME POLISHER, INDUCTOR TESTER tape keller operator. 3. May have paper cups, plates, finger foods as well as a cardboard spoon with which to eat meals. 4. Follow [facility] Management of the Admitted Behavioral Health Patient policy. 5. Permitted comfort bath system and shower with escort at RN discretion. 6. No personal belongings at this time. 7. Visitors-No visitors at this time 8. Activities: Soft cart items, coloring book, crayons, television, and other activities at RN discretion. 9. Bathroom privileges: May use bathroom available in room on Med/Surg without restriction. 10. Phone: May use hospital phone for incoming and outgoing telephone calls at RN discretion. 11. Due to VOLUNTARY status, if patient wishes to leave [facility], staff will contact [facility] Crisis Screener ([phone]) and On-Call Detective ([phone]) as soon as possible. In the event of elopement, notify [facility] Police ([phone]). Patient is currently voluntarily at [facility] and seeking inpatient admission when a bed becomes available. [facility] Frontline Technical Services Representative will continue seeking placement. Please contact the [place] Firer Detective ([phone]) and [facility] Technical Services Representative ([phone]) for any needed changes in the Safety Plan. Safety plan has been provided to interdepartmental care team.
[2021-04-21] MEDS: QUEtiapine 100 MG TAB PO (21:37)
[2021-04-21] MEDS: Ibuprofen 200 MG TAB 400 MG PO (21:37)
[2021-04-21] MEDS: diphenhydrAMINE 25 MG CAP PO (21:37)
[2021-04-21] MEDS: Divalproex Sodium 500 MG TAB.ER.24H 2000 MG PO (21:37)
[2021-04-21] MEDS: Tolterodine 2 MG CAPCR PO (21:37)
[2021-04-21] MEDS: Insulin Glargine 300 UNITS/3 ML PEN 10 UNITS SC (22:20)
[2021-04-22] MEDS: Levothyroxine 112 MCG TAB PO (05:45)
[2021-04-22 09:03] VITALS: BP 106/68; PULSE 84; RESP 18; TEMP 36.6; O2SAT 96
[2021-04-22] MEDS: Divalproex Sodium 500 MG TAB.ER.24H 1000 MG PO (10:38)
[2021-04-22] MEDS: Omeprazole 20 MG CAPCR PO (10:38)
[2021-04-22] MEDS: Aspirin E.C. 81 MG TABEC PO (10:38)
[2021-04-22] MEDS: metFORMIN 500 MG TAB 1000 MG PO ×2 (10:38→17:06)
[2021-04-22] MEDS: QUEtiapine 25 MG TAB 50 MG PO ×2 (10:38→17:06)
[2021-04-22] MEDS: Cholecalciferol (Vitamin D3) 1,000 UNIT TAB 2000 UNITS PO (10:38)
[2021-04-22] MEDS: Magnesium Citrate 300 ML BTL PO (10:39)
[2021-04-22] MEDS: Lactobacillus Acidophilus CAP 1 CAP PO ×2 (10:39→20:10)
[2021-04-22] MEDS: Polyethylene Glycol 3350 17 GM PACKET PO (10:39)
[2021-04-22] MEDS: Folic Acid 1 MG TAB PO (10:39)
--- NOTE | 2021-04-22 11:12 | W.PM.PROGNOT ---
Date of Service Date of service: 04/22/21 Time of Service: 08: Assessment and Plan Assessment and plan (1) Suicidal ideation: Start date: 04/22/21 Start time: 08:20 Status: Acute Assessment and plan: mental health consulted and following. referrals placed for inpatient psychiatric admission no beds at this time (2) Schizoaffective disorder: Start date: 04/22/21 Start time: 08:20 Status: Acute Assessment and plan: continue medications and Dr. Ozuna is following as well. More awake today, cooperative decreased clonzapine to 100 mg BID as patient was somnolent most of the day (3) Diabetes mellitus: Start date: 04/22/21 Start time: 08:20 Status: Chronic Assessment and plan: A1C 10 on feb 15 2021 diabetic diet, sliding scale as needed. BGL in 200's lantus added at HS 63 fingerstick this am, half lantus tonight and monitor. (4) Hypothyroidism: Start date: 04/22/21 Start time: 08:20 Status: Acute Assessment and plan: continue synthyroid tsh 3.94 (5) Hypertension: Start date: 04/22/21 Start time: 08:20 Status: Chronic Assessment and plan: blood pressure improved and remain well controlled. will reduce doses of both hctz and lisinopril continue home medication. discussed with dr. Frey Subjective Subjective Patient reports: other Interval history since last seen: Continues to have thoughts of SI, Alert, Awakes and cooperative. Awaiting MH today and be placement. 1:1 with patient Exam Const General: cooperative, healthy appearing, comfortable and no acute distress Orientation: alert and awake [facility] Head: normal to inspection, normocephalic and atraumatic Face and sinus: normal facial exam Mouth: moist mucous membranes Eyes Eyelids: eyelids normal Conjunctivae: conjunctivae normal Sclera: sclerae normal Cornea: corneas normal Pupils: PERRL Neck Neck: normal visual inspection, full ROM, no meningeal signs, trachea midline, supple and nontender Resp Effort & Inspection: normal respiratory effort and able to speak in complete sentences Auscultation: clear to auscultation bilaterally Cardio Rate: regular rate Rhythm: regular rhythm GI Palpation: soft Back/Spine/Pelvis Back: No back tenderness Skin General skin exam: no rashes or lesions noted Neuro General: patient alert, patient awake, moves all extremities and no focal motor deficits Gait: shuffling Motor: muscle tone normal throughout Sensory Exam: no sensory deficits noted Extrem General: normal to inspection, full ROM and no pedal edema Psych Mental Status: mental status grossly normal Speech and Movement: pressured speech Mood: labile mood Affect: animated Attitude: cooperative Thought Process: flight of ideas and tangential Thought Content: other (Does not admit suicidal ideation to me) Insight: poor Judgment: poor Objective Last Vital Signs Temp 36.6 C 04/22/21 09:03 Pulse 84 04/22/21 09:03 Resp 18 04/22/21 09:03 BP 106/68 04/22/21 09:03 Pulse Ox 96 04/22/21 09:03
[2021-04-22] MEDS: Insulin Aspart 300 UNITS/3 ML PEN SC ×3 (12:37→22:45)
--- NOTE | 2021-04-22 13:03 | CMSP_ITS ---
- If Service Date Differs Date of service: 04/22/21 Time of Service: 13:04 Care Management Safety Plan Status: Voluntary - Reason for Wait Reason for Wait: Inpatient Admission VOLUNTARY FOR INPATIENT PSYCHIATRIC STABILIZATION. Kandace reportedly had a successful phone call with her mother this morning. This afternoon she was sleeping when CM brought IPAD out for [facility] screening. Kandace was able to wake up but unable to hold a successful conversation, and was easily distracted from answering simple questions. She appeared to enjoy singing, and sang a few snippets of songs at an appropriate noise level including Salt&Peppa, Don Santana and various Ligia songs including the twelve days of [place]. No changes are being made to safety plan at this time. Safety plan has been established with patient, and care team, to adhere to patient goals, identify restrictions based on behavioral status, address nutrition, and determine allowed personal belongings, tools for hygiene and personal care. Determine level of activity including ambulation, level of supervision, visitors, and determine privileges based on behaviors and level of engagement by pt. SAFETY PLAN: 1. Will remain on suicide precautions. In Paper Clothes 2. Will remain in room under direct supervision of one-on-one staff at all times provided by CPSO, MID LEVEL BUSINESS ANALYST, SURGICAL PATHOLOGIST backup operator. 3. May have paper cups, plates, finger foods as well as a cardboard spoon with which to eat meals. 4. Follow [facility] Management of the Admitted Behavioral Health Patient policy. 5. Permitted comfort bath system and shower with escort at RN discretion. 6. No personal belongings at this time. 7. Visitors-No visitors at this time 8. Activities: Soft cart items, coloring book, crayons, television, and other activities at RN discretion. 9. Bathroom privileges: May use bathroom available in room on Med/Surg without restriction. 10. Phone: May use hospital phone for incoming and outgoing telephone calls at RN discretion. 11. Due to VOLUNTARY status, if patient wishes to leave [facility], staff will contact [facility] Crisis Screener ([phone]) and On-Call Muck Hauler ([phone]) as soon as possible. In the event of elopement, notify [facility] Police ([phone]). Patient is currently voluntarily at [facility] and seeking inpatient admission when a bed becomes available. [facility] Frontline [place] Nurse will continue seeking placement. Please contact the Line Cleaner Muck Hauler ([phone]) and [facility] Plunket Nurse ([phone]) for any needed changes in the Safety Plan. Safety plan has been provided to interdepartmental care team.
[2021-04-22] MEDS: Divalproex Sodium 500 MG TAB.ER.24H 2000 MG PO (20:09)
[2021-04-22] MEDS: Tolterodine 2 MG CAPCR PO (22:36)
[2021-04-22] MEDS: diphenhydrAMINE 25 MG CAP PO (22:36)
[2021-04-22] MEDS: QUEtiapine 100 MG TAB PO (22:36)
[2021-04-22] MEDS: Insulin Glargine 300 UNITS/3 ML PEN SC (22:47)
[2021-04-23] MEDS: Levothyroxine 112 MCG TAB PO (06:07)
[2021-04-23 08:53] VITALS: BP 111/67; PULSE 91; RESP 18; TEMP 36.9; O2SAT 98
[2021-04-23] MEDS: Cholecalciferol (Vitamin D3) 1,000 UNIT TAB 2000 UNITS PO (09:09)
[2021-04-23] MEDS: QUEtiapine 25 MG TAB 50 MG PO ×2 (09:09→16:15)
[2021-04-23] MEDS: Polyethylene Glycol 3350 17 GM PACKET PO (09:09)
[2021-04-23] MEDS: Divalproex Sodium 500 MG TAB.ER.24H 1000 MG PO (09:10)
[2021-04-23] MEDS: Omeprazole 20 MG CAPCR PO (09:10)
[2021-04-23] MEDS: Folic Acid 1 MG TAB PO (09:10)
[2021-04-23] MEDS: Lactobacillus Acidophilus CAP 1 CAP PO ×2 (09:10→19:49)
[2021-04-23] MEDS: metFORMIN 500 MG TAB 1000 MG PO ×2 (09:10→17:22)
[2021-04-23] MEDS: Aspirin E.C. 81 MG TABEC PO (10:07)
--- NOTE | 2021-04-23 10:29 | CMSP_ITS ---
- If Service Date Differs Date of service: 04/23/21 Time of Service: 10:29 Care Management Safety Plan Status: Voluntary - Reason for Wait Reason for Wait: Inpatient Admission VOLUNTARY FOR INPATIENT PSYCHIATRIC STABILIZATION. DONTRELL Syed, [facility] screened Kandace at 1030 this morning, reports patient continues to meet criteria for placement. Placement calls made; no beds available. inquired as to [facility] CM notification; Yahaira called [facility] and notified of FIRE AND SAFETY HELPER participant awaiting placement- provided admission timing information and face sheet for Yahaira to coordinate shared information. Yahaira recommends that Kandace not have visitors at this time. No changes are being made to safety plan at this time. Safety plan has been established with patient, and care team, to adhere to patient goals, identify restrictions based on behavioral status, address nutrition, and determine allowed personal belongings, tools for hygiene and personal care. Determine level of activity including ambulation, level of supervision, visitors, and determine privileges based on behaviors and level of engagement by pt. SAFETY PLAN: 1. Will remain on suicide precautions. In Paper Clothes 2. Will remain in room under direct supervision of one-on-one staff at all times provided by CPSO, UPLANDS DIVISION DIRECTOR, BALL FRINGE MACHINE OPERATOR dinkey engine operator. 3. May have paper cups, plates, finger foods as well as a cardboard spoon with which to eat meals. 4. Follow [facility] Management of the Admitted Behavioral Health Patient policy. 5. Permitted comfort bath system and shower with escort at RN discretion. 6. No personal belongings at this time. 7. Visitors-No visitors at this time 8. Activities: Soft cart items, coloring book, crayons, television, and other activities at RN discretion. 9. Bathroom privileges: May use bathroom available in room on Med/Surg without restriction. 10. Phone: May use hospital phone for incoming and outgoing telephone calls at RN discretion. 11. Due to VOLUNTARY status, if patient wishes to leave [facility], staff will contact [facility] Crisis Screener ([phone]) and On-Call Dance Professor ([phone]) as soon as possible. In the event of elopement, notify [facility] Police ([phone]). Patient is currently voluntarily at [facility] and seeking inpatient admission when a bed becomes available. [facility] Frontline Oceanologist will continue seeking placement. Please contact the Systems Mechanic Dance Professor ([phone]) and [facility] Oceanologist ([phone]) for any needed changes in the Safety Plan. Safety plan has been provided to interdepartmental care team.
[2021-04-23] MEDS: Insulin Aspart 300 UNITS/3 ML PEN SC ×2 (12:13→21:21)
--- NOTE | 2021-04-23 13:08 | DSE_ITS ---
DS: Diagnosis Discharge Diagnosis (1) Suicidal ideation: Status: Acute (2) Schizoaffective disorder: Status: Acute (3) Diabetes mellitus: Status: Chronic (4) Hypothyroidism: Status: Acute (5) Hypertension: Status: Chronic Discharge Plan Disposition Condition: Stable Discharge Details Reason For Visit: Suicidal Ideation Admit Date/Time: 04/22/21 07:55 Admit Provider: Robert Bajwa Attending Provider: Robert Bajwa Primary Care Provider: Sol Ashley V Home Meds and New Rx's Prescriptions: No Action levothyroxine 25 MCG tablet 112 mcg PO DAILY@0730 RF: 0 aspirin [Aspir-81] 81 MG tablet,delayed release (DR/EC) 81 mg PO QAM RF: 0 ibuprofen [Ibuprofen IB] 200 MG tablet 400 mg PO Q8H PRNRF: 0 polyethylene glycol 3350 17 gram/dose powder 17 g PO DAILY RF: 0 clozapine [Clozaril] 100 mg tablet 200 mg PO BID RF: 0 quetiapine [Seroquel] 100 mg tablet 100 mg PO HS RF: 0 cholecalciferol (vitamin D3) [Vitamin D3] 50 mcg (2,000 unit) Capsule 50 mcg PO DAILY RF: 0 Advanced Probiotic-10 13 mg (3 billion cell) capsule 1 cap PO BID RF: 0 diphenhydramine HCl 25 mg Tablet 25 mg PO QHS RF: 0 quetiapine [Seroquel] 50 mg Tablet 50 mg PO BID RF: 0 divalproex [Depakote ER] 500 mg tablet extended release 24 hr 1,000 - 2,000 mg PO BID RF: 0 omeprazole 20 mg Capsule,Delayed Release(Dr/Ec) 20 mg PO DAILY RF: 0 folic acid 1 mg Tablet 1 mg PO DAILY RF: 0 lisinopril 5 mg Tablet 5 mg PO DAILY RF: 0 hydrochlorothiazide 25 mg Tablet 25 mg PO DAILY RF: 0 clotrimazole [Lotrimin AF (clotrimazole)] 1 % Cream 1 applic TOPICAL BID PRNRF: 0 clindamycin phos-skin clnsr 19 1 % Kit 1 % TOPICAL PRN PRNRF: 0 guaifenesin [Mucinex] 600 mg Tablet Extended Release 12hr 600 mg PO Q12H PRNRF: 0 metformin 1,000 mg tablet 1,000 mg PO BID RF: 0 glipizide 10 mg tablet extended release 24hr 20 mg PO QAM RF: 0 tolterodine 2 mg tablet 2 mg PO HS RF: 0 DS: Data Vitals/I&O Vitals and I&O: Vital Signs Temperature 36.9 C 04/23/21 08:53 Temperature Source Tympanic 04/23/21 08:53 Pulse 91 H 04/23/21 08:53 Pulse Rhythm Regular 04/23/21 09:22 Pulse 103 H 04/18/21 18:34 Respiratory Rate 18 04/23/21 08:53 Respiratory Effort Non-Labored 04/23/21 09:22 Respiratory Depth Normal 04/23/21 09:22 Respiratory Pattern Normal 04/23/21 09:22 Blood Pressure 111/67 04/23/21 08:53 Blood Pressure Mean 70 04/18/21 18:34 Blood Pressure Position Sitting 04/18/21 14:09 Pulse Oximetry 98 04/23/21 08:53 Oxygen Delivery Method Room Air 04/23/21 08:53 Oxygen Flow Rate 0 04/23/21 08:53 Pain Level 0 04/23/21 08:53 Comment 04/21/21 07:54 Intake & Output 04/22/21 04/23/21 04/23/21 23:59 11:59 23:59 Intake Total 360 / 360 1170 / 1410 240 / 1410 Balance 360 / 360 1170 / 1410 240 / 1410 Intake: Oral 360 / 360 1170 / 1410 240 / 1410 Other: Urine Color Pale Yellow Urine Appearance Clear Clear Urine Odor Strong None Comment Pt incontinent with urine and stool in diaper and bed. Patient walk to the bathroom and back to chair. Patient voided an unmeasured amount Patient asked to go to the bathroom, no results Stool Size Copious Stool Characteristics Soft Liquid Brown Voiding Methods Diaper Toilet Toilet Incontinent PFSH Medical History Autism spectrum disorder with accompanying intellectual disability without language impairment, requiring substantial support Diabetes mellitus a. on oral medications b. Hgb A1C 7.5 c. 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 Since ?
--- NOTE | 2021-04-23 13:36 | W.PM.PROGNOT ---
Date of Service Date of service: 04/23/21 Time of Service: 13:37 Assessment and Plan Assessment and plan (1) Suicidal ideation: Status: Acute Assessment and plan: mental health consulted and following. referrals placed for inpatient psychiatric admission no beds will be available tonight (2) Schizoaffective disorder: Status: Acute (3) Diabetes mellitus: Status: Chronic Assessment and plan: A1C 10 on feb 15 2021 diabetic diet, sliding scale as needed. (4) Hypothyroidism: Status: Acute Assessment and plan: continue synthyroid tsh 3.94 (5) Hypertension: Status: Chronic Assessment and plan: blood pressure improved and remain well controlled. will reduce doses of both hctz and lisinopril continue home medication. discussed with DR Frey Subjective Subjective Patient reports: no new complaints Interval history since last seen: remains medically stable. Exam Const General: cooperative, healthy appearing, comfortable and no acute distress Orientation: alert and awake HENMT Head: normal to inspection, normocephalic and atraumatic Face and sinus: normal facial exam Mouth: moist mucous membranes Eyes Eyelids: eyelids normal Conjunctivae: conjunctivae normal Sclera: sclerae normal Cornea: corneas normal Pupils: PERRL Neck Neck: normal visual inspection, full ROM, no meningeal signs, trachea midline, supple and nontender Resp Effort & Inspection: normal respiratory effort and able to speak in complete sentences Auscultation: clear to auscultation bilaterally Cardio Rate: regular rate Rhythm: regular rhythm GI Palpation: soft Back/Spine/Pelvis Back: No back tenderness Skin General skin exam: no rashes or lesions noted Neuro General: patient alert, patient awake, moves all extremities and no focal motor deficits Gait: shuffling Motor: muscle tone normal throughout Sensory Exam: no sensory deficits noted Extrem General: normal to inspection, full ROM and no pedal edema Psych Mental Status: mental status grossly normal Speech and Movement: pressured speech Mood: labile mood Affect: animated Attitude: cooperative Thought Process: flight of ideas and tangential Thought Content: other (Does not admit suicidal ideation to me) Insight: poor Judgment: poor Objective Last Vital Signs Temp 36.9 C 04/23/21 08:53 Pulse 91 H 04/23/21 08:53 Resp 18 04/23/21 08:53 BP 111/67 04/23/21 08:53 Pulse Ox 98 04/23/21 08:53
--- NOTE | 2021-04-23 15:35 | PDOC.CMPRO ---
- If Service Date Differs Date of service: 04/23/21 Time of Service: 15:36 Care Management Progress Note BOB received a call from Kandace's mother Britany. She was requesting information about Kandace but there is no HIPAA signed. BOB met with Kandace to complete a HIPAA form but Kandace declined to do so. She stated I am my own guardian. She informed BOB that she had already spoken to her mother today.
[2021-04-23 16:12] VITALS: BP 122/80; PULSE 101; RESP 16; TEMP 36.4; O2SAT 99
--- NOTE | 2021-04-23 16:24 | W.INMHPGNOTE ---
Date of service: 04/23/21 Time of Service: 16:24 Mental Health Crisis Note Presenting Issue How did you arrive at the ED and why did you come: Pt arrived on 04.18.2021 after being assessed by [facility]' FUNERAL SERVICE PRACTITIONER/EMBALMER clinician Lucia Lyons and this clinician and was seeking voluntary admission. Precipitating Factors Pt is endorsing SI no HI. She denied hallucinations however, those are clearly observed during this clinician's stay they could clearly be observed by her responding to them and telling this clinician that the yue Engel was laying white roses across her wall and pedels on her bed. She worries about going to a hospital where they will take her baby and yet is still seeking to be placed. Disposition BEHAVIOR: Pt is friendly and cooperative today. She has not been a behavior issue per care management report. EYE CONTACT: Eye contact is good. MOOD: Pt is happy today and slightly anxious. AFFECT: Pt's affect is congruent with mood. APPETITE: Pt is eating well. SLEEP(trouble falling/staying asleep: Pt has been sleeping well and is now not so sedated all morning since having her Klonopin decreased. Plan Pt continues to request hospital level of care. She will remain at [facility] and be assessed by [facility] daily. She will remain there until she is either placed or her symptoms subside. Pt is still seeking voluntary treatment and meet criteria for inpatient treatment. All hospitals have been called and there is no availability today. All updated clinical information should be faxed on 04.24.2021 to all hospitals except the [place] who has refused acceptance at this time. Signature Clinician's Name/Title: Yahaira Bishop MS, [facility] Emergency Services Clinician, [facility]
[2021-04-23] MEDS: Divalproex Sodium 500 MG TAB.ER.24H 2000 MG PO (19:49)
[2021-04-23] MEDS: diphenhydrAMINE 25 MG CAP PO (21:23)
[2021-04-23] MEDS: Insulin Glargine 300 UNITS/3 ML PEN SC (21:23)
[2021-04-23] MEDS: Tolterodine 2 MG CAPCR PO (21:23)
[2021-04-23] MEDS: QUEtiapine 100 MG TAB PO (21:23)
[2021-04-24] MEDS: Levothyroxine 112 MCG TAB PO (06:10)
[2021-04-24 07:47] VITALS: BP 111/76; PULSE 83; RESP 18; TEMP 36.2; O2SAT 98
[2021-04-24] MEDS: Lactobacillus Acidophilus CAP 1 CAP PO ×2 (08:21→20:24)
[2021-04-24] MEDS: Cholecalciferol (Vitamin D3) 1,000 UNIT TAB 2000 UNITS PO (08:21)
[2021-04-24] MEDS: Polyethylene Glycol 3350 17 GM PACKET PO (08:21)
[2021-04-24] MEDS: Aspirin E.C. 81 MG TABEC PO (08:21)
[2021-04-24] MEDS: Folic Acid 1 MG TAB PO (08:22)
[2021-04-24] MEDS: Divalproex Sodium 500 MG TAB.ER.24H 1000 MG PO (08:22)
[2021-04-24] MEDS: QUEtiapine 25 MG TAB 50 MG PO ×2 (08:22→15:22)
[2021-04-24] MEDS: Omeprazole 20 MG CAPCR PO (08:22)
[2021-04-24] MEDS: metFORMIN 500 MG TAB 1000 MG PO ×2 (08:22→17:02)
[2021-04-24] MEDS: Insulin Aspart 300 UNITS/3 ML PEN SC ×4 (08:23→20:25)
--- NOTE | 2021-04-24 11:36 | CMSP_ITS ---
- If Service Date Differs Date of service: 04/24/21 Time of Service: 11:36 Care Management Safety Plan Status: Voluntary - Reason for Wait Reason for Wait: Inpatient Admission VOLUNTARY FOR INPATIENT PSYCHIATRIC STABILIZATION. CM met with Lorna this morning, and coordinated a zoom visit with EDDIE Layne SWATCHER disease case manager rn. Lorna was uncomfortable with the format- zoom meeting vs in person, therefore the meeting was cut short. CM was brought back in to discuss this with Kandace, as she became dysregulated after the meeting. Louise decided to meet with Kandace in person, and will recommend in person visits going forward. Kandace's mother asked for visitation today, which CM discussed with the team during our team huddle. The team decided that due to Kandace's unpredictability, and not knowing if her mother will be a trigger, visitation will remain suspended at this time. This will be re evaluated daily. Per EDDIE Gil, Kandace continues to meet criteria for inpatient psychiatric treatment. She is following up with referrals sent as well as [facility] Assistant Infant Toddler Teacher, Becky Powell today. A huddle was conducted with TERESE Leyva maintenance and custodian supervisor; Belkis, primary RN; TERESE Hollis Coordinator; and BOB Valerio. No changes are being made to safety plan at this time. Safety plan has been established with patient, and care team, to adhere to patient goals, identify restrictions based on behavioral status, address nutrition, and determine allowed personal belongings, tools for hygiene and personal care. Determine level of activity including ambulation, level of supervision, visitors, and determine privileges based on behaviors and level of engagement by pt. SAFETY PLAN: 1. Will remain on suicide precautions. In Paper Clothes 2. Will remain in room under direct supervision of one-on-one staff at all times provided by CPSO, MALIA, LINUX UNIX ADMINISTRATOR supervisor brake repair. 3. May have paper cups, plates, finger foods as well as a cardboard spoon with which to eat meals. 4. Follow [facility] Management of the Admitted Behavioral Health Patient policy. 5. Permitted comfort bath system and shower with escort at RN discretion. 6. No personal belongings at this time. 7. Visitors-No visitors at this time 8. Activities: Soft cart items, coloring book, crayons, television, and other activities at RN discretion. 9. Bathroom privileges: May use bathroom available in room on Med/Surg without restriction. 10. Phone: May use hospital phone for incoming and outgoing telephone calls at RN discretion. 11. Due to VOLUNTARY status, if patient wishes to leave [facility], staff will contact [facility] Crisis Screener ([phone]) and On-Call Assistant Infant Toddler Teacher ([phone]) as soon as possible. In the event of elopement, notify [facility] Police ([phone]). Patient is currently voluntarily at [facility] and seeking inpatient admission when a bed becomes available. [facility] Frontline Work And Family Life Consultant will continue seeking placement. Please contact the Vegetable Packer Assistant Infant Toddler Teacher ([phone]) and [facility] Work And Family Life Consultant ([phone]) for any needed changes in the Safety Plan. Safety plan has been provided to interdepartmental care team.
--- NOTE | 2021-04-24 13:28 | PDOC.CMPRO ---
- If Service Date Differs Date of service: 04/24/21 Time of Service: 13:28 Care Management Progress Note S/O: CM met with Lorna this morning, and coordinated a zoom visit with EDDIE Layne HOSPITAL COOK classification case manager. Lorna was uncomfortable with the format- zoom meeting vs in person, therefore the meeting was cut short. CM was brought back in to discuss this with Kandace, as she became dysregulated after the meeting. Louise decided to meet with Kandace in person, and will recommend in person visits going forward. Kandace's mother asked for visitation today, which CM discussed with the team during our team huddle. The team decided that due to Kandace's unpredictability, and not knowing if her mother will be a trigger, visitation will remain suspended at this time. This will be re evaluated daily. CM attempted to call her mother, Britany, to discuss this decision with her. Per EDDIE Gil, Kandace continues to meet criteria for inpatient psychiatric treatment. She is following up with referrals sent as well as [facility] Contact Center Specialist, Becky Powell today. A huddle was conducted with TERESE Leyva scouring pads supervisor; Belkis, primary RN; TERESE Hollis Coordinator; and BOB Valerio. No changes are being made to safety plan at this time. A: Kandace is a 51 year old female admitted to [facility] on 04/18/2021 for suicidal ideation. P: Referrals [facility] been [facility] to [facility], [facility], [facility], [facility], and the [place] for review. The [place] has declined Kandace due to her acuity. All other [facility] hospitals are full. Kandace will be reassessed daily by [facility] and will remain at [facility] voluntarily while [facility] continues to seek placement for her. CM will continue to follow.
--- NOTE | 2021-04-24 15:53 | W.PM.PROGNOT ---
Date of Service Date of service: 04/24/21 Time of Service: 15:53 Assessment and Plan Assessment and plan (1) Suicidal ideation: Status: Acute Assessment and plan: mental health consulted and following. referrals placed for inpatient psychiatric admission no beds will be available, will continue CPSO and safety plan awaiting a bed. (2) Schizoaffective disorder: Status: Acute (3) Diabetes mellitus: Status: Chronic Assessment and plan: BS 147-191, A1C 10 on feb 15 2021 diabetic diet, sliding scale as needed. (4) Hypothyroidism: Status: Acute Assessment and plan: continue synthyroid tsh 3.94 (5) Hypertension: Status: Chronic Assessment and plan: blood pressure improved and remain well controlled. stable on reduced doses of both hctz and lisinopril continue home medication. discussed with DR Frey Subjective Subjective Patient reports: no new complaints Interval history since last seen: remains medically stable. eating and drinking well bowels moved, incontinent of bowel and bladder Exam Const General: cooperative, healthy appearing, comfortable and no acute distress Orientation: alert and awake HENSD Head: normal to inspection, normocephalic and atraumatic Face and sinus: normal facial exam Mouth: moist mucous membranes Eyes Conjunctivae: conjunctivae normal Neck Neck: full ROM Resp Effort & Inspection: normal respiratory effort Auscultation: clear to auscultation bilaterally Cardio Rate: regular rate Rhythm: regular rhythm GI Palpation: soft Neuro General: patient alert, patient awake, moves all extremities and no focal motor deficits Gait: shuffling Motor: muscle tone normal throughout Extrem General: normal to inspection, full ROM and no pedal edema Psych Mental Status: mental status grossly normal Attitude: cooperative Thought Process: flight of ideas and tangential Thought Content: other (Does not admit suicidal ideation to me) Insight: poor Judgment: poor Objective Last Vital Signs Temp 36.2 C L 04/24/21 07:47 Pulse 83 04/24/21 07:47 Resp 18 04/24/21 07:47 BP 111/76 04/24/21 07:47 Pulse Ox 98 04/24/21 07:47
[2021-04-24] MEDS: Divalproex Sodium 500 MG TAB.ER.24H 2000 MG PO (20:24)
[2021-04-24] MEDS: diphenhydrAMINE 25 MG CAP PO (20:24)
[2021-04-24] MEDS: Tolterodine 2 MG CAPCR PO (20:24)
[2021-04-24] MEDS: QUEtiapine 100 MG TAB PO (20:24)
[2021-04-24] MEDS: Insulin Glargine 300 UNITS/3 ML PEN SC (20:26)
[2021-04-24] MEDS: Docusate Sodium 100 MG CAP PO (20:52)
[2021-04-24] MEDS: Ibuprofen 200 MG TAB 400 MG PO (20:52)
[2021-04-25] MEDS: Levothyroxine 112 MCG TAB PO (05:37)
[2021-04-25] MEDS: Polyethylene Glycol 3350 17 GM PACKET PO (08:08)
[2021-04-25] MEDS: metFORMIN 500 MG TAB 1000 MG PO ×2 (08:08→17:17)
[2021-04-25] MEDS: Omeprazole 20 MG CAPCR PO (08:09)
[2021-04-25] MEDS: QUEtiapine 25 MG TAB 50 MG PO ×2 (08:09→16:20)
[2021-04-25] MEDS: Cholecalciferol (Vitamin D3) 1,000 UNIT TAB 2000 UNITS PO (08:09)
[2021-04-25] MEDS: Divalproex Sodium 500 MG TAB.ER.24H 1000 MG PO (08:09)
[2021-04-25] MEDS: Folic Acid 1 MG TAB PO (08:10)
[2021-04-25] MEDS: Aspirin E.C. 81 MG TABEC PO (08:10)
[2021-04-25] MEDS: Lactobacillus Acidophilus CAP 1 CAP PO ×2 (08:10→20:49)
[2021-04-25 10:02] VITALS: BP 101/69; PULSE 85; RESP 16; TEMP 36.7; O2SAT 97
[2021-04-25] MEDS: Insulin Aspart 300 UNITS/3 ML PEN SC ×2 (12:06→20:55)
--- NOTE | 2021-04-25 17:31 | CMPROGNOTE_ITS ---
- If Service Date Differs Date of service: 04/25/21 Time of Service: 17:31 Care Management Progress Note S/O: Kandace met with Louise from [facility] today, who still felt that she met criteria for inpatient psychiatric treatment. CM spoke to Becky [facility] child care attendant, who reported that per the information that she has received, she does not feel that inpatient treatment is necessary, and that she should transfer to a care bed instead, as she will be supervised 06/01, and can have medication management there. BOB discussed this with Lucia [facility], who met with her team. CM later had a meeting regarding the placement of Kandace, and made a plan for her admission to the care bed for Friday at 12:30pm. The care bed currently is full, and those patients need to be discharged before Kandace arrives. CM agreed to this plan, as she cannot be left unsupervised. CM asked that [facility] still pursue inpatient treatment, as transitioning her sooner would be better for Kandace. CM will continue to follow. A: Kandace is a 51 year old female admitted to [facility] on 04/18/2021 for suicidal ideation. P: Referrals [facility] to [facility], [facility], [facility], [facility], and the [place] [facility]. [facility] All other [facility] are full. Kandace will be reassessed daily by [facility] and will remain at [facility] voluntarily while [facility] continues to seek placement for her. CM will continue to follow.
--- NOTE | 2021-04-25 17:31 | PDOC.CMPRO ---
- If Service Date Differs Date of service: 04/25/21 Time of Service: 17:31 Care Management Progress Note S/O: Kandace met with Louise from [facility] today, who still felt that she met criteria for inpatient psychiatric treatment. CM spoke to Becky [facility] complex care nurse practitioner, who reported that per the information that she has received, she does not feel that inpatient treatment is necessary, and that she should transfer to a care bed instead, as she will be supervised 06/01, and can have medication management there. BOB discussed this with Lucia [facility], who met with her team. CM later had a meeting regarding the placement of Kandace, and made a plan for her admission to the care bed for Friday at 12:30pm. The care bed currently is full, and those patients need to be discharged before Kandace arrives. CM agreed to this plan, as she cannot be left unsupervised. CM asked that [facility] still pursue inpatient treatment, as transitioning her sooner would be better for Kandace. CM will continue to follow. A: Kandace is a 51 year old female admitted to [facility] on 04/18/2021 for suicidal ideation. P: [facility] to [facility], [facility], and the [place] [facility] review. [facility] due to [facility]. All other [facility] are full. Kandace will be reassessed daily by [facility] and will remain at [facility] voluntarily while [facility] continues to seek placement for her. CM will continue to follow.
--- NOTE | 2021-04-25 17:36 | CMSP_ITS ---
- If Service Date Differs Date of service: 04/25/21 Time of Service: 17:36 Care Management Safety Plan Status: Voluntary - Reason for Wait Reason for Wait: Community Placement VOLUNTARY FOR INPATIENT PSYCHIATRIC STABILIZATION. Huddle was held today with angie Kendrick RN, Becky, RN Cellophane Casting Machine Repairer, and BOB Valerio. No changes are being made to safety plan at this time. Safety plan has been established with patient, and care team, to adhere to patient goals, identify restrictions based on behavioral status, address nutrition, and determine allowed personal belongings, tools for hygiene and personal care. Determine level of activity including ambulation, level of supervision, visitors, and determine privileges based on behaviors and level of engagement by pt. SAFETY PLAN: 1. Will remain on suicide precautions. In Paper Clothes 2. Will remain in room under direct supervision of one-on-one staff at all times provided by CPSO, MALIA, CHROME PLATER hydro station supervisor. 3. May have paper cups, plates, finger foods as well as a cardboard spoon with which to eat meals. 4. Follow [facility] Management of the Admitted Behavioral Health Patient policy. 5. Permitted comfort bath system and shower with escort at RN discretion. 6. No personal belongings at this time. 7. Visitors-No visitors at this time 8. Activities: Soft cart items, coloring book, crayons, television, and other activities at RN discretion. 9. Bathroom privileges: May use bathroom available in room on Med/Surg without restriction. 10. Phone: May use hospital phone for incoming and outgoing telephone calls at RN discretion. 11. Due to VOLUNTARY status, if patient wishes to leave [facility], staff will contact [facility] Crisis Screener ([phone]) and On-Call Institutional Asset Manager ([phone]) as soon as possible. In the event of elopement, notify [facility] Police ([phone]). Patient is currently voluntarily at [facility] and seeking inpatient admission when a bed becomes available. [facility] Frontline Payroll Representative will continue seeking placement. Please contact the Ear Flap Binder Institutional Asset Manager ([phone]) and [facility] Payroll Representative ([phone]) for any needed changes in the Safety Plan. Safety plan has been provided to interdepartmental care team.
[2021-04-25 18:17] VITALS: BP 113/76; PULSE 84; RESP 16; TEMP 37.1; O2SAT 97
[2021-04-25] MEDS: Divalproex Sodium 500 MG TAB.ER.24H 2000 MG PO (20:49)
[2021-04-25] MEDS: Tolterodine 2 MG CAPCR PO (20:50)
[2021-04-25] MEDS: Insulin Glargine 300 UNITS/3 ML PEN SC (20:50)
[2021-04-25] MEDS: QUEtiapine 100 MG TAB PO (20:50)
[2021-04-25] MEDS: Docusate Sodium 100 MG CAP PO (20:50)
[2021-04-25] MEDS: diphenhydrAMINE 25 MG CAP PO (22:06)
[2021-04-26] MEDS: Levothyroxine 112 MCG TAB PO (05:55)
[2021-04-26] MEDS: QUEtiapine 25 MG TAB 50 MG PO ×2 (07:36→16:54)
[2021-04-26] MEDS: Aspirin E.C. 81 MG TABEC PO (07:37)
[2021-04-26] MEDS: Omeprazole 20 MG CAPCR PO (07:37)
[2021-04-26] MEDS: Divalproex Sodium 500 MG TAB.ER.24H 1000 MG PO (07:37)
[2021-04-26] MEDS: Cholecalciferol (Vitamin D3) 1,000 UNIT TAB 2000 UNITS PO (07:37)
[2021-04-26] MEDS: Lactobacillus Acidophilus CAP 1 CAP PO ×2 (07:37→21:27)
[2021-04-26] MEDS: metFORMIN 500 MG TAB 1000 MG PO ×2 (07:37→16:54)
[2021-04-26] MEDS: Folic Acid 1 MG TAB PO (07:37)
[2021-04-26] MEDS: Polyethylene Glycol 3350 17 GM PACKET PO (07:37)
--- NOTE | 2021-04-26 11:59 | W.PM.PROGNOT ---
Date of Service Date of service: 04/26/21 Time of Service: 11:59 Assessment and Plan Assessment and plan (1) Suicidal ideation: Status: Acute Assessment and plan: mental health consulted and following. Planning discharge to care bed will continue CPSO and safety plan awaiting a bed. (2) Schizoaffective disorder: Status: Acute (3) Diabetes mellitus: Status: Chronic Assessment and plan: BS 147-191, A1C 10 on feb 15 2021 diabetic diet, sliding scale as needed. (4) Hypothyroidism: Status: Acute Assessment and plan: continue synthyroid tsh 3.94 (5) Hypertension: Status: Chronic Assessment and plan: blood pressure improved and remain well controlled. stable on reduced doses of both hctz and lisinopril continue home medication. discussed with DR Cabrera Subjective Subjective Patient reports: no new complaints, tolerating liquids well, tolerating a regular diet and afebrile Interval history since last seen: remains medically stable, no behavioral issues Exam Const General: cooperative, comfortable and no acute distress Orientation: alert and awake HENMT Head: normal to inspection, normocephalic and atraumatic Eyes Conjunctivae: conjunctivae normal Sclera: sclerae normal Neck Neck: full ROM Resp Effort & Inspection: normal respiratory effort Cardio Rate: regular rate Rhythm: regular rhythm GI Palpation: soft Back/Spine/Pelvis Back: No back tenderness Neuro General: patient alert, patient awake, moves all extremities and no focal motor deficits Gait: shuffling Motor: muscle tone normal throughout Extrem General: normal to inspection and full ROM Psych Mental Status: mental status grossly normal Attitude: cooperative Thought Process: flight of ideas Insight: poor Judgment: poor Objective Last Vital Signs Temp 37.1 C 04/25/21 18:17 Pulse 84 04/25/21 18:17 Resp 16 04/25/21 18:17 BP 113/76 04/25/21 18:17 Pulse Ox 97 04/25/21 18:17
[2021-04-26 12:37] VITALS: BP 107/72; PULSE 94; RESP 19; TEMP 37; O2SAT 97
--- NOTE | 2021-04-26 16:45 | CMPROGNOTE_ITS ---
- If Service Date Differs Date of service: 04/26/21 Time of Service: 16:45 Care Management Progress Note S/O: Kandace was sitting in her chair today when CM met with her. CM coordinated a zoom meeting with Scott Syed [facility], who knows Kandace well from the [employer] program. Kandace remembered Scott, and appeared happy to be able to visit with her. They discussed the plan for Kandace to go to the Care bed tomorrow. Scott answered Kandace's concerns about not going to a hospital, stating that the Care Bed is local, and there will be people that she knows working there, which will make it a much more therapeutic environment for her. She is agreeable to this plan. Kandace will be transported to the Care Bed tomorrow by [employer] W[employer] INSPECTOR (private vehicle) at 12:30pm. Kelsey, [facility], coordinated this plan with [employer] INSPECTOR and CM. If any issues arise, use phone numbers below, or call Kevan Michelle [facility]. Kelsey @ [facility] [phone] Ulysses Titus, Chief of Behavioral Health, [facility] [phone] or cell [phone] A: Kandace is a 51 year old female admitted to [facility] on 04/18/2021 for suicidal ideation. P: Kandace will be transported to the Care Bed tomorrow by [employer] INSPECT[employer] (private vehicle) at 12:30pm. Kelsey, [facility], coordinated this plan with [employer] W[employer] INSPECTOR and CM. She will follow up with her PCP and discharge plan of care. CM will continue to follow. - MH Services (Omit if N/A) Current MH Services: [employer] - Status Status: Voluntary - Reason for Wait Reason for Wait: Community Placement (Care Bed)
--- NOTE | 2021-04-26 16:45 | PDOC.CMPRO ---
- If Service Date Differs Date of service: 04/26/21 Time of Service: 16:45 Care Management Progress Note S/O: Kandace was sitting in her chair today when CM met with her. CM coordinated a zoom meeting with Scott Syed [facility], who knows Kandace well from the [employer] program. Kandace remembered Scott, and appeared happy to be able to visit with her. They discussed the plan for Kandace to go to the Care bed tomorrow. Scott answered Kandace's concerns about not going to a hospital, stating that the Care Bed is local, and there will be people that she knows working there, which will make it a much more therapeutic environment for her. She is agreeable to this plan. Kandace will be transported to the Care Bed tomorrow by COPY CHASER (private vehicle) at 12:30pm. Kelsey, [facility], coordinated this plan with COPY CHASER and CM. If any issues arise, use phone numbers below, or call Kevan Michelle [facility]. Kelsey @ [facility] [phone] Ulysses Titus, Chief of Behavioral Health, [facility] [phone] or cell [phone] A: Kandace is a 51 year old female admitted to [facility] on 04/18/2021 for suicidal ideation. P: Kandace will be transported to the Care Bed tomorrow by COPY CHASER (private vehicle) at 12:30pm. Kelsey, [facility], coordinated this plan with COPY CHASER and CM. She will follow up with her PCP and discharge plan of care. CM will continue to follow. - MH Services (Omit if N/A) Current MH Services: [employer] - Status Status: Voluntary - Reason for Wait Reason for Wait: Community Placement (Care Bed)
[2021-04-26] MEDS: Insulin Aspart 300 UNITS/3 ML PEN SC ×2 (16:57→21:28)
--- NOTE | 2021-04-26 17:07 | CMSP_ITS ---
- If Service Date Differs Date of service: 04/26/21 Time of Service: 17:07 Care Management Safety Plan Status: Voluntary - Reason for Wait Reason for Wait: Community Placement No changes are being made to safety plan at this time. Safety plan has been established with patient, and care team, to adhere to patient goals, identify restrictions based on behavioral status, address nutrition, and determine allowed personal belongings, tools for hygiene and personal care. Determine level of activity including ambulation, level of supervision, visitors, and determine privileges based on behaviors and level of engagement by pt. SAFETY PLAN: 1. Will remain on suicide precautions. In Paper Clothes 2. Will remain in room under direct supervision of one-on-one staff at all times provided by CPSO, MALIA, [employer]UN[employer] workday director. 3. May have paper cups, plates, finger foods as well as a cardboard spoon with which to eat meals. 4. Follow [facility] Management of the Admitted Behavioral Health Patient policy. 5. Permitted comfort bath system and shower with escort at RN discretion. 6. No personal belongings at this time. 7. Visitors-No visitors at this time 8. Activities: Soft cart items, coloring book, crayons, television, and other activities at RN discretion. 9. Bathroom privileges: May use bathroom available in room on Med/Surg without restriction. 10. Phone: May use hospital phone for incoming and outgoing telephone calls at RN discretion. 11. Due to VOLUNTARY status, if patient wishes to leave [facility], staff will contact [facility] Crisis Screener ([phone]) and On-Call Leasing Assistant ([phone]) as soon as possible. In the event of elopement, notify [facility] Police ([phone]). Patient is currently voluntarily at [facility] and seeking inpatient admission when a bed becomes available. [facility] Frontline Development Eng will continue seeking placement. Please contact the Set Up Mechanic Automatic Line Leasing Assistant ([phone]) and [facility] Development Eng ([phone]) for any needed changes in the Safety Plan. Safety plan has been provided to interdepartmental care team.
[2021-04-26] MEDS: Tolterodine 2 MG CAPCR PO (21:26)
[2021-04-26] MEDS: QUEtiapine 100 MG TAB PO (21:26)
[2021-04-26] MEDS: Divalproex Sodium 500 MG TAB.ER.24H 2000 MG PO (21:27)
[2021-04-26] MEDS: diphenhydrAMINE 25 MG CAP PO (21:28)
[2021-04-26] MEDS: Insulin Glargine 300 UNITS/3 ML PEN SC (21:29)
[2021-04-27] MEDS: Levothyroxine 112 MCG TAB PO (06:42)
[2021-04-27] MEDS: Cholecalciferol (Vitamin D3) 1,000 UNIT TAB 2000 UNITS PO (09:21)
[2021-04-27] MEDS: Omeprazole 20 MG CAPCR PO (09:21)
[2021-04-27] MEDS: QUEtiapine 25 MG TAB 50 MG PO (09:22)
[2021-04-27] MEDS: Folic Acid 1 MG TAB PO (09:22)
[2021-04-27] MEDS: metFORMIN 500 MG TAB 1000 MG PO (09:22)
[2021-04-27] MEDS: Divalproex Sodium 500 MG TAB.ER.24H 1000 MG PO (09:22)
[2021-04-27] MEDS: Lactobacillus Acidophilus CAP 1 CAP PO (09:22)
[2021-04-27] MEDS: Aspirin E.C. 81 MG TABEC PO (09:22)
--- NOTE | 2021-04-27 10:48 | W.PM.DS.N ---
Date of service: 04/27/21 Time of Service: 10:48 DS: Diagnosis Discharge Diagnosis (1) Suicidal ideation: Start date: 04/27/21 Start time: 10:48 Status: Acute Asessment and Plan: following, she is being discharged to care bed today. Safety plan in place (2) Schizoaffective disorder: Start date: 04/27/21 Start time: 10:49 Status: Acute Asessment and Plan: Continue medication regimen. Dr. Ozuna following from [facility] (3) Diabetes mellitus: Start date: 04/27/21 Start time: 10:49 Status: Chronic Asessment and Plan: Will continue home regimen (4) Hypothyroidism: Start date: 04/27/21 Start time: 10:57 Status: Acute Asessment and Plan: continue synthroid (5) Hypertension: Start date: 04/27/21 Start time: 10:57 Status: Chronic Asessment and Plan: Blood pressure stable. Discussed with Dr. Olvera Discharge Plan Disposition Patient Disposition: OTHER Condition: Stable Discharge Details Reason For Visit: Suicidal Ideation Admit Date/Time: 04/22/21 07:55 Admit Provider: Robert Bajwa Attending Provider: Robert Bajwa Primary Care Provider: Sol Ashley V Hospital Course Hospital Course: 51 y.o female with PMH of austism, schizo disorder followed by Dr. Ozuna, Ambulatory dysfunction, bipolar disorder, was admitted to [facility] after presenting for depression and SI. She was screened by and made voluntary. She was placed in transition unit cleared medically and awaited bed placement. While in the hospital she was followed by Dr. Ozuna, meds were adjusted as needed. She had a 1:1 cpso and was monitored. Today she is being discharged to care bed in community under [facility] and . She will continue to be followed by Dr. Ozuna. Home Meds and New Rx's Prescriptions: Continued levothyroxine 25 MCG tablet 112 mcg PO DAILY@0730 RF: 0 aspirin [Aspir-81] 81 MG tablet,delayed release (DR/EC) 81 mg PO QAM RF: 0 ibuprofen [Ibuprofen IB] 200 MG tablet 400 mg PO Q8H PRNRF: 0 polyethylene glycol 3350 17 gram/dose powder 17 g PO DAILY RF: 0 clozapine [Clozaril] 100 mg tablet 200 mg PO BID RF: 0 quetiapine [Seroquel] 100 mg tablet 100 mg PO HS RF: 0 cholecalciferol (vitamin D3) [Vitamin D3] 50 mcg (2,000 unit) Capsule 50 mcg PO DAILY RF: 0 Advanced Probiotic-10 13 mg (3 billion cell) capsule 1 cap PO BID RF: 0 diphenhydramine HCl 25 mg Tablet 25 mg PO QHS RF: 0 quetiapine [Seroquel] 50 mg Tablet 50 mg PO BID RF: 0 divalproex [Depakote ER] 500 mg tablet extended release 24 hr 1,000 - 2,000 mg PO BID RF: 0 omeprazole 20 mg Capsule,Delayed Release(Dr/Ec) 20 mg PO DAILY RF: 0 folic acid 1 mg Tablet 1 mg PO DAILY RF: 0 lisinopril 5 mg Tablet 5 mg PO DAILY RF: 0 hydrochlorothiazide 25 mg Tablet 25 mg PO DAILY RF: 0 clotrimazole [Lotrimin AF (clotrimazole)] 1 % Cream 1 applic TOPICAL BID PRNRF: 0 clindamycin phos-skin clnsr 19 1 % Kit 1 % TOPICAL PRN PRNRF: 0 guaifenesin [Mucinex] 600 mg Tablet Extended Release 12hr 600 mg PO Q12H PRNRF: 0 metformin 1,000 mg tablet 1,000 mg PO BID RF: 0 glipizide 10 mg tablet extended release 24hr 20 mg PO QAM RF: 0 tolterodine 2 mg tablet 2 mg PO HS RF: 0 Discharge Instructions Instructions: Depression (DC), Suicide Prevention (DC) Additional Instructions: Discharge to care bed Activity:: Activity as Tolerated Equipment/Supplies:: No Equipment Needed Diet:: Carb Counting Discharge Orders Discharge Orders: Discharge Order (Routine); Ordered 04/27/21 Ordered By: Orly Nagy DS: Summary Time Spent with Patient providing and/or coordinating discharge services: Less than 30 minutes Status at Discharge Functional status at discharge: wheelchair bound Overall status at discharge: patient is progressing back to baseline Mental Status: mental status grossly normal Speech and Movement: pressured speech Mood: labile mood Affect: animated Exam Const General: cooperative, healthy appearing, comfortable and no acute distress Orientation: alert and awake HENMT Head: normal to inspection, normocephalic and atraumatic Face and sinus: normal facial exam Mouth: moist mucous membranes Eyes Eyelids: eyelids normal Conjunctivae: conjunctivae normal Sclera: sclerae normal Cornea: corneas normal Pupils: PERRL Neck Neck: normal visual inspection, full ROM, no meningeal signs, trachea midline, supple and nontender Resp Effort & Inspection: normal respiratory effort and able to speak in complete sentences Auscultation: clear to auscultation bilaterally Cardio Rate: regular rate Rhythm: regular rhythm GI Palpation: soft Back/Spine/Pelvis Back: No back tenderness Skin General skin exam: no rashes or lesions noted Neuro General: patient alert, patient awake, moves all extremities and no focal motor deficits Gait: shuffling Motor: muscle tone normal throughout Sensory Exam: no sensory deficits noted Extrem General: normal to inspection, full ROM and no pedal edema Psych Mental Status: mental status grossly normal Speech and Movement: pressured speech Mood: labile mood Affect: animated Attitude: cooperative Thought Process: flight of ideas and tangential Thought Content: other (Does not admit suicidal ideation to me) Insight: poor Judgment: poor DS: Data Vitals/I&O Vitals and I&O: Vital Signs Temperature 37 C 04/26/21 12:37 Temperature Source Tympanic 04/26/21 12:37 Pulse 94 H 04/26/21 12:37 Pulse Rhythm Regular 04/27/21 09:27 Pulse 103 H 04/18/21 18:34 Respiratory Rate 19 04/26/21 12:37 Respiratory Effort Non-Labored 04/27/21 09:27 Respiratory Depth Normal 04/27/21 09:27 Respiratory Pattern Normal 04/27/21 09:27 Blood Pressure 107/72 04/26/21 12:37 Blood Pressure Mean 70 04/18/21 18:34 Blood Pressure Position Sitting 04/18/21 14:09 Pulse Oximetry 97 04/26/21 12:37 Oxygen Delivery Method Room Air 04/26/21 12:37 Oxygen Flow Rate 0 04/26/21 12:37 Pain Level 0 04/26/21 12:37 Comment 04/24/21 15:22 Intake & Output 04/26/21 04/26/21 04/27/21 11:59 23:59 11:59 Intake Total 280 / 980 700 / 980 Balance 280 / 980 700 / 980 Intake: Oral 280 / 980 700 / 980 Other: Urine Color Yellow Yellow Yellow Urine Appearance Cloudy Cloudy Clear Urine Odor None Normal Comment pT was incont and voided in toilet Stool Occult Blood Negative Stool Size Moderate Small Stool Characteristics Soft Liquid Voiding Methods Toilet Toilet Diaper Diaper Incontinent [facility] Medical History Autism spectrum disorder with accompanying intellectual disability without language impairment, requiring substantial support Diabetes mellitus a. on oral medications b. Hgb A1C 7.5 c. 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 Since ?2009+
[2021-04-27] MEDS: Insulin Aspart 300 UNITS/3 ML PEN SC (11:46)
--- NOTE | 2021-04-27 12:46 | NUR.NOTE ---
Nursing Note: This RN agrees with all of the q1hr behavior reassessments that the TRAINING AND DEVELOPMENT MANAGER has been documenting.
--- NOTE | 2021-04-27 15:01 | PDOC.CMDIS ---
- If Service Date Differs Date of service: 04/27/21 Time of Service: 15:01 LACE Index Scoring Tool - Questions: Length of Stay (in days): 4 - 6 Acuity (Admit via E.D.?): Yes Comorbidities: Diabetes w/o Complication E.D. Visits: 2 - Answers: Total Score: 10 Risk of Readmission: High Risk Care Management Discharge Reason for Hospitalization: SI Discharge Plan: Kandace will be discharged to the Care Bed in [facility] with [facility] community support. She will transport via [facility] staff.
--- NOTE | 2021-04-30 10:39 | PDOC.HHF2F_ITS ---
Home Health Certification Home Health Certification: 1. Encounter Date and Reason I certify that Kandace Levine was seen by Orly Nagy on 04/30/21 and that I had a [id number] encounter with this patient that meets the physician face to face encounter requirements. 2. Clinical Findings Supporting Skilled Need and Homebound Status I certify that home health services are medically necessary, include either intermittent custodial and/or physical/speech therapy, and that this patie nt is homebound in that absences from the home require considerable and taxing effort and are infrequent or of short duration, or are attributable to the need to receive medical care. [X] (a) Attached documentation from encounter provides clinical findings supporting skilled need and homebound status (including what assistance patient requires to leave the home). The encounter with the patient was in whole, or in part, for the following medical condition, which is the primary reason for home health care: Suicidal Ideation Longterm: Patient would benefit from nursing services for wound care and blood sugar management, etc. Homebound: Unable to leave home without assitance. 3. Certification and Authentication I certify that I composed the above information based on my clinical judgement relating to this patient's medical condition and, if applicable, clinical findings communicated to me by the NPP or inpatient physician who performed the Home Health Referral. All further orders will be obtained through Nikkie Ashley (Community Based Physician - PCP)
--- NOTE | 2021-04-30 13:36 | CMACTNOTE_ITS ---
- If Service Date Differs Date of service: 04/30/21 Time of Service: 13:36 Care Management Activity Note CM receives a telephone call from Mercedes of the [facility] with respect to Kandace. Mercedes states staff at the [facility] Care Bed where Kandace is currently staying are requesting Home Health nursing to assist with diabetes management and wound care. Mercedes asks if the hospitalist might be able to do a [id number] since Kandace was recently discharged from [facility]. Orly Nagy NP, agrees to draft a Home Health Face to Face as she is the one who discharged Kandace on 04/27/2021.
== END 2021-04-27 12:45 | disposition other institution (70) | DRG 885 ==
LOC: ER 18:18 → MS 04-19 08:23
PROVIDERS: Physician Assistant; Admitting Provider Family Medicine; Emergency Provider Nurse Practitioner Acute Care; PCP Family Medicine; Visit Provider Family Medicine
DX: F25.9 Schizoaffective disorder, unspecified (principal); R45.851 Suicidal ideations; E11.9 Type 2 diabetes mellitus without complications; I10 Essential (primary) hypertension; E03.9 Hypothyroidism, unspecified; F84.0 Autistic disorder; F79 Unspecified intellectual disabilities; G93.89 Other specified disorders of brain; K21.9 Gastro-esophageal reflux disease without esophagitis; R32 Unspecified urinary incontinence; F17.210 Nicotine dependence, cigarettes, uncomplicated; Z20.822 Contact with and (suspected) exposure to COVID-19; E66.9 Obesity, unspecified; Z68.35 Body mass index [BMI] 35.0-35.9, adult
CPT/HCPCS: 80053; 80307; 87635; 80164; 80320; 80329; 81003; 81025; 84439; 84443; 85025; 99219; 99224; 99226; 99232; 99233; 99238; G0378; J3490

== ENCOUNTER 2021-05-05 11:22 | Emergency (ER) | payer MEDICAID, SELFPAY ==
[2021-05-05 11:22] VITALS: BP 104/47; PULSE 111; TEMP 36.6; O2SAT 97
--- NOTE | 2021-05-05 11:40 | W.ED.GENAD ---
Discharge Plan Disposition Patient Disposition: HOME Condition: Stable Discharge Details Clinical Impression: Fatigue Primary Care Provider: Sol Ashley V ED Provider: Landy Rendon Home Meds and New Rx's Prescriptions: Continued levothyroxine 25 MCG tablet 112 mcg PO DAILY@0730 RF: 0 aspirin [Aspir-81] 81 MG tablet,delayed release (DR/EC) 81 mg PO QAM RF: 0 ibuprofen [Ibuprofen IB] 200 MG tablet 400 mg PO Q8H PRNRF: 0 polyethylene glycol 3350 17 gram/dose powder 17 g PO DAILY RF: 0 clozapine [Clozaril] 100 mg tablet 200 mg PO BID RF: 0 quetiapine [Seroquel] 100 mg tablet 100 mg PO HS RF: 0 cholecalciferol (vitamin D3) [Vitamin D3] 50 mcg (2,000 unit) Capsule 50 mcg PO DAILY RF: 0 Advanced Probiotic-10 13 mg (3 billion cell) capsule 1 cap PO BID RF: 0 diphenhydramine HCl 25 mg Tablet 25 mg PO QHS RF: 0 quetiapine [Seroquel] 50 mg Tablet 50 mg PO BID RF: 0 divalproex [Depakote ER] 500 mg tablet extended release 24 hr 1,000 - 2,000 mg PO BID RF: 0 omeprazole 20 mg Capsule,Delayed Release(Dr/Ec) 20 mg PO DAILY RF: 0 folic acid 1 mg Tablet 1 mg PO DAILY RF: 0 lisinopril 5 mg Tablet 5 mg PO DAILY RF: 0 hydrochlorothiazide 25 mg Tablet 25 mg PO DAILY RF: 0 clotrimazole [Lotrimin AF (clotrimazole)] 1 % Cream 1 applic TOPICAL BID PRNRF: 0 clindamycin phos-skin clnsr 19 1 % Kit 1 % TOPICAL PRN PRNRF: 0 guaifenesin [Mucinex] 600 mg Tablet Extended Release 12hr 600 mg PO Q12H PRNRF: 0 metformin 1,000 mg tablet 1,000 mg PO BID RF: 0 glipizide 10 mg tablet extended release 24hr 20 mg PO QAM RF: 0 tolterodine 2 mg tablet 2 mg PO HS RF: 0 Discharge Instructions Instructions: Fatigue (ED) Additional Instructions: Your lab work and imaging today is reassuring and does not note any evidence of acute abnormal significant findings. Please return the urine sample to the hospital when available for results to determine if you have a urinary tract infection. Drink plenty of fluids and get plenty of rest. Your increase in fatigue may be due to your increased dose of your Depakote recently. Follow-up with your primary care doctor in 1 week. Return to the emergency department with any worsening or new concerning symptoms. Discharge Data Discharge Date/Time-TO BE ENTERED AT DEPARTURE: 05/05/21 14:34 Discharge Physician: Landy Rendon Medical Decision Making 51-year-old female with a history of autism, bipolar disorder, schizoaffective disorder, diabetes, hypertension, GERD and hypothyroidism presents from the care bed for decrease in urination and altered mental status for the past 2 days per staff at the [facility] bed. Heart rate heart rate 110s. Blood pressure soft at 104/47. Patient is oriented for her baseline and denies any acute complaints at present. She has no obvious focal deficits on exam. Her Depakote dose was recently increased from 1000 to 2500 mg in the a.m. She has remained on her 2000 mg evening dose. It is possible her symptoms are secondary to her medication dose increase. Also consider dehydration, UTI, CVA, electrolyte abnormality. Will place an IV, bolus IV fluids, screening labs, urinalysis, CT head, chest xray. Labs and imaging reviewed. White blood cell count 11.9 which is near her baseline. Hgb 11.5. Glucose 291. Normal electrolytes. Troponin negative. Depakote level within normal limits. CT head and chest x-ray negative for acute findings. Patient refused to give urine sample. She was incontinent of urine which is her baseline reported per [facility] bed employee Shobha at bedside. Patient refused straight cath. Patient also refused EKG. Shobha who knows patient well states that pt appears at her baseline mental status. Patient was given a urine specimen container and a urinalysis order was placed to obtain this outpatient. Her heart rate decreased to the 80s after IV fluids. She appeared in no acute distress and was awake and alert and answering questions appropriately. Advised to follow up with the primary care doctor for re-evaluation. Usual and customary return precautions given prior to discharge. Medical Records Medical records reviewed: Yes I reviewed the patient's medical records. Imaging Data Radiologic Study: Radiologist's impression: CT Head Without Contrast Exam date and time: 05/05/2021 11:49 AM Age: 51 years old Clinical indication: Altered mental status/memory loss; Confusion or disorientation TECHNIQUE: Imaging protocol: Computed tomography of the head without contrast. Radiation optimization: All CT scans at this facility use at least one of these dose optimization techniques: automated exposure control; mA and/or kV adjustment per patient size (includes targeted exams where dose is matched to clinical indication); or iterative reconstruction. COMPARISON: CT HEAD WO 10/21/2020 2:38 PM FINDINGS: Brain: No intracranial hemorrhage, edema or other acute abnormalities are seen in the brain. There is generalized prominence of the ventricles and sulci due to chronic atrophy. There is a small area of encephalomalacia in the left parietal lobe consistent with old small infarct. Cerebral ventricles: The ventricles are prominent due to chronic atrophy. Paranasal sinuses: There is mild mucosal thickening in the ethmoid and maxillary sinuses. Mastoid air cells: Visualized mastoid air cells are well aerated. Bones/joints: Unremarkable. No acute fracture. Soft tissues: Unremarkable. IMPRESSION: 1. No acute intracranial abnormality. 2. Generalized chronic atrophy. 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 XR Chest Exam date and time: 05/05/2021 11:49 AM Age: 51 years old Clinical indication: Cough TECHNIQUE: Imaging protocol: XR of the chest. Views: 2 views. COMPARISON: CT CHEST/ABD/PEL W 01/25/2020 7:47 PM FINDINGS: Lungs: There is bibasilar subsegmental atelectasis greater on the right side. Pleural spaces: Unremarkable. No pleural effusion. No pneumothorax. Heart/Mediastinum: Unremarkable. No cardiomegaly. Bones/joints: Unremarkable. IMPRESSION: Bibasilar subsegmental atelectasis greater on the right side. Lab Data Lab results reviewed: Yes I reviewed the patient's lab results. Labs: Laboratory Tests Range/Units 05/05/21 05/05/21 05/05/21 12:07 12:07 12:07 WBC (4.4-10.8) 10^3/uL 11.90 H RBC (3.93-5.22) 10^6/uL 3.88 L Hgb (11.2-15.7) g/dL 11.5 Hct (36.0-46.0) % 35.9 L MCV (80-95) fL 92.5 MCH (27.0-33.0) pg 29.6 MCHC (32.0-36.0) % 32.0 RDW (11.7-14.6) % 15.9 H Plt Count (130-400) 10^3/uL 318 MPV (8.0-11.0) fL 10.0 Immature Gran % 4.2 Neutrophils % 58.5 Lymphocytes % 25.9 Monocytes % 9.7 Eosinophils % 1.0 Basophils % 0.7 Nucleated RBC % % 0 Absolute Neutrophils (1.2-6.7) 10^3/uL 6.96 H Absolute Lymphocytes (1.2-3.4) 10^3/uL 3.08 Absolute Monocytes (0.1-0.8) 10^3/uL 1.15 H Absolute Eosinophils (0.0-0.7) 10^3/uL 0.12 Absolute Basophils (0.0-0.2) 10^3/uL 0.08 Sodium (136-145) mmol/L 140 Potassium (3.5-5.1) mmol/L 4.1 Chloride (98-107) mmol/L 102 Carbon Dioxide (21.0-32.0) mmol/L 30.2 Anion Gap (3-11) mmol/L 7.8 BUN (7-18) mg/dL 24 H Creatinine (0.55-1.02) mg/dL 0.8 Estimated GFR/1.73 m2 (mL/min/1.73m2) >= 60.00 Glucose (74-106) mg/dL 291 H Calcium (8.5-10.1) mg/dL 8.7 Magnesium (1.8-2.4) mg/dL 2.0 Total Bilirubin (0.2-1.0) mg/dL 0.3 AST (15-37) U/L 18 ALT (14-59) U/L 14 Alkaline Phosphatase (46-116) U/L 87 Troponin I (<0.06) ng/mL < 0.05 Total Protein (6.4-8.2) g/dL 6.8 Albumin (3.4-5.0) g/dL 3.0 L Valproic Acid ( - 150) ug/mL 84.8 HPI General Mode of arrival: EMS. Date/Time Provider Initiated Documentation: 05/05/21 11:34. Limitations to Documentation: altered mental status (baseline). Information obtained by: patient, EMS, RN notes reviewed and old records reviewed. HPI Narrative: Patient is a 51-year-old female with a history of schizoaffective disorder, bipolar disorder, autism, diabetes, hypertension, hypothyroidism presents from the care bed for altered mental status and increased fatigue. Staff at the care bed noted that patient has not been voiding per her usual and that she appeared more lethargic. Of note, patient's Depakote a.m. dose was increased from 1000 to 2500 mg 2 days ago. She has remained on her 2000 mg evening dose. Patient denies any acute complaints. She states she did eat breakfast. She denies any headache, chest pain, shortness of breath, abdominal pain Related Data Home Medications Medication Instructions Recorded Confirmed levothyroxine 112 mcg PO DAILY@0730 10/18/13 05/05/21 aspirin [Aspir-81] 81 mg PO QAM 08/05/14 05/05/21 ibuprofen [Ibuprofen IB] 400 mg PO Q8H PRN 08/05/14 04/18/21 clindamycin phos-skin clnsr 19 1 % TOPICAL PRN PRN 09/26/18 04/18/21 clotrimazole [Lotrimin AF 1 applic TOPICAL BID PRN 09/26/18 05/05/21 (clotrimazole)] folic acid 1 mg PO DAILY 09/26/18 05/05/21 guaifenesin [Mucinex] 600 mg PO Q12H PRN 09/26/18 05/05/21 hydrochlorothiazide 25 mg PO DAILY 09/26/18 05/05/21 lisinopril 5 mg PO DAILY 09/26/18 05/05/21 omeprazole 20 mg PO DAILY 09/26/18 05/05/21 glipizide 20 mg PO QAM 01/26/20 05/05/21 metformin 1,000 mg PO BID 01/26/20 05/05/21 tolterodine 2 mg PO HS 01/26/20 05/05/21 polyethylene glycol 3350 17 g PO DAILY 04/19/20 05/05/21 clozapine 100 mg tablet 200 mg PO BID tab 06/06/20 05/05/21 divalproex 500 mg tablet,extended 1,000 - 2,000 mg PO BID 06/06/20 05/05/21 release 24 hr Advanced Probiotic-10 1 cap PO BID 10/21/20 05/05/21 cholecalciferol (vitamin D3) 50 mcg PO DAILY 10/21/20 05/05/21 [Vitamin D3] quetiapine [Seroquel] 100 mg PO HS 10/21/20 05/05/21 diphenhydramine HCl 25 mg PO QHS 04/18/21 05/05/21 quetiapine [Seroquel] 50 mg PO BID 04/18/21 05/05/21 Allergies Allergy/AdvReac Type Severity Reaction Status Date / Time Penicillins Allergy Severe Unverified 05/05/21 11:28 peanut Allergy Unknown Unverified 05/05/21 11:28 trifluoperazine HCl Allergy Unknown Unverified 05/05/21 11:28 [From Stelazine] General Stated Complaint: AMS/LOC QUINTEN: 3 Review of Systems All systems reviewed & are unremarkable except as noted in HPI and below Constitutional Constitutional: Reports as per HPI, Denies chills, Reports fatigue, Denies fever(s) and Reports malaise Eyes Eyes: Denies blurry vision ENT Ears, Nose, Mouth, and Throat: Denies dizziness, Denies sore throat and Denies throat swelling Cardiovascular Cardiovascular: Denies chest pain and Denies dyspnea Respiratory Respiratory: Denies cough and Denies dyspnea Gastrointestinal Gastrointestinal: Denies abdominal pain, Denies diarrhea and Denies vomiting Genitourinary Genitourinary: Denies hematuria and Denies dysuria Musculoskeletal Musculoskeletal: Denies back pain and Denies numbness Integumentary/Breasts Skin/Breast: Denies lesions and Denies rash Neurologic Neurologic: Denies dizziness, Denies localized weakness and Denies numbness Endocrine Endocrine: Reports fatigue Allergic/Immunologic Allergic/Immunologic: Denies throat swelling [facility] Active Problem List (Updated 05/05/21 @ 14:28 by Landy Rendon DO) Fatigue (Acute) Encounter for medical assessment (Acute) Acute alteration in mental status (Acute) Suicidal ideation (Acute) Discharge planning issues (Acute) Urinary incontinence (Chronic) Encephalomalacia on imaging study (Chronic) Autism spectrum disorder with accompanying intellectual disability without language impairment, requiring substantial support (Acute) Change in behavior (Acute) Schizoaffective disorder (Acute) Ambulatory dysfunction (Chronic) Constipation (Chronic) Bipolar disorder (Chronic) Weakness (Acute) Abnormal CT of the head (Acute) Tobacco use (Chronic) Mouth abscess (Acute 08/05/14) Responsive to verbal stimulus (Acute) Hypernatremia (Acute) RLL pneumonia (Acute) Medical History (Updated 05/05/21 @ 14:28 by Landy Rendon DO) Autism Bipolar affective disorder Diabetes mellitus GERD (gastroesophageal reflux disease) Hypertension Hypothyroidism Schizoaffective disorder Surgical History No significant past surgical history Family History Other Adopted Social History Smoking/Tobacco Use Status: Current every day Tobacco Type: cigarettes Smoking risk assessment performed?: Yes Alcohol Intake: never Drug use: Never Substance use type: does not use Do you feel safe at home: Yes Do you feel safe in your relationship?: Yes Additional Social history: lives at [facility]. Since ? Exam Const General: cooperative and no acute distress HENMT Head: normal to inspection Face and sinus: normal facial exam Eyes General: appearance normal, both eyes and all related structures Pupils: PERRL EOM: EOM intact bilaterally Neck Neck: normal visual inspection and No submandibular swelling Lymphatic: no lymphadenopathy noted Chest Chest: normal inspection of the chest and no tenderness Resp Effort & Inspection: normal respiratory effort and able to speak in complete sentences Auscultation: clear to auscultation bilaterally Cardio Rate: regular rate Rhythm: regular rhythm GI Inspection: normal to inspection and obesity Palpation: soft, not firm, not rigid and nontender Auscultation: normal bowel sounds Skin General skin exam: no rashes or lesions noted Neuro General: patient alert, patient awake, patient oriented x3, moves all extremities, no meningeal signs and no focal motor deficits Cranial Nerves: CN's II-XI intact bilaterally Cognition: normal cognition Speech: speech normal Motor: muscle tone normal throughout and strength 5/5 throughout Sensory Exam: no sensory deficits noted Extrem General: normal to inspection, full ROM, capillary refill normal, no calf tenderness bilaterally and no edema Psych Appearance: grossly normal Mental Status: mental status grossly normal Speech and Movement: speech and movement normal Affect: blunted Course Vital Signs Vital signs: Vital Signs Temperature 97.9 F 05/05/21 11:22 Pulse 111 H 05/05/21 11:22 Blood Pressure 104/47 L 05/05/21 11:22 Pulse Oximetry 97 05/05/21 11:22 Temperature 97.9 F 05/05/21 11:22 Temperature Source Temporal Artery Scan 05/05/21 11:22 Pulse 111 H 05/05/21 11:22 Respiratory Effort Non-Labored 05/05/21 11:28 Blood Pressure 104/47 L 05/05/21 11:22 Blood Pressure Position Sitting 05/05/21 11:22 Pulse Oximetry 97 05/05/21 11:22 Oxygen Delivery Method Room Air 05/05/21 11:22 Oxygen Flow Rate 0 05/05/21 11:22 Pain Level 0 05/05/21 11:22
--- NOTE | 2021-05-05 11:45 | DI.CT_ITS ---
Exam(s) CT HEAD WO EXAM: CT HEAD WO CLINICAL HISTORY: altered mental status, lethargy. TECHNIQUE: Imaging Protocol: Axial computed tomography images with coronal and sagittal reformatted images were created and reviewed COMPARISON: CT CT HEAD WO from 10/21/2020 FINDINGS: There is moderate generalized cerebral atrophy. There is an old apparent left parietal infarct, no change in appearance comparison with prior CT of [facility]. No evidence of acute intracranial hemorrhage, mass effect, or midline shift. The orbital structures are unremarkable. The temporal bone structures appear intact. Calvarium: Normal. Visualized Paranasal sinuses/Mastoids: Clear. IMPRESSION: No evidence of acute intracranial process. RADIATION DOSE DELIVERED: 722.39mGy.cm Total DLP 722.39mGy.cm Total DLP CTDIvol DATA REPOSITORY: All CT scans at this facility are submitted to the National Radiology Data Registry (NRDR) Dose Index Registry (DIR) with the [employer] (A[employer]). RADIATION OPTIMIZATION: All CT scans at this facility use at least one of these dose optimization te chniques: automated exposure control; mA and/or kV adjustment per patient size (includes targeted exa ms where dose is matched to clinical indication); or iterative reconstruction.
--- NOTE | 2021-05-05 11:45 | DI.RAD_ITS ---
Exam(s) XR CHEST 2V PA LATERAL EXAM: XR CHEST 2V PA LATERAL CLINICAL HISTORY: altered mental status, lethargy, r/o acute disease TECHNIQUE: COMPARISON: CR,XR XR CHEST 2V PA LATERAL from 01/25/2020 FINDINGS: There are bilateral linear radiodensities in the lung bases consistent with areas of atelectasis. No pleural effusion. No gross consolidation. Cardiac size within normal limits. IMPRESSION: Bibasilar atelectasis. No other significant findings. RADIATION DOSE DELIVERED: Total DLP
[2021-05-05 12:12] LABS: Absolute Basophil Count 0.08 10^3/uL (0.0-0.2); Absolute Eosinophil Count 0.12 10^3/uL (0.0-0.7); Absolute Lymphocyte Count 3.08 10^3/uL (1.2-3.4); Absolute Neutrophil Count 6.96 10^3/uL (1.2-6.7); Basophils % 0.7; HCT 35.9 % (36.0-46.0); HGB 11.5 g/dL (11.2-15.7); Immature Grans % 4.2; Lymphocytes % 25.9; MCH 29.6 pg (27.0-33.0); MCV 92.5 fL (80-95); Monocytes % 9.7; Neutrophils % 58.5; Nucleated RBC 0 %; Platelet Count 318 10^3/uL (130-400); RBC 3.88 10^6/uL (3.93-5.22); RDW 15.9 % (11.7-14.6); RDW-SD 53.7 fL
[2021-05-05 12:13] LABS: Absolute Monocyte Count 1.15 10^3/uL (0.1-0.8)
[2021-05-05] MEDS: Normal Saline 1,000 ML 1000 ML IV (12:15)
[2021-05-05 12:26] LABS: VALPROIC ACID 84.8 ug/mL
[2021-05-05 12:28] LABS: ALT 14 U/L (14-59); AST 18 U/L (15-37); Alkaline Phosphatase 87 U/L (46-116); Anion Gap 7.8 mmol/L (3-11); BUN 24 mg/dL (7-18); Bilirubin, Total 0.3 mg/dL (0.2-1.0); CO2 30.2 mmol/L (21.0-32.0); CREATININE 0.8 mg/dL (0.55-1.02); Calcium 8.7 mg/dL (8.5-10.1); Chloride 102 mmol/L (98-107); Glucose 291 mg/dL (74-106); Potassium 4.1 mmol/L (3.5-5.1); Sodium 140 mmol/L (136-145); Total Protein 6.8 g/dL (6.4-8.2); Troponin I < 0.05 ng/mL (<0.06)
--- NOTE | 2021-05-05 14:00 | DI.VRAD_ITS ---
PROCEDURE INFORMATION: Exam: XR Chest Exam date and time: 05/05/2021 11:49 AM Age: 51 years old Clinical indication: Cough TECHNIQUE: Imaging protocol: XR of the chest. Views: 2 views. COMPARISON: CT CHEST/ABD/PEL W 01/25/2020 7:47 PM FINDINGS: Lungs: There is bibasilar subsegmental atelectasis greater on the right side. Pleural spaces: Unremarkable. No pleural effusion. No pneumothorax. Heart/Mediastinum: Unremarkable. No cardiomegaly. Bones/joints: Unremarkable. IMPRESSION: Bibasilar subsegmental atelectasis greater on the right side. Dictated and Authenticated by: James Horner MD. Ordering:RONY Bill MD
--- NOTE | 2021-05-05 14:02 | DI.VRAD_ITS ---
PROCEDURE INFORMATION: Exam: CT Head Without Contrast Exam date and time: 05/05/2021 11:49 AM Age: 51 years old Clinical indication: Altered mental status/memory loss; Confusion or disorientation TECHNIQUE: Imaging protocol: Computed tomography of the head without contrast. Radiation optimization: All CT scans at this facility use at least one of these dose optimization techniques: automated exposure control; mA and/or kV adjustment per patient size (includes targeted exams where dose is matched to clinical indication); or iterative reconstruction. COMPARISON: CT HEAD WO 10/21/2020 2:38 PM FINDINGS: Brain: No intracranial hemorrhage, edema or other acute abnormalities are seen in the brain. There is generalized prominence of the ventricles and sulci due to chronic atrophy. There is a small area of encephalomalacia in the left parietal lobe consistent with old small infarct. Cerebral ventricles: The ventricles are prominent due to chronic atrophy. Paranasal sinuses: There is mild mucosal thickening in the ethmoid and maxillary sinuses. Mastoid air cells: Visualized mastoid air cells are well aerated. Bones/joints: Unremarkable. No acute fracture. Soft tissues: Unremarkable. IMPRESSION: 1. No acute intracranial abnormality. 2. Generalized chronic atrophy. 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 Dictated and Authenticated by: James Horner MD. Ordering:RONY Bill MD
[2021-05-05 14:06] VITALS: BP 114/73; PULSE 87; RESP 18; TEMP 36.5; O2SAT 98
--- NOTE | 2021-05-05 14:09 | NUR.NOTE ---
pt refused the EKG , she is incont of urine and would not allow the nurse to wippe her for a clean catch and refuseda cath urine spec Nursing Note:
== END 2021-05-05 14:34 | disposition home or self-care (01) ==
PROVIDERS: Emergency Provider Physician Assistant; PCP Family Medicine
DX: R53.83 Other fatigue (principal); R32 Unspecified urinary incontinence; E11.9 Type 2 diabetes mellitus without complications; Z79.84 Long term (current) use of oral hypoglycemic drugs
CPT/HCPCS: 36415; 80053; 82962; 96360; 99285; 70450; 71046; 80164; 81003; 83735; 84484; 85025

== ENCOUNTER 2021-05-08 12:30 | Inpatient (IN) | payer MEDICAID, SELFPAY ==
--- NOTE | 2021-05-08 12:30 | ED.GENADUL_ITS ---
Discharge Plan Disposition Patient Disposition: [facility] INPATIENT Condition: Stable Discharge Details Clinical Impression: Behavior disturbance, History of schizoaffective disorder Admit Date/Time: 05/08/21 15:58 Admit Provider: Thomas Olvera Attending Provider: Thomas Olvera Primary Care Provider: Sol Ashley V ED Provider: Landy Rendon Discharge Data Discharge Date/Time-TO BE ENTERED AT DEPARTURE: 05/08/21 17:03 Medical Decision Making 51-year-old female with a history of GERD, hypertension, hypothyroidism, diabetes, schizoaffective disorder, bipolar disorder and autism presents from the care bed for concern for UTI as well as difficulty with patient's behavior as she has been placing feces on the wall and yelling at staff. She has been discharged from the care bed and they will not take her back. Patient denies any acute complaints at present. She appears at her baseline appears nontoxic. She is argumentative and yelling at staff at times. She was refusing a straight cath but attempted to give a urine sample but was unable. She was agreeable to lab draw. Discussed with Lucia from mental health who evaluated pt through Zoom at bedside -- pt would not speak much with Lucia --change feels she has at her mental status baseline, but nonetheless she needs supervised living which they are trying to pursue at [place]. There is no available placement there now. Recommend admission on the floor here while awaiting placement potentially to [place] for her schizoaffective disorder. Discussed with care management and may be potential for placement in residential while awaiting placement in residential. Will need to be admitted to a transition bed while awaiting placement. Labs reviewed. White blood cell count 13. She was similarly elevated in the last few months. She also has 3% bands, which has been consistently present dating back to June 2018. Glucose 336 with normal bicarb and anion gap. Urinalysis negative for infection. UDS negative. Alcohol negative. Case discussed with hospitalist who accepts patient for admission. Medical Records Medical records reviewed: Yes I reviewed the patient's medical records. Lab Data Lab results reviewed: Yes I reviewed the patient's lab results. Labs: Laboratory Tests Range/Units 05/08/21 05/08/21 05/08/21 12:54 13:45 13:45 WBC (4.4-10.8) 10^3/uL 13.54 H RBC (3.93-5.22) 10^6/uL 4.28 Hgb (11.2-15.7) g/dL 12.6 Hct (36.0-46.0) % 39.9 MCV (80-95) fL 93.2 MCH (27.0-33.0) pg 29.4 MCHC (32.0-36.0) % 31.6 L RDW (11.7-14.6) % 16.1 H Plt Count (130-400) 10^3/uL 422 H MPV (8.0-11.0) fL 9.9 Immature Gran % See Differential Neutrophils % 50.0 Band Neutrophils % 3 Lymphocytes % 32.0 Atypical Lymphs % 1 Monocytes % 7.0 Eosinophils % 1.0 Basophils % 1.0 Metamyelocytes % 2 Myelocytes % 1 Nucleated RBC % % 0 Absolute Neutrophils (1.2-6.7) 10^3/uL 7.18 H Absolute Lymphocytes (1.2-3.4) 10^3/uL 4.47 H Absolute Monocytes (0.1-0.8) 10^3/uL 0.95 H Absolute Eosinophils (0.0-0.7) 10^3/uL 0.14 Absolute Basophils (0.0-0.2) 10^3/uL 0.14 RBC Morphology See Below Polychromasia Present Sodium (136-145) mmol/L 136 Potassium (3.5-5.1) mmol/L 3.8 Chloride (98-107) mmol/L 97 L Carbon Dioxide (21.0-32.0) mmol/L 31.0 Anion Gap (3-11) mmol/L 8.0 BUN (7-18) mg/dL 28 H Creatinine (0.55-1.02) mg/dL 1.0 Estimated GFR/1.73 m2 (mL/min/1.73m2) 58.22 Glucose (74-106) mg/dL 336 H Calcium (8.5-10.1) mg/dL 9.7 Total Bilirubin (0.2-1.0) mg/dL 0.2 AST (15-37) U/L 8 L ALT (14-59) U/L 16 Alkaline Phosphatase (46-116) U/L 107 Total Protein (6.4-8.2) g/dL 8.0 Albumin (3.4-5.0) g/dL 3.6 Urine Color (Yellow) Urine Clarity (Clear) Urine pH (5-8) Ur Specific [place] (1.005-1.025) Urine Protein (Negative) mg/dL Urine Ketones (Negative) mg/dL Urine Blood (Negative) Urine Nitrite (Negative) Urine Bilirubin (Negative) Urine Urobilinogen (Up TO 0.2) EU/dL Ur Leukocyte Esterase (Negative) Urine RBC (0-2) HPF Urine WBC (0-5) HPF Ur Epithelial Cells (Negative) HPF Urine Crystals (Negative) HPF Urine Bacteria (Negative) HPF Urine Mucus (Negative) Ur Culture Indicated? Urine Glucose (Negative) mg/dL Urine Opiates Screen (Negative) Negative Urine Methadone Screen (Negative) Negative Ur Barbiturates Screen (Negative) Negative Ur Tricyclics Screen (Negative) Negative Ur Amphetamines Screen (Negative) Negative U Benzodiazepines Scrn (Negative) Negative Urine Cocaine Screen (Negative) Negative Ur THC Screen (Negative) Negative Ethyl Alcohol (<10) mg/dL Range/Units 05/08/21 05/08/21 13:45 14:20 WBC (4.4-10.8) 10^3/uL RBC (3.93-5.22) 10^6/uL Hgb (11.2-15.7) g/dL Hct (36.0-46.0) % MCV (80-95) fL MCH (27.0-33.0) pg MCHC (32.0-36.0) % RDW (11.7-14.6) % Plt Count (130-400) 10^3/uL MPV (8.0-11.0) fL Immature Gran % Neutrophils % Band Neutrophils % Lymphocytes % Atypical Lymphs % Monocytes % Eosinophils % Basophils % Metamyelocytes % Myelocytes % Nucleated RBC % % Absolute Neutrophils (1.2-6.7) 10^3/uL Absolute Lymphocytes (1.2-3.4) 10^3/uL Absolute Monocytes (0.1-0.8) 10^3/uL Absolute Eosinophils (0.0-0.7) 10^3/uL Absolute Basophils (0.0-0.2) 10^3/uL RBC Morphology Polychromasia Sodium (136-145) mmol/L Potassium (3.5-5.1) mmol/L Chloride (98-107) mmol/L Carbon Dioxide (21.0-32.0) mmol/L Anion Gap (3-11) mmol/L BUN (7-18) mg/dL Creatinine (0.55-1.02) mg/dL Estimated GFR/1.73 m2 (mL/min/1.73m2) Glucose (74-106) mg/dL Calcium (8.5-10.1) mg/dL Total Bilirubin (0.2-1.0) mg/dL AST (15-37) U/L ALT (14-59) U/L Alkaline Phosphatase (46-116) U/L Total Protein (6.4-8.2) g/dL Albumin (3.4-5.0) g/dL Urine Color (Yellow) Yellow Urine Clarity (Clear) Clear Urine pH (5-8) 6.5 Ur Specific [place] (1.005-1.025) 1.020 Urine Protein (Negative) mg/dL Negative Urine Ketones (Negative) mg/dL Negative Urine Blood (Negative) Trace-intact H Urine Nitrite (Negative) Negative Urine Bilirubin (Negative) Negative Urine Urobilinogen (Up TO 0.2) EU/dL 0.2 Ur Leukocyte Esterase (Negative) Negative Urine RBC (0-2) HPF 0-2 Urine WBC (0-5) HPF 0-2 Ur Epithelial Cells (Negative) HPF Moderate Urine Crystals (Negative) HPF Negative Urine Bacteria (Negative) HPF Negative Urine Mucus (Negative) Negative Ur Culture Indicated? No Urine Glucose (Negative) mg/dL 500 H Urine Opiates Screen (Negative) Urine Methadone Screen (Negative) Ur Barbiturates Screen (Negative) Ur Tricyclics Screen (Negative) Ur Amphetamines Screen (Negative) U Benzodiazepines Scrn (Negative) Urine Cocaine Screen (Negative) Ur THC Screen (Negative) Ethyl Alcohol (<10) mg/dL < 3.0 HPI General Mode of arrival: ambulatory . Date/Time Provider Initiated Documentation: 05/08/21 12:42 . Limitations to Documentation: no limitations . Information obtained by: patient . HPI Narrative: Patient is a 51-year-old female with a history of GERD, hypertension, hypothyroidism, bipolar disorder, schizoaffective disorder, autism presents from the care bed for concern for UTI but he also concern for patient behavior and she has been noted to putting feces on the wall and they are having a hard time controlling her behavior and plan to discharge her. Patient states she is urinating frequently but states is due to drinking a lot of water. She denies any fever, abdominal pain. She reported to the nurse constipation but she denies this to me and states she has been having normal bowel movements and denies any rectal pain. Patient initially stated she was unaware she was not returning to the care bed and is not happy about this. She was then informed by [facility] that she has been discharged from the care bed with plans to take placement as patient requires supervised living. Related Data Home Medications Medication Instructions Recorded Confirmed levothyroxine 112 mcg PO DAILY@0730 10/18/13 05/08/21 aspirin [Aspir-81] 81 mg PO QAM 08/05/14 05/08/21 ibuprofen [Ibuprofen IB] 400 mg PO Q8H PRN 08/05/14 05/08/21 clindamycin phos-skin clnsr 19 1 % TOPICAL PRN PRN 09/26/18 05/08/21 clotrimazole [Lotrimin AF 1 applic TOPICAL BID PRN 09/26/18 05/08/21 (clotrimazole)] folic acid 1 mg PO DAILY 09/26/18 05/08/21 guaifenesin [Mucinex] 600 mg PO Q12H PRN 09/26/18 05/08/21 hydrochlorothiazide 25 mg PO DAILY 09/26/18 05/08/21 lisinopril 5 mg PO DAILY 09/26/18 05/08/21 omeprazole 20 mg PO DAILY 09/26/18 05/08/21 glipizide 20 mg PO QAM 01/26/20 05/08/21 metformin 1,000 mg PO BID 01/26/20 05/08/21 tolterodine 2 mg PO HS 01/26/20 05/08/21 polyethylene glycol 3350 17 g PO PRN PRN 04/19/20 05/08/21 clozapine 100 mg tablet 200 mg PO BID tab 06/06/20 05/05/21 divalproex 500 mg tablet,extended 1,000 - 2,000 mg PO BID 06/06/20 05/08/21 release 24 hr Advanced Probiotic-10 1 cap PO BID 10/21/20 05/08/21 cholecalciferol (vitamin D3) 50 mcg PO DAILY 10/21/20 05/08/21 [Vitamin D3] quetiapine [Seroquel] 100 mg PO HS 10/21/20 05/08/21 diphenhydramine HCl 50 mg PO QHS 04/18/21 05/08/21 quetiapine [Seroquel] 50 mg PO BID 04/18/21 05/08/21 Allergies Allergy/AdvReac Type Severity Reaction Status Date / Time Penicillins Allergy Severe Unverified 05/08/21 12:42 peanut Allergy Unknown Unverified 05/08/21 12:42 trifluoperazine HCl Allergy Unknown Unverified 05/08/21 12:42 [From Stelazine] General QUINTEN: 3 Review of Systems All systems reviewed & are unremarkable except as noted in HPI and below Constitutional Constitutional: Reports as per HPI, Denies chills and Denies fever(s) Eyes Eyes: Denies blurry vision ENT Ears, Nose, Mouth, and Throat: Denies dizziness, Denies sore throat and Denies throat swelling Cardiovascular Cardiovascular: Denies chest pain and Denies dyspnea Respiratory Respiratory: Denies cough and Denies dyspnea Gastrointestinal Gastrointestinal: Denies abdominal pain, Denies diarrhea and Denies vomiting Genitourinary Genitourinary: Denies hematuria and Denies dysuria Musculoskeletal Musculoskeletal: Denies back pain and Denies numbness Integumentary/Breasts Skin/Breast: Denies lesions and Denies rash Neurologic Neurologic: Denies dizziness, Denies localized weakness and Denies numbness Allergic/Immunologic Allergic/Immunologic: Denies throat swelling [facility] Active Problem List (Updated 05/08/21 @ 16:41 by Landy Rendon DO) Behavior disturbance (Acute) History of schizoaffective disorder (Acute) Fatigue (Acute) Encounter for medical assessment (Acute) Acute alteration in mental status (Acute) Suicidal ideation (Acute) Discharge planning issues (Acute) Urinary incontinence (Chronic) Encephalomalacia on imaging study (Chronic) Autism spectrum disorder with accompanying intellectual disability without language impairment, requiring substantial support (Acute) Change in behavior (Acute) Schizoaffective disorder (Acute) Ambulatory dysfunction (Chronic) Constipation (Chronic) Bipolar disorder (Chronic) Weakness (Acute) Abnormal CT of the head (Acute) Tobacco use (Chronic) Mouth abscess (Acute 08/05/14) Responsive to verbal stimulus (Acute) Hypernatremia (Acute) RLL pneumonia (Acute) Medical History (Updated 05/08/21 @ 16:41 by Landy Rendon DO) Autism Bipolar affective disorder Diabetes mellitus GERD (gastroesophageal reflux disease) Hypertension Hypothyroidism Schizoaffective disorder Surgical History No significant past surgical history Family History Other Adopted Social History Smoking/Tobacco Use Status: Current every day Tobacco Type: cigarettes Smoking risk assessment performed?: Yes Alcohol Intake: never Drug use: Never Substance use type: does not use Do you feel safe at home: Yes Do you feel safe in your relationship?: Yes Additional Social history: lives at [facility]. Since ? Exam Const General: cooperative, no acute distress and disheveled Orientation: alert and awake HENMT Head: normal to inspection Face and sinus: normal facial exam Eyes General: appearance normal, both eyes and all related structures EOM: EOM intact bilaterally Neck Neck: normal visual inspection and No submandibular swelling Lymphatic: no lymphadenopathy noted Chest Chest: normal inspection of the chest and no tenderness Resp Effort & Inspection: normal respiratory effort and able to speak in complete sentences Auscultation: clear to auscultation bilaterally Cardio Rate: regular rate Rhythm: regular rhythm GI Inspection: normal to inspection Palpation: soft, not firm, not rigid and nontender Auscultation: normal bowel sounds Skin General skin exam: no rashes or lesions noted Neuro General: patient alert, patient awake, moves all extremities, no meningeal signs and no focal motor deficits Cognition: normal cognition Speech: speech normal Motor: muscle tone normal throughout Sensory Exam: no sensory deficits noted Extrem General: normal to inspection, full ROM, capillary refill normal, no calf tenderness bilaterally and no edema Psych Appearance: grossly normal Mental Status: mental status grossly normal Speech and Movement: speech and movement normal Mood: angry Affect: irritable affect
[2021-05-08 12:35] VITALS: BP 124/76; PULSE 118; RESP 16; TEMP 36.6; O2SAT 94
[2021-05-08 13:54] LABS: HCT 39.9 % (36.0-46.0); HGB 12.6 g/dL (11.2-15.7); MCH 29.4 pg (27.0-33.0); MCHC 31.6 % (32.0-36.0); MCV 93.2 fL (80-95); MPV 9.9 fL (8.0-11.0); Nucleated RBC 0 %; RBC 4.28 10^6/uL (3.93-5.22); RDW 16.1 % (11.7-14.6); WBC 13.54 10^3/uL (4.4-10.8)
[2021-05-08 14:18] LABS: ALT 16 U/L (14-59); AST 8 U/L (15-37); Absolute Basophil Count 0.14 10^3/uL (0.0-0.2); Absolute Eosinophil Count 0.14 10^3/uL (0.0-0.7); Absolute Lymphocyte Count 4.47 10^3/uL (1.2-3.4); Absolute Monocyte Count 0.95 10^3/uL (0.1-0.8); Absolute Neutrophil Count 7.18 10^3/uL (1.2-6.7); Albumin 3.6 g/dL (3.4-5.0); Alkaline Phosphatase 107 U/L (46-116); Atypical Lymphocytes % 1; BUN 28 mg/dL (7-18); Bands % 3; Bilirubin, Total 0.2 mg/dL (0.2-1.0); Calcium 9.7 mg/dL (8.5-10.1); Chloride 97 mmol/L (98-107); Diff Comment Manual Differential; Estimated GFR 58.22 (mL/min/1.73m2); Glucose 336 mg/dL (74-106); Metamyelocytes % 2; Myelocytes % 1; Platelet Count 422 10^3/uL (130-400); Polychromasia Present; Potassium 3.8 mmol/L (3.5-5.1); Sodium 136 mmol/L (136-145)
[2021-05-08 14:30] LABS: ETHANOL BLOOD < 3.0 mg/dL (<10)
[2021-05-08 15:08] LABS: *AMPHETAMINES SCREEN URINE Negative (Negative); *BARBITURATES SCREEN URINE Negative (Negative); *BENZODIAZEPINES SCREEN URINE Negative (Negative); Cannabinoids THC Negative (Negative); Cocaine Screen,Urine Negative (Negative); METHADONE URINE SCREEN Negative (Negative); OPIATES URINE SCREEN Negative (Negative)
[2021-05-08 15:10] LABS: Tricyclic Antidepressants Negative (Negative)
[2021-05-08 15:39] LABS: Bilirubin Negative (Negative); Blood Trace-intact (Negative); Clarity Clear (Clear); Glucose 500 mg/dL (Negative); Ketones Negative (Negative); Leukocyte Esterase Negative (Negative); Nitrite Negative (Negative); Urobilinogen 0.2 EU/dL (Up TO 0.2); pH 6.5 (5-8)
[2021-05-08 15:48] LABS: Bacteria Negative HPF (Negative); Crystals Negative HPF (Negative); Epithelial Cells Moderate HPF (Negative); RBC 0-2 HPF (0-2); WBC 0-2 HPF (0-5)
[2021-05-08 15:49] LABS: C & S Indicated? No; Mucus Negative (Negative)
--- NOTE | 2021-05-08 16:01 | HPE_ITS ---
Date of service: 05/08/21 Time of Service: 16:01 Assessment and Plan Assessment and plan (1) Schizoaffective disorder: Status: Acute Assessment and plan: continue home medication CPS[employer] for safety (2) Autism spectrum disorder with accompanying intellectual disability without language impairment, requiring substantial support: Status: Acute Assessment and plan: at baseline (3) Discharge planning issues: Status: Acute Assessment and plan: case management following for discharge planning bed acceptance at [place], awaiting bed availability discussed with DR Olvera. History of Present Illness History of Present Illness Chief Complaint: behavioral disturbance Narrative: This is a 51-year-old female with a history of GERD, hypertension, hypothyroidi sm, diabetes, schizoaffective disorder, bipolar disorder and autism who presented to the ED from the care bed for concern for UTI as well as difficulty with patient's behavior as she has been placing feces on the wall and yelling at staff. She has been discharged from the care bed and they will not take her back. She denied any c/o on arrival. Her medical screening in the ED, including urine is negative. Mental health and case management involved in discharge planning. Referrals have been placed and she has been accepted at [facility] but no bed available. She will remain here until bed becomes available. Review of Systems All systems reviewed & are unremarkable except as noted in HPI and below [facility] Active Problem List (Updated 05/08/21 @ 16:41 by Landy Rendon DO) Behavior disturbance (Acute) History of schizoaffective disorder (Acute) Fatigue (Acute) Encounter for medical assessment (Acute) Acute alteration in mental status (Acute) Suicidal ideation (Acute) Discharge planning issues (Acute) Urinary incontinence (Chronic) Encephalomalacia on imaging study (Chronic) Autism spectrum disorder with accompanying intellectual disability without language impairment, requiring substantial support (Acute) Change in behavior (Acute) Schizoaffective disorder (Acute) Ambulatory dysfunction (Chronic) Constipation (Chronic) Bipolar disorder (Chronic) Weakness (Acute) Abnormal CT of the head (Acute) Tobacco use (Chronic) Mouth abscess (Acute 08/05/14) Responsive to verbal stimulus (Acute) Hypernatremia (Acute) RLL pneumonia (Acute) Medical History (Updated 05/08/21 @ 16:41 by Landy Rendon DO) Autism Bipolar affective disorder Diabetes mellitus GERD (gastroesophageal reflux disease) Hypertension Hypothyroidism Schizoaffective disorder Surgical History No significant past surgical history Family History Other Adopted Social History Smoking/Tobacco Use Status: Current every day Tobacco Type: cigarettes Smoking risk assessment performed?: Yes Alcohol Intake: never Drug use: Never Substance use type: does not use Do you feel safe at home: Yes Do you feel safe in your relationship?: Yes Additional Social history: lives at [facility]. Since ?2009+ Meds Allergies and Home Medications Allergies Allergy/AdvReac Type Severity Reaction Status Date / Time Penicillins Allergy Severe Unverified 05/08/21 12:42 peanut Allergy Unknown Unverified 05/08/21 12:42 trifluoperazine HCl Allergy Unknown Unverified 05/08/21 12:42 [From Stelazine] Home Medications Medication Instructions Recorded Confirmed Type levothyroxine 112 mcg PO DAILY@0730 10/18/13 05/08/21 History aspirin [Aspir-81] 81 mg PO QAM 08/05/14 05/08/21 History ibuprofen [Ibuprofen IB] 400 mg PO Q8H PRN 08/05/14 05/08/21 History clindamycin phos-skin clnsr 19 1 % TOPICAL PRN PRN 09/26/18 05/08/21 History clotrimazole [Lotrimin AF 1 applic TOPICAL BID PRN 09/26/18 05/08/21 History (clotrimazole)] folic acid 1 mg PO DAILY 09/26/18 05/08/21 History guaifenesin [Mucinex] 600 mg PO Q12H PRN 09/26/18 05/08/21 History hydrochlorothiazide 25 mg PO DAILY 09/26/18 05/08/21 History lisinopril 5 mg PO DAILY 09/26/18 05/08/21 History omeprazole 20 mg PO DAILY 09/26/18 05/08/21 History glipizide 20 mg PO QAM 01/26/20 05/08/21 History metformin 1,000 mg PO BID 01/26/20 05/08/21 History tolterodine 2 mg PO HS 01/26/20 05/08/21 History polyethylene glycol 3350 17 g PO PRN PRN 04/19/20 05/08/21 History clozapine 100 mg tablet 200 mg PO BID tab 06/06/20 05/05/21 History divalproex 500 mg tablet,extended 1,000 - 2,000 mg PO BID 06/06/20 05/08/21 History release 24 hr Advanced Probiotic-10 1 cap PO BID 10/21/20 05/08/21 History cholecalciferol (vitamin D3) 50 mcg PO DAILY 10/21/20 05/08/21 History [Vitamin D3] quetiapine [Seroquel] 100 mg PO HS 10/21/20 05/08/21 History diphenhydramine HCl 50 mg PO QHS 04/18/21 05/08/21 History quetiapine [Seroquel] 50 mg PO BID 04/18/21 05/08/21 History Exam Const General: cooperative, no acute distress and disheveled Orientation: alert and awake [facility] Head: normal to inspection Face and sinus: normal facial exam Eyes General: appearance normal, both eyes and all related structures EOM: EOM intact bilaterally Neck Neck: normal visual inspection and No submandibular swelling Lymphatic: no lymphadenopathy noted Chest Chest: normal inspection of the chest and no tenderness Resp Effort & Inspection: normal respiratory effort and able to speak in complete sentences Auscultation: clear to auscultation bilaterally Cardio Rate: regular rate Rhythm: regular rhythm GI Inspection: normal to inspection Palpation: soft, not firm, not rigid and nontender Auscultation: normal bowel sounds Neuro General: patient alert, patient awake, moves all extremities, no meningeal signs and no focal motor deficits Cognition: normal cognition Speech: speech normal Motor: muscle tone normal throughout Sensory Exam: no sensory deficits noted Extrem General: normal to inspection, full ROM, capillary refill normal, no calf tenderness bilaterally and no edema Psych Appearance: grossly normal Mental Status: mental status grossly normal Speech and Movement: speech and movement normal Mood: angry Affect: irritable affect Results Labs Result diagrams: 05/08/21 13:45 05/08/21 13:45 Labs: Laboratory Results - last 24 hr 05/08/21 05/08/21 05/08/21 12:54 13:45 13:45 WBC 13.54 H RBC 4.28 Hgb 12.6 Hct 39.9 MCV 93.2 MCH 29.4 MCHC 31.6 L RDW 16.1 H Plt Count 422 H MPV 9.9 Immature Gran % See Differential Neutrophils % 50.0 Band Neutrophils % 3 Lymphocytes % 32.0 Atypical Lymphs % 1 Monocytes % 7.0 Eosinophils % 1.0 Basophils % 1.0 Metamyelocytes % 2 Myelocytes % 1 Nucleated RBC % 0 Absolute Neutrophils 7.18 H Absolute Lymphocytes 4.47 H Absolute Monocytes 0.95 H Absolute Eosinophils 0.14 Absolute Basophils 0.14 RBC Morphology See Below Polychromasia Present Sodium 136 Potassium 3.8 Chloride 97 L Carbon Dioxide 31.0 Anion Gap 8.0 BUN 28 H Creatinine 1.0 Estimated GFR/1.73 m2 58.22 Glucose 336 H Calcium 9.7 Total Bilirubin 0.2 AST 8 L ALT 16 Alkaline Phosphatase 107 Total Protein 8.0 Albumin 3.6 Urine Color Urine Clarity Urine pH Ur Specific [place] Urine Protein Urine Ketones Urine Blood Urine Nitrite Urine Bilirubin Urine Urobilinogen Ur Leukocyte Esterase Urine RBC Urine WBC Ur Epithelial Cells Urine Crystals Urine Bacteria Urine Mucus Ur Culture Indicated? Urine Glucose Urine Opiates Screen Negative Urine Methadone Screen Negative Ur Barbiturates Screen Negative Ur Tricyclics Screen Negative Ur Amphetamines Screen Negative U Benzodiazepines Scrn Negative Urine Cocaine Screen Negative Ur THC Screen Negative Ethyl Alcohol 05/08/21 05/08/21 13:45 14:20 WBC RBC Hgb Hct MCV MCH MCHC RDW Plt Count MPV Immature Gran % Neutrophils % Band Neutrophils % Lymphocytes % Atypical Lymphs % Monocytes % Eosinophils % Basophils % Metamyelocytes % Myelocytes % Nucleated RBC % Absolute Neutrophils Absolute Lymphocytes Absolute Monocytes Absolute Eosinophils Absolute Basophils RBC Morphology Polychromasia Sodium Potassium Chloride Carbon Dioxide Anion Gap BUN Creatinine Estimated GFR/1.73 m2 Glucose Calcium Total Bilirubin AST ALT Alkaline Phosphatase Total Protein Albumin Urine Color Yellow Urine Clarity Clear Urine pH 6.5 Ur Specific [place] 1.020 Urine Protein Negative Urine Ketones Negative Urine Blood Trace-intact H Urine Nitrite Negative Urine Bilirubin Negative Urine Urobilinogen 0.2 Ur Leukocyte Esterase Negative Urine RBC 0-2 Urine WBC 0-2 Ur Epithelial Cells Moderate Urine Crystals Negative Urine Bacteria Negative Urine Mucus Negative Ur Culture Indicated? No Urine Glucose 500 H Urine Opiates Screen Urine Methadone Screen Ur Barbiturates Screen Ur Tricyclics Screen Ur Amphetamines Screen U Benzodiazepines Scrn Urine Cocaine Screen Ur THC Screen Ethyl Alcohol < 3.0 Last Vital Signs Temp 36.6 C 05/08/21 12:35 Pulse 118 H 05/08/21 12:35 Resp 16 05/08/21 12:35 BP 124/76 05/08/21 12:35 Pulse Ox 94 05/08/21 12:35
[2021-05-08 16:55] LABS: Source Nasal/Nares
[2021-05-08 17:14] VITALS: BP 136/83; PULSE 101; RESP 16; TEMP 35.9; O2SAT 96
[2021-05-08 17:18] VITALS: BP 136/83; PULSE 101; RESP 16; TEMP 35.9; O2SAT 96
[2021-05-08] MEDS: QUEtiapine 25 MG TAB 50 MG PO (17:41)
[2021-05-08] MEDS: metFORMIN 500 MG TAB 1000 MG PO (17:41)
--- NOTE | 2021-05-08 17:46 | NUR.NOTE ---
PT quietly yelling. When asked why she stated, The mafia is going to kill me. and I don't know why. Nursing Note:
--- NOTE | 2021-05-08 17:50 | NUR.NOTE ---
Patient is in her room , she has clean paper scrubs available to change into. She is not the best of historians, as she has changed answers to questions at different times. CPSO is present and monitored for safety.Nursing Note:
--- NOTE | 2021-05-08 18:03 | CMSP_ITS ---
<Candy Hardin - Last Filed: 05/08/21 18:15> - If Service Date Differs Date of service: 05/08/21 Time of Service: 18:05 Care Management Safety Plan Status: Voluntary - Guarianship if Applicable Guardianship: [facility] (TEST BORING CREW CHIEF) VOLUNTARY FOR INPATIENT PSYCHIATRIC STABILIZATION. CM entered care plan at Margaret's request due to lack of care plan available in chart. Copied from previous care plan upon last admission 04/18/21-04/27/21. Kandace was brought to the [facility] ED because of a lack of TEST BORING CREW CHIEF resources and the program's inability to meet her needs to safely remain in the community (as they are funded to do). Due to a lack of resources, she has lost her housing at [facility] without a timely alternative; reportedly [facility] has been attempting to discharge Kandace for over eight months. Presenting behaviors are baseline behaviors that she presented with on her last admission when she discharged to the local [facility] care bed. No [facility] notes are available for review, no sign out received. Last admission 04/18-04/27 no [facility] note available after 04/23/21. Safety plan has been established with patient, and care team, to adhere to patient goals, identify restrictions based on behavioral status, address nutrition, and determine allowed personal belongings, tools for hygiene and personal care. Determine level of activity including ambulation, level of supervision, visitors, and determine privileges based on behaviors and level of engagement by pt. SAFETY PLAN: 1. Will remain on suicide precautions. In Paper Clothes 2. Will remain in room under direct supervision of one-on-one staff at all times provided by CPSO, SALES AND SERVICE ASSOCIATE, ADULT SECONDARY EDUCATION INSTRUCTOR animal care supervisor. 3. May have paper cups, plates, finger foods as well as a cardboard spoon with which to eat meals. 4. Follow [facility] Management of the Admitted Behavioral Health Patient policy. 5. Comfort bath system and shower with supervision at RN discretion. 6. No personal belongings 7. Visitors-No visitors at this time 8. Activities: Soft cart items, coloring book, crayons, television, and other activities at RN discretion. 9. Bathroom privileges: May use bathroom available in room on Med/Surg without restriction. 10. Phone: May use hospital phone for incoming and outgoing telephone calls at RN discretion. 11. Due to VOLUNTARY status, if patient wishes to leave [facility], staff will contact [facility] Crisis Screener ([phone]) and On-Call Frame Catcher ([phone]) as soon as possible. In the event of elopement, notify [facility] ([phone]). Patient is currently voluntarily at [facility] and seeking inpatient admission when a bed becomes available. [facility] Frontline Automotive Drivability Technician will continue seeking placement. Please contact the Tax Collector Frame Catcher ([phone]) and [facility] Automotive Drivability Technician ([phone]) for any needed changes in the Safety Plan. Safety plan has been provided to interdepartmental care team. <Imna Whaley - Last Filed: 05/09/21 18:11> Care Management Safety Plan - Reason for Wait Reason for Wait: Community Placement Kandace is not on a mental health hold for inpatient placement. She is on SWB 2 awaiting alf placement. She requires 1:1 supervision but this does not need to be a CPSO. She may have her own clothes, have personal belongings, and regular silverware (removed from room after eating), at RN discretion. She will continue to have visits from [facility] for support, but they will not be evaluating her for inpatient psychiatric admission, as this is her baseline behavior.
--- NOTE | 2021-05-08 18:47 | NUR.NOTE ---
Patient had requested help to get up and out of bed to use toilet. Upon standing, this sign writer hand noticed that the patient had been incontinent of urine. RN notified and was agreed upon myself, RN and charge nurse that this sign writer hand could supervise patient closely in the shower room outside of the transition unit to get clean. At the time of being in shower, RN cleaned up dirty sheets and put new ones on bed. PT aslo has hair brush that was given back to this sign writer hand when she was done using it. Nursing Note:
[2021-05-08] MEDS: Lactobacillus Acidophilus CAP 1 CAP PO (20:30)
[2021-05-08] MEDS: Divalproex Sodium 500 MG TAB.ER.24H 2000 MG PO (20:30)
--- NOTE | 2021-05-08 20:55 | NUR.NOTE ---
Patient incontinent. RN aware, sheets changed and side rail put up per patient request. Nursing Note:
[2021-05-08] MEDS: Tolterodine 2 MG CAPCR PO (21:18)
[2021-05-08] MEDS: diphenhydrAMINE 25 MG CAP 50 MG PO (21:19)
[2021-05-08] MEDS: QUEtiapine 100 MG TAB PO (21:19)
[2021-05-08 21:22] LABS: COVID-19 PCR Negative (Negative)
--- NOTE | 2021-05-08 22:27 | NUR.NOTE ---
Patient awoke while self repositioning. Given the recent incidents of incontinence earlier this evening, PT let this junior underwriter check pull up underwear and offered to assist to the restroom. PT is dry and clean of any urine or stool and refused to go to the bathroom at this time. Nursing Note:
[2021-05-09] MEDS: Levothyroxine 112 MCG TAB PO (06:00)
[2021-05-09 07:48] VITALS: BP 126/80; PULSE 87; RESP 18; TEMP 36.3; O2SAT 95
[2021-05-09] MEDS: Aspirin E.C. 81 MG TABEC PO (07:52)
[2021-05-09] MEDS: metFORMIN 500 MG TAB 1000 MG PO ×2 (07:52→16:18)
[2021-05-09] MEDS: Cholecalciferol (Vitamin D3) 1,000 UNIT TAB 2000 UNITS PO (07:52)
[2021-05-09] MEDS: Lactobacillus Acidophilus CAP 1 CAP PO ×2 (07:52→21:04)
[2021-05-09] MEDS: QUEtiapine 25 MG TAB 50 MG PO ×2 (07:53→16:18)
[2021-05-09] MEDS: Folic Acid 1 MG TAB PO (07:53)
[2021-05-09] MEDS: Divalproex Sodium 500 MG TAB.ER.24H 1000 MG PO (07:53)
[2021-05-09] MEDS: Omeprazole 20 MG CAPCR PO (07:53)
--- NOTE | 2021-05-09 17:27 | CMSCP_ITS ---
- If Service Date Differs Date of service: 05/09/21 Time of Service: 17:27 Swingbed Plan of Care Plan of care: SWING BED PROGRAM ACTIVITIES/DISCHARGE PLAN OF CARE ACTIVITIES PLAN Date: 05/09/21 Identified Need: Individualized plan for life enrichment while awaiting intermodal dispatcher placement. Intervention/Plan: Kandace will be offered soft cart items, TV in room, music tablet, visits with [facility] staff for support/activities. Initials KM DISCHARGE PLAN Date: 05/09/21 Identified Need: care home placement in SNF vs Level 3 facility Intervention/Plan: Referrals have been sent to all facilities in [place], follow up needed with SNF/ERC facilities. 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 Initials KM
--- NOTE | 2021-05-09 17:27 | CM.SWINGPC ---
- If Service Date Differs Date of service: 05/09/21 Time of Service: 17:27 Swingbed Plan of Care Plan of care: SWING BED PROGRAM ACTIVITIES/DISCHARGE PLAN OF CARE ACTIVITIES PLAN Date: 05/09/21 Identified Need: Individualized plan for life enrichment while awaiting superintendent terminal placement. Intervention/Plan: Kandace will be offered soft cart items, TV in room, music tablet, visits with [facility] staff for support/activities. Initials KM DISCHARGE PLAN Date: 05/09/21 Identified Need: snf placement in SNF vs Level 3 facility Intervention/Plan: Referrals have been sent to all facilities in [place], follow up needed with SNF/ERC facilities. 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 Initials KM
--- NOTE | 2021-05-09 17:33 | CMSA_ITS ---
- If Service Date Differs Date of service: 05/09/21 Time of Service: 17:33 SB Psychosocial/Act.Assessment - Hospital Admission Admission Date: 05/08/21 Admission From:: Care Bed, [facility] Diagnosis:: Schizoaffective disorder - Swing Bed Admission Swing Bed Admit Date:: 05/08/21 Swing Bed Level of Care: Level 2/ICF - Social Supports PREVIOUS FUNCTIONAL STATUS/SOCIAL/FAMILY SUPPORTS:: Kandace Ellis) previously lived at [place] she receives services through [facility] and is a TAKER DOWN client. She is able complete her own ADL's with constant cueing. She does have episodes that are difficult to manage including falling to the floor and not being able to control her reactions on occasion per [facility]. She came to [facility] from placement at the Care Bed, who could not manage her. - Prior to Admission Living Arrangements/Environment Prior to Admission:: Kandace was living at [place], but had recently been evicted, as they could no longer manage her care. She came to the ED from the [facility] Care Bed, where she was awaiting pack out operator placement. - [place]: No [place] Spouse: No - Benefits Financial: Social Security, Medicaid - Interests Crafts:: Enjoys crafting with beads. Music:: Prefers 80s and 90s music. Reading:: Books, newspaper - Medical History PAST MEDICAL HISTORY/PAST SURGICAL HISTORY:: Bipolar disorder, Diabetes mellitus. GERD. Hypothyroidism. Schizoaffective disorder - Admission Data Reason for Swing Bed Admission:: Seeking half-way placement. Discharge Plan:: Kandace will go to a facility for pack out operator placement where her needs will be met. She will likely transport via private vehicle by [facility] staff. Assessment: Kandace is seeking half-way placement at a SNF/ERC facility. She will be monitored by 1:1 staff during her admission, although she is not currently being held for an inpatient psychiatric admission. [facility] staff will visit with Kandace frequently during this admission to support her. [facility] is seeking guardianship, and is inquiring about whether Kandace will qualify for IDDS support. Per [facility], keeping Kandace on a regular routine will help with her behavior. Although Kandace is being supported by [facility], she is not on a mental health hold, and will be allowed limited personal belongings, her own clothes, regular silverware (supervised and removed after eating), and will have regular visits from [facility] staff. CM will continue to follow.
--- NOTE | 2021-05-09 17:33 | CM.SBPSYCH ---
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 She is able complete her own ADL's with constant cueing. She does have episodes that are difficult to manage including falling to the floor and not being able to control her reactions on occasion per [facility]. She came to [facility] from placement at the Care Bed, who could not manage her. - Prior to Admission Living Arrangements/Environment Prior to Admission:: Kandace was living at [place], but had recently been evicted, as they could no longer manage her care. She came to the ED from the [facility] Care Bed, where she was awaiting exterminator termite placement. - [place]: No [place] Spouse: No - Benefits Financial: Social Security, Medicaid - Interests Crafts:: Enjoys crafting with beads. Music:: Prefers 80s and 90s music. Reading:: Books, newspaper - Medical History PAST MEDICAL HISTORY/PAST SURGICAL HISTORY:: Bipolar disorder, Diabetes mellitus. GERD. Hypothyroidism. Schizoaffective disorder - Admission Data Reason for Swing Bed Admission:: Seeking correction placement. Discharge Plan:: Kandace will go to a facility for exterminator termite placement where her needs will be met. She will likely transport via private vehicle by [facility] staff. Assessment: Kandace is seeking correction placement at a SNF/ERC facility. She will be monitored by 1:1 staff during her admission, although she is not currently being held for an inpatient psychiatric admission. [facility] staff will visit with Kandace frequently during this admission to support her. [facility] is seeking guardianship, and is inquiring about whether Kandace will qualify for IDDS support. Per [facility], keeping Kandace on a regular routine will help with her behavior. Although Kandace is being supported by [facility], she is not on a mental health hold, and will be allowed limited personal belongings, her own clothes, regular silverware (supervised and removed after eating), and will have regular visits from [facility] staff. CM will continue to follow.
[2021-05-09] MEDS: Divalproex Sodium 500 MG TAB.ER.24H 2000 MG PO (21:04)
[2021-05-09] MEDS: QUEtiapine 100 MG TAB PO (21:04)
[2021-05-09] MEDS: diphenhydrAMINE 25 MG CAP 50 MG PO (21:05)
[2021-05-09] MEDS: Tolterodine 2 MG CAPCR PO (21:06)
[2021-05-10] MEDS: Omeprazole 20 MG CAPCR PO (06:38)
[2021-05-10] MEDS: Levothyroxine 112 MCG TAB PO (06:38)
[2021-05-10] MEDS: Divalproex Sodium 500 MG TAB.ER.24H 1000 MG PO (09:51)
[2021-05-10] MEDS: Aspirin E.C. 81 MG TABEC PO (09:51)
[2021-05-10] MEDS: Folic Acid 1 MG TAB PO (09:51)
[2021-05-10] MEDS: QUEtiapine 25 MG TAB 50 MG PO (09:51)
[2021-05-10] MEDS: metFORMIN 500 MG TAB 1000 MG PO (09:51)
[2021-05-10] MEDS: Lactobacillus Acidophilus CAP 1 CAP PO (09:51)
[2021-05-10] MEDS: Cholecalciferol (Vitamin D3) 1,000 UNIT TAB 2000 UNITS PO (09:51)
[2021-05-10 13:00] VITALS: BP 109/76; PULSE 83; RESP 16; TEMP 36.4; O2SAT 97
[2021-05-11] MEDS: QUEtiapine 25 MG TAB 50 MG PO ×2 (07:40→14:59)
[2021-05-11] MEDS: Cholecalciferol (Vitamin D3) 1,000 UNIT TAB 2000 UNITS PO (07:40)
[2021-05-11] MEDS: Lactobacillus Acidophilus CAP 1 CAP PO ×2 (07:40→20:29)
[2021-05-11] MEDS: Divalproex Sodium 500 MG TAB.ER.24H 1000 MG PO (07:41)
[2021-05-11] MEDS: Aspirin E.C. 81 MG TABEC PO (07:41)
[2021-05-11] MEDS: Omeprazole 20 MG CAPCR PO (07:41)
[2021-05-11] MEDS: Levothyroxine 112 MCG TAB PO (07:41)
[2021-05-11] MEDS: metFORMIN 500 MG TAB 1000 MG PO ×2 (07:41→15:00)
[2021-05-11] MEDS: Folic Acid 1 MG TAB PO (07:41)
[2021-05-11 11:45] VITALS: BP 106/58; PULSE 67; RESP 17; TEMP 36.7; O2SAT 97
[2021-05-11] MEDS: Divalproex Sodium 500 MG TAB.ER.24H 2000 MG PO (20:28)
[2021-05-11] MEDS: QUEtiapine 100 MG TAB PO (20:29)
[2021-05-11] MEDS: diphenhydrAMINE 25 MG CAP 50 MG PO (20:29)
[2021-05-11] MEDS: Tolterodine 2 MG CAPCR PO (20:29)
[2021-05-12] MEDS: Levothyroxine 112 MCG TAB PO (06:03)
[2021-05-12] MEDS: metFORMIN 500 MG TAB 1000 MG PO ×2 (09:47→17:24)
[2021-05-12] MEDS: QUEtiapine 25 MG TAB 50 MG PO ×2 (09:47→17:23)
[2021-05-12] MEDS: Folic Acid 1 MG TAB PO (09:47)
[2021-05-12] MEDS: Omeprazole 20 MG CAPCR PO (09:47)
[2021-05-12] MEDS: Divalproex Sodium 500 MG TAB.ER.24H 1000 MG PO (09:48)
[2021-05-12] MEDS: Aspirin E.C. 81 MG TABEC PO (09:49)
[2021-05-12] MEDS: Lactobacillus Acidophilus CAP 1 CAP PO ×2 (09:49→20:36)
[2021-05-12 09:52] VITALS: BP 110/60; PULSE 67; RESP 16; TEMP 37; O2SAT 97
[2021-05-12] MEDS: Divalproex Sodium 500 MG TAB.ER.24H 2000 MG PO (20:36)
[2021-05-12] MEDS: diphenhydrAMINE 25 MG CAP 50 MG PO (20:37)
[2021-05-12] MEDS: Tolterodine 2 MG CAPCR PO (20:37)
[2021-05-12] MEDS: QUEtiapine 100 MG TAB PO (20:37)
[2021-05-13] MEDS: Levothyroxine 112 MCG TAB PO (05:25)
[2021-05-13] MEDS: Lactobacillus Acidophilus CAP 1 CAP PO (20:18)
[2021-05-13] MEDS: Tolterodine 2 MG CAPCR PO (20:18)
[2021-05-13] MEDS: Divalproex Sodium 500 MG TAB.ER.24H 2000 MG PO (20:18)
[2021-05-13] MEDS: QUEtiapine 100 MG TAB PO (20:18)
[2021-05-13] MEDS: diphenhydrAMINE 25 MG CAP 50 MG PO (20:18)
[2021-05-13 20:37] VITALS: BP 97/52; PULSE 68; RESP 15; TEMP 37.3; O2SAT 96
[2021-05-13] MEDS: QUEtiapine 25 MG TAB 50 MG PO (23:02)
[2021-05-13] MEDS: ALPRAZolam 0.25 MG TAB 1 MG PO (23:02)
[2021-05-14] MEDS: Divalproex Sodium 500 MG TAB.ER.24H 1000 MG PO (08:27)
[2021-05-14] MEDS: metFORMIN 500 MG TAB 1000 MG PO ×2 (08:28→16:43)
[2021-05-14] MEDS: Folic Acid 1 MG TAB PO (08:28)
[2021-05-14] MEDS: Cholecalciferol (Vitamin D3) 1,000 UNIT TAB 2000 UNITS PO (08:28)
[2021-05-14] MEDS: Lactobacillus Acidophilus CAP 1 CAP PO ×2 (08:28→21:39)
[2021-05-14] MEDS: QUEtiapine 25 MG TAB 50 MG PO ×2 (08:29→15:29)
[2021-05-14] MEDS: Aspirin E.C. 81 MG TABEC PO (08:29)
[2021-05-14] MEDS: Omeprazole 20 MG CAPCR PO (08:29)
[2021-05-14 14:11] VITALS: BP 124/78; PULSE 74; RESP 16; TEMP 37.1; O2SAT 97
[2021-05-14] MEDS: Divalproex Sodium 500 MG TAB.ER.24H 2000 MG PO (21:38)
[2021-05-14] MEDS: QUEtiapine 100 MG TAB PO (21:39)
[2021-05-14] MEDS: Tolterodine 2 MG CAPCR PO (21:39)
[2021-05-14] MEDS: diphenhydrAMINE 25 MG CAP 50 MG PO (21:39)
[2021-05-15] MEDS: Levothyroxine 112 MCG TAB PO (06:08)
[2021-05-15] MEDS: QUEtiapine 25 MG TAB 50 MG PO ×2 (08:58→16:19)
[2021-05-15] MEDS: Cholecalciferol (Vitamin D3) 1,000 UNIT TAB 2000 UNITS PO (08:58)
[2021-05-15] MEDS: Omeprazole 20 MG CAPCR PO (08:58)
[2021-05-15] MEDS: Lactobacillus Acidophilus CAP 1 CAP PO ×2 (08:58→20:54)
[2021-05-15] MEDS: metFORMIN 500 MG TAB 1000 MG PO ×2 (08:58→16:19)
[2021-05-15] MEDS: Aspirin E.C. 81 MG TABEC PO (08:58)
[2021-05-15] MEDS: Divalproex Sodium 500 MG TAB.ER.24H 1000 MG PO (08:58)
[2021-05-15] MEDS: Folic Acid 1 MG TAB PO (08:58)
--- NOTE | 2021-05-15 09:22 | CMPROGNOTE_ITS ---
- If Service Date Differs Date of service: 05/15/21 Time of Service: 09:22 Care Management Progress Note S/O: Kandace continues to wait for intermediate placement. She is not on a mental health hold, therefore she does not require a CPSO, although she does require a 1:1 patient sitter. She was having daily visits from [facility] staff, but this was discontinued as [facility] staff felt that she was agitated due to these visits. Kandace does not require a safety plan, but CM will put in a new plan to help m anage behaviors while Kandace is at [facility]. CM met with [facility] staff via zoom at 2pm today to discuss discharge plans. [facility] staff felt that due to the fact that Kandace is in a hospital setting, it would warrant CM to send referrals and follow up on them for her placement. They felt that referrals from [facility] would be more appropriate, as she is medical, not mental health. CM argued that her mental health history will be the barrier to her placement, as she has no medical concerns, and does not have a skilled need for placement- she is awaiting intermediate care. CM received the list of facilities who have been contacted. CM will send all new referrals to facilities with open beds. [facility] will continue to visit with Kandace if these visits are helpful/therapeutic for Kandace. CM will discuss this with staff. Per report, she had escalated behaviors following visits over the weekend. CM will continue to follow. A: Kandace is a 51 year old female admitted to [facility] on 05/08/21 for SWB 2 awaiting manager intermediate placement. P: Kandace is seeking intermediate placement at a SNF/ERC facility. She will be monitored by 1:1 staff during her admission, although she is not currently being held for an inpatient psychiatric admission. [facility] staff will visit with Kandace frequently during this admission to support her. [facility] is seeking guardianship, and is inquiring about whether Kandace will qualify for IDDS support. Per [facility], keeping Kandace on a regular routine will help with her behavior. Although Kandace is being supported by [facility], she is not on a mental health hold, and will be allowed limited personal belongings, her own clothes, regular silverware (supervised and removed after eating), and will have regular visits from [facility] staff. CM will continue to follow. - Guardianship if Applicable Guardianship: [facility] (RESEARCH RECRUITER)
--- NOTE | 2021-05-15 09:22 | PDOC.CMPRO ---
- If Service Date Differs Date of service: 05/15/21 Time of Service: 09:22 Care Management Progress Note S/O: Kandace continues to wait for assisted placement. She is not on a mental health hold, therefore she does not require a CPSO, although she does require a 1:1 patient sitter. She was having daily visits from [facility] staff, but this was discontinued as [facility] staff felt that she was agitated due to these visits. Kandace does not require a safety plan, but CM will put in a new plan to help manage behaviors while Kandace is at [facility]. CM met with [facility] staff via zoom at 2pm today to discuss discharge plans. [facility] staff felt that due to the fact that Kandace is in a hospital setting, it would warrant CM to send referrals and follow up on them for her placement. They felt that referrals from [facility] would be more appropriate, as she is medical, not mental health. CM argued that her mental health history will be the barrier to her placement, as she has no medical concerns, and does not have a skilled need for placement- she is awaiting assisted care. CM received the list of facilities who have been contacted. CM will send all new referrals to facilities with open beds. [facility] will continue to visit with Kandace if these visits are helpful/therapeutic for Kandace. CM will discuss this with staff. Per report, she had escalated behaviors following visits over the weekend. CM will continue to follow. A: Kandace is a 51 year old female admitted to [facility] on 05/08/21 for SWB 2 awaiting residential program manager placement. P: Kandace is seeking residential program manager placement at a SNF/ERC facility. She will be monitored by 1:1 staff during her admission, although she is not currently being held for an inpatient psychiatric admission. [facility] staff will visit with Kandace frequently during this admission to support her. [facility] is seeking guardianship, and is inquiring about whether Kandace will qualify for IDDS support. Per [facility], keeping Kandace on a regular routine will help with her behavior. Although Kandace is being supported by [facility], she is not on a mental health hold, and will be allowed limited personal belongings, her own clothes, regular silverware (supervised and removed after eating), and will have regular visits from [facility] staff. CM will continue to follow. - Guardianship if Applicable Guardianship: [facility] (DENTAL INSTRUMENT MAKER)
--- NOTE | 2021-05-15 09:30 | PDOC.CMSAFE ---
- If Service Date Differs Date of service: 05/15/21 Time of Service: 09:30 Care Management Safety Plan Status: Voluntary - Guarianship if Applicable Guardianship: [facility] (SAW OFFBEARER) - Reason for Wait Reason for Wait: Other Kandace is currently on SWB2 while awaiting terminal computer operator placement. She is NOT on a mental health hold, therefore will not be evaluated by [facility] for inpatient admission to a psychiatric facility. She does not require a CPSO, but does require 1:1 support[address] [facility] is assisting with placement, as she is a SAW OFFBEARER client. Referrals have been sent to all SNF and ERC facilities throughout [place]. She is being considered for admission to [facility] in [place], [place]. CM will be in contact regularly with [facility] in order to support Kandace's discharge plan. Safety plan has been established with patient, and care team, to adhere to patient goals, identify restrictions based on behavioral status, address nutrition, and determine allowed personal belongings, tools for hygiene and personal care. Determine level of activity including ambulation, level of supervision, visitors, and determine privileges based on behaviors and level of engagement by pt. SAFETY PLAN: 1. Patient is NOT on suicide precautions. She may be in paper clothes or her own clothes, at RN discretion. 2. Will remain in room under direct supervision of one-on-one staff at all times. 3. May have paper cups and plates. May have regular silverware with which to eat meals, which will be removed after meals. 4. Follow [facility] Management of the Admitted Behavioral Health Patient policy. 5. Comfort bath system and shower with supervision at RN discretion. 6. May have personal belongings for life enrichment at RN discretion. 7. Visitors- limited to [facility] staff at this time. 8. Activities: Soft cart items, coloring book, crayons, television, and other activities at RN discretion. 9. Bathroom privileges: May use bathroom available in room on Med/Surg without restriction. 10. Phone: May use hospital phone for incoming and outgoing telephone calls at RN discretion. The purpose of this safety plan is to help manage Kandace's behaviors during this SWB2 admission. Kandace is a SAW OFFBEARER client, therefore [facility] is seeking terminal computer operator placement with support from CM. [facility] is also seeking guardianship for Kandace in the event that it is needed in the future. Kandace already has mcc [employer], which will pay for this SWB 2 admission, as well as her terminal computer operator care.
[2021-05-15 11:33] VITALS: BP 103/64; PULSE 70; RESP 18; TEMP 36.4; O2SAT 97
[2021-05-15] MEDS: Divalproex Sodium 500 MG TAB.ER.24H 2000 MG PO (20:53)
[2021-05-15] MEDS: diphenhydrAMINE 25 MG CAP 50 MG PO (20:53)
[2021-05-15] MEDS: Tolterodine 2 MG CAPCR PO (21:02)
[2021-05-16] MEDS: Levothyroxine 112 MCG TAB PO (05:52)
[2021-05-16 07:50] VITALS: BP 134/84; PULSE 89; RESP 16; TEMP 36.9; O2SAT 94
[2021-05-16] MEDS: metFORMIN 500 MG TAB 1000 MG PO ×2 (08:37→16:47)
[2021-05-16] MEDS: Lactobacillus Acidophilus CAP 1 CAP PO ×2 (08:37→19:54)
[2021-05-16] MEDS: Folic Acid 1 MG TAB PO (08:37)
[2021-05-16] MEDS: Cholecalciferol (Vitamin D3) 1,000 UNIT TAB 2000 UNITS PO (08:37)
[2021-05-16] MEDS: Omeprazole 20 MG CAPCR PO (08:37)
[2021-05-16] MEDS: Aspirin E.C. 81 MG TABEC PO (08:38)
[2021-05-16] MEDS: QUEtiapine 25 MG TAB 50 MG PO ×2 (08:38→16:47)
[2021-05-16] MEDS: Divalproex Sodium 500 MG TAB.ER.24H 1000 MG PO (08:38)
[2021-05-16 15:15] VITALS: BP 130/71; PULSE 79; RESP 18; TEMP 36.7; O2SAT 96
--- NOTE | 2021-05-16 15:23 | NUR.NOTE ---
Nursing Note: At approximately 1518 on 05/16/21, this RN called the pt.'s mother (Britany) per pt. request. Pt. doesn't have anyone listed on her HIPAA; pt. gave RN verbal permission to speak with the pt.'s mother. Pt.'s mother was updated regarding pt.'s behavior and mentation, VS, pain level, head to toe assessment, plan of care, etc. Pt.'s mother verbalized understanding and presented with a few questions that were answered. Pt.'s mother stated that while the pt. was speaking with her earlier, the pt. was mentioning a Dinesh Dingle and AIDS, which is usually an indicator that the pt. isn't doing well. Pt.'s mother states that Dinesh Cole was a young man that the pt. used to spend time with when the pt. was a young woman and that Dinesh was a rough character going through a rough time. Pt.'s mother states that the pt. never actually dated Dinesh, but would often sneak out of the house at night to spend time with him, and would sometimes claim that he had given her AIDS. RN informed the pt.'s mother that the pt. hadn't mentioned anything about Dinesh, but had mentioned something about AIDS, and that the RN had reoriented the pt. to the fact that the pt. doesn't have AIDS. Pt.'s mother was appreciative. RN informed the pt.'s mother that they would pass this information along to the oncoming nurse, so that they would be aware that if the pt. was mentioning either of these things, that the pt. may be getting more worked up. RN will reassess as necessary.
--- NOTE | 2021-05-16 15:24 | PHA.REVIEW ---
Pharmacy Admission Review - Admission Clinical Review (Last Updated 05/05/21 @ 11:54 by Landy Rendon DO) Behavior disturbance (Acute) History of schizoaffective disorder (Acute) Discharge planning issues (Acute) Autism spectrum disorder with accompanying intellectual disability without language impairment, requiring substantial support (Acute) Schizoaffective disorder (Acute) Penicillins Allergy (Severe, Unverified 05/08/21 12:42) peanut Allergy (Unknown, Unverified 05/08/21 12:42) trifluoperazine HCl [From Stelazine] Allergy (Unknown, Unverified 05/08/21 12:42) Resuscitation Status Full Code Height 9 in Weight 90.6 kg - Renal Dosing Renal Dosing: BUN 28 mg/dL (7-18) H 05/08/21 13:45 Creatinine 1.0 mg/dL (0.55-1.02) 05/08/21 13:45 Medications needing adjustments: Reviewed (SCr: 1.0, CrCl~67.8mL/min (using adjusted body weight). All medications dosed appropriately.) - Anticoagulation Anticoagulation: Hgb 12.6 g/dL (11.2-15.7) 05/08/21 13:45 Hct 39.9 % (36.0-46.0) 05/08/21 13:45 Plt Count 422 10^3/uL (130-400) H 05/08/21 13:45 Creatinine 1.0 mg/dL (0.55-1.02) 05/08/21 13:45 DVT Prophylaxis: N/A Therapeutic Anticoagulation: N/A - Opiate Usage Evaluate Pain Scale/Pains Meds: N/A (No opiates this admission.) - Relevant Labs Sodium 136 mmol/L (136-145) 05/08/21 13:45 Potassium 3.8 mmol/L (3.5-5.1) 05/08/21 13:45 Chloride 97 mmol/L (98-107) L 05/08/21 13:45 Electrolytes, C-Reactive P, ESR: Reviewed - DM Control DM Control: Glucose 336 mg/dL (74-106) H 05/08/21 13:45 Insulin Dosing: Reviewed (Glucose 336 on 05/08/21.) - Heart Failure/IL EF%, DAVID's, B-Blockers, Diuretics: N/A - BP Control BP Control: Blood Pressure 134/84 If elevated: Reviewed (Blood pressure within normal limits. Home meds Lisinopril and HCTZ not ordered.) - Qtc Review If Elevated: N/A (QTc not recorded.) - IV to PO Switch IV Medications: Reviewed - Home Meds Home Med List reviewed: Reviewed Relevent Home Meds Not ordered & why?: Clozapine 200mg BID not ordered, HCTZ 25mg daily not ordered and Lisinopril 5mg daily not ordered. - Current meds Current Medication Order Review: Reviewed - Comments Comments/Follow Ups: Continue to monitor vital signs, labs and for medication changes.
[2021-05-16] MEDS: Divalproex Sodium 500 MG TAB.ER.24H 2000 MG PO (19:53)
[2021-05-16] MEDS: QUEtiapine 100 MG TAB PO (19:53)
[2021-05-16] MEDS: Tolterodine 2 MG CAPCR PO (19:54)
[2021-05-16] MEDS: diphenhydrAMINE 25 MG CAP 50 MG PO (19:54)
[2021-05-16 20:12] VITALS: BP 116/79; PULSE 81; RESP 18; TEMP 36.6; O2SAT 94
[2021-05-17] MEDS: Levothyroxine 112 MCG TAB PO (06:42)
[2021-05-17] MEDS: Cholecalciferol (Vitamin D3) 1,000 UNIT TAB 2000 UNITS PO (08:19)
[2021-05-17] MEDS: Aspirin E.C. 81 MG TABEC PO (08:19)
[2021-05-17] MEDS: Folic Acid 1 MG TAB PO (08:20)
[2021-05-17] MEDS: Divalproex Sodium 500 MG TAB.ER.24H 1000 MG PO (08:20)
[2021-05-17] MEDS: Lactobacillus Acidophilus CAP 1 CAP PO ×2 (08:21→20:09)
[2021-05-17] MEDS: Omeprazole 20 MG CAPCR PO (08:23)
[2021-05-17] MEDS: metFORMIN 500 MG TAB 1000 MG PO ×2 (08:23→16:33)
[2021-05-17] MEDS: QUEtiapine 25 MG TAB 50 MG PO ×2 (08:24→16:34)
[2021-05-17 08:31] VITALS: BP 100/69; PULSE 77; RESP 12; TEMP 36.6; O2SAT 96
--- NOTE | 2021-05-17 09:53 | WOUNDCARE ---
Wound Care Report Attempted several times to explain to the patient of what was reported as far as a sacral wound. Patient at first denied that there was any injury . But first verbally consented to have consult performed. When i asked her to sing the consent she refused. She stated she did not want to go to [place], Patient could not be redirected , though it was tried several times by wound nurse and the patients assigned nurse. Through repeated attempts, patient emotionally started to escalate. She at that time again claimed there was nothing wrong with her, She verbally stated no , she did not want service. Wound consult was considered refused
--- NOTE | 2021-05-17 10:01 | WOUNDCONS ---
- If Service Date Differs Date of service: 05/17/21 Time of Service: 10:01 Wound Initial Evaluation Narrative: Order was noted to assess patient for a sacral decubitus and and manage as specified./ Patient is here swing bed level status , she is waiting placement for fdc care , as per her schizophrenia and autism is unable to care for herself. Patient was approached. Nurse introduced himself to her. Presence of wound nursing was identified for the patient. she initially stated that there was nothing wrong with her and refused care and treatment. After explaining concerns again, at first patient verbally consented, but refused to sign the consent. She stated she did not want to go to [place]. Attempts to redirect the patient and explain the process to the patient by myself and her staff nurse, did nothing but to escalate her behaviors. It is noticed by wound nurse. That patient is taking po intake and is noted to be lying on her sides. patient verbally said no to a wound consult at that point. Wound nurse and staff nurse left the area. Charge nurse is updated to patient refusal
--- NOTE | 2021-05-17 14:47 | CMACTNOTE_ITS ---
- If Service Date Differs Date of service: 05/17/21 Time of Service: 14:47 Care Management Activity Note S/O: Kandace remains at [facility] awaiting placement at a facility where her needs can be met in a therapeutic setting. Kandace has been stable with a regular schedule including toileting frequently, activities and interactions with staff. She has been appropriate and cooperative. 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 in [place], [place], as soon as a bed becomes a vailable. At this time, CM is seeking placement for Kandace for short term (to then transition to [place]) or [place] care. CM has documentation from STEVE Garcia, stating that facilities willing to accept Kandace can ask for a 14.2 Atypical enhanced rate from STEVE-LILY. [facility] is also willing to support the facility with her mental health needs and will assist with creating a care plan for behavioral management. Referrals were sent to several facilities across the [facility], based on current bed availability. CM will continue to follow and support discharge planning considerations. A: Kandace is a 51 year old female admitted to [facility] on 05/08/21 for SWB 2 awaiting placement. P: Kandace will transition to short or long wall mining machine helper care once a bed becomes availab le to her. Transportation will be arranged by CM, which will be dependent on disposition. She will follow up with [facility], her PCP, and her discharge plan of care. CM will continue to follow.
--- NOTE | 2021-05-17 14:47 | PDOC.CMACT ---
- If Service Date Differs Date of service: 05/17/21 Time of Service: 14:47 Care Management Activity Note S/O: Kandace remains at [facility] awaiting placement at a facility where her needs can be met in a therapeutic setting. Kandace has been stable with a regular schedule including toileting frequently, activities and interactions with staff. She has been appropriate and cooperative. 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 in [place], [place], as soon as a bed becomes available. At this time, CM is seeking placement for Kandace for short term (to then transition to [place]) or group home care. CM has documentation from STEVE Garcia, stating that facilities willing to accept Kandace can ask for a 14.2 Atypical enhanced rate from STEVE-LILY. [facility] is also willing to support the facility with her mental health needs and will assist with creating a care plan for behavioral management. Ref[facility] were [facility] to [facility], based on current bed availability. CM will continue to follow and support discharge planning considerations. A: Kandace is a 51 year old female admitted to [facility] on 05/08/21 for SWB 2 awaiting placement. P: Kandace will transition to short or group home care once a bed becomes available to her. Transportation will be arranged by CM, which will be dependent on disposition. She will follow up with [facility], her PCP, and her discharge plan of care. CM will continue to follow.
[2021-05-17] MEDS: diphenhydrAMINE 25 MG CAP 50 MG PO (20:08)
[2021-05-17] MEDS: Divalproex Sodium 500 MG TAB.ER.24H 2000 MG PO (20:08)
[2021-05-17] MEDS: QUEtiapine 100 MG TAB PO (20:09)
[2021-05-17] MEDS: Tolterodine 2 MG CAPCR PO (20:09)
[2021-05-18 04:41] VITALS: BP 98/54; PULSE 100; RESP 14; TEMP 36.6; O2SAT 97
[2021-05-18] MEDS: Omeprazole 20 MG CAPCR PO (06:39)
[2021-05-18] MEDS: Levothyroxine 112 MCG TAB PO (06:39)
[2021-05-18] MEDS: Cholecalciferol (Vitamin D3) 1,000 UNIT TAB 2000 UNITS PO (08:09)
[2021-05-18] MEDS: QUEtiapine 25 MG TAB 50 MG PO (08:10)
[2021-05-18] MEDS: Divalproex Sodium 500 MG TAB.ER.24H 1000 MG PO (08:10)
[2021-05-18] MEDS: Folic Acid 1 MG TAB PO (08:10)
[2021-05-18] MEDS: metFORMIN 500 MG TAB 1000 MG PO ×2 (08:10→20:24)
[2021-05-18] MEDS: Lactobacillus Acidophilus CAP 1 CAP PO ×2 (08:10→20:22)
[2021-05-18] MEDS: Aspirin E.C. 81 MG TABEC PO (08:10)
[2021-05-18 11:35] VITALS: BP 92/60; PULSE 74; RESP 15; TEMP 37.2; O2SAT 96
[2021-05-18 19:58] LABS: Bilirubin Negative (Negative); Blood Trace-intact (Negative); Clarity Clear (Clear); Glucose 250 mg/dL (Negative); Ketones Negative (Negative); Leukocyte Esterase Negative (Negative); Nitrite Negative (Negative); Urobilinogen 0.2 EU/dL (Up TO 0.2)
[2021-05-18 20:05] LABS: Bacteria Few HPF (Negative); C & S Indicated? No/Sq. Contamination; Casts Negative LPF (Negative); Crystals Negative HPF (Negative); Epithelial Cells Moderate HPF (Negative); Mucus Negative (Negative); RBC 0-2 HPF (0-2)
[2021-05-18] MEDS: diphenhydrAMINE 25 MG CAP 50 MG PO (20:22)
[2021-05-18] MEDS: Divalproex Sodium 500 MG TAB.ER.24H 2000 MG PO (20:23)
[2021-05-18] MEDS: QUEtiapine 100 MG TAB PO (20:24)
[2021-05-18] MEDS: Tolterodine 2 MG CAPCR PO (20:24)
[2021-05-19 05:22] VITALS: BP 128/84; PULSE 70; RESP 14; TEMP 36.5; O2SAT 98
[2021-05-19] MEDS: Omeprazole 20 MG CAPCR PO (06:39)
[2021-05-19] MEDS: Levothyroxine 112 MCG TAB PO (06:39)
--- NOTE | 2021-05-19 08:33 | NUR.NOTE ---
Nursing Note: Patient was sleeping at the start of the shift. Her breakfast tray is present and she is still sleeping. The staff member that is present with the patient to assist her with her needs is asked to notify me when she wakes
[2021-05-19 11:39] VITALS: BP 130/84; PULSE 87; RESP 12; O2SAT 98
--- NOTE | 2021-05-19 11:40 | NUR.NOTE ---
Nursing Note: Patient has slept most of the morning, no assessment has been able to be performed
[2021-05-19] MEDS: Cholecalciferol (Vitamin D3) 1,000 UNIT TAB 2000 UNITS PO (12:20)
[2021-05-19] MEDS: Divalproex Sodium 500 MG TAB.ER.24H 1000 MG PO (12:20)
[2021-05-19] MEDS: Lactobacillus Acidophilus CAP 1 CAP PO ×2 (12:21→21:05)
[2021-05-19] MEDS: QUEtiapine 25 MG TAB 50 MG PO ×2 (12:21→16:18)
[2021-05-19] MEDS: Folic Acid 1 MG TAB PO (12:21)
[2021-05-19] MEDS: Aspirin E.C. 81 MG TABEC PO (12:21)
[2021-05-19] MEDS: metFORMIN 500 MG TAB 1000 MG PO (16:18)
[2021-05-19 20:36] VITALS: BP 117/79; PULSE 78; RESP 15; TEMP 37.1; O2SAT 96
[2021-05-19] MEDS: diphenhydrAMINE 25 MG CAP 50 MG PO (21:04)
[2021-05-19] MEDS: Divalproex Sodium 500 MG TAB.ER.24H 2000 MG PO (21:04)
[2021-05-19] MEDS: QUEtiapine 100 MG TAB PO (21:05)
[2021-05-19] MEDS: Tolterodine 2 MG CAPCR PO (21:05)
[2021-05-20] MEDS: Omeprazole 20 MG CAPCR PO (06:31)
[2021-05-20] MEDS: Levothyroxine 112 MCG TAB PO (06:31)
[2021-05-20 08:15] VITALS: BP 113/75; PULSE 70; RESP 18; TEMP 36.4; O2SAT 96
[2021-05-20] MEDS: metFORMIN 500 MG TAB 1000 MG PO ×2 (08:16→16:09)
[2021-05-20] MEDS: QUEtiapine 25 MG TAB 50 MG PO ×2 (08:16→16:09)
[2021-05-20] MEDS: Aspirin E.C. 81 MG TABEC PO (08:16)
[2021-05-20] MEDS: Folic Acid 1 MG TAB PO (08:16)
[2021-05-20] MEDS: Divalproex Sodium 500 MG TAB.ER.24H 1000 MG PO (08:16)
[2021-05-20] MEDS: Lactobacillus Acidophilus CAP 1 CAP PO ×2 (08:16→20:26)
[2021-05-20] MEDS: Cholecalciferol (Vitamin D3) 1,000 UNIT TAB 2000 UNITS PO (08:16)
--- NOTE | 2021-05-20 16:39 | NUR.NOTE ---
Addendum entered by Matty Del Valle 05/20/21 16:41: patient asked to have side rail up on bed so its not up as any kind of restaint Original Note: Nursing Note: patient asked to lut siderial on bed up so its not up as any kind of restraint
--- NOTE | 2021-05-20 17:22 | NUTRITION ---
ate and drank all dinner except salad notified over radio she wanted more salad and chicken which there was no response from nursing staff
[2021-05-20 20:23] VITALS: BP 123/78; PULSE 63; RESP 18; TEMP 36.9; O2SAT 95
[2021-05-20] MEDS: Divalproex Sodium 500 MG TAB.ER.24H 2000 MG PO (20:26)
[2021-05-20] MEDS: diphenhydrAMINE 25 MG CAP 50 MG PO (20:26)
[2021-05-20] MEDS: Tolterodine 2 MG CAPCR PO (20:26)
[2021-05-20] MEDS: QUEtiapine 100 MG TAB PO (20:26)
[2021-05-21] MEDS: Levothyroxine 112 MCG TAB PO (05:47)
[2021-05-21 06:39] VITALS: BP 119/76; PULSE 66; RESP 18; TEMP 36.5; O2SAT 93
[2021-05-21] MEDS: Divalproex Sodium 500 MG TAB.ER.24H 1000 MG PO (07:48)
[2021-05-21] MEDS: Cholecalciferol (Vitamin D3) 1,000 UNIT TAB 2000 UNITS PO (07:48)
[2021-05-21] MEDS: QUEtiapine 25 MG TAB 50 MG PO ×2 (07:48→16:36)
[2021-05-21] MEDS: metFORMIN 500 MG TAB 1000 MG PO ×2 (07:49→16:36)
[2021-05-21] MEDS: Aspirin E.C. 81 MG TABEC PO (07:49)
[2021-05-21] MEDS: Folic Acid 1 MG TAB PO (07:49)
[2021-05-21] MEDS: Omeprazole 20 MG CAPCR PO (07:49)
[2021-05-21] MEDS: Lactobacillus Acidophilus CAP 1 CAP PO ×2 (07:49→20:35)
[2021-05-21 08:00] VITALS: BP 117/75; PULSE 61; RESP 16; TEMP 36.3; O2SAT 94
[2021-05-21 11:05] VITALS: BP 120/66; PULSE 65; RESP 15; TEMP 36.8; O2SAT 96
[2021-05-21 20:30] VITALS: BP 105/70; PULSE 81; RESP 19; TEMP 37.1; O2SAT 96
[2021-05-21] MEDS: Tolterodine 2 MG CAPCR PO (20:35)
[2021-05-21] MEDS: diphenhydrAMINE 25 MG CAP 50 MG PO (20:35)
[2021-05-21] MEDS: QUEtiapine 100 MG TAB PO (20:35)
[2021-05-21] MEDS: Divalproex Sodium 500 MG TAB.ER.24H 2000 MG PO (20:37)
[2021-05-22] MEDS: Levothyroxine 112 MCG TAB PO (06:00)
[2021-05-22] MEDS: Cholecalciferol (Vitamin D3) 1,000 UNIT TAB 2000 UNITS PO (08:08)
[2021-05-22] MEDS: Divalproex Sodium 500 MG TAB.ER.24H 1000 MG PO (08:08)
[2021-05-22] MEDS: Omeprazole 20 MG CAPCR PO (08:09)
[2021-05-22] MEDS: Folic Acid 1 MG TAB PO (08:09)
[2021-05-22] MEDS: metFORMIN 500 MG TAB 1000 MG PO ×2 (08:09→16:34)
[2021-05-22] MEDS: Aspirin E.C. 81 MG TABEC PO (08:09)
[2021-05-22] MEDS: Lactobacillus Acidophilus CAP 1 CAP PO ×2 (08:09→20:00)
[2021-05-22] MEDS: QUEtiapine 25 MG TAB 50 MG PO ×2 (08:09→16:35)
[2021-05-22 10:40] VITALS: BP 121/67; PULSE 59; RESP 13; TEMP 36.7; O2SAT 98
[2021-05-22 19:49] VITALS: BP 112/75; PULSE 66; RESP 18; TEMP 37.3; O2SAT 96
[2021-05-22] MEDS: Divalproex Sodium 500 MG TAB.ER.24H 2000 MG PO (20:00)
[2021-05-22] MEDS: diphenhydrAMINE 25 MG CAP 50 MG PO (20:10)
[2021-05-22] MEDS: Tolterodine 2 MG CAPCR PO (20:10)
[2021-05-22] MEDS: QUEtiapine 100 MG TAB PO (20:10)
[2021-05-23] MEDS: Levothyroxine 112 MCG TAB PO (06:00)
[2021-05-23] MEDS: Omeprazole 20 MG CAPCR PO (09:00)
[2021-05-23] MEDS: Aspirin E.C. 81 MG TABEC PO (09:00)
[2021-05-23] MEDS: Folic Acid 1 MG TAB PO (09:00)
[2021-05-23] MEDS: Cholecalciferol (Vitamin D3) 1,000 UNIT TAB 2000 UNITS PO (09:00)
[2021-05-23] MEDS: metFORMIN 500 MG TAB 1000 MG PO ×2 (09:00→16:45)
[2021-05-23] MEDS: Lactobacillus Acidophilus CAP 1 CAP PO ×2 (09:01→20:05)
[2021-05-23] MEDS: QUEtiapine 25 MG TAB 50 MG PO ×2 (09:01→16:01)
[2021-05-23] MEDS: Divalproex Sodium 500 MG TAB.ER.24H 1000 MG PO (09:01)
[2021-05-23 13:36] VITALS: BP 95/65; PULSE 89; RESP 14; TEMP 36.2; O2SAT 95
[2021-05-23] MEDS: Acetaminophen 325 MG TAB 650 MG PO (16:01)
--- NOTE | 2021-05-23 18:51 | CMACTNOTE_ITS ---
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 She has been stable with a regular schedule including toileting frequently, activities and interactions with staff. She has been appropriate and cooperative. 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 in [place], [place], as soon as a bed becomes available. At this time, CM is seeking placement for Kandace for short term (to then transition to [place]) or assisted care. CM has documentation from STEVE Garcia, stating that facilities willing to accept Kandace can ask for a 14.2 Atypical enhanced rate from STEVE-ASD. [facility] is also willing to support the facility with her mental health needs and will assist with creating a care plan for behavioral management. Referrals were sent to several facilities across the [facility], based on current bed availability. CM will continue to follow and support discharge planning considerations. A: Kandace is a 51 year old female admitted to [facility] on 05/08/21 for SWB 2 awaiting placement. P: Kandace will transition to short or petroleum terminal plant operator care once a bed becomes available to her. Transportation will be arranged by CM, which will be dependent on disposition. She will follow up with [facility], her PCP, and her discharge plan of care. CM will continue to follow.
--- NOTE | 2021-05-23 18:51 | PDOC.CMACT ---
- If Service Date Differs Date of service: 05/23/21 Time of Service: 18:51 Care Management Activity Note S/O: Kandace remains on SWB2 awaiting remote computer terminal operator placement. She has been stable with a regular schedule including toileting frequently, activities and interactions with staff. She has been appropriate and cooperative. 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 At this time, CM is seeking placement for Kandace for short term (to then transition to [place]) or detention care. CM has documentation from STEVE Garcia, stating that facilities willing to accept Kandace can ask for a 14.2 Atypical enhanced rate from STEVE-ASD. [facility] is also willing to support the facility with her mental health needs and will assist with creating a care plan for behavioral management. Referrals were sent to several facilities across the [facility], based on current bed availability. CM will continue to follow and support discharge planning considerations. A: Kandace is a 51 year old female admitted to [facility] on 05/08/21 for SWB 2 awaiting placement. P: Kandace will transition to short or remote computer terminal operator care once a bed becomes available to her. Transportation will be arranged by CM, which will be dependent on disposition. She will follow up with [facility], her PCP, and her discharge plan of care. CM will continue to follow.
[2021-05-23] MEDS: Divalproex Sodium 500 MG TAB.ER.24H 2000 MG PO (20:04)
[2021-05-23] MEDS: QUEtiapine 100 MG TAB PO (22:43)
[2021-05-23] MEDS: diphenhydrAMINE 25 MG CAP 50 MG PO (22:43)
[2021-05-23] MEDS: Tolterodine 2 MG CAPCR PO (22:44)
[2021-05-24] MEDS: Levothyroxine 112 MCG TAB PO (06:36)
[2021-05-24] MEDS: Aspirin E.C. 81 MG TABEC PO (09:09)
[2021-05-24] MEDS: Lactobacillus Acidophilus CAP 1 CAP PO ×2 (09:09→21:33)
[2021-05-24] MEDS: Folic Acid 1 MG TAB PO (09:09)
[2021-05-24] MEDS: Cholecalciferol (Vitamin D3) 1,000 UNIT TAB 2000 UNITS PO (09:09)
[2021-05-24] MEDS: Omeprazole 20 MG CAPCR PO (09:09)
[2021-05-24] MEDS: metFORMIN 500 MG TAB 1000 MG PO (09:10)
[2021-05-24] MEDS: QUEtiapine 25 MG TAB 50 MG PO (09:10)
[2021-05-24] MEDS: Divalproex Sodium 500 MG TAB.ER.24H 1000 MG PO (09:10)
--- NOTE | 2021-05-24 12:23 | NUR.NOTE ---
This technical document writer woke up patient to go to bathroom and eat lunch. Lunch delivered by kitchen staff. This technical document writer went in to check on patient and ask if she needed anything else to eat or drink and how she is enjoying the meal. Patient then got up from chair and got into bed. Requested that this technical document writer to Just leave me alone. and to stop staring at her. I then asked if I could take her tray if she was done and she stated, No. Tray left in room, metal fork removed. Nursing Note:
--- NOTE | 2021-05-24 13:27 | NUR.NOTE ---
PT got up herself to use bathroom. Told me to leave her alone. Nursing Note:
--- NOTE | 2021-05-24 13:35 | NUR.NOTE ---
Patient requested lotion. When patient got out of bathroom, this procedure writer asked if she was ready for her lotion for her feet and the patient proceeded to yell NO and that These medications are making my feet too dry. Patient proceeded to lay back in bed. Nursing Note:
--- NOTE | 2021-05-24 13:46 | CMPROGNOTE_ITS ---
- If Service Date Differs Date of service: 05/24/21 Time of Service: 13:46 Care Management Progress Note S/O: Kandace is laying in bed when CM comes to meet with her. She answers questions asked of her but provides brief answers. Kandace states she is doing well and she accepts an adult coloring book and word search puzzle book from , as she reportedly spilt orange juice on the ones she previously had. Kandace is reportedly stable and doing well on her current schedule which includes frequent toileting, activities, and regular interactions with staff. A: Kandace is a 51 year old female admitted to [facility] on 05/08/21 for SWB 2 awaiting long filler cigar roller machine placement. P: Kandace is seeking long filler cigar roller machine placement at a SNF/ERC facility. She will be monitored by 1:1 staff during her admission, although she is not currently being held for an inpatient psychiatric admission. [facility] is seeking guardianship, and is inquiring about whether Kandace will qualify for IDDS support. Per [facility], keeping Kandace on a regular routine will help with her behavior. Kandace will be allowed limited personal belongings, her own clothes, and regular silverware (supervised and removed after eating). CM will continue to follow. 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 (DRAW MACHINE OPERATOR)
--- NOTE | 2021-05-24 14:37 | NUR.NOTE ---
Nursing Note: This writer technical publications was informed that patient was complaining of a stomach ache. This writer technical publications into patients room to assess patient. Patient at the time of arrival was receiving lotion from sitter and was going to sit in the chair and put lotion on her legs. Patient looked at this writer technical publications and she slapped her hand down (with the lotion in it) onto the bedside table. Patient got angry and jumped back into bed and stated what kind of poison do you have now? This writer technical publications explained to patient that I was informed that she had a stomach ache, and that I was just coming to check on her. Patient states that she does have a stomach ache, and she was ok. This writer technical publications left the room. Shortly after, patient requested a glass of OJ, which was provided.
[2021-05-24] MEDS: diphenhydrAMINE 25 MG CAP 50 MG PO (21:33)
[2021-05-24] MEDS: Divalproex Sodium 500 MG TAB.ER.24H 2000 MG PO (21:33)
[2021-05-24] MEDS: Tolterodine 2 MG CAPCR PO (21:33)
[2021-05-24] MEDS: QUEtiapine 100 MG TAB PO (21:33)
[2021-05-25] MEDS: Levothyroxine 112 MCG TAB PO (05:50)
[2021-05-25] MEDS: Lactobacillus Acidophilus CAP 1 CAP PO ×2 (07:53→19:47)
[2021-05-25] MEDS: Folic Acid 1 MG TAB PO (07:53)
[2021-05-25] MEDS: metFORMIN 500 MG TAB 1000 MG PO ×2 (07:53→16:55)
[2021-05-25] MEDS: Cholecalciferol (Vitamin D3) 1,000 UNIT TAB 2000 UNITS PO (07:54)
[2021-05-25] MEDS: Aspirin E.C. 81 MG TABEC PO (07:54)
[2021-05-25] MEDS: Divalproex Sodium 500 MG TAB.ER.24H 1000 MG PO (07:54)
[2021-05-25] MEDS: Omeprazole 20 MG CAPCR PO (07:54)
[2021-05-25] MEDS: QUEtiapine 25 MG TAB 50 MG PO ×2 (07:54→16:55)
[2021-05-25 07:57] VITALS: BP 99/65; PULSE 63; RESP 16; TEMP 36.2; O2SAT 97
--- NOTE | 2021-05-25 13:43 | NUR.NOTE ---
Nursing Note: pt has been appropriate and cooperative today, no behaviors have been noted by sitter or nurse.
--- NOTE | 2021-05-25 15:52 | TELEFU_ITS ---
Date of service: 05/25/21 Time of Service: 15:52 Nutrition Note NOTE: 51yo female admitted for mental health decline/behavioral disturbance. BMI of 40.3kg.m2. tolerating CHO consistent diabetic diet with 75-100% intake at meals since admission. I met with Ms Levine briefly to assess if any specific/special concerns regarding her nutrition. She mentioned a peanut allergy and that the food quality has been enjoyable so far. Due to her mental health status and need for additional support, diabetes management can be a challenge, AEB most recent A1C of 10.0% (02/15/21). She declines any interest in in-depth education today and this telegraphic typewriter installer let her know nutrition staff is available for education in outpt setting if she decides she?d like it. Nutrition Diagnosis: Inability or lack of desire to manage self-care r/t significant mental health/behavioral health diagnoses. Stage III obesity AEB current BMI >40. Intervention: maintain current diet order with CHO consistent diet Monitoring/Evaluation: Will continue to monitor for any significant changes that which may lead to increase in nutritional risk. Rubin Peñaloza NDTR ? Electronic Industrial Controls Mechanic Time Spent in Nutritional Counseling and Treatment: 15 minutes
[2021-05-25] MEDS: Divalproex Sodium 500 MG TAB.ER.24H 2000 MG PO (19:46)
[2021-05-25] MEDS: QUEtiapine 100 MG TAB PO (22:13)
[2021-05-25] MEDS: Tolterodine 2 MG CAPCR PO (22:13)
[2021-05-25] MEDS: diphenhydrAMINE 25 MG CAP 50 MG PO (22:13)
[2021-05-26] MEDS: Levothyroxine 112 MCG TAB PO (06:23)
[2021-05-26 07:18] VITALS: BP 106/63; PULSE 66; RESP 14; TEMP 36.5; O2SAT 94
[2021-05-26] MEDS: Cholecalciferol (Vitamin D3) 1,000 UNIT TAB 2000 UNITS PO (09:00)
[2021-05-26] MEDS: QUEtiapine 25 MG TAB 50 MG PO ×2 (09:00→16:30)
[2021-05-26] MEDS: Folic Acid 1 MG TAB PO (09:00)
[2021-05-26] MEDS: Omeprazole 20 MG CAPCR PO (09:01)
[2021-05-26] MEDS: Divalproex Sodium 500 MG TAB.ER.24H 1000 MG PO (09:01)
[2021-05-26] MEDS: metFORMIN 500 MG TAB 1000 MG PO ×2 (09:01→16:30)
[2021-05-26] MEDS: Aspirin E.C. 81 MG TABEC PO (09:01)
[2021-05-26] MEDS: Lactobacillus Acidophilus CAP 1 CAP PO ×2 (09:01→20:09)
[2021-05-26] MEDS: Divalproex Sodium 500 MG TAB.ER.24H 2000 MG PO (20:09)
[2021-05-26] MEDS: Tolterodine 2 MG CAPCR PO (21:55)
[2021-05-26] MEDS: diphenhydrAMINE 25 MG CAP 50 MG PO (21:55)
[2021-05-26] MEDS: QUEtiapine 100 MG TAB PO (21:55)
[2021-05-27] MEDS: Levothyroxine 112 MCG TAB PO (06:27)
[2021-05-27 07:24] VITALS: BP 122/67; PULSE 68; RESP 18; TEMP 36.7; O2SAT 95
[2021-05-27] MEDS: Cholecalciferol (Vitamin D3) 1,000 UNIT TAB 2000 UNITS PO (07:27)
[2021-05-27] MEDS: Divalproex Sodium 500 MG TAB.ER.24H 1000 MG PO (07:27)
[2021-05-27] MEDS: Folic Acid 1 MG TAB PO (07:27)
[2021-05-27] MEDS: Lactobacillus Acidophilus CAP 1 CAP PO ×2 (07:28→20:20)
[2021-05-27] MEDS: Acetaminophen 325 MG TAB 650 MG PO (07:28)
[2021-05-27] MEDS: Aspirin E.C. 81 MG TABEC PO (07:28)
[2021-05-27] MEDS: Omeprazole 20 MG CAPCR PO (07:28)
[2021-05-27] MEDS: metFORMIN 500 MG TAB 1000 MG PO ×2 (07:28→16:49)
[2021-05-27] MEDS: QUEtiapine 25 MG TAB 50 MG PO ×2 (07:28→16:00)
--- NOTE | 2021-05-27 18:30 | NUR.NOTE ---
Nursing Note: At 1815 on 05/27/21, pt. was moved from room 235 to room 218. Pt. was settled in and oriented to room 218. Pt. instructed to ring when needing help. RN will reassess as necessary.
[2021-05-27] MEDS: Tolterodine 2 MG CAPCR PO (20:20)
[2021-05-27] MEDS: diphenhydrAMINE 25 MG CAP 50 MG PO (20:20)
[2021-05-27] MEDS: Divalproex Sodium 500 MG TAB.ER.24H 2000 MG PO (20:21)
[2021-05-27] MEDS: QUEtiapine 100 MG TAB PO (20:21)
[2021-05-28] MEDS: Omeprazole 20 MG CAPCR PO (06:30)
[2021-05-28] MEDS: Levothyroxine 112 MCG TAB PO (06:30)
[2021-05-28 07:43] VITALS: BP 120/78; PULSE 61; RESP 16; TEMP 36.4; O2SAT 98
[2021-05-28] MEDS: Cholecalciferol (Vitamin D3) 1,000 UNIT TAB 2000 UNITS PO (08:19)
[2021-05-28] MEDS: QUEtiapine 25 MG TAB 50 MG PO ×2 (08:19→15:46)
[2021-05-28] MEDS: Divalproex Sodium 500 MG TAB.ER.24H 1000 MG PO (08:20)
[2021-05-28] MEDS: metFORMIN 500 MG TAB 1000 MG PO ×2 (08:20→17:09)
[2021-05-28] MEDS: Lactobacillus Acidophilus CAP 1 CAP PO ×2 (08:21→22:32)
[2021-05-28] MEDS: Folic Acid 1 MG TAB PO (08:21)
[2021-05-28] MEDS: Aspirin E.C. 81 MG TABEC PO (08:21)
[2021-05-28] MEDS: diphenhydrAMINE 25 MG CAP 50 MG PO (22:33)
[2021-05-28] MEDS: Divalproex Sodium 500 MG TAB.ER.24H 2000 MG PO (22:33)
[2021-05-28] MEDS: QUEtiapine 100 MG TAB PO (22:34)
[2021-05-28] MEDS: Tolterodine 2 MG CAPCR PO (22:34)
[2021-05-29] MEDS: Omeprazole 20 MG CAPCR PO (06:25)
[2021-05-29] MEDS: Levothyroxine 112 MCG TAB PO (06:25)
[2021-05-29 07:38] VITALS: BP 113/64; PULSE 62; RESP 18; TEMP 36.4; O2SAT 98
[2021-05-29] MEDS: Cholecalciferol (Vitamin D3) 1,000 UNIT TAB 2000 UNITS PO (08:12)
[2021-05-29] MEDS: metFORMIN 500 MG TAB 1000 MG PO ×2 (08:12→16:22)
[2021-05-29] MEDS: Lactobacillus Acidophilus CAP 1 CAP PO ×2 (08:12→22:24)
[2021-05-29] MEDS: Divalproex Sodium 500 MG TAB.ER.24H 1000 MG PO (08:12)
[2021-05-29] MEDS: Folic Acid 1 MG TAB PO (08:13)
[2021-05-29] MEDS: Aspirin E.C. 81 MG TABEC PO (08:13)
[2021-05-29] MEDS: QUEtiapine 25 MG TAB 50 MG PO ×2 (08:13→16:22)
--- NOTE | 2021-05-29 13:26 | OTIE_ITS ---
Occupational Therapy Notes Inpatient Occupational Therapy Evaluation Date: 05/29/21 Referring Doctor: Orly Nagy NP OT Orders: Non urgent Precautions: Fall, standard, Full PATIENT PROFILE/ADMITTING DIAGNOSIS: Pt is a 51 year old female who was admitted through the ED with a clinical impression of Behavior disturbance, History of schizoaffective disorder. Past Medical History: Active Problem List (Updated 05/08/21 @ 16:41 by Landy Rendon DO) Behavior disturbance (Acute) History of schizoaffective disorder (Acute) Fatigue (Acute) Encounter for medical assessment (Acute) Acute alteration in mental status (Acute) Suicidal ideation (Acute) Discharge planning issues (Acute) Urinary incontinence (Chronic) Encephalomalacia on imaging study (Chronic) Autism spectrum disorder with accompanying intellectual disability without language impairment, requiring substantial support (Acute) Change in behavior (Acute) Schizoaffective disorder (Acute) Ambulatory dysfunction (Chronic) Constipation (Chronic) Bipolar disorder (Chronic) Weakness (Acute) Abnormal CT of the head (Acute) Tobacco use (Chronic) Mouth abscess (Acute 08/05/14) Responsive to verbal stimulus (Acute) Hypernatremia (Acute) RLL pneumonia (Acute) Medical History (Updated 05/08/21 @ 16:41 by Landy Rendon DO) Autism Bipolar affective disorder Diabetes mellitus GERD (gastroesophageal reflux disease) Hypertension Hypothyroidism Schizoaffective disorder Surgical History No significant past surgical history Social History/Home Situation: Pt notes that she lives at [facility] and always has. She does report though throughout assessment that she is originally from [place] she states that she has some family in [place], [place]. She reports that she did spend some time at the crisis bed and she reports that she is (I) at her baseline and now. She is very nervous with discussion with OT as this is OT and pts first encounter. She reports that she doesn't need any help with anything. Equipment owned/DME: Unable to assess. SUBJECTIVE: Pt was lying in bed when OT arrived, she is nervous when OT first enters and only responds minimally. She is pleasant in interaction and agreeable to OT session. OBJECTIVE: General Observation: Pleasant and able to communicate verbally, anxious at beginning of session. Mental Status: A&Ox2 Pain: no c/o pain ROM: RUE AROM WFL L UE AROM WFL STRENGTH: RUE 4/5 throughout LUE 4-/5 throughout FUNCTIONAL MOBILITY/ADLS: Transfers Supine-sit (I) Sit-supine (I) Sit-Stand (I) Stand-sit (I) BATHING sitting on side of the bed as pt is uncomfortable getting up without knowing OT- pts preference is showering. Bathing UE (I) face and (B) UE, (I) abdomen Bathing LE Pt denies however she does have AROM to be able to perform this (I). OT does a modified assessment of ROM and pt is able to reach her toes, cross midline and slide her hands down her (B) LE as if she was washing them. DRESSING sitting on side of the bed Dressing UE Pt denies changing her shirt this seems to be more behavioral in terms of just not wanting too at this time. OT does give pt a hospital gown and she dons and doffs this over her shirt she is wearing (I). Dressing LE (I) don and doffing socks. Pt states that she is (I) with her pants but is unwilling to demonstrate this at this time. GROOMING (I) with brushing her hair TOILETING On toilet (I) with min vc EATING OT did not assess this. Per nursing and pt, pt is (I) with this. This was not assess at todays session. BALANCE: Static sitting Normal Dynamic Sitting Normal Static Standing Normal Dynamic Standing Normal SPECIAL TESTS: Daily Activity Limitations Standardized Measure [facility] AM -PAC ?6 clicks? Daily Activity Inpatient Short Form: Raw score: 19 Standardized score: 40.22 CMS score: 42.80% INFORMED CONSENT/EDUCATION: Pt instructed in purpose of OT Consult and plan of care. ASSESSMENT: Patient is a 51-year-old female referred to occupational therapy services with diagnosis of behavioral disturbance, hx of schizoaffective disorder, fatigue, encounter for medical assessment, suicidal ideation, urinary incontinence. Patient was seen for OT consult and assessment of her ADLs/IADL in her current level of function. Pt has AROM needed for functional (I) and is able to demonstrate with min vc throughout. She will require vc for performance but only as needed. Her mood impacts her functional (I) in her ADLs. OT went to see pt earlier today and pt reported that she was not interested in performance of her ADLs but was receptive when OT came back later in the day. OT was able to assess pts ADLs later on which pt seemed more receptive too. She would require supervision just to provide vc as needed. Pt does not require multiple vc throughout her ADLs. She is able to perform them with just minimal directions given. AMPAC score 19 Patient is assessed as a Moderate [id number] complexity based on the following: History: see above Examination: see functional limitations as noted above Presentation: evolving Decision Making: AMPAC score 19 GOALS OT consult only. PLAN OF CARE/TREATMENT PLAN: OT consult only. DISCHARGE RECOMMENDATIONS Plan is for pt to be discharged to long term care administrator placement at a SNF/ERC facility per CM notes. OT agrees with this plan of care. TREATMENT TIME/MINUTES/CODES 24155, 20 minutes Lesvia Pemberton OTR/[facility]
[2021-05-29 17:37] LABS: Source Nasal/Nares
[2021-05-29 18:29] LABS: COVID-19 PCR Negative (Negative)
[2021-05-29] MEDS: Tolterodine 2 MG CAPCR PO (22:23)
[2021-05-29] MEDS: QUEtiapine 100 MG TAB PO (22:23)
[2021-05-29] MEDS: diphenhydrAMINE 25 MG CAP 50 MG PO (22:24)
[2021-05-29] MEDS: Divalproex Sodium 500 MG TAB.ER.24H 2000 MG PO (22:24)
[2021-05-30 03:23] VITALS: BP 136/82; PULSE 67; RESP 14; TEMP 36.1; O2SAT 97
[2021-05-30] MEDS: Levothyroxine 112 MCG TAB PO (05:35)
[2021-05-30] MEDS: Lactobacillus Acidophilus CAP 1 CAP PO (07:54)
[2021-05-30] MEDS: Cholecalciferol (Vitamin D3) 1,000 UNIT TAB 2000 UNITS PO (07:54)
[2021-05-30] MEDS: Folic Acid 1 MG TAB PO (07:55)
[2021-05-30] MEDS: QUEtiapine 25 MG TAB 50 MG PO (07:55)
[2021-05-30] MEDS: Aspirin E.C. 81 MG TABEC PO (07:55)
[2021-05-30] MEDS: Divalproex Sodium 500 MG TAB.ER.24H 1000 MG PO (07:55)
[2021-05-30] MEDS: metFORMIN 500 MG TAB 1000 MG PO (07:55)
[2021-05-30] MEDS: Omeprazole 20 MG CAPCR PO (07:55)
--- NOTE | 2021-05-30 11:33 | DSE_ITS ---
Date of service: 05/30/21 Time of Service: 11:33 DS: Diagnosis Discharge Diagnosis (1) Schizoaffective disorder: Status: Acute (2) Autism spectrum disorder with accompanying intellectual disability without language impairment, requiring substantial support: Status: Acute Discharge Plan Disposition Patient Disposition: [facility] Condition: Stable Discharge Details Reason For Visit: Schizoaffective disorder Admit Date/Time: 05/08/21 15:58 Admit Provider: Thomas Olvera Attending Provider: Thomas Olvera Primary Care Provider: Sol Ashley V Hospital Course Hospital Course: This is a 51-year-old female with a history of GERD, hypertension, hypothyroidism, diabetes, schizoaffective disorder, bipolar disorder and autism who presented to the ED from the care bed for concern for UTI as well as difficulty with patient's behavior as she has been placing feces on the wall and yelling at staff. She has been discharged from the care bed and they will not take her back. She denied any c/o on arrival. Her medical screening in the ED, including urine is negative. She was placed on swing bed 2 while awaiting placement. Several referrals have been placed. she remained medically stable with no behavioral disturbances. It was noted after a few weeks after admission that her clozapine had dropped off her med list on admission and she has not been receiving while here. Since she has been appropriate with no active issues, decision to restart and at what dosing will be deferred to her outpatient psychiatric team. We did reach out to notify them of the omission but did not make contact. It has removed from her home medication list on discharge. She has been accepted back at the care bed and is being discharged. discharge discussed with DR Olvera. Home Meds and New Rx's Prescriptions: New divalproex 500 mg Tablet Extended Release 24 Hr 1,000 mg PO DAILY Qty: 0 RF: 0 divalproex 500 mg Tablet Extended Release 24 Hr 2,000 mg PO QPM Qty: 0 RF: 0 Continued levothyroxine 25 MCG tablet 112 mcg PO DAILY@0730 RF: 0 aspirin [Aspir-81] 81 MG tablet,delayed release (DR/EC) 81 mg PO QAM RF: 0 polyethylene glycol 3350 17 gram/dose powder 17 g PO PRN PRNRF: 0 quetiapine [Seroquel] 100 mg tablet 100 mg PO HS RF: 0 cholecalciferol (vitamin D3) [Vitamin D3] 50 mcg (2,000 unit) Capsule 50 mcg PO DAILY RF: 0 Advanced Probiotic-10 13 mg (3 billion cell) capsule 1 cap PO BID RF: 0 diphenhydramine HCl 25 mg Tablet 50 mg PO QHS RF: 0 quetiapine [Seroquel] 50 mg Tablet 50 mg PO BID RF: 0 omeprazole 20 mg Capsule,Delayed Release(Dr/Ec) 20 mg PO DAILY RF: 0 folic acid 1 mg Tablet 1 mg PO DAILY RF: 0 clotrimazole [Lotrimin AF (clotrimazole)] 1 % Cream 1 applic TOPICAL BID PRNRF: 0 metformin 1,000 mg tablet 1,000 mg PO BID RF: 0 glipizide 10 mg tablet extended release 24hr 20 mg PO QAM RF: 0 tolterodine 2 mg tablet 2 mg PO HS RF: 0 Discontinued ibuprofen [Ibuprofen IB] 200 MG tablet 400 mg PO Q8H PRNRF: 0 clozapine [Clozaril] 100 mg tablet 200 mg PO BID RF: 0 divalproex [Depakote ER] 500 mg tablet extended release 24 hr 1,000 - 2,000 mg PO BID RF: 0 lisinopril 5 mg Tablet 5 mg PO DAILY RF: 0 hydrochlorothiazide 25 mg Tablet 25 mg PO DAILY RF: 0 clindamycin phos-skin clnsr 19 1 % Kit 1 % TOPICAL PRN PRNRF: 0 guaifenesin [Mucinex] 600 mg Tablet Extended Release 12hr 600 mg PO Q12H PRNRF: 0 Discharge Instructions Instructions: Schizoaffective Disorder (DC) Stand Alone Forms: Nursing Discharge Form Referrals: Sol Ashley MD [Primary Care Provider] - 06/11/21 1:30 pm Activity:: Activity as Tolerated Equipment/Supplies:: No Equipment Needed Diet:: As Tolerated Discharge Orders Discharge Orders: Discharge Order (Routine); Ordered 05/30/21 Ordered By: Kirsten Riggs DS: Summary Time Spent with Patient providing and/or coordinating discharge services: Less than 30 minutes Status at Discharge Functional status at discharge: independent ambulation Overall status at discharge: patient is progressing back to baseline Mental Status: mental status grossly normal Speech and Movement: speech and movement normal Mood: angry Affect: irritable affect Exam Const General: cooperative, no acute distress and disheveled Orientation: alert and awake [facility] Head: normal to inspection Face and sinus: normal facial exam Eyes General: appearance normal, both eyes and all related structures EOM: EOM intact bilaterally Neck Neck: normal visual inspection and No submandibular swelling Lymphatic: no lymphadenopathy noted Chest Chest: normal inspection of the chest and no tenderness Resp Effort & Inspection: normal respiratory effort and able to speak in complete sentences Auscultation: clear to auscultation bilaterally Cardio Rate: regular rate Rhythm: regular rhythm GI Inspection: normal to inspection Palpation: soft, not firm, not rigid and nontender Auscultation: normal bowel sounds Neuro General: patient alert, patient awake, moves all extremities, no meningeal signs and no focal motor deficits Cognition: normal cognition Speech: speech normal Motor: muscle tone normal throughout Sensory Exam: no sensory deficits noted Extrem General: normal to inspection, full ROM, capillary refill normal, no calf tenderness bilaterally and no edema Psych Appearance: grossly normal Mental Status: mental status grossly normal Speech and Movement: speech and movement normal Mood: angry Affect: irritable affect DS: Data Vitals/I&O Vitals and I&O: Vital Signs Temperature 36.1 C L 05/30/21 03:23 Temperature Source Tympanic 05/30/21 03:23 Pulse 67 05/30/21 03:23 Pulse Rhythm Regular 05/30/21 09:07 Respiratory Rate 14 05/30/21 03:23 Respiratory Effort Non-Labored 05/30/21 09:07 Respiratory Depth Normal 05/30/21 09:07 Respiratory Pattern Normal 05/30/21 09:07 Blood Pressure 136/82 05/30/21 03:23 Blood Pressure Position Supine 05/08/21 12:35 Pulse Oximetry 97 05/30/21 03:23 Oxygen Delivery Method Room Air 05/30/21 03:23 Oxygen Flow Rate 0 05/30/21 03:23 Pain Level 0 05/28/21 07:45 Comment 05/28/21 07:45 Intake & Output 05/29/21 05/29/21 05/30/21 11:59 23:59 11:59 Intake Total 260 / 1190 930 / 1190 Balance 260 / 1190 930 / 1190 Intake: Oral 260 / 1190 930 / 1190 Other: Urine Appearance Clear Comment pT voided independent in toilet pt is voiding independently. pt encouraged to void Q2. pt is incontinent of urine at times Stool Size Small Stool Characteristics Soft Voiding Methods Toilet Data Completed and Pending Labs on day of discharge: Labs from last 24 hours 05/29/21 17:15 COVID-19 Source Nasal/Nares SARS-CoV-2 (PCR) Negative PFSH All Active Problems (Updated 05/08/21 @ 16:41 by Landy Rendon DO) Behavior disturbance (Acute) History of schizoaffective disorder (Acute) Fatigue (Acute) Encounter for medical assessment (Acute) Acute alteration in mental status (Acute) Suicidal ideation (Acute) Discharge planning issues (Acute) Urinary incontinence (Chronic) Encephalomalacia on imaging study (Chronic) Autism spectrum disorder with accompanying intellectual disability without language impairment, requiring substantial support (Acute) Change in behavior (Acute) Schizoaffective disorder (Acute) Ambulatory dysfunction (Chronic) Constipation (Chronic) Bipolar disorder (Chronic) Weakness (Acute) Abnormal CT of the head (Acute) Tobacco use (Chronic) Mouth abscess (Acute 08/05/14) Responsive to verbal stimulus (Acute) Hypernatremia (Acute) RLL pneumonia (Acute) Medical History (Updated 05/08/21 @ 16:41 by Landy Rendon DO) Autism Bipolar affective disorder Diabetes mellitus GERD (gastroesophageal reflux disease) Hypertension Hypothyroidism Schizoaffective disorder Surgical History No significant past surgical history Family History Other Adopted Social History Smoking/Tobacco Use Status: Current every day Tobacco Type: cigarettes Smoking risk assessment performed?: Yes Alcohol Intake: never Drug use: Never Substance use type: does not use Do you feel safe at home: Yes Do you feel safe in your relationship?: Yes Additional Social history: lives at [facility]. Since ?
--- NOTE | 2021-05-30 12:33 | CMDISCH_ITS ---
- If Service Date Differs Date of service: 05/30/21 Time of Service: 12:33 LACE Index Scoring Tool - Questions: Length of Stay (in days): 14 or more Acuity (Admit via E.D.?): Yes Comorbidities: Diabetes w/o Complication E.D. Visits: 4 - Answers: Total Score: 15 Risk of Readmission: High Risk Care Management Discharge Reason for Hospitalization: schizoaffective disorder Discharge Plan: Kandace was discharged into the care of [facility] today, who will keep her in their facility until filler leaf cutter long placement is found. She will have 06/01 supervision, provided by [facility]. [facility] drove her to the facility (previously the [facility] halfway, below the Care Bed) via private vehicle. She will follow up with [facility], her PCP, and her discharge plan of care. Patient/Family Education Needs: Review discharge instructions, discussion of self care needs including ask me three. Services Needed at Discharge: Home Health Care Services (resume HH RN, add PT/OT, TRANSFER ENGINEER), Transportation ([facility] worker drove her, private vehicle.) - MH Services (Omit if N/A) Current MH Services: [facility] - Disposition Disposition: Community Discharge (Into the care of [facility] staff at [facility]) Transport via of: Private Vechicle ([facility] staff)
--- NOTE | 2021-05-30 12:33 | PDOC.CMDIS ---
- If Service Date Differs Date of service: 05/30/21 Time of Service: 12:33 LACE Index Scoring Tool - Questions: Length of Stay (in days): 14 or more Acuity (Admit via E.D.?): Yes Comorbidities: Diabetes w/o Complication E.D. Visits: 4 - Answers: Total Score: 15 Risk of Readmission: High Risk Care Management Discharge Reason for Hospitalization: schizoaffective disorder Discharge Plan: Kandace was discharged into the care of [facility] today, who will keep her in their facility until ton container filler placement is found. She will have 06/01 supervision, provided by [facility]. [facility] drove her to the facility (previously the [facility] long term, below the Care Bed) via private vehicle. She will follow up with [facility], her PCP, and her discharge plan of care. Patient/Family Education Needs: Review discharge instructions, discussion of self care needs including ask me three. Services Needed at Discharge: Home Health Care Services (resume HH RN, add PT/OT, DOORPERSON OR LUGGAGE PORTER), Transportation ([facility] worker drove her, private vehicle.) - MH Services (Omit if N/A) Current MH Services: [facility] - Disposition Disposition: Community Discharge (Into the care of [facility] staff at [facility]) Transport via of: Private Vechicle ([facility] staff)
== END 2021-05-30 12:22 | disposition designated cancer center or children's hospital (05) | DRG 885 ==
LOC: ER 16:41 → MS 17:13
PROVIDERS: Nurse Practitioner Family; Admitting Provider Family Medicine; Emergency Provider Physician Assistant; PCP Family Medicine; Visit Provider Family Medicine
DX: F25.9 Schizoaffective disorder, unspecified (principal); F84.0 Autistic disorder; Z20.822 Contact with and (suspected) exposure to COVID-19; I10 Essential (primary) hypertension; K21.9 Gastro-esophageal reflux disease without esophagitis; E03.9 Hypothyroidism, unspecified; E11.9 Type 2 diabetes mellitus without complications; F31.9 Bipolar disorder, unspecified; F91.9 Conduct disorder, unspecified; R32 Unspecified urinary incontinence; G93.89 Other specified disorders of brain; K59.09 Other constipation; F17.210 Nicotine dependence, cigarettes, uncomplicated
CPT/HCPCS: 36415; 80053; 80307; 81025; 87635; 90686; 97166; 99285; 99305; 99315; 80320; 81003; 81015; 85025; 99284; J3490

== ENCOUNTER 2021-07-26 18:29 | Outpatient (REF) | payer MEDICAID, SELFPAY ==
[2021-07-26 18:15] LABS: Bilirubin Negative (Negative); Blood Negative (Negative); Clarity Clear (Clear); Glucose >=1000 mg/dL (Negative); Ketones Trace mg/dL (Negative); Leukocyte Esterase Negative (Negative); Nitrite Negative (Negative); Urobilinogen 0.2 EU/dL (Up TO 0.2)
== END 2021-07-26 18:30 | disposition home or self-care (01) ==
LOC: LBN 18:29
PROVIDERS: PCP Family Medicine; Visit Provider Family Medicine
DX: N39.0 Urinary tract infection, site not specified (principal)
CPT/HCPCS: 81003